=== PATIENT | male | born 1955 | race Caucasian/White ===

== ENCOUNTER 2016-08-13 08:06 | Emergency (ER) | payer BC ==
[2016-08-13 08:10] VITALS: RESP 18
--- NOTE | 2016-08-13 08:46 | ED ---
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 He currently is asymptomatic. He does relate that he has been having symptoms like this since restarting his cholesterol medication about a week ago. Prior to that he did not have symptoms. He had had problems in the past with cholesterol medications. He currently denies any fevers chills nausea vomiting or other symptoms at this time. Rotation no chest pain. MD Complaint: dizziness, lightheadedness - Related Data Home Medications Medication Instructions Recorded Confirmed Lisinopril [Zestril] 20 mg PO DAILY 11/09/13 08/13/16 Aspirin 81 mg PO DAILY 04/14/15 08/13/16 Cyanocobalamin [Vitamin B-12] 500 mcg PO DAILY 04/14/15 08/13/16 Multivit-Mins/Iron/Folic/Lycop 1 cap PO DAILY 04/14/15 08/13/16 [Centrum Men's Tablet] [place]-3 Fatty Acids/Fish Oil [Fish 1 cap PO DAILY 04/14/15 08/13/16 Oil 1,000 mg Softgel] Ascorbic Acid [Vitamin C] 500 mg PO DAILY 08/13/16 08/13/16 Atorvastatin [Lipitor] 10 mg PO DAILY 08/13/16 08/13/16 Ergocalciferol (Vitamin D2) 50,000 unit PO SA 08/13/16 08/13/16 [Vitamin D2] Vitamin E (Dl,Tocopheryl Acet) 400 unit PO DAILY 08/13/16 08/13/16 [Vitamin E] Previous Rx's Medication Instructions Recorded Clopidogrel [Plavix] 75 mg PO DAILY #60 tab 11/15/13 Metoprolol Tartrate [Lopressor] 25 mg PO BID #60 tab 11/15/13 Allergies Allergy/AdvReac Type Severity Reaction Status Date / Time Rlpcyap-Thl-Mrk Reductase Allergy Unknown Rash/Hives Verified 08/13/16 08:45 Inhibitor Review of Systems ROS Statement: Those systems with pertinent positive or pertinent negative responses have been documented in the HPI. ROS Other: All systems not noted in ROS Statement are negative. Past Medical History Past Medical History: Coronary Artery Disease (CAD), GERD/Reflux, Hyperlipidemia , Hypertension Additional Past Medical History / Comment(s): IRRITABLE BOWEL History of Any Multi-Drug Resistant Organisms: None Reported Past Surgical History: Heart Catheterization With Stent, Orthopedic Surgery Additional Past Surgical History / Comment(s): KNEE SURGERY Past Anesthesia/Blood Transfusion Reactions: No Reported Reaction Date of Last Stent Placement:: 09/2013 Past Psychological History: No Psychological Hx Reported Smoking Status: Former smoker Past Alcohol Use History: Occasional Additional Past Alcohol Use History / Comment(s): pt. states he drinks beer occassionally Past Drug Use History: None Reported - Past Family History Father Family Medical History: Osteoarthritis (OA) Additional Family Medical History / Comment(s): pt. states both of his parenrs are living and are healthy, pt. states they have had your average issues such as hip replacments, etc Mother Family Medical History: Osteoarthritis (OA) General Exam - General Exam Comments Initial Comments: This is a well-developed well-nourished awake alert oriented times 3 male Limitations: no limitations General appearance: alert, in no apparent distress Head exam: Present: atraumatic, normocephalic, normal inspection Eye exam: Present: normal appearance, PERRL, EOMI. Absent: scleral icterus, conjunctival injection, periorbital swelling ENT exam: Present: normal exam, mucous membranes moist Neck exam: Present: normal inspection. Absent: tenderness, meningismus, lymphadenopathy Respiratory exam: Present: normal lung sounds bilaterally. Absent: respiratory distress, wheezes, rales, rhonchi, stridor Cardiovascular Exam: Present: regular rate, normal rhythm, normal heart sounds. Absent: systolic murmur, diastolic murmur, rubs, gallop, clicks GI/Abdominal exam: Present: soft, normal bowel sounds. Absent: distended, tenderness, guarding, rebound, rigid Extremities exam: Present: normal inspection, full ROM, normal capillary refill. Absent: tenderness, pedal edema, joint swelling, calf tenderness Back exam: Present: normal inspection Neurological exam: Present: alert, oriented X3, CN II-XII intact Psychiatric exam: Present: normal affect, normal mood Skin exam: Present: warm, dry, intact, normal color. Absent: rash Course Vital Signs 08/13/16 08/13/16 08:07 09:00 Temperature 99.5 F Pulse Rate 79 79 Respiratory 18 18 Rate Blood Pressure 137/65 118/67 O2 Sat by Pulse 95 96 Oximetry - Reevaluation(s) Reevaluation #1: 08/13/16 10:05 I did compare the EKG performed today with one dated 04/14/15 no acute changes were noted. EKG Findings - EKG Results: EKG: interpreted by MARNI, sinus rhythm (Sinus rhythm rate is 75 HI of 160 QRS of 90 QT/QTC of 42/448 old inferior changes no acute ST-T wave abnormalities is evidence of anterior changes.) Medical Decision Making - Medical Decision Making I did discuss findings with the patient has . Patient will be discharged the symptoms are likely secondary to his anticholesterol medication. He will follow up with Dr. العلي regarding this. He is return when necessary I also did recommend he increase his fluid intake. - Lab Data Result diagrams: 08/13/16 08:30 08/13/16 08:30 Lab Results 08/13/16 08/13/16 08/13/16 Range/Units 08:30 08:30 08:30 WBC 10.0 (3.8-10.6) k/uL RBC 4.66 (4.30-5.90) m/uL Hgb 14.6 (13.0-17.5) gm/dL Hct 41.5 (39.0-53.0) % MCV 89.0 (80.0-100.0) fL MCH 31.3 (25.0-35.0) pg MCHC 35.2 (31.0-37.0) g/dL RDW 13.7 (11.5-15.5) % Plt Count 241 (150-450) k/uL Neutrophils % 69 % Lymphocytes % 20 % Monocytes % 4 % Eosinophils % 2 % Basophils % 0 % Neutrophils # 6.9 (1.3-7.7) k/uL Lymphocytes # 2.0 (1.0-4.8) k/uL Monocytes # 0.4 (0-1.0) k/uL Eosinophils # 0.2 (0-0.7) k/uL Basophils # 0.0 (0-0.2) k/uL Sodium 139 (137-145) mmol/L Potassium 4.8 (3.5-5.1) mmol/L Chloride 105 (98-107) mmol/L Carbon Dioxide 20 L (22-30) mmol/L Anion Gap 14 mmol/L BUN 17 (9-20) mg/dL Creatinine 0.50 L (0.66-1.25) mg/dL Est GFR (MDRD) Af Amer >60 (>60 ml/min/1.73 sqM) Est GFR (MDRD) Non-Af >60 (>60 ml/min/1.73 sqM) Glucose 121 H (74-99) mg/dL Calcium 10.1 (8.4-10.2) mg/dL Magnesium 1.9 (1.6-2.3) mg/dL Total Bilirubin 0.6 (0.2-1.3) mg/dL AST 28 (17-59) U/L ALT 50 (21-72) U/L Alkaline Phosphatase 99 (38-126) U/L Total Creatine Kinase 108 (55-170) U/L CK-MB (CK-2) 1.5 (0.0-2.4) ng/mL CK-MB (CK-2) Rel Index 1.4 Troponin I <0.012 (0.000-0.034) ng/mL Total Protein 8.4 H (6.3-8.2) g/dL Albumin 4.8 (3.5-5.0) g/dL - Radiology Data Radiology results: report reviewed (I did review the imaging and report no acute findings.), image reviewed Disposition Clinical Impression: Dehydration, Dizziness, Adverse reaction to statin medication Disposition: HOME SELF-CARE Condition: Good Instructions: Dizziness (ED), Dehydration (ED) Additional Instructions: Follow-up with Dr. LEENA العلي regarding the symptoms and the medication. Recommend contacting his office today Referrals: Eliu Dailey MD [Primary Care Provider] - 1-2 days
--- NOTE | 2016-08-13 08:56 | XR ---
EXAMINATION TYPE: XR chest 2V DATE OF EXAM: 08/13/2016 COMPARISON: Chest x-ray April 14, 2015. HISTORY: Cough per order. TECHNIQUE: Frontal and lateral views of the chest are obtained. FINDINGS: There is no focal air space opacity, pleural effusion, or pneumothorax seen. The cardiac silhouette size is slightly enlarged but less prominent than prior. The osseous structures are inta ct. IMPRESSION: No suspicious acute pulmonary process.
[2016-08-13 09:01] LABS: Basophils % (A) 0 %; CH 31.2; CHCM 35.3; Eosinophils # (A) 0.2 k/uL (0-0.7); Eosinophils % (A) 2 %; HCT 41.5 % (39.0-53.0); HDW 2.82; HGB 14.6 gm/dL (13.0-17.5); Luc # (Auto) 0.39; Luc % (Auto) 4; Lymphocytes % (A) 20 %; MCH 31.3 pg (25.0-35.0); MCHC 35.2 g/dL (31.0-37.0); Monocytes # (A) 0.4 k/uL (0-1.0); Monocytes % (A) 4 %; Neutrophils # (A) 6.9 k/uL (1.3-7.7); Neutrophils % (A) 69 %; RBC 4.66 m/uL (4.30-5.90); RDW 13.7 % (11.5-15.5)
[2016-08-13 09:09] LABS: ALT 50 U/L (21-72); AST 28 U/L (17-59); Alkaline Phosphatase 99 U/L (38-126); Anion Gap 14 mmol/L; Blood Urea Nitrogen 17 mg/dL (9-20); Calcium 10.1 mg/dL (8.4-10.2); Carbon Dioxide 20 mmol/L (22-30); Chloride 105 mmol/L (98-107); Glucose 121 mg/dL (74-99); Magnesium 1.9 mg/dL (1.6-2.3); Non-African American GFR(MDRD) >60 (>60 ml/min/1.73 sqM); Potassium 4.8 mmol/L (3.5-5.1); Sodium 139 mmol/L (137-145); Total Bilirubin 0.6 mg/dL (0.2-1.3); Total Protein 8.4 g/dL (6.3-8.2)
[2016-08-13 09:34] LABS: Creatine Kinase 108 U/L (55-170)
[2016-08-13 09:46] LABS: Creatine Kinase MB 1.5 ng/mL (0.0-2.4); Troponin I <0.012 ng/mL (0.000-0.034)
[2016-08-13 10:55] VITALS: BP 109/71; PULSE 81; TEMP 98
== END 2016-08-13 10:55 | disposition home or self-care (01) ==
LOC: EC 08:06
DX: R42 Dizziness and giddiness (principal); E86.0 Dehydration; T46.6X5A Adverse effect of antihyperlipidemic and antiarteriosclerotic drugs, initial encounter; I10 Essential (primary) hypertension; E78.5 Hyperlipidemia, unspecified; I25.10 Atherosclerotic heart disease of native coronary artery without angina pectoris; Z95.5 Presence of coronary angioplasty implant and graft; Z79.82 Long term (current) use of aspirin; Z79.899 Other long term (current) drug therapy; Z88.8 Allergy status to other drugs, medicaments and biological substances
CPT/HCPCS: 36415; 71020; 80053; 82550; 82553; 83735; 84484; 85025; 93005; 99284

== ENCOUNTER → 2018-05-10 | Outpatient (CLI) | payer MEDICAID | END | disposition home or self-care (01) | LOC: RADMRIMAIN 11:00 | PROVIDERS: ATTEND Family Medicine | DX: Z53.9 Procedure and treatment not carried out, unspecified reason (principal) ==

== ENCOUNTER 2020-05-19 09:21 | Observation (INO) | payer BC ==
[2020-05-19] MEDS ORDERED: ASPIRIN 81 MG PO STA (09:49)
[2020-05-19] MEDS ORDERED: NITROGLYCERIN OINT 1 INCH/GM PACKET TOPICAL STA (09:49)
--- NOTE | 2020-05-19 09:55 | ED ---
Chest Pain HPI - General Chief Complaint: Chest Pain Stated Complaint: chest tightness Time Seen by Provider: 05/19/20 09:29 Source: patient, family, RN notes reviewed, old records reviewed Mode of arrival: ambulatory Limitations: no limitations - History of Present Illness Initial Comments: This is a 65-year-old male with a history of coronary vascular disease with history of stent placement who apparently recently had an abnormal stress test and is scheduled to have a heart catheterization in 2 days. He presents today with complaints of recurrent retrosternal chest tightness worse at 45/10 severity currently about 2/10 severity does seem to get worse with exertion. No fevers chills nausea vomiting sweats no other symptoms reported at this time. The patient did take 81 mg of aspirin this morning. MD Complaint: chest pain - Related Data Home Medications Medication Instructions Recorded Confirmed lisinopriL [Zestril] 20 mg PO DAILY 11/09/13 05/19/20 Multivit-Mins/Iron/Folic/Lycop 1 tab PO DAILY 04/14/15 05/19/20 [Centrum Men's Tablet] [place]-3 Fatty Acids/Fish Oil [Fish 1 cap PO DAILY 04/14/15 05/19/20 Oil 1,000 mg Softgel] Ascorbic Acid [Vitamin C] 500 mg PO DAILY 08/13/16 05/19/20 Vitamin E (Dl,Tocopheryl Acet) 400 unit PO DAILY 08/13/16 05/19/20 [Vitamin E] Aspirin EC [Ecotrin Low Dose] 81 mg PO BID 05/19/20 05/19/20 Previous Rx's Medication Instructions Recorded Metoprolol Tartrate [Lopressor] 25 mg PO BID #60 tab 11/15/13 Allergies Allergy/AdvReac Type Severity Reaction Status Date / Time Ceqbjhz-Msk-Kib Reductase Allergy Unknown Rash/Hives/Joint Verified 05/19/20 10:27 Inhibitor Pain Review of Systems ROS Statement: Those systems with pertinent positive or pertinent negative responses have been documented in the HPI. ROS Other: All systems not noted in ROS Statement are negative. EKG Findings - EKG Results: EKG: interpreted by MARNI, sinus rhythm (Sinus rhythm a 71 appear interval 164 QRS 92 QT since QTC 42/or 36 left exodeviation evidence of old inferior changes no evidence of acute ST-T wave changes at this time.) Past Medical History Past Medical History: Coronary Artery Disease (CAD), GERD/Reflux, Hyperlipidemia, Hypertension, Sleep Apnea/CPAP/BIPAP Additional Past Medical History / Comment(s): IRRITABLE BOWEL SYNDROME,uses cpap History of Any Multi-Drug Resistant Organisms: None Reported Past Surgical History: Heart Catheterization With Stent, Joint Replacement Additional Past Surgical History / Comment(s): JANESSA KNEE REPLACEMENTS,HEART STENTS X2 Past Anesthesia/Blood Transfusion Reactions: No Reported Reaction Date of Last Stent Placement:: 09/2013 Past Psychological History: No Psychological Hx Reported Smoking Status: Never smoker Past Alcohol Use History: Occasional Past Drug Use History: None Reported - Past Family History Father Family Medical History: Osteoarthritis (OA) Additional Family Medical History / Comment(s): pt. states both of his parents are living and are healthy, pt. states they have had your average issues such as hip replacments, etc Mother Family Medical History: Osteoarthritis (OA) General Exam - General Exam Comments Initial Comments: This is a well-developed well-nourished awake alert oriented times 3 male Limitations: no limitations General appearance: alert, in no apparent distress Head exam: Present: atraumatic, normocephalic, normal inspection Eye exam: Present: normal appearance, PERRL, EOMI. Absent: scleral icterus, conjunctival injection, periorbital swelling ENT exam: Present: normal exam, mucous membranes moist Neck exam: Present: normal inspection, full ROM, other (No stridor JVD or bruits). Absent: tenderness, meningismus, lymphadenopathy Respiratory exam: Present: normal lung sounds bilaterally. Absent: respiratory distress, wheezes, rales, rhonchi, stridor Cardiovascular Exam: Present: regular rate, normal rhythm, normal heart sounds. Absent: systolic murmur, diastolic murmur, rubs, gallop, clicks GI/Abdominal exam: Present: soft, normal bowel sounds. Absent: distended, tenderness, guarding, rebound, rigid Extremities exam: Present: normal inspection, full ROM, normal capillary refill. Absent: tenderness, pedal edema, joint swelling, calf tenderness Back exam: Present: normal inspection Neurological exam: Present: alert, oriented X3, CN II-XII intact Psychiatric exam: Present: normal affect, normal mood Skin exam: Present: warm, dry, intact, normal color. Absent: rash Course Vital Signs 05/19/20 09:23 Temperature 97.9 F Pulse Rate 73 Respiratory 18 Rate Blood Pressure 156/72 O2 Sat by Pulse 98 Oximetry - Reevaluation(s) Reevaluation #1: 05/19/20 11:03 Reevaluation patient reveals that he has no further chest discomfort at this time Chest Pain MDM - MDM I did discuss findings with the patient family as well as with Dr. Mccollum patient be admitted with cardiology consultation. The presentation is consistent with unstable angina. Critical Care Time Critical Care Time: Yes Total Critical Care Time: 33 Critical Care Time: Critical care time includes initial presentation with history physical labs x- rays multiple reevaluation patient response to therapy review of old charting is available discussed with the patient family regarding findings discussion with the main physician admission orders and documentation of the above Disposition Clinical Impression: Unstable angina, Chest pain Disposition: [facility] Condition: Fair Referrals: Eliu Dailey MD [Primary Care Provider] - 1-2 days
[2020-05-19 10:00] LABS: Basophils % (A) 1 %; Eosinophils # (A) 0.2 k/uL (0-0.7); Eosinophils % (A) 2 %; HCT 44.1 % (39.0-53.0); HGB 15.2 gm/dL (13.0-17.5); Lymphocytes % (A) 24 %; MCH 30.9 pg (25.0-35.0); MCHC 34.4 g/dL (31.0-37.0); MCV 89.8 fL (80.0-100.0); Mean Platelet Volume 6.7; Monocytes # (A) 0.4 k/uL (0-1.0); Monocytes % (A) 5 %; Neutrophils # (A) 5.3 k/uL (1.3-7.7); Neutrophils % (A) 66 %; Platelet Count 241 k/uL (150-450); RBC 4.91 m/uL (4.30-5.90); RDW 13.1 % (11.5-15.5); WBC 8.1 k/uL (3.8-10.6)
[2020-05-19 10:12] LABS: D-Dimer 0.34 mg/L FEU (<0.60); Partial Thromboplastin Time 26.1 sec (22.0-30.0); Prothrombin Time 10.3 sec (9.0-12.0)
--- NOTE | 2020-05-19 10:27 | XR ---
EXAMINATION TYPE: XR chest 2V DATE OF EXAM: 05/19/2020 COMPARISON: 08/13/2016 INDICATION: Chest tightness TECHNIQUE: Frontal and lateral views of the chest are obtained. FINDINGS: The heart size is normal. The pulmonary vasculature is normal. The lungs are clear. IMPRESSION: 1. No acute pulmonary process.
[2020-05-19 10:33] LABS: ALT 29 U/L (4-49); African American GFR (CKD) >90 (>60 ml/min/1.73 sqM); Albumin 4.8 g/dL (3.5-5.0); Anion Gap 12 mmol/L; Blood Urea Nitrogen 13 mg/dL (9-20); Carbon Dioxide 20 mmol/L (22-30); Chloride 105 mmol/L (98-107); Creatine Kinase 137 U/L (55-170); Glucose 123 mg/dL (74-99); Lipase 114 U/L (23-300); Non-African American GFR(CKD) >90 (>60 ml/min/1.73 sqM); Sodium 137 mmol/L (137-145); Total Bilirubin 0.6 mg/dL (0.2-1.3)
[2020-05-19 10:39] LABS: Magnesium 1.9 mg/dL (1.6-2.3); Potassium 5.1 mmol/L (3.5-5.1)
[2020-05-19 10:40] LABS: AST 35 U/L (17-59); Alkaline Phosphatase 77 U/L (38-126)
[2020-05-19] MEDS ORDERED: NITROGLYCERIN SL TABS 0.4 MG TAB SUBLINGUAL PRN (11:04)
[2020-05-19] MEDS ORDERED: HEPARIN SODIUM,PORCINE 5,000 UNIT/ML 1 ML VIAL IV ONE (11:07)
[2020-05-19] MEDS ORDERED: HEPARIN SOD,PORK IN 0.45% NACL 25,000 UNIT in 0.45% NACL 1 250ML.BAG IV SCH (11:15)
[2020-05-19] MEDS ORDERED: SODIUM CHLORIDE 0.9% 500 ML 500 ML IV SCH (11:30)
[2020-05-19 12:12] VITALS: RESP 16
[2020-05-19] MEDS: NITROGLYCERIN OINT 1 INCH/GM PACKET TOPICAL SCH ×2 (12:36→17:15)
--- NOTE | 2020-05-19 14:22 | P.CRDCN ---
History of Present Illness Consult date: 05/19/20 Reason for Consult (text): Chest pain Consult reason: chest pain Chief complaint: Chest pain History of present illness: HISTORY OF PRESENT ILLNESS AND PLAN: This is a 65-year-old male with history of morbid obesity, hypertension, hyperlipidemia, CAD status post PCI to RCA and LAD. Patient presents to ER this a.m. with complaints of chest tightness and exertional shortness of breath with activity. Patient follows with Dr. LEENA العلي in office and is well-known. Patient was planning to have cardiac cath on 05/21/2020 but began to experience significant chest tightness with shortness of breath and decided to come to the ER. Patient currently lying in bed in no acute distress. No current complaints of chest pain, chest pressure, shortness of breath or palpitations. Patient is morbidly obese. EKG shows sinus rhythm no acute changes. Troponin mildly elevated at 0.023 and 0.023. VSS, 99% on RA. SIGNIFICANT PAST MEDICAL HISTORY: Morbid obesity, hypertension, hyperlipidemia, CAD status post PCI to RCA and LAD. PAST SURGICAL HISTORY: See list. EKG = Sinus Rhythm, HR 71 Troponins negative positive x 2 @ 0.023 and 0.023 SIGNIFICANT LABORATORY VALUES: Chest x-ray = no acute process CT of chest = Most recent echo 05/2018 = EF 50%, inferior basal septal hypokinesia. No significant pulmonary hypertension Most recent Lexiscan 05/04/20 stress test shows new moderate to severe intensity moderate size inferior lateral reversible defect with small fixed component and reduced EF at 45%. Most recent cardiac cath 10/2013 = PCI stenting of CX marginal with drug-eluting stent and proximal LAD with drug-eluting stent 2013 REVIEW OF SYSTEMS: CONSTITUTIONAL: Denies fever. Denies chills. EYES: Denies blurred vision. Denies blurred vision or vision changes. Denies eye pain. EARS, NOSE, MOUTH & THROAT: Denies headache. Denies sore throat. Denies ear pain Denies hemoptysis. CARDIOVASCULAR: Complains of chest pain and shortness of breath with exertion. Denies orthopnea. Denies PND. Denies palpitations. RESPIRATORY: Denies cough. Denies shortness of breath. GASTROINTESTINAL: Denies abdominal pain or distention. Denies diarrhea. Denies constipation. Denies nausea. Denies vomiting. MUSCULOSKELETAL: Denies myalgias. INTEGUMENTARY: Denies pruitis. Denies rash. ENDOCRINE: Denies fatigue. Denies weight change. Denies polydipsia. Denies polyurina Denies heat/cold intolerance. GENITOURINARY: Denies burning, hematuria or urgency with micturation. HEMATOLOGIC: Denies history of anemia. Denies bleeding. NEUROLOGIC: Denies numbness. Denies tingling. Denies weakness. PSYCHIATRIC: Denies anxiety. Denies depression. PHYSICAL EXAM: GENERAL: Morbid obesity. Well developed, in no acute distress. HEENT: Head is atraumatic, normocephalic. Pupils are equal, round. Extra ocular movements intact. Mucous membranes moist. Neck supple. No JVD. No carotid bruit. No thyromegaly. LUNGS: Clear to auscultation. No wheezes, rales or rhonchi. No chest wall tenderness on palpation or with deep breathing. HEART: Regular rate and rhythm, no rubs or gallops. S1 and S2 heard. No murmur. ABDOMEN: Abdominal exam, WNL. Bowel sounds x4 quads. Soft, non-tender, without masses, organomegaly, or abdominal aorta enlargement. EXTREMITIES/VASCULAR: Extremities have easily palpable radial, femoral, dorsalis pedis and posterior tibial pulses. No cyanosis, calf tenderness. No BLE edema. NEUROLOGIC: Patient is awake, alert and oriented x3. No focal neurologic abnormalities. FINAL IMPRESSION: 1. Chest pain 2. CAD s/p PCI x 2 3. Hypertension 4. Hyperlipidemia 5. Morbid Obesity PLAN: Continue Heparin drip. Continue home medications. We will continue to follow with serial troponins. Nothing by mouth after midnight, pending possible cardiac cath on 05/20/2020 instead of Thursday. Heart healthy diet. Nurse Practitioner note has been reviewed by the Physician. Signing provider agrees with the documented findings, assessment and plan of care. Past Medical History Past Medical History: Coronary Artery Disease (CAD), GERD/Reflux, Hyperlipidemia, Hypertension, Sleep Apnea/CPAP/BIPAP Additional Past Medical History / Comment(s): IRRITABLE BOWEL SYNDROME,uses cpap History of Any Multi-Drug Resistant Organisms: None Reported Past Surgical History: Heart Catheterization With Stent, Joint Replacement Additional Past Surgical History / Comment(s): JANESSA KNEE REPLACEMENTS,HEART STENTS X2 Past Anesthesia/Blood Transfusion Reactions: No Reported Reaction Date of Last Stent Placement:: 09/2013 Past Psychological History: No Psychological Hx Reported Smoking Status: Former smoker Past Alcohol Use History: Occasional Additional Past Alcohol Use History / Comment(s): pt. states he drinks beer occassionally Past Drug Use History: None Reported - Past Family History Father Family Medical History: Osteoarthritis (OA) Additional Family Medical History / Comment(s): pt. states both of his parents are living and are healthy, pt. states they have had your average issues such as hip replacments, etc Mother Family Medical History: Osteoarthritis (OA) Medications and Allergies Home Medications Medication Instructions Recorded Confirmed Type lisinopriL [Zestril] 20 mg PO DAILY 11/09/13 05/19/20 History Metoprolol Tartrate [Lopressor] 25 mg PO BID #60 tab 11/15/13 05/19/20 Rx Multivit-Mins/Iron/Folic/Lycop 1 tab PO DAILY 04/14/15 05/19/20 History [Centrum Men's Tablet] [place]-3 Fatty Acids/Fish Oil [Fish 1 cap PO DAILY 04/14/15 05/19/20 History Oil 1,000 mg Softgel] Ascorbic Acid [Vitamin C] 500 mg PO DAILY 08/13/16 05/19/20 History Vitamin E (Dl,Tocopheryl Acet) 400 unit PO DAILY 08/13/16 05/19/20 History [Vitamin E] Aspirin EC [Ecotrin Low Dose] 81 mg PO BID 05/19/20 05/19/20 History Allergies Allergy/AdvReac Type Severity Reaction Status Date / Time Jaoemsu-Rlo-Vxp Reductase Allergy Unknown Rash/Hives/Joint Verified 05/19/20 10:27 Inhibitor Pain Physical Exam Vitals: Vital Signs Temp Pulse Pulse Resp BP BP Pulse Ox 05/19/20 12:30 16 05/19/20 12:11 98.2 F 78 16 128/74 94 L 05/19/20 11:15 98.3 F 78 18 150/86 96 05/19/20 09:23 97.9 F 73 18 156/72 98 Intake and Output 05/18/20 05/19/20 05/19/20 22:59 06:59 14:59 Intake Total 80 Balance 80 Intake: IV 80 Sodium Chloride 0.9% 500 80 ml 500 ml @ 20 mls/hr IV .Q24H [facility] Rx#:[id number] Other: Voiding Method Toilet Weight 104.326 kg Results 05/19/20 09:42 05/19/20 09:42 Cardiac Enzymes 05/19/20 05/19/20 05/19/20 Range/Units 09:42 09:42 12:44 AST 35 (17-59) U/L Troponin I 0.023 0.023 (0.000-0.034) ng/mL Coagulation 05/19/20 Range/Units 09:42 PT 10.3 (9.0-12.0) sec APTT 26.1 (22.0-30.0) sec CBC 05/19/20 Range/Units 09:42 WBC 8.1 (3.8-10.6) k/uL RBC 4.91 (4.30-5.90) m/uL Hgb 15.2 (13.0-17.5) gm/dL Hct 44.1 (39.0-53.0) % Plt Count 241 (150-450) k/uL Comprehensive Metabolic Panel 05/19/20 Range/Units 09:42 Sodium 137 (137-145) mmol/L Potassium 5.1 (3.5-5.1) mmol/L Chloride 105 (98-107) mmol/L Carbon Dioxide 20 L (22-30) mmol/L BUN 13 (9-20) mg/dL Creatinine 0.45 L (0.66-1.25) mg/dL Glucose 123 H (74-99) mg/dL Calcium 10.0 (8.4-10.2) mg/dL AST 35 (17-59) U/L ALT 29 (4-49) U/L Alkaline Phosphatase 77 (38-126) U/L Total Protein 8.0 (6.3-8.2) g/dL Albumin 4.8 (3.5-5.0) g/dL Current Medications Generic Name Dose Route Start Last Admin Trade Name Freq PRN Reason Stop Dose Admin Ascorbic Acid 500 mg 05/20/20 09:00 Ascorbic Acid 500 Mg Tab PO DAILY [facility] Aspirin 81 mg 05/19/20 21:00 Aspirin 81 Mg PO BID [facility] Heparin Sodium/Sodium Chloride 250 mls @ 10 mls/hr 05/19/20 11:15 05/19/20 11:52 25,000 unit/ Sodium Chloride IV 9.585 units/kg/hr .Q24H [facility] 10 mls/hr Administration Protocol 9.585 UNITS/KG/HR Sodium Chloride 500 mls @ 20 mls/hr 05/19/20 11:30 05/19/20 11:49 Saline 0.9% IV 20 mls/hr .Q24H [facility] Administration Lisinopril 20 mg 05/20/20 09:00 Lisinopril 20 Mg Tab PO DAILY [facility] Metoprolol Tartrate 25 mg 05/19/20 21:00 Metoprolol Tartrate 25 Mg Tab PO BID [facility] Multivitamins 1 each 05/20/20 09:00 Multivitamins, Thera 1 Each Tab PO DAILY [facility] Nitroglycerin 0.4 mg 05/19/20 11:04 Nitroglycerin Sl Tabs 0.4 Mg Tab SUBLINGUAL Q5M PRN Chest Pain Nitroglycerin 1 inch 05/19/20 12:00 05/19/20 12:36 Nitroglycerin Oint 1 Inch/Gm Packet TOPICAL 1 inch Q6HR [facility] Administration Vitamin E 400 unit 05/20/20 09:00 Vitamin E (Dl,Tocopheryl Acet) 400 Unit Cap PO DAILY [facility] Intake and Output 05/18/20 05/19/20 05/19/20 22:59 06:59 14:59 Intake Total 80 Balance 80 Intake: IV 80 Sodium Chloride 0.9% 500 80 ml 500 ml @ 20 mls/hr IV .Q24H [facility] Rx#:[id number] Other: Voiding Method Toilet Weight 104.326 kg Patient Weight 05/20/20 06:59 Weight 104.326 kg 05/19/20 09:42 05/19/20 09:42 EKG Interpretations (text) Sinus Rhythm
--- NOTE | 2020-05-19 16:00 | PN ---
PROGRESS NOTE Mr. Pope is a gentleman with known multivessel PCI. He was advised cardiac catheterization which is electively to be performed on Thursday because of an abnormal stress test. However, he was admitted to the hospital because he came in with chest discomfort to the emergency room this morning. He was seen by the emergency room physician, Dr. Bates and advised hospitalization. He had a 2/10 chest discomfort which seems to have resolved. He is feeling well at this time. No chest pain or shortness of breath at the time of my evaluation. Please see the detailed consultation by the nurse practitioner. Plan is to treat him medically for now. Obtain serial troponins, but if he has more pain, I will study him tomorrow as opposed to Thursday. I discussed my thoughts in detail with the patient and we will follow him closely. MMSOLITARIOL / IJN: [id number] /
[2020-05-19] MEDS ORDERED: MECLIZINE 25 MG TAB PO PRN (17:02)
[2020-05-19] MEDS: HEPARIN SODIUM,PORCINE 5,000 UNIT/ML 1 ML VIAL IV PRN (18:04)
--- NOTE | 2020-05-19 19:36 | P.HPIM ---
History of Present Illness H&P Date: 05/19/20 Chief Complaint: Chest tightness History of presenting complaint: This is a pleasant 65-year-old patient of Dr. hirsch. Follows with cardiology Dr. LEENA العلي. Has known coronary artery due to stent about 7 years ago. Other chronic stable medical conditions include GERD, hypertension, hyperlipidemia, irritable bowel syndrome, obstructive sleep apnea uses CPAP. Patient developed chest tightness last night and also developed this morning. He thinks he had some more short episodes prior to that. He was a bit dizzy. No perspiration or shortness of breath. No radiation. Present for variable duration. Decided to come in as he is concerned about unstable angina. Patient was planned for a chordee catheterization on May 21 but recently had a positive stress test. Review of systems: GEN.: None EYES: None HEENT: None NECK: None RESPIRATORY: None CARDIOVASCULAR: As above GASTROINTESTINAL: None GENITOURINARY: None MUSCULOSKELETAL: None LYMPHATICS: None HEMATOLOGICAL: None PSYCHIATRY: None NEUROLOGICAL: None Past medical history to include: Chordee artery disease with stent, 7 years ago, GERD, hyperlipidemia, hypertension, obstructive sleep apnea uses CPAP, irritable bowel syndrome Social history: . 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 Alcohol occasionally. Did smoke in the past. Physical examination: VITAL SIGNS: 98.3, 78, 18, 128/74, 94% on room air GENERAL: BMI 36, reclining in bed, awake. EYES: Pupils equal. Conjunctiva normal. HEENT: External appearance of nose and ears normal, oral cavity grossly normal. NECK: JVD not raised; masses not palpable. HEART: First and second heart sounds are normal; no edema. LUNGS: Respiratory rate normal; clear to auscultation. ABDOMEN: Soft, nontender, liver spleen not palpable, no masses palpable. PSYCH: Alert and oriented x3; mood and affect normal. NEUROLOGICAL: Cranial nerves grossly intact; no facial asymmetry, power and sensation grossly intact. LYMPHATICS: No lymph nodes palpable in the axilla and neck INVESTIGATIONS, reviewed in the clinical context: WBC 8.1 hemoglobin 15.2 platelets 241 potassium 5.1 creatinine 0.45 Potassium 5.1 creatinine 0.45 Troponin I 0.023, 0.023, 0.021 Coronavirus [PCR] not detected EKG tracing personally reviewed by de-Q waves in inferior leads Chest x-ray film personally reviewed by me-cardiomegaly Assessment and plan: -Unstable angina in a patient with known coronary artery disease and a recent positive stress test. Patient was scheduled as an outpatient for a cardiac cath on May 21. Patient on aspirin and beta bev Nitropaste. IV heparin. -IV heparin monitoring -GERD, use Pepcid when necessary -Hyperlipidemia, and Lipitor -Essential hypertension, on lisinopril and beta bev -Obstructive sleep apnea uses CPAP -Irritable bowel syndrome -Obesity BMI 36 -Coronary artery disease with prior stent 7 years ago Care was discussed with the patient. Cardiac catheterization as per cardiology Past Medical History Past Medical History: Coronary Artery Disease (CAD), GERD/Reflux, Hyperlip idemia, Hypertension, Sleep Apnea/CPAP/BIPAP Additional Past Medical History / Comment(s): IRRITABLE BOWEL SYNDROME,uses cpap History of Any Multi-Drug Resistant Organisms: None Reported Past Surgical History: Heart Catheterization With Stent, Joint Replacement Additional Past Surgical History / Comment(s): JANESSA KNEE REPLACEMENTS,HEART STENTS X2 Past Anesthesia/Blood Transfusion Reactions: No Reported Reaction Date of Last Stent Placement:: 09/2013 Past Psychological History: No Psychological Hx Reported Smoking Status: Never smoker Past Alcohol Use History: Occasional Past Drug Use History: None Reported - Past Family History Father Family Medical History: Osteoarthritis (OA) Additional Family Medical History / Comment(s): pt. states both of his parents are living and are healthy, pt. states they have had your average issues such as hip replacments, etc Mother Family Medical History: Osteoarthritis (OA) Medications and Allergies Home Medications Medication Instructions Recorded Confirmed Type lisinopriL [Zestril] 20 mg PO DAILY 11/09/13 05/19/20 History Metoprolol Tartrate [Lopressor] 25 mg PO BID #60 tab 11/15/13 05/19/20 Rx Multivit-Mins/Iron/Folic/Lycop 1 tab PO DAILY 04/14/15 05/19/20 History [Centrum Men's Tablet] [place]-3 Fatty Acids/Fish Oil [Fish 1 cap PO DAILY 04/14/15 05/19/20 History Oil 1,000 mg Softgel] Ascorbic Acid [Vitamin C] 500 mg PO DAILY 08/13/16 05/19/20 History Vitamin E (Dl,Tocopheryl Acet) 400 unit PO DAILY 08/13/16 05/19/20 History [Vitamin E] Aspirin EC [Ecotrin Low Dose] 81 mg PO BID 05/19/20 05/19/20 History Allergies Allergy/AdvReac Type Severity Reaction Status Date / Time [id number] Reductase Allergy Unknown Rash/Hives/Joint Verified 05/19/20 10:27 Inhibitor Pain Physical Exam Vitals: Vital Signs Temp Pulse Resp BP Pulse Ox 05/19/20 11:15 98.3 F 78 18 150/86 96 05/19/20 09:23 97.9 F 73 18 156/72 98 Intake and Output 05/18/20 05/19/20 05/19/20 22:59 06:59 14:59 Other: Weight 104.326 kg Results CBC & Chem 7: 05/19/20 09:42 05/19/20 09:42 Labs: Abnormal Lab Results - Last 24 Hours (Table) 05/19/20 Range/Units 09:42 Carbon Dioxide 20 L (22-30) mmol/L Creatinine 0.45 L (0.66-1.25) mg/dL Glucose 123 H (74-99) mg/dL
[2020-05-19] MEDS: METOPROLOL TARTRATE 25 MG TAB PO SCH (21:03)
[2020-05-19] MEDS: ASPIRIN 81 MG PO SCH (21:04)
[2020-05-20] MEDS: NITROGLYCERIN OINT 1 INCH/GM PACKET TOPICAL SCH ×2 (00:29→05:59)
[2020-05-20] MEDS: HEPARIN SODIUM,PORCINE 5,000 UNIT/ML 1 ML VIAL IV PRN (01:41)
[2020-05-20 02:32] VITALS: PULSE 74
[2020-05-20 03:34] LABS: Cholesterol 275 mg/dL (<200); HDL Cholesterol 57 mg/dL (40-60)
[2020-05-20 03:41] LABS: Triglycerides 912 mg/dL (<150)
[2020-05-20 07:53] VITALS: BP 142/69; TEMP 98.3
[2020-05-20] MEDS: METOPROLOL TARTRATE 25 MG TAB PO SCH (08:39)
[2020-05-20] MEDS: ASPIRIN 81 MG PO SCH (08:39)
[2020-05-20] MEDS ORDERED: MULTIVITAMINS, THERA 1 EACH TAB PO SCH (09:00)
[2020-05-20] MEDS ORDERED: ASCORBIC ACID 500 MG TAB PO SCH (09:00)
[2020-05-20] MEDS ORDERED: ASPIRIN 325 MG TAB PO SCH (09:00)
[2020-05-20] MEDS ORDERED: VITAMIN E (DL,TOCOPHERYL ACET) 400 UNIT CAP PO SCH (09:00)
[2020-05-20] MEDS ORDERED: NON FORMULARY DRUG (Omega-3 Fatty Acids/Fish Oil [Fish Oil 1,000 Mg Softgel] 1 EACH Capsul PO SCH (09:00)
[2020-05-20] MEDS ORDERED: lisinopriL 20 MG TAB PO SCH (09:00)
--- NOTE | 2020-05-20 09:29 | PN ---
PROGRESS NOTE Mr. Pope is a patient with known CAD, was scheduled for elective cardiac cath tomorrow, came into the hospital yesterday with atypical chest pain. Troponins were negative. He is ambulating in the hallways without symptoms. If he has no further chest pain, he can go home and come in for the procedure electively tomorrow as scheduled. Vitals are stable. No JVD. S1, S2 heard normally. Lungs are clear. Abdomen and lower extremity exam is unchanged. If however he has any symptoms I will keep him in the hospital on the heparin drip and perform the procedure tomorrow. I will DC heparin drip, MMODL / IJN: [id number] /
--- NOTE | 2020-05-20 22:21 | P.DS ---
Providers Date of admission: 05/19/20 11:04 Expected date of discharge: 05/20/20 Attending physician: Delvis Mccollum Consults: 05/19/20 11:04 Consult Physician Urgent Consulting Provider: Jarrod العلي Consult Reason/Comments: Chest pain, unstable angina Do you want consulting provider notified?: Yes Primary care physician: Eliu Dailey MD Hospital Course: Chief Complaint: Chest tightness History of presenting complaint: This is a pleasant 65-year-old patient of Dr. dailey. Follows with cardiology Dr. LEENA العلي. Has known coronary artery due to stent about 7 years ago. Other chronic stable medical conditions include GERD, hypertension, hyperlipidemia, irritable bowel syndrome, obstructive sleep apnea uses CPAP. Patient developed chest tightness last night and also developed this morning. He thinks he had some more short episodes prior to that. He was a bit dizzy. No perspiration or shortness of breath. No radiation. Present for variable duration. Decided to come in as he is concerned about unstable angina. Patient was planned for a cardiac catheterization on May 21 but recently had a positive stress test. Admitted with unstable angina. Today-seen by cardiology. Okay to be discharged. Patient not having any further cardiac symptoms. Discussed again and then for the patient and . Told to return to the hospital if pain was to return. Patient scheduled for cardiac cath tomorrow morning. Discussion and discharge planning more than 35 minutes Consultation: Dr. LEENA العلي from cardiology Past medical history to include: Chordee artery disease with stent, 7 years ago, GERD, hyperlipidemia, hypertension, obstructive sleep apnea uses CPAP, irritable bowel syndrome Social history: . [employer] of [employer]. Alcohol occasionally. Did smoke in the past. Physical examination: VITAL SIGNS: 98.3, 74, 16, 1 42 x 69, 94% on room air GENERAL: Sitting up, comfortable. EYES: Pupils equal. Conjunctiva normal. NECK: JVD not raised; masses not palpable. HEART: First and second heart sounds are normal; no edema. LUNGS: Respiratory rate normal; clear to auscultation. ABDOMEN: Soft, nontender, liver spleen not palpable, no masses palpable. PSYCH: Alert and oriented x3; mood and affect normal. INVESTIGATIONS, reviewed in the clinical context: Triglycerides 912 cholesterol 275 WBC 8.1 hemoglobin 15.2 platelets 241 potassium 5.1 creatinine 0.45 Potassium 5.1 creatinine 0.45 Troponin I 0.023, 0.023, 0.021 Coronavirus [PCR] not detected EKG tracing personally reviewed by me-Q waves in inferior leads Chest x-ray film personally reviewed by me-cardiomegaly Assessment and plan: -Unstable angina in a patient with known coronary artery disease and a recent positive stress test. Patient was scheduled as an outpatient for a cardiac cath on May 21. Patient on aspirin and beta bev Nitropaste. IV heparin. -IV heparin monitoring -GERD, use Pepcid when necessary -Hyperlipidemia, and Lipitor -Essential hypertension, on lisinopril and beta bev -Obstructive sleep apnea uses CPAP -Irritable bowel syndrome -Obesity BMI 36 -Coronary artery disease with prior stent 7 years ago Disposition: Home Patient Condition at Discharge: Fair Plan - Discharge Summary New Discharge Prescriptions: New Nitroglycerin Sl Tabs [Nitrostat] 0.4 mg SUBLINGUAL Q5M PRN #30 tab PRN Reason: Chest Pain Continue lisinopriL [Zestril] 20 mg PO DAILY Metoprolol Tartrate [Lopressor] 25 mg PO BID #60 tab [place]-3 Fatty Acids/Fish Oil [Fish Oil 1,000 mg Softgel] 1 cap PO DAILY Multivit-Mins/Iron/Folic/Lycop [Centrum Men's Tablet] 1 tab PO DAILY Vitamin E (Dl,Tocopheryl Acet) [Vitamin E] 400 unit PO DAILY Ascorbic Acid [Vitamin C] 500 mg PO DAILY Aspirin EC [Ecotrin Low Dose] 81 mg PO BID Discharge Medication List lisinopriL [Zestril] 20 mg PO DAILY 11/09/13 [History] Metoprolol Tartrate [Lopressor] 25 mg PO BID #60 tab 11/15/13 [Rx] Multivit-Mins/Iron/Folic/Lycop [Centrum Men's Tablet] 1 tab PO DAILY 04/14/15 [History] [place]-3 Fatty Acids/Fish Oil [Fish Oil 1,000 mg Softgel] 1 cap PO DAILY 04/14/15 [History] Ascorbic Acid [Vitamin C] 500 mg PO DAILY 08/13/16 [History] Vitamin E (Dl,Tocopheryl Acet) [Vitamin E] 400 unit PO DAILY 08/13/16 [History] Aspirin EC [Ecotrin Low Dose] 81 mg PO BID 05/19/20 [History] Nitroglycerin Sl Tabs [Nitrostat] 0.4 mg SUBLINGUAL Q5M PRN #30 tab 05/20/20 [Rx] Follow up Appointment(s)/Referral(s): Jarrod العلي MD [STAFF PHYSICIAN] - 05/21/20 (Return at 0600 as directed for Cardiac cath 05/21/20) Eliu Dailey MD [Primary Care Provider] - 1-2 days Patient Instructions/Handouts: Chest Pain (DC), Heart Healthy Diet (DC) Discharge Disposition: HOME SELF-CARE
== END 2020-05-20 12:30 | disposition home or self-care (01) ==
LOC: EC 09:21 → 6NMEDSUR 11:04
PROVIDERS: ADMIT Hospitalist; ATTEND Hospitalist
DX: I25.110 Atherosclerotic heart disease of native coronary artery with unstable angina pectoris (principal); I11.9 Hypertensive heart disease without heart failure; R94.39 Abnormal result of other cardiovascular function study; E78.5 Hyperlipidemia, unspecified; G47.33 Obstructive sleep apnea (adult) (pediatric); K21.9 Gastro-esophageal reflux disease without esophagitis; K58.9 Irritable bowel syndrome, unspecified; Z99.89 Dependence on other enabling machines and devices; E66.01 Morbid (severe) obesity due to excess calories; Z68.36 Body mass index [BMI] 36.0-36.9, adult; Z79.82 Long term (current) use of aspirin; Z79.899 Other long term (current) drug therapy; Z88.8 Allergy status to other drugs, medicaments and biological substances; Z95.5 Presence of coronary angioplasty implant and graft; Z96.653 Presence of artificial knee joint, bilateral; Z87.891 Personal history of nicotine dependence; Z82.61 Family history of arthritis
CPT/HCPCS: 96376 ×3; 96366 ×2; 93005 ×2; 96365; 99291; 36415; 85379; 80061; 80053; 82550; 83690; 83735; 84484; 85025; 85610; 85730 ×2; 87635; 71046; G0378 ×2; J1644 ×3

== ENCOUNTER 2020-05-21 05:59 | Day surgery (SDC) | payer BC, MEDICAID ==
[2020-05-18 10:06] VITALS: BMI 36.0
[~2020-05-21 05:59] MED LIST: ALPRAZolam 0.25 MG TAB PO PRN; ALPRAZolam 0.5 MG TAB PO PRN; NITROGLYCERIN SL TABS 0.4 MG TAB SUBLINGUAL PRN; SODIUM CHLORIDE 0.9% 1,000 ML in EMPTY BAG 1 BAG IV ONE
[2020-05-21] MEDS ORDERED: ASPIRIN 81 MG ONE (06:13)
[2020-05-21 06:42] LABS: Basophils % (A) 0 %; Eosinophils # (A) 0.4 k/uL (0-0.7); Eosinophils % (A) 4 %; HCT 44.1 % (39.0-53.0); HGB 14.7 gm/dL (13.0-17.5); Lymphocytes % (A) 19 %; MCH 29.8 pg (25.0-35.0); MCHC 33.4 g/dL (31.0-37.0); MCV 89.2 fL (80.0-100.0); Mean Platelet Volume 6.7; Monocytes # (A) 0.6 k/uL (0-1.0); Monocytes % (A) 6 %; Neutrophils # (A) 7.2 k/uL (1.3-7.7); Neutrophils % (A) 70 %; Platelet Count 276 k/uL (150-450); RBC 4.95 m/uL (4.30-5.90); RDW 13.7 % (11.5-15.5); WBC 10.4 k/uL (3.8-10.6)
[2020-05-21] MEDS ORDERED: ASPIRIN 325 MG TAB PO ONE (07:00)
[2020-05-21 07:07] LABS: African American GFR (CKD) >90 (>60 ml/min/1.73 sqM); Anion Gap 10 mmol/L; Blood Urea Nitrogen 17 mg/dL (9-20); Calcium 9.7 mg/dL (8.4-10.2); Carbon Dioxide 23 mmol/L (22-30); Chloride 104 mmol/L (98-107); Glucose 147 mg/dL (74-99); Non-African American GFR(CKD) >90 (>60 ml/min/1.73 sqM); Sodium 137 mmol/L (137-145)
[2020-05-21 07:13] LABS: Potassium 4.9 mmol/L (3.5-5.1)
[2020-05-21] MEDS ORDERED: LIDOCAINE 1% INJ 10MG/ML (20 ML MDV) ONE (07:19)
[2020-05-21] MEDS ORDERED: MIDAZOLAM 2 MG/2 ML VIAL IV ONE ×2 (07:35)
[2020-05-21] MEDS ORDERED: LIDOCAINE 1% INJ 10MG/ML (20 ML MDV) SQ ONE (07:39)
[2020-05-21] MEDS ORDERED: BIVALIRUDIN BOLUS 250 MG/50 ML IV ONE (07:55)
[2020-05-21] MEDS ORDERED: BIVALIRUDIN 250 MG in SODIUM CHLORIDE 0.9% 50 ML IV ONE (07:56)
[2020-05-21] MEDS ORDERED: IOPAMIDOL-370 100ML BTL INJ ONE ×4 (08:07→08:28)
[2020-05-21] MEDS ORDERED: TICAGRELOR 90 MG TAB ONE (08:26)
[2020-05-21] MEDS ORDERED: TICAGRELOR 90 MG TAB PO ONE (08:27)
[2020-05-21] MEDS ORDERED: NITROGLYCERIN 1000MCG/10ML SYRINGE INTRACORON ONE (08:28)
--- NOTE | 2020-05-21 11:46 | CC ---
CARDIAC CATHETERIZATION REPORT DATE OF SERVICE: 05/21/2020. PROCEDURE: 1. Coronary angiography. 2. PTCA and stenting of ostial and proximal circumflex, heavily calcified stenosis with drug-eluting stents. PERFORMED BY: Dr. Alessia العلي. Moderate conscious sedation time was 56 minutes. Patient was administered Versed. Oxygen saturation, hemodynamics and EKG were monitored closely. CLINICAL INFORMATION: Mr. Bernabe Pope is a 65-year-old gentleman with a known history of CAD and underwent stenting of proximal LAD and a large obtuse marginal branch of circumflex in October 2013 with excellent result. At that time, he had a total occlusion of RCA, a chronic occlusion filled by collaterals from the left system. He has been having symptoms of shortness of breath and a stress test revealed inferolateral apical moderate-size reversible defect. Therefore, he was advised cardiac catheterization after due discussion regarding risks, benefits, and options. Previous right radial approach was unsuccessful given the tortuosity. Therefore, he was advised a femoral approach. PROCEDURE NOTE: Under local anesthesia and strict aseptic precautions, a 6-Kyrgyz introducer was placed in the right femoral artery. Using standard Shannan catheters I performed coronary angiography, but I did not do an LV gram or check LV pressures. He is known to have a right occlusion, so I did not inject the right coronary artery. I noted that he had an ostial circumflex lesion and proceeded to perform intervention in the same setting. CORONARY ANGIOGRAPHY FINDINGS: RIGHT CORONARY ARTERY: This vessel is known to be totally occluded before, fills by collaterals from the left system, not injected. LEFT MAIN CORONARY ARTERY: Short patent disease-free vessel distally has mild calcification but no significant stenosis may be at 10% to 15% narrowing with calcification. It bifurcates into the LAD, a small ramus and circumflex. LEFT ANTERIOR DESCENDING CORONARY ARTERY: Good caliber vessel extends along the anterior wall. The proximal LAD that was stented is widely patent, gives off a diagonal branch runs all the way to the apex supplying a sizable amount of myocardium. Minor irregularities noted. No significant disease. The stented proximal LAD is widely patent. RAMUS INTERMEDIUS: This is a small caliber vessel runs laterally, has minor irregularities, no significant disease, has some ostial narrowing as it comes off from the left main. LEFT POSTERIOR CIRCUMFLEX CORONARY ARTERY: This vessel at its ostium has a 95% stenosis, proximal portion has 70% stenosis moderate to heavy calcification and then it curves and gives off a large obtuse marginal that runs laterally. This obtuse marginal was stented before and the stented area is widely patent. Then the circumflex runs in the AV groove giving distal posterolateral branch. The distal circumflex has minor irregularities. No significant disease. The ostial and proximal circumflex therefore has significant stenosis, which is the culprit lesion. Collaterals were noted predominantly from the LAD to the distal RCA and its branches. FINAL IMPRESSION: This patient has a known total occlusion of RCA, no significant disease in the LAD that was stented. Ostial circumflex is a new lesion which is about 90% to 95% with calcification. The previously stented circumflex marginal is widely patent with good flow. RECOMMENDATIONS: I recommended PCI of ostial circumflex and performed this in the same setting. PCI PROCEDURE DETAILS: The standard left Shannan guide catheter was used to cannulate the left coronary artery. I used a long run-through wire to cross the lesion, wire was kept in the obtuse marginal. I advanced a 3.0 caliber 20 mm NC Trek balloon and pre-dilated the lesion. I had some difficulty getting the balloon down. Modest improvement was noted. I then tried to advance a 23 mm Xience stent of 3.5 caliber, but I could not make the curve from the left main into the circumflex because of calcification and tortuosity. I then took the stent out and advanced another Whisper wire as a liz wire along this into the obtuse marginal. With the liz wire, I decided to use a shorter stent. I used a 12 mm long 3.5 caliber Xience stent and deployed this in the distal aspect of the lesion and then I brought another 12 mm Xience stent and deployed this in the proximal portion and the proximal end of the stent was right at the ostium of the left main. The patient had chest pain, but no significant EKG changes. He had excellent angiographic result. I had difficulty with the second stent and liz wire seemed to help. The liz wire was taken out and then the stents were deployed. Excellent angiographic result without complication was achieved. With the stent inflated, I injected to make sure the flow in the LAD was good. The sheath was then sutured and patient was sent to the room in stable condition. The sheath will be pulled manually after 2 hours. Patient received Angiomax bolus and infusion. He also received Brilinta 180 mg orally. He will be on aspirin and Brilinta and he will be discharged tomorrow if he remains stable. Excellent angiographic result without complication was achieved. Results were discussed with the patient as well as his and I expect he will be discharged soon. MANN / SONNY: [id number] /
[2020-05-21] MEDS: SODIUM CHLORIDE 0.9% 1,000 ML IV SCH ×2 (17:48→21:13)
[2020-05-21] MEDS: TICAGRELOR 90 MG TAB PO SCH (20:29)
[2020-05-21] MEDS ORDERED: ATORVASTATIN 10 MG TAB PO SCH (21:00)
[2020-05-22 03:34] LABS: Basophils # (A) 0.1 k/uL (0-0.2); Basophils % (A) 0 %; Eosinophils # (A) 0.4 k/uL (0-0.7); Eosinophils % (A) 3 %; HCT 38.2 % (39.0-53.0); HGB 13.1 gm/dL (13.0-17.5); Lymphocytes # (A) 2.4 k/uL (1.0-4.8); Lymphocytes % (A) 19 %; MCH 30.6 pg (25.0-35.0); MCHC 34.3 g/dL (31.0-37.0); MCV 89.2 fL (80.0-100.0); Mean Platelet Volume 6.9; Monocytes # (A) 0.8 k/uL (0-1.0); Monocytes % (A) 6 %; Neutrophils # (A) 8.9 k/uL (1.3-7.7); Neutrophils % (A) 70 %; Platelet Count 234 k/uL (150-450); RBC 4.28 m/uL (4.30-5.90); RDW 13.1 % (11.5-15.5); WBC 12.7 k/uL (3.8-10.6)
[2020-05-22 03:47] LABS: African American GFR (CKD) >90 (>60 ml/min/1.73 sqM); Anion Gap 9 mmol/L; Blood Urea Nitrogen 14 mg/dL (9-20); Calcium 8.9 mg/dL (8.4-10.2); Carbon Dioxide 21 mmol/L (22-30); Chloride 101 mmol/L (98-107); Glucose 118 mg/dL (74-99); Non-African American GFR(CKD) >90 (>60 ml/min/1.73 sqM); Potassium 4.5 mmol/L (3.5-5.1); Sodium 131 mmol/L (137-145)
[2020-05-22 09:24] VITALS: BP 144/69; PULSE 84; RESP 18; TEMP 99
[2020-05-22] MEDS: TICAGRELOR 90 MG TAB PO SCH (09:25)
--- NOTE | 2020-05-22 12:44 | DS ---
DISCHARGE SUMMARY DATE OF ADMISSION: 05/21/2020. DATE OF DISCHARGE: 05/22/2020. DIAGNOSES: 1. Unstable angina. 2. Hypertension. 3. Hyperlipidemia. PROCEDURE PERFORMED: Left heart catheterization and coronary angiography, PTCA and stenting of ostial circumflex with a drug-eluting stent. This gentleman was brought into the hospital because of abnormal stress test. He was actually hospitalized on Thursday night, sent home on Thursday brought back as an outpatient for catheterization and PCI yesterday. Procedure was performed from right femoral approach. His previously stented circumflex marginal and LAD were widely patent but there was a new lesion in the ostium of the circumflex and this was addressed with 2 drug-eluting stents. He had excellent angiographic result. Postprocedure course was uneventful. This morning he is doing well. His vitals are stable. No JVD. S1, S2 heard normally. Lungs are clear. Abdomen and lower extremity exam unchanged. Right groin is clean and dry with a good pulse. His labs and EKGs are good. We will increase activity and discharge him and I will see him in the office in one week. Discharge instructions regarding activity, diet, dual antiplatelet therapy were given. His prescriptions were called to his pharmacy and this was [facility] and he will try rosuvastatin 10 mg daily since he is allergic to simvastatin and atorvastatin. Discharge instructions were given. I will see the patient in a week. MMODL / IJN: [id number] /
== END 2020-05-22 13:16 | disposition home or self-care (01) ==
LOC: CATHCVL 05:59 → 3SCARD 08:34 → CATHCVL 05-22 13:16
PROVIDERS: ATTEND Internal Medicine Interventional Cardiology
DX: I25.110 Atherosclerotic heart disease of native coronary artery with unstable angina pectoris (principal); I25.84 Coronary atherosclerosis due to calcified coronary lesion; E78.00 Pure hypercholesterolemia, unspecified; I10 Essential (primary) hypertension; Z95.5 Presence of coronary angioplasty implant and graft; E78.5 Hyperlipidemia, unspecified; Z72.0 Tobacco use; E66.9 Obesity, unspecified; Z68.36 Body mass index [BMI] 36.0-36.9, adult; G47.30 Sleep apnea, unspecified; Z79.82 Long term (current) use of aspirin; Z79.899 Other long term (current) drug therapy; Z88.8 Allergy status to other drugs, medicaments and biological substances
CPT/HCPCS: 93454; 80048 ×2; 85025 ×2; C9600; C1769 ×5; C1887; C1725; C1894; C1874; J2250; J2001; J0583; Q9967

== ENCOUNTER 2021-04-03 14:34 | Inpatient (IN) | payer BC, MEDICARE ==
[2021-04-03] MEDS ORDERED: ASPIRIN 81 MG PO STA (15:07)
[2021-04-03] MEDS ORDERED: NITROGLYCERIN OINT 1 INCH/GM PACKET TOPICAL STA (15:07)
[2021-04-03 15:22] LABS: Basophils # (A) 0.1 k/uL (0-0.2); Basophils % (A) 1 %; Eosinophils # (A) 0.2 k/uL (0-0.7); Eosinophils % (A) 1 %; HCT 40.9 % (39.0-53.0); HGB 13.5 gm/dL (13.0-17.5); Lymphocytes # (A) 2.7 k/uL (1.0-4.8); Lymphocytes % (A) 23 %; MCH 29.8 pg (25.0-35.0); MCHC 32.9 g/dL (31.0-37.0); MCV 90.6 fL (80.0-100.0); Mean Platelet Volume 7.3; Monocytes # (A) 0.6 k/uL (0-1.0); Monocytes % (A) 5 %; Neutrophils # (A) 8.1 k/uL (1.3-7.7); Neutrophils % (A) 69 %; Platelet Count 255 k/uL (150-450); RBC 4.52 m/uL (4.30-5.90); RDW 13.5 % (11.5-15.5); WBC 11.9 k/uL (3.8-10.6)
--- NOTE | 2021-04-03 15:22 | ED ---
General Adult HPI - General Chief complaint: Chest Pain Stated complaint: Chest Pain Time Seen by Provider: 04/03/21 14:35 Source: patient, RN notes reviewed, old records reviewed Mode of arrival: ambulatory Limitations: no limitations - History of Present Illness Initial comments: This is a 66-year-old male who has a past medical history significant for cardiac stents as well as high blood pressure high cholesterol and a history of smoking though he is now quit. Patient states he has had elevated glucose but has never been told he is a diabetic and takes no medications for. Patient states she's been having intermittent anterior chest pain that last between 10 and 15 minutes when it occurs per patient states there is no radiation of the pain there's no shortness of breath associated with the pain. Patient states is in the lower aspect of his sternum. Patient denies anything that appears to make it worse radiated makes it better. Patient denies any palpitations. Patient denies any recent fever chills or cough per patient denies abdominal pain patient denies nausea vomiting diarrhea. - Related Data Home Medications Medication Instructions Recorded Confirmed lisinopriL [Zestril] 20 mg PO DAILY 11/09/13 04/03/21 Aspirin EC [Ecotrin Low Dose] 81 mg PO BID 05/19/20 04/03/21 Rosuvastatin Calcium [Crestor] 20 mg PO HS 04/03/21 04/03/21 Previous Rx's Medication Instructions Recorded Metoprolol Tartrate [Lopressor] 25 mg PO BID #60 tab 11/15/13 Clopidogrel Bisulfate [Plavix] 75 mg PO DAILY 30 Days #30 tab 04/05/21 Isosorbide Mononitrate ER [Imdur] 30 mg PO DAILY 30 Days #30 tablet 04/05/21 Allergies Allergy/AdvReac Type Severity Reaction Status Date / Time atorvastatin Allergy Rash/Hives/Joint Verified 04/03/21 15:58 Pain simvastatin Allergy Rash/Hives/Joint Verified 04/03/21 15:58 Pain Review of Systems ROS Statement: Those systems with pertinent positive or pertinent negative responses have been documented in the HPI. ROS Other: All systems not noted in ROS Statement are negative. Past Medical History Past Medical History: Coronary Artery Disease (CAD), GERD/Reflux, Hyperlipidemia , Hypertension, Sleep Apnea/CPAP/BIPAP Additional Past Medical History / Comment(s): IRRITABLE BOWEL SYNDROME,uses cpap History of Any Multi-Drug Resistant Organisms: None Reported Past Surgical History: Heart Catheterization With Stent, Joint Replacement Additional Past Surgical History / Comment(s): JANESSA KNEE REPLACEMENTS,HEART STENTS X2 Past Anesthesia/Blood Transfusion Reactions: No Reported Reaction Date of Last Stent Placement:: 09/2013 Past Psychological History: No Psychological Hx Reported Smoking Status: Never smoker Past Alcohol Use History: Occasional Past Drug Use History: None Reported - Past Family History Father Family Medical History: Osteoarthritis (OA) Additional Family Medical History / Comment(s): pt. states both of his parents are living and are healthy, pt. states they have had your average issues such as hip replacments, etc Mother Family Medical History: Osteoarthritis (OA) Brother(s) Family Medical History: Coronary Artery Disease (CAD) General Exam - General Exam Comments Initial Comments: GENERAL: Patient is well-developed and well-nourished. Patient is nontoxic and well- hydrated and is in mild distress. ENT: Neck is soft and supple. No significant lymphadenopathy is noted. Oropharynx is clear. Moist mucous membranes. Neck has full range of motion without eliciting any pain. EYES: The sclera were anicteric and conjunctiva were pink and moist. Extraocular movements were intact and pupils were equal round and reactive to light. Eyelids were unremarkable. PULMONARY: Unlabored respirations. Good breath sounds bilaterally. No audible rales rhonchi or wheezing was noted. CARDIOVASCULAR: There is a regular rate and rhythm without any murmurs gallops or rubs. ABDOMEN: Soft and nontender with normal bowel sounds. SKIN: Skin is clear with no lesions or rashes and otherwise unremarkable. NEUROLOGIC: Patient is alert and oriented x3. Cranial nerves II through XII are grossly intact. Motor and sensory are also intact. Normal speech, volume and content. Symmetrical smile. MUSCULOSKELETAL: Normal extremities with adequate strength and full range of motion. No lower extremity swelling or edema. No calf tenderness. LYMPHATICS: No significant lymphadenopathy is noted PSYCHIATRIC: Normal psychiatric evaluation. Limitations: no limitations Course Vital Signs 04/03/21 04/03/21 14:34 18:20 Temperature 98.7 F Pulse Rate 98 85 Respiratory 18 18 Rate Blood Pressure 154/79 124/99 O2 Sat by Pulse 98 99 Oximetry Medical Decision Making - Medical Decision Making EKG shows normal sinus rhythm at 84 bpm DC interval is 152 QRS is 94 QT interval 384 QTC is 453 per patient's EKG shows no ST segment elevation or depression. I spoke with the primary medical care doctor admitted the patient wrote admitting orders. I consulted cardiology - Lab Data Result diagrams: 04/05/21 07:15 04/05/21 07:15 Lab Results 04/03/21 04/03/21 04/03/21 Range/Units 15:13 15:13 15:13 WBC 11.9 H (3.8-10.6) k/uL RBC 4.52 (4.30-5.90) m/uL Hgb 13.5 (13.0-17.5) gm/dL Hct 40.9 (39.0-53.0) % MCV 90.6 (80.0-100.0) fL MCH 29.8 (25.0-35.0) pg MCHC 32.9 (31.0-37.0) g/dL RDW 13.5 (11.5-15.5) % Plt Count 255 (150-450) k/uL MPV 7.3 Neutrophils % 69 % Lymphocytes % 23 % Monocytes % 5 % Eosinophils % 1 % Basophils % 1 % Neutrophils # 8.1 H (1.3-7.7) k/uL Lymphocytes # 2.7 (1.0-4.8) k/uL Monocytes # 0.6 (0-1.0) k/uL Eosinophils # 0.2 (0-0.7) k/uL Basophils # 0.1 (0-0.2) k/uL PT 10.2 (9.0-12.0) sec INR 0.9 (<1.2) APTT 25.8 (22.0-30.0) sec Sodium 136 L (137-145) mmol/L Potassium 4.5 (3.5-5.1) mmol/L Chloride 103 (98-107) mmol/L Carbon Dioxide 21 L (22-30) mmol/L Anion Gap 12 mmol/L BUN 13 (9-20) mg/dL Creatinine 0.55 L (0.66-1.25) mg/dL Est GFR (CKD-EPI)AfAm >90 (>60 ml/min/1.73 sqM) Est GFR (CKD-EPI)NonAf >90 (>60 ml/min/1.73 sqM) Glucose 115 H (74-99) mg/dL POC Glucose (mg/dL) (75-99) mg/dL POC Glu Therapy Coordinator ID Calcium 9.5 (8.4-10.2) mg/dL Magnesium 1.9 (1.6-2.3) mg/dL Total Bilirubin 0.6 (0.2-1.3) mg/dL AST 30 (17-59) U/L ALT 28 (4-49) U/L Alkaline Phosphatase 79 (38-126) U/L Troponin I (0.000-0.034) ng/mL Total Protein 8.1 (6.3-8.2) g/dL Albumin 4.9 (3.5-5.0) g/dL Triglycerides (0.00-149.00) mg/dL Cholesterol (0.00-200.00) mg/dL LDL Cholesterol Direct (0.00-129.00) mg/dL LDL Cholesterol, Calc (0.0-131.0) mg/dL VLDL Cholesterol, Calc (5.00-40.00) mg/dL HDL Cholesterol (40.00-60.00) mg/dL Cholesterol/HDL Ratio Ratio Lipase (23-300) U/L Coronavirus (PCR) (Not Detectd) 04/03/21 04/03/21 04/03/21 Range/Units 15:13 15:58 18:23 WBC (3.8-10.6) k/uL RBC (4.30-5.90) m/uL Hgb (13.0-17.5) gm/dL Hct (39.0-53.0) % MCV (80.0-100.0) fL MCH (25.0-35.0) pg MCHC (31.0-37.0) g/dL RDW (11.5-15.5) % Plt Count (150-450) k/uL MPV Neutrophils % % Lymphocytes % % Monocytes % % Eosinophils % % Basophils % % Neutrophils # (1.3-7.7) k/uL Lymphocytes # (1.0-4.8) k/uL Monocytes # (0-1.0) k/uL Eosinophils # (0-0.7) k/uL Basophils # (0-0.2) k/uL PT (9.0-12.0) sec INR (<1.2) APTT (22.0-30.0) sec Sodium (137-145) mmol/L Potassium (3.5-5.1) mmol/L Chloride (98-107) mmol/L Carbon Dioxide (22-30) mmol/L Anion Gap mmol/L BUN (9-20) mg/dL Creatinine (0.66-1.25) mg/dL Est GFR (CKD-EPI)AfAm (>60 ml/min/1.73 sqM) Est GFR (CKD-EPI)NonAf (>60 ml/min/1.73 sqM) Glucose (74-99) mg/dL POC Glucose (mg/dL) (75-99) mg/dL POC Glu Therapy Coordinator ID Calcium (8.4-10.2) mg/dL Magnesium (1.6-2.3) mg/dL Total Bilirubin (0.2-1.3) mg/dL AST (17-59) U/L ALT (4-49) U/L Alkaline Phosphatase (38-126) U/L Troponin I <0.012 0.015 (0.000-0.034) ng/mL Total Protein (6.3-8.2) g/dL Albumin (3.5-5.0) g/dL Triglycerides (0.00-149.00) mg/dL Cholesterol (0.00-200.00) mg/dL LDL Cholesterol Direct (0.00-129.00) mg/dL LDL Cholesterol, Calc (0.0-131.0) mg/dL VLDL Cholesterol, Calc (5.00-40.00) mg/dL HDL Cholesterol (40.00-60.00) mg/dL Cholesterol/HDL Ratio Ratio Lipase 100 (23-300) U/L Coronavirus (PCR) (Not Detectd) 04/03/21 04/03/21 04/03/21 Range/Units 18:26 18:52 18:52 WBC 11.7 H (3.8-10.6) k/uL RBC 4.50 (4.30-5.90) m/uL Hgb 13.5 (13.0-17.5) gm/dL Hct 41.1 (39.0-53.0) % MCV 91.4 (80.0-100.0) fL MCH 29.9 (25.0-35.0) pg MCHC 32.7 (31.0-37.0) g/dL RDW 13.6 (11.5-15.5) % Plt Count 248 (150-450) k/uL MPV 7.6 Neutrophils % 60 % Lymphocytes % 30 % Monocytes % 5 % Eosinophils % 2 % Basophils % 1 % Neutrophils # 7.0 (1.3-7.7) k/uL Lymphocytes # 3.5 (1.0-4.8) k/uL Monocytes # 0.6 (0-1.0) k/uL Eosinophils # 0.3 (0-0.7) k/uL Basophils # 0.1 (0-0.2) k/uL PT 10.3 (9.0-12.0) sec INR 0.9 (<1.2) APTT 25.6 (22.0-30.0) sec Sodium (137-145) mmol/L Potassium (3.5-5.1) mmol/L Chloride (98-107) mmol/L Carbon Dioxide (22-30) mmol/L Anion Gap mmol/L BUN (9-20) mg/dL Creatinine (0.66-1.25) mg/dL Est GFR (CKD-EPI)AfAm (>60 ml/min/1.73 sqM) Est GFR (CKD-EPI)NonAf (>60 ml/min/1.73 sqM) Glucose (74-99) mg/dL POC Glucose (mg/dL) (75-99) mg/dL POC Glu Therapy Coordinator ID Calcium (8.4-10.2) mg/dL Magnesium (1.6-2.3) mg/dL Total Bilirubin (0.2-1.3) mg/dL AST (17-59) U/L ALT (4-49) U/L Alkaline Phosphatase (38-126) U/L Troponin I (0.000-0.034) ng/mL Total Protein (6.3-8.2) g/dL Albumin (3.5-5.0) g/dL Triglycerides (0.00-149.00) mg/dL Cholesterol (0.00-200.00) mg/dL LDL Cholesterol Direct (0.00-129.00) mg/dL LDL Cholesterol, Calc (0.0-131.0) mg/dL VLDL Cholesterol, Calc (5.00-40.00) mg/dL HDL Cholesterol (40.00-60.00) mg/dL Cholesterol/HDL Ratio Ratio Lipase (23-300) U/L Coronavirus (PCR) Not Detected (Not Detectd) 04/03/21 04/04/21 04/04/21 Range/Units 20:21 01:31 07:45 WBC 10.3 (3.8-10.6) k/uL RBC 4.44 (4.30-5.90) m/uL Hgb 13.2 (13.0-17.5) gm/dL Hct 40.8 (39.0-53.0) % MCV 91.9 (80.0-100.0) fL MCH 29.8 (25.0-35.0) pg MCHC 32.5 (31.0-37.0) g/dL RDW 14.0 (11.5-15.5) % Plt Count 250 (150-450) k/uL MPV 7.1 Neutrophils % 71 % Lymphocytes % 21 % Monocytes % 4 % Eosinophils % 2 % Basophils % 1 % Neutrophils # 7.3 (1.3-7.7) k/uL Lymphocytes # 2.1 (1.0-4.8) k/uL Monocytes # 0.4 (0-1.0) k/uL Eosinophils # 0.2 (0-0.7) k/uL Basophils # 0.1 (0-0.2) k/uL PT (9.0-12.0) sec INR (<1.2) APTT 31.8 H (22.0-30.0) sec Sodium (137-145) mmol/L Potassium (3.5-5.1) mmol/L Chloride (98-107) mmol/L Carbon Dioxide (22-30) mmol/L Anion Gap mmol/L BUN (9-20) mg/dL Creatinine (0.66-1.25) mg/dL Est GFR (CKD-EPI)AfAm (>60 ml/min/1.73 sqM) Est GFR (CKD-EPI)NonAf (>60 ml/min/1.73 sqM) Glucose (74-99) mg/dL POC Glucose (mg/dL) (75-99) mg/dL POC Glu Therapy Coordinator ID Calcium (8.4-10.2) mg/dL Magnesium (1.6-2.3) mg/dL Total Bilirubin (0.2-1.3) mg/dL AST (17-59) U/L ALT (4-49) U/L Alkaline Phosphatase (38-126) U/L Troponin I <0.012 (0.000-0.034) ng/mL Total Protein (6.3-8.2) g/dL Albumin (3.5-5.0) g/dL Triglycerides (0.00-149.00) mg/dL Cholesterol (0.00-200.00) mg/dL LDL Cholesterol Direct (0.00-129.00) mg/dL LDL Cholesterol, Calc (0.0-131.0) mg/dL VLDL Cholesterol, Calc (5.00-40.00) mg/dL HDL Cholesterol (40.00-60.00) mg/dL Cholesterol/HDL Ratio Ratio Lipase (23-300) U/L Coronavirus (PCR) (Not Detectd) 04/04/21 04/04/21 04/04/21 Range/Units 07:45 07:45 10:05 WBC (3.8-10.6) k/uL RBC (4.30-5.90) m/uL Hgb (13.0-17.5) gm/dL Hct (39.0-53.0) % MCV (80.0-100.0) fL MCH (25.0-35.0) pg MCHC (31.0-37.0) g/dL RDW (11.5-15.5) % Plt Count (150-450) k/uL MPV Neutrophils % % Lymphocytes % % Monocytes % % Eosinophils % % Basophils % % Neutrophils # (1.3-7.7) k/uL Lymphocytes # (1.0-4.8) k/uL Monocytes # (0-1.0) k/uL Eosinophils # (0-0.7) k/uL Basophils # (0-0.2) k/uL PT 10.3 (9.0-12.0) sec INR 0.9 (<1.2) APTT 35.2 H (22.0-30.0) sec Sodium (137-145) mmol/L Potassium (3.5-5.1) mmol/L Chloride (98-107) mmol/L Carbon Dioxide (22-30) mmol/L Anion Gap mmol/L BUN (9-20) mg/dL Creatinine (0.66-1.25) mg/dL Est GFR (CKD-EPI)AfAm (>60 ml/min/1.73 sqM) Est GFR (CKD-EPI)NonAf (>60 ml/min/1.73 sqM) Glucose (74-99) mg/dL POC Glucose (mg/dL) 131 H (75-99) mg/dL POC Glu Therapy Coordinator ID Erika Padilla Calcium (8.4-10.2) mg/dL Magnesium (1.6-2.3) mg/dL Total Bilirubin (0.2-1.3) mg/dL AST (17-59) U/L ALT (4-49) U/L Alkaline Phosphatase (38-126) U/L Troponin I (0.000-0.034) ng/mL Total Protein (6.3-8.2) g/dL Albumin (3.5-5.0) g/dL Triglycerides 426.00 H (0.00-149.00) mg/dL Cholesterol 153.00 (0.00-200.00) mg/dL LDL Cholesterol Direct 63.00 (0.00-129.00) mg/dL LDL Cholesterol, Calc (0.0-131.0) mg/dL VLDL Cholesterol, Calc (5.00-40.00) mg/dL HDL Cholesterol 43.00 (40.00-60.00) mg/dL Cholesterol/HDL Ratio 3.56 Ratio Lipase (23-300) U/L Coronavirus (PCR) (Not Detectd) Disposition Clinical Impression: Chest pain Disposition: ADMITTED IP TO THIS HOSP Condition: Stable
[2021-04-03 15:30] LABS: INR 0.9 (<1.2); Partial Thromboplastin Time 25.8 sec (22.0-30.0); Prothrombin Time 10.2 sec (9.0-12.0)
--- NOTE | 2021-04-03 15:33 | XR ---
EXAMINATION TYPE: XR chest 2V DATE OF EXAM: 04/03/2021 COMPARISON: 05/19/2020 HISTORY: Shortness of breath TECHNIQUE: Frontal and lateral views of the chest are obtained. FINDINGS: Scattered senescent parenchymal changes noted. Hyperinflation compatible with COPD. No evidence for infiltrate. No evidence for atelectasis. Heart size is stable. Mediastinal structures are stable and grossly unremarkable. No evidence for hilar prominence. Degenerative changes dorsal spine. IMPRESSION: 1. No evidence for acute pulmonary disease.
[2021-04-03 15:52] LABS: ALT 28 U/L (4-49); AST 30 U/L (17-59); African American GFR (CKD) >90 (>60 ml/min/1.73 sqM); Albumin 4.9 g/dL (3.5-5.0); Alkaline Phosphatase 79 U/L (38-126); Anion Gap 12 mmol/L; Blood Urea Nitrogen 13 mg/dL (9-20); Calcium 9.5 mg/dL (8.4-10.2); Carbon Dioxide 21 mmol/L (22-30); Chloride 103 mmol/L (98-107); Glucose 115 mg/dL (74-99); Magnesium 1.9 mg/dL (1.6-2.3); Non-African American GFR(CKD) >90 (>60 ml/min/1.73 sqM); Potassium 4.5 mmol/L (3.5-5.1); Sodium 136 mmol/L (137-145); Total Bilirubin 0.6 mg/dL (0.2-1.3); Total Protein 8.1 g/dL (6.3-8.2)
[2021-04-03] MEDS ORDERED: NITROGLYCERIN SL TABS 0.4 MG TAB SUBLINGUAL PRN (16:59)
[2021-04-03] MEDS ORDERED: MELATONIN 3 MG TABLET PO PRN (18:45)
[2021-04-03] MEDS ORDERED: ONDANSETRON 4 MG/2 ML VIAL IVP PRN (18:45)
[2021-04-03] MEDS ORDERED: NALOXONE 0.4 MG/ML 1 ML VIAL IV PRN (18:45)
[2021-04-03] MEDS ORDERED: MAG HYDROX/AL HYDROX/SIMETH 30 ML CUP PO PRN (18:45)
[2021-04-03] MEDS ORDERED: ACETAMINOPHEN TAB 325 MG TAB PO PRN (18:45)
[2021-04-03] MEDS ORDERED: HEPARIN SODIUM 1,000 UN/ML (10ML VL) IV ONE (18:48)
[2021-04-03] MEDS ORDERED: HEPARIN SODIUM 1,000 UN/ML (10ML VL) IV PRN (18:48)
--- NOTE | 2021-04-03 18:50 | P.HPIM ---
History of Present Illness H&P Date: 04/03/21 Chief Complaint: chest pain Patient is a 66-year-old male to past medical history of coronary artery disease status post most recent stent april of 2020 to the ostial and posterior circumflex, GERD, hypertension, dyslipidemia, and MANUEL who presented to the hospital with complaints of chest pain. In the ER he underwent an extensive evaluation. EKG reveals normal sinus rhythm with no significant ST-T wave changes, and normal axis. Initial laboratory and analysis is essentially unremarkable and troponin was less than 0.012. In the ER he was given a dose of aspirin and nitro patch was placed. Patient seen and examined at bedside in the emergency department. Over the last couple of day getting odd feeling in the center of his chest, lasting about 5 minutes and resolved spontansoue, no shortness of breath, not light headed or dizzy, no numbness or tingling, no diaphoresis. Happening at rest and when up and with exertion. Last saw [facility] about 2 months ago without medication changes. Has been taking all of his medication not missed doses. No recent unusual activity. Feels similar to when he had had prior stents. Undetermined if nitro had helped. Cold about 3 weeks ago negative for COVID at that time. Pertinent positives and negatives as discussed in HPI, a complete review of systems was performed and all other systems are negative. General: non toxic, no distress, appears at stated age Derm: warm, dry Head: atraumatic, normocephalic, symmetric Eyes: EOMI, no lid lag, anicteric sclera, pupils equal round reactive to light ENT: Nose and ears atraumatic, no thrush, no pharyngeal erythema Neck: No thyromegaly, no cervical lymphadenopathy, trachea midline, supple Mouth: no lip lesion, mucus membranes moist Cardiovascular: S1S2 reg, no murmur, positive posterior tibial pulse bilateral, no edema, capillary refill less than 2 seconds, chest pain not reproducible Lungs: clear to ascultation bilateral, no ronchi, no rales, no wheeze, no accessory muscle use Abdominal: soft, nontender to palpation, no guarding, no appreciable org anomegaly, normal bowel sounds Ext: no gross muscle atrophy, muscle strength muscle strength 5 out of 5 in all 4 extremities, no contractures Neuro: CN II-XI grossly intact, light touch intact all 4 extremities, finger to nose within normal limits, Psych: Alert, oriented, appropriate affect Assessment/Plan: Unstable angina History of atherosclerotic coronary artery disease status post stenting -Continue nitro patch, start heparin drip, resume home metoprolol -Cardiology consultation -Trend troponins -Continue with aspirin and Brilinta as well as statin (crestor from home) -Echo in a.m. -Nothing by mouth after midnight Hypertension, controlled -Continue with lisinopril and Lopressor -Follow blood pressures Dyslipidemia -Statin MANUEL - CPAP Chronic: GERD Sleep apnea IBS The patient is placed in observation with an anticipated less than 2 midnight stay for evaluation of unstable angina Surrogate decision-maker: CODE STATUS:full DVT prophylaxis: heparin gtt Discussed with: patient, ED physician Anticipated discharge date: in 1-[address]: home A total of 65 minutes was spent on the care of this complex patient more than 50% of the time was spent in counseling and care coordination. Past Medical History Past Medical History: Coronary Artery Disease (CAD), GERD/Reflux, Hyperlipidemia, Hypertension, Sleep Apnea/CPAP/BIPAP Additional Past Medical History / Comment(s): IRRITABLE BOWEL SYNDROME,uses cpap History of Any Multi-Drug Resistant Organisms: None Reported Past Surgical History: Heart Catheterization With Stent, Joint Replacement Additional Past Surgical History / Comment(s): JANESSA KNEE REPLACEMENTS,HEART STENTS X2 Past Anesthesia/Blood Transfusion Reactions: No Reported Reaction Date of Last Stent Placement:: 09/2013 Past Psychological History: No Psychological Hx Reported Smoking Status: Former smoker (quit 10-15 years ago ) Past Alcohol Use History: Occasional (2-3 weekly ) Past Drug Use History: None Reported - Past Family History Father Family Medical History: Osteoarthritis (OA) Additional Family Medical History / Comment(s): pt. states both of his parents are living and are healthy, pt. states they have had your average issues such as hip replacments, etc Mother Family Medical History: Osteoarthritis (OA) Brother(s) Family Medical History: Coronary Artery Disease (CAD) Medications and Allergies Home Medications Medication Instructions Recorded Confirmed Type lisinopriL [Zestril] 20 mg PO DAILY 11/09/13 04/03/21 History Metoprolol Tartrate [Lopressor] 25 mg PO BID #60 tab 11/15/13 04/03/21 Rx Aspirin EC [Ecotrin Low Dose] 81 mg PO BID 05/19/20 04/03/21 History Ticagrelor [Brilinta] 90 mg PO BID #60 tab 05/22/20 04/03/21 Rx Rosuvastatin Calcium [Crestor] 20 mg PO HS 04/03/21 04/03/21 History Allergies Allergy/AdvReac Type Severity Reaction Status Date / Time atorvastatin Allergy Rash/Hives/Joint Verified 04/03/21 15:58 Pain simvastatin Allergy Rash/Hives/Joint Verified 04/03/21 15:58 Pain Physical Exam Osteopathic Statement: *. No significant issues noted on an osteopathic structural exam other than those noted in the History and Physical/Consult. Vitals: Vital Signs Temp Pulse Resp BP Pulse Ox 04/03/21 14:34 98.7 F 98 18 154/79 98 Intake and Output 04/03/21 04/03/21 04/03/21 06:59 14:59 22:59 Other: Weight 102.058 kg Results CBC & Chem 7: 04/03/21 15:13 04/03/21 15:13 Labs: Abnormal Lab Results - Last 24 Hours (Table) 04/03/21 04/03/21 Range/Units 15:13 15:13 WBC 11.9 H (3.8-10.6) k/uL Neutrophils # 8.1 H (1.3-7.7) k/uL Sodium 136 L (137-145) mmol/L Carbon Dioxide 21 L (22-30) mmol/L Creatinine 0.55 L (0.66-1.25) mg/dL Glucose 115 H (74-99) mg/dL
[2021-04-03] MEDS ORDERED: HEPARIN SOD,PORK IN 0.45% NACL 25,000 UNIT in 0.45% NACL 1 250ML.BAG IV SCH (19:00)
[2021-04-03 19:02] LABS: Basophils # (A) 0.1 k/uL (0-0.2); Basophils % (A) 1 %; Eosinophils # (A) 0.3 k/uL (0-0.7); Eosinophils % (A) 2 %; HCT 41.1 % (39.0-53.0); HGB 13.5 gm/dL (13.0-17.5); Lymphocytes # (A) 3.5 k/uL (1.0-4.8); Lymphocytes % (A) 30 %; MCH 29.9 pg (25.0-35.0); MCHC 32.7 g/dL (31.0-37.0); MCV 91.4 fL (80.0-100.0); Mean Platelet Volume 7.6; Monocytes # (A) 0.6 k/uL (0-1.0); Monocytes % (A) 5 %; Neutrophils % (A) 60 %; Platelet Count 248 k/uL (150-450); RDW 13.6 % (11.5-15.5); WBC 11.7 k/uL (3.8-10.6)
[2021-04-03 19:16] LABS: INR 0.9 (<1.2); Partial Thromboplastin Time 25.6 sec (22.0-30.0); Prothrombin Time 10.3 sec (9.0-12.0)
[2021-04-03] MEDS: NITROGLYCERIN OINT 1 INCH/GM PACKET TOPICAL SCH ×2 (20:02→23:32)
[2021-04-03] MEDS: ASPIRIN 81 MG PO SCH (20:03)
[2021-04-03] MEDS: METOPROLOL TARTRATE 25 MG TAB PO SCH (20:03)
[2021-04-03] MEDS: TICAGRELOR 90 MG TAB PO SCH (20:03)
[2021-04-03] MEDS: ROSUVASTATIN CALCIUM 20 MG PO SCH (23:32)
[2021-04-04] MEDS: NITROGLYCERIN OINT 1 INCH/GM PACKET TOPICAL SCH ×3 (04:54→17:35)
[2021-04-04 08:14] LABS: Basophils # (A) 0.1 k/uL (0-0.2); Basophils % (A) 1 %; Eosinophils # (A) 0.2 k/uL (0-0.7); Eosinophils % (A) 2 %; HCT 40.8 % (39.0-53.0); HGB 13.2 gm/dL (13.0-17.5); Lymphocytes # (A) 2.1 k/uL (1.0-4.8); Lymphocytes % (A) 21 %; MCH 29.8 pg (25.0-35.0); MCHC 32.5 g/dL (31.0-37.0); MCV 91.9 fL (80.0-100.0); Mean Platelet Volume 7.1; Monocytes # (A) 0.4 k/uL (0-1.0); Monocytes % (A) 4 %; Neutrophils # (A) 7.3 k/uL (1.3-7.7); Neutrophils % (A) 71 %; Platelet Count 250 k/uL (150-450); RBC 4.44 m/uL (4.30-5.90); WBC 10.3 k/uL (3.8-10.6)
[2021-04-04 08:29] LABS: INR 0.9 (<1.2); Partial Thromboplastin Time 35.2 sec (22.0-30.0); Prothrombin Time 10.3 sec (9.0-12.0)
[2021-04-04] MEDS ORDERED: ALPRAZolam 0.25 MG TAB PO PRN (09:00)
[2021-04-04] MEDS ORDERED: ALPRAZolam 0.5 MG TAB PO PRN (09:00)
[2021-04-04] MEDS ORDERED: ASPIRIN 325 MG TAB PO SCH (09:00)
[2021-04-04] MEDS: TICAGRELOR 90 MG TAB PO SCH ×2 (09:06→22:20)
[2021-04-04] MEDS: METOPROLOL TARTRATE 25 MG TAB PO SCH ×2 (09:07→22:20)
[2021-04-04] MEDS: lisinopriL 20 MG TAB PO SCH (09:07)
[2021-04-04] MEDS: ASPIRIN 81 MG PO SCH ×2 (09:07→22:20)
[2021-04-04] MEDS: SODIUM CHLORIDE 0.9% 1,000 ML in EMPTY BAG 1 BAG IV SCH ×2 (09:08→19:52)
--- NOTE | 2021-04-04 09:22 | P.CRDCN ---
History of Present Illness History of present illness: This is a pleasant 66-year-old male with a past medical history coronary artery disease status post PCI to the LAD and circumflex in 2013, total occlusion of RCA, PCI to the circumflex in 04/2020, hypertension, dyslipidemia, former smoker, obstructive sleep apnea with regular CPAP use. He follows in the office with Dr. العلي. We have been consulted for chest pain. Patient presents with complaints of lower central chest discomfort/epigastric discomfort. He states it started 2-3 days ago. Non-exertional, non-radiating. Unable to describe the discomfort, he states it is not a pain, "it is a just a feeling". No specific aggravating or alleviating factors. Eating does not exacerbate or alleviate the discomfort. He also endorses increased right hip pain with activity. He denies any associated shortness of breath, diaphoresis, nausea, vomiting, abdominal pain, lightheadedness, dizziness, syncope or near syncope. He denies symptoms of orthopnea or PND. No fever, cough or chills. His prior stent placements patient did not have any pain, he underwent stress tests that were abnormal. He is a former smoker quit 40 years ago. Denies alcohol or illicit drug use. DIAGNOSTICS -EKG reveals sinus rhythm, heart rate 84 T wave flattening in lead III, no acute ST-T wave changes to suggest ischemia, Prior EkG with similar findings -Last Cardiac Catheterization 05/21/2020 revealed total occlusion of RCA not new, previously stented LAD was mildly patent, circumflex marginal was widely patent which has stented before, new lesion and ostial circumflex with heavy calcification, 2 drug eluting stents placed. -Most recent echocardiogram 05/2018 revealed an EF of 50%, and. Basal septal hypokinesia. No significant pulmonary hypertension. -Lexiscan stress test 04/23/2020 revealed moderate size and moderate to severe intensity reversible. The lateral defect with a small fixed component suggestive of ischemia which was a new finding. -Chest xray no acute cardiopulmonary process -Laboratory reviewed, troponin negative 3, CBC unremarkable, sodium 136, potassium 4.5, BUN 13, serum creatinine 0.5, lipase within normal limits, COVID- 19 negative -Current home medications include simvastatin 20 mg nightly, lisinopril 20 mg daily, Brilinta 90 mg twice a day, metoprolol tartrate 25 mg twice a day, aspirin 81 mg twice a day REVIEW OF SYSTEMS At the time of my exam: CONSTITUTIONAL: Denies fever or chills. CARDIOVASCULAR: Denies chest pain, shortness of breath, orthopnea, PND or pa lpitations. RESPIRATORY: Denies cough. GASTROINTESTINAL: Denies abdominal pain, diarrhea, constipation, nausea or vomiting. MUSCULOSKELETAL: Denies myalgias. NEUROLOGIC: Denies numbness, tingling, headache or weakness. ENDOCRINE: Denies fatigue, weight change, polydipsia or polyurina. GENITOURINARY: Denies burning, hematuria or urgency with micturation. HEMATOLOGIC: Denies history of anemia or bleeding. PHYSICAL EXAMINATION Blood pressure 124/70, heart rate 83, afebrile, oxygen saturation is 94% on room air CONSTITUTIONAL: No apparent distress. HEENT: Head is normocephalic. Pupils are equal, round. Sclerae anicteric. Mucous membranes of the mouth are moist. No JVD. No carotid bruit. CHEST EXAMINATION: Lungs are clear to auscultation. No chest wall tenderness is noted on palpation or with deep breathing. HEART EXAMINATION: Regular rate and rhythm. S1, S2 heard. No murmurs, gallops or rub. ABDOMEN: Soft, nontender. Positive bowel sounds. EXTREMITIES: 2+ peripheral pulses, no lower extremity edema and no calf tenderness. SKIN: warm, dry NEUROLOGIC EXAMINATION: Patient is awake, alert and oriented x3. ASSESSMENT Unstable Angina Coronary artery disease status post PCI to the LAD and circumflex in 2013, total occlusion of RCA, PCI to the circumflex in 04/2020 History of hypertension Dyslipidemia Former smoker Obstructive sleep apnea PLAN -Recommend cardiac catheterization, patient is agreeable. -Obtain 2D echocardiogram and doppler study to assess cardiac structure and function. -I have discussed the risks, benefits and alternative therapies for the above- mentioned procedure and for both sedation/analgesia as well as necessary blood product administration, if indicated, as they pertain to this patient. The patient has indicated understanding and acceptance of the risks and procedures discussed. Questions have been answered appropriately and he is agreeable to move forward with the above-stated procedure. -Plan for cardiac catheterization today with Dr. Balderas -Further recommendations based on clinical course Thank you kindly for this consultation. I have personally seen and examined the patient, performed the documentation and the assessment and plan as written. Number of minutes spent on the visit: [ ]. Past Medical History Past Medical History: Coronary Artery Disease (CAD), GERD/Reflux, Hyperlipidem ia, Hypertension, Sleep Apnea/CPAP/BIPAP Additional Past Medical History / Comment(s): IRRITABLE BOWEL SYNDROME,uses cpap History of Any Multi-Drug Resistant Organisms: None Reported Past Surgical History: Heart Catheterization With Stent, Joint Replacement Additional Past Surgical History / Comment(s): JANESSA KNEE REPLACEMENTS,HEART STENTS X2 Past Anesthesia/Blood Transfusion Reactions: No Reported Reaction Date of Last Stent Placement:: 09/2013 Past Psychological History: No Psychological Hx Reported Smoking Status: Never smoker Past Alcohol Use History: Occasional Additional Past Alcohol Use History / Comment(s): pt. states he drinks beer occ assionally Past Drug Use History: None Reported - Past Family History Father Family Medical History: Osteoarthritis (OA) Additional Family Medical History / Comment(s): pt. states both of his parents are living and are healthy, pt. states they have had your average issues such as hip replacments, etc Mother Family Medical History: Osteoarthritis (OA) Brother(s) Family Medical History: Coronary Artery Disease (CAD) Medications and Allergies Home Medications Medication Instructions Recorded Confirmed Type lisinopriL [Zestril] 20 mg PO DAILY 11/09/13 04/03/21 History Metoprolol Tartrate [Lopressor] 25 mg PO BID #60 tab 11/15/13 04/03/21 Rx Aspirin EC [Ecotrin Low Dose] 81 mg PO BID 05/19/20 04/03/21 History Ticagrelor [Brilinta] 90 mg PO BID #60 tab 05/22/20 04/03/21 Rx Rosuvastatin Calcium [Crestor] 20 mg PO HS 04/03/21 04/03/21 History Allergies Allergy/AdvReac Type Severity Reaction Status Date / Time atorvastatin Allergy Rash/Hives/Joint Verified 04/03/21 15:58 Pain simvastatin Allergy Rash/Hives/Joint Verified 04/03/21 15:58 Pain Physical Exam Vitals: Vital Signs Temp Pulse Pulse Resp BP BP Pulse Ox 04/04/21 07:00 97.8 F 83 18 124/70 94 L 04/04/21 01:35 87 16 04/04/21 01:01 98.2 F 67 16 100/46 93 L 04/03/21 20:09 98.0 F 87 16 138/76 94 L 04/03/21 20:03 87 16 04/03/21 19:57 99 04/03/21 18:20 85 18 124/99 99 04/03/21 14:34 98.7 F 98 18 154/79 98 Intake and Output 04/03/21 04/04/21 04/04/21 22:59 06:59 14:59 Intake Total 74 Balance 74 Intake: Intake, IV Titration 74 Amount Heparin Sod,Pork in 0.45% 74 NaCl 25,000 unit In 0.45 % NaCl 1 250ml.bag @ 9. 798 UNITS/KG/HR 10 mls/hr IV .Q24H [facility] Rx#: [id number] Other: Voiding Method Toilet Toilet # Voids 1 2 Weight 102.058 kg Results 04/04/21 07:45 04/03/21 15:13 Cardiac Enzymes 04/03/21 04/03/21 04/03/21 Range/Units 15:13 15:13 18:23 AST 30 (17-59) U/L Troponin I <0.012 0.015 (0.000-0.034) ng/mL 04/03/21 Range/Units 20:21 AST (17-59) U/L Troponin I <0.012 (0.000-0.034) ng/mL Coagulation 04/03/21 04/03/21 04/04/21 Range/Units 15:13 18:52 01:31 PT 10.2 10.3 (9.0-12.0) sec APTT 25.8 25.6 31.8 H (22.0-30.0) sec CBC 04/03/21 04/03/21 Range/Units 15:13 18:52 WBC 11.9 H 11.7 H (3.8-10.6) k/uL RBC 4.52 4.50 (4.30-5.90) m/uL Hgb 13.5 13.5 (13.0-17.5) gm/dL Hct 40.9 41.1 (39.0-53.0) % Plt Count 255 248 (150-450) k/uL Comprehensive Metabolic Panel 04/03/21 Range/Units 15:13 Sodium 136 L (137-145) mmol/L Potassium 4.5 (3.5-5.1) mmol/L Chloride 103 (98-107) mmol/L Carbon Dioxide 21 L (22-30) mmol/L BUN 13 (9-20) mg/dL Creatinine 0.55 L (0.66-1.25) mg/dL Glucose 115 H (74-99) mg/dL Calcium 9.5 (8.4-10.2) mg/dL AST 30 (17-59) U/L ALT 28 (4-49) U/L Alkaline Phosphatase 79 (38-126) U/L Total Protein 8.1 (6.3-8.2) g/dL Albumin 4.9 (3.5-5.0) g/dL Current Medications Generic Name Dose Route Start Last Admin Trade Name Freq PRN Reason Stop Dose Admin Acetaminophen 650 mg 04/03/21 18:45 Acetaminophen Tab 325 Mg Tab PO Q6HR PRN Mild Pain or Fever > 100.5 Al Hydroxide/Mg Hydroxide 15 ml 04/03/21 18:45 Mag Hydrox/Al Hydrox/Simeth 30 Ml Cup PO Q6HR PRN Indigestion Aspirin 81 mg 04/03/21 21:00 04/03/21 20:03 Aspirin 81 Mg PO 81 mg BID FRANCISCO Administration Heparin Sodium (Porcine) 0 unit 04/03/21 18:48 04/04/21 02:29 Heparin Sodium 1,000 Un/Ml (10ml Vl) IV 4,000 unit PER PROTOCOL PRN Administration Low PTT Protocol Heparin Sodium/Sodium Chloride 250 mls @ 10 mls/hr 04/03/21 19:00 04/04/21 02:30 25,000 unit/ Sodium Chloride IV 12.798 units/kg/hr .Q24H FRANCISCO 13.061 mls/hr Titration Protocol 9.798 UNITS/KG/HR Lisinopril 20 mg 04/04/21 09:00 Lisinopril 20 Mg Tab PO DAILY FRANCISCO Melatonin 3 mg 04/03/21 18:45 Melatonin 3 Mg Tablet PO HS PRN Insomnia Metoprolol Tartrate 25 mg 04/03/21 21:00 04/03/21 20:03 Metoprolol Tartrate 25 Mg Tab PO 25 mg BID FRANCISCO Administration Naloxone HCl 0.2 mg 04/03/21 18:45 Naloxone 0.4 Mg/Ml 1 Ml Vial IV Q2M PRN Opioid Reversal Nitroglycerin 0.4 mg 04/03/21 16:59 Nitroglycerin Sl Tabs 0.4 Mg Tab SUBLINGUAL Q5M PRN Chest Pain Nitroglycerin 1 inch 04/03/21 18:00 04/04/21 04:54 Nitroglycerin Oint 1 Inch/Gm Packet TOPICAL 1 inch Q6HR FRANCISCO Administration Non-Formulary Medication 20 mg 04/03/21 21:00 04/03/21 23:32 Rosuvastatin Calcium [Crestor] PO 20 mg HS FRANCISCO Administration Ondansetron HCl 4 mg 04/03/21 18:45 Ondansetron 4 Mg/2 Ml Vial IVP Q8HR PRN Nausea And Vomiting Ticagrelor 90 mg 04/03/21 21:00 04/03/21 20:03 Ticagrelor 90 Mg Tab PO 90 mg BID FRANCISCO Administration Intake and Output 04/03/21 04/04/21 04/04/21 22:59 06:59 14:59 Intake Total 74 Balance 74 Intake: Intake, IV Titration 74 Amount Heparin Sod,Pork in 0.45% 74 NaCl 25,000 unit In 0.45 % NaCl 1 250ml.bag @ 9. 798 UNITS/KG/HR 10 mls/hr IV .Q24H [facility] Rx#: [id number] Other: Voiding Method Toilet Toilet # Voids 1 2 Weight 102.058 kg 04/03/21 18:52 04/03/21 15:13
--- NOTE | 2021-04-04 09:54 | ECHOF ---
Referral Reason:chest pain MEASUREMENTS -------- HEIGHT: 167.6 cm WEIGHT: 102.1 kg BP: 100/46 RVIDd: 4.2 cm (< 3.3) IVSd: 1.2 cm (0.6 - 1.1) LVIDd: 4.2 cm (3.9 - 5.3) LVPWd: 1.2 cm (0.6 - 1.1) IVSs: 1.7 cm LVIDs: 2.8 cm LVPWs: 2.1 cm LAESV Index (A-L): 17.57 ml/m Ao Diam: 2.8 cm (2.0 - 3.7) AV Cusp: 2.4 cm (1.5 - 2.6) LA Diam: 4.1 cm (2.7 - 3.8) MV EXCURSION: 17.189 mm (> 18.000) MV EF SLOPE: 73 mm/s (70 - 150) EPSS: 0.7 cm MV E Prince: 0.75 m/s MV DecT: 193 ms MV A Prince: 1.08 m/s MV E/A Ratio: 0.69 FINDINGS -------- Sinus rhythm. This was a technically adequate study. The left ventricular size is normal. There is mild concentric left ventricular hypertrophy. Overa ll left ventricular systolic function is normal with, an EF between 55 - 60 %. The diastolic fillin g pattern is normal for the age of the patient 9.24. The right ventricle is moderately enlarged. Normal LA size by volume 22+/-6 ml/m2. The right atrial size is normal. Interatrial and interventricular septum intact. There is no evidence of aortic regurgitation. There is no evidence of aortic stenosis. There is trace mitral regurgitation. Trace tricuspid regurgitation present. Unable to estimate RVSP due to inadequate TR jet spectral do ppler profile. There is no pulmonic regurgitation present. The aortic root size is normal. IVC Not well visulized. There is no pericardial effusion. CONCLUSIONS -------- 1. The left ventricular size is normal. 2. There is mild concentric left ventricular hypertrophy. 3. Overall left ventricular systolic function is normal with, an EF between 55 - 60 %. 4. The diastolic filling pattern is normal for the age of the patient 9.24 5. The right ventricle is moderately enlarged. 6. There is trace mitral regurgitation. 7. Trace tricuspid regurgitation present. FLY RAISER LOCKSTITCH: Cassandra Sheridan RDCS
[2021-04-04 10:06] LABS: Glucose,Whole Blood 131 mg/dL (75-99)
[2021-04-04] MEDS ORDERED: LIDOCAINE 1% INJ 10MG/ML (20 ML MDV) ONE (10:47)
[2021-04-04] MEDS ORDERED: fentaNYL (PF) 50 MCG/ML 2 ML AMP ONE (11:01)
[2021-04-04] MEDS ORDERED: IV FLUID CONTINUATION 500 ML IV ONE (11:05)
[2021-04-04] MEDS: fentaNYL (PF) 50 MCG/ML 2 ML AMP IV ONE ×2 (11:14→11:21)
[2021-04-04] MEDS: MIDAZOLAM 2 MG/2 ML VIAL IV ONE ×2 (11:14→11:21)
[2021-04-04] MEDS ORDERED: LIDOCAINE 1% INJ 10MG/ML (20 ML MDV) SQ ONE (11:17)
[2021-04-04] MEDS ORDERED: IOPAMIDOL-370 125ML BTL INJ ONE (11:53)
--- NOTE | 2021-04-04 12:43 | CC ---
CARDIAC CATHETERIZATION REPORT INDICATION: Unstable angina. This is a 66-year-old gentleman with history of coronary artery disease, status post multivessel angioplasty, including proximal LAD, OM branch and circumflex coronary artery most recently in April of last year, who presented to hospital with unstable angina and was advised to undergo cardiac catheterization. He had been explained of risks, benefits and alternatives, understood and accepted. PROCEDURE NOTE: After obtaining informed consent, left heart catheterization and coronary angiogram were performed via the right femoral artery using standard Shannan catheters. Patient tolerated the procedure well without any obvious immediate complications. Patient received moderate conscious sedation. Total sedation time was 24 minutes. FINDINGS: HEMODYNAMICS: Left ventricular end-diastolic pressure is 19 mm. There is no significant gradient across the aortic valve. LEFT VENTRICULOGRAM: Left ventriculogram was not performed. ANGIOGRAPHIC DATA: Right coronary artery. Right coronary artery is totally occluded in its proximal portion with extensive collaterals from the left to right to the distal RCA. Left main coronary artery. Left main coronary artery and the LAD and circumflex appear calcified but free of significant stenosis. Divides into left anterior descending coronary artery and circumflex coronary artery. The previously stented segment within the LAD appears patent. Circumflex coronary artery has a patent stent in the circumflex and in the OM; however, in the ostial portion of the circumflex coronary artery there is a 90% focal stenosis. CONCLUSIONS: 1. Three-vessel coronary artery disease with patent stent in the LAD, circumflex and the OM branch with a chronically occluded right coronary artery. 2. Severe ostial stenosis in the circumflex coronary artery. PLAN: I am going to have Dr. Gamboa, the on-call geriatric aide, review the angiographic data and advise on stenting of this vessel. MMODL / IJN: [id number] /
--- NOTE | 2021-04-04 12:48 | LTR ---
To: Dr. Eliu Dailey Re: Bernabe Pope (57) Dear John, I performed cardiac catheterization on Bernabe Carrollalise. A detailed catheterization note is enclosed for your records. In brief, cardiac catheterization reveals severe stenosis involving the ostial portion of the circumflex coronary artery, and we will consider angioplasty of the same. Thank you for giving me the privilege of participating in the care of this pleasant gentleman. Sincerely, Garry Balderas M.D. MANN / SONNY: [id number] /
--- NOTE | 2021-04-04 13:32 | P.PN ---
<Devyn Rivers - Last Filed: 04/04/21 13:15> Subjective Progress Note Date: 04/04/21 Hospital course: Patient is a very pleasant 66-year-old male with a past medical history of co ronary artery disease status post most recent stent april of 2020 to the ostial and posterior circumflex, GERD, hypertension, dyslipidemia, and MANUEL who presented to the hospital with complaints of chest pain. In the ER he underwent an extensive evaluation. EKG revealed normal sinus rhythm with no significant ST-T wave changes, and normal axis. Troponins trended < 0.012, 0.015, and < 0.012. Chest x-ray negative for acute cardiopulmonary process. Patient was given aspirin, placed on a nitro patch, heparin infusion, and admitted under our services with consultation to cardiology for unstable angina. Patient undergo cardiac cath later today. Physical exam: Patient was seen and fully evaluated at bedside this morning. He remains on heparin infusion and was evaluated by cardiology. Plan is for patient to go down to for a cardiac catheterization later today. Patient currently denies having any complaints of chest pain or discomfort at this time. He denies any shortness of breath, orthopnea, nausea, dizziness/lightheadedness, palpitations, or experiencing any numbness/tingling/weakness in his extremities. General: non toxic, no distress, appears at stated age Derm: warm, dry Head: atraumatic, normocephalic, symmetric Eyes: EOMI, no lid lag, anicteric sclera, pupils equal round reactive to light ENT: Nose and ears atraumatic, no thrush, no pharyngeal erythema Neck: No thyromegaly, no cervical lymphadenopathy, trachea midline, supple Mouth: no lip lesion, mucus membranes moist Cardiovascular: S1S2 reg, no murmur, positive posterior tibial pulse bilateral, no edema, capillary refill less than 2 seconds, chest pain not reproducible Lungs: clear to ascultation bilateral, no ronchi, no rales, no wheeze, no accessory muscle use Abdominal: soft, nontender to palpation, no guarding, no appreciable organomegaly, normal bowel sounds Ext: no gross muscle atrophy, muscle strength muscle strength 5 out of 5 in all 4 extremities, no contractures Neuro: CN II-XI grossly intact, light touch intact all 4 extremities, finger to nose within normal limits, Psych: Alert, oriented, appropriate affect Assessment and plan of care: Unstable angina History of atherosclerotic coronary artery disease status post stenting -Continue telemetry monitoring -Continue nitro patch, heparin infusion, and daily metoprolol. -Cardiology following, plans to take patient down for cardiac catheterization later today -Continue with aspirin and Brilinta as well as statin (crestor from home) -Echocardiogram revealing EF 55-60% with trace mitral and tricuspid r egurgitation. Hypertension, controlled -Continue with lisinopril and Lopressor -Follow blood pressures Dyslipidemia -Statin MANUEL - CPAP Chronic: GERD Sleep apnea IBS CODE STATUS: Full DVT prophylaxis: heparin gtt Discussed with: Patient, RN Anticipated discharge date: Possibly later this evening vs tomorrow pending results of cardiac cath Anticipated discharge place: home A total of 40 minutes was spent on the care of this complex patient more than 50% of the time was spent in counseling and care coordination. Objective - Vital Signs Vital signs: Vital Signs Temp 97.8 F 04/04/21 07:00 Pulse 83 04/04/21 07:00 Resp 18 04/04/21 07:00 BP 124/70 04/04/21 07:00 Pulse Ox 94 L 04/04/21 07:00 Intake & Output 04/03/21 04/04/21 04/04/21 18:59 06:59 18:59 Intake Total 74 Balance 74 Weight 102.058 kg 102.058 kg Intake: Intake, IV Titration 74 Amount Heparin Sod,Pork in 0.45% 74 NaCl 25,000 unit In 0.45 % NaCl 1 250ml.bag @ 9. 798 UNITS/KG/HR 10 mls/hr IV .Q24H [facility] Rx#: [id number] Other: Voiding Method Toilet # Voids 2 - Labs CBC & Chem 7: 04/04/21 07:45 04/03/21 15:13 Labs: Abnormal Lab Results - Last 24 Hours (Table) 04/03/21 04/03/21 04/03/21 Range/Units 15:13 15:13 18:52 WBC 11.9 H 11.7 H (3.8-10.6) k/uL Neutrophils # 8.1 H (1.3-7.7) k/uL APTT (22.0-30.0) sec Sodium 136 L (137-145) mmol/L Carbon Dioxide 21 L (22-30) mmol/L Creatinine 0.55 L (0.66-1.25) mg/dL Glucose 115 H (74-99) mg/dL 04/04/21 04/04/21 Range/Units 01:31 07:45 WBC (3.8-10.6) k/uL Neutrophils # (1.3-7.7) k/uL APTT 31.8 H 35.2 H (22.0-30.0) sec Sodium (137-145) mmol/L Carbon Dioxide (22-30) mmol/L Creatinine (0.66-1.25) mg/dL Glucose (74-99) mg/dL <Adela Barreto - Last Filed: 04/04/21 16:47> Subjective Devyn Rivers NP rendered care for this patient independently, reviewed the findings and plan as documented in the note above. I did not physically speak with or examine the patient on this date. Objective - Vital Signs Vital signs: Vital Signs Temp 98.1 F 04/04/21 13:00 Pulse 85 04/04/21 13:30 Resp 17 04/04/21 13:30 BP 136/71 04/04/21 13:30 Pulse Ox 96 04/04/21 13:30 Intake & Output 04/03/21 04/04/21 04/04/21 18:59 06:59 18:59 Intake Total 74 125 Output Total 400 Balance 74 -275 Weight 102.058 kg 102.058 kg Intake: IV 125 Intake, IV Titration 74 Amount Heparin Sod,Pork in 0.45% 74 NaCl 25,000 unit In 0.45 % NaCl 1 250ml.bag @ 9. 798 UNITS/KG/HR 10 mls/hr IV .Q24H [facility] Rx#: [id number] Output: Urine 400 Other: Voiding Method Toilet # Voids 2 2 # Bowel Movements 1 - Labs CBC & Chem 7: 04/04/21 07:45 04/03/21 15:13 Labs: Abnormal Lab Results - Last 24 Hours (Table) 04/03/21 04/04/21 04/04/21 Range/Units 18:52 01:31 07:45 WBC 11.7 H (3.8-10.6) k/uL APTT 31.8 H 35.2 H (22.0-30.0) sec POC Glucose (mg/dL) (75-99) mg/dL Triglycerides (0.00-149.00) mg/dL 04/04/21 04/04/21 Range/Units 07:45 10:05 WBC (3.8-10.6) k/uL APTT (22.0-30.0) sec POC Glucose (mg/dL) 131 H (75-99) mg/dL Triglycerides 426.00 H (0.00-149.00) mg/dL
[2021-04-04 14:14] LABS: Chol/HDL Ratio 3.56 Ratio
[2021-04-04] MEDS: ROSUVASTATIN CALCIUM 20 MG PO SCH (22:20)
[2021-04-05] MEDS ORDERED: HEPARIN SODIUM,PORCINE 2,500 UNIT in SODIUM CHLORIDE 0.9% 250 ML IRRIGATION PRN (07:00)
[2021-04-05] MEDS ORDERED: HEPARIN SODIUM,PORCINE 10,000 UNIT in SODIUM CHLORIDE 0.9% 1,000 ML IRRIGATION PRN (07:00)
[2021-04-05 07:45] LABS: Basophils % (A) 0 %; Eosinophils # (A) 0.2 k/uL (0-0.7); Eosinophils % (A) 2 %; HGB 13.9 gm/dL (13.0-17.5); Lymphocytes # (A) 1.6 k/uL (1.0-4.8); Lymphocytes % (A) 17 %; MCH 30.3 pg (25.0-35.0); MCHC 33.1 g/dL (31.0-37.0); MCV 91.5 fL (80.0-100.0); Monocytes # (A) 0.5 k/uL (0-1.0); Monocytes % (A) 5 %; Neutrophils # (A) 7.1 k/uL (1.3-7.7); Neutrophils % (A) 74 %; Platelet Count 249 k/uL (150-450); RBC 4.59 m/uL (4.30-5.90); RDW 14.1 % (11.5-15.5); WBC 9.5 k/uL (3.8-10.6)
[2021-04-05 08:00] LABS: African American GFR (CKD) >90 (>60 ml/min/1.73 sqM); Anion Gap 10 mmol/L; Blood Urea Nitrogen 12 mg/dL (9-20); Calcium 9.5 mg/dL (8.4-10.2); Carbon Dioxide 23 mmol/L (22-30); Chloride 103 mmol/L (98-107); Glucose 131 mg/dL (74-99); Non-African American GFR(CKD) >90 (>60 ml/min/1.73 sqM); Potassium 4.8 mmol/L (3.5-5.1); Sodium 136 mmol/L (137-145)
[2021-04-05] MEDS: SODIUM CHLORIDE 0.9% 1,000 ML in EMPTY BAG 1 BAG IV SCH (08:40)
[2021-04-05 08:42] VITALS: BP 132/74; PULSE 71; RESP 16; TEMP 98.1
[2021-04-05] MEDS: METOPROLOL TARTRATE 25 MG TAB PO SCH (08:45)
[2021-04-05] MEDS: TICAGRELOR 90 MG TAB PO SCH (08:45)
[2021-04-05] MEDS: lisinopriL 20 MG TAB PO SCH (08:45)
[2021-04-05] MEDS: ASPIRIN 81 MG PO SCH (08:45)
[2021-04-05] MEDS ORDERED: ISOSORBIDE MONONITRATE ER 30 MG TAB.ER.24H PO SCH (09:00)
--- NOTE | 2021-04-05 09:16 | P.PN ---
Subjective This is a pleasant 66-year-old male with a past medical history coronary artery disease status post PCI to the LAD and circumflex in 2013, total occlusion of RCA, PCI to the circumflex in 04/2020, hypertension, dyslipidemia, former smoker, obstructive sleep apnea with regular CPAP use. He follows in the office with Dr. العلي. We have been consulted for chest pain. Patient presents with complaints of lower central chest discomfort/epigastric discomfort. Concern for unstable angina and cardiac catheterization was recommended. Patient underwent cardiac catheterization on 04/04/[address] Balderas which revealed three-vessel coronary artery disease with patent stent in LAD, circumflex and OM branch was chronically occluded RCA. Severe ostial stenosis in the circumflex coronary artery. Films were reviewed by Dr. Gamboa, and recommended that patient will need complex angiography with left main stenting and possible impella support. Recommend medical therapy at this time and follow up with Dr. العلي outpatient. Echocardiogram revealed EF 5560 percent, trace mitral regurgitation, trace tricuspid regurgitation. Patient seen and examined at bedside, no acute distress. He denies any chest pain or shortness of breath. Telemetry reviewed, patient maintaining sinus mechanism. Vital signs are stable. Labs reviewed, CBC unremarkable, sodium 136, potassium 4.8, BUN 12, serum creatinine 0.5. He is currently maintained on aspirin 81 mg twice a day, Imdur 30 mg daily, lisinopril 20 mg daily, metoprolol titrate 25 mg twice a day, rosuvastatin 20 mg nightly, Brilinta 90 mg twice a day PHYSICAL EXAMINATION Blood pressure 132/74, heart rate 71, afebrile, saturations 95% on room air CONSTITUTIONAL: No apparent distress. HEENT: Neck Supple. No JVD. No carotid bruit. CHEST EXAMINATION: Lungs are clear to auscultation. No chest wall tenderness is noted on palpation or with deep breathing. HEART EXAMINATION: Regular rate and rhythm. S1, S2 heard. No murmurs, gallops or rub. ABDOMEN: Soft, nontender. Positive bowel sounds. EXTREMITIES: 2+ peripheral pulses, no lower extremity edema and no calf tenderness. SKIN: warm, dry Right groin, cath site clean dry intact 2+ peripheral pulses NEUROLOGIC EXAMINATION: Patient is awake, alert and oriented x3. ASSESSMENT Unstable Angina Coronary artery disease status post PCI to the LAD and circumflex in 2013, total occlusion of RCA, PCI to the circumflex in 04/2020 History of hypertension Dyslipidemia Former smoker Obstructive sleep apnea PLAN Patient underwent cardiac catheterization on 04/04/21, films were reviewed by Dr. Gamboa and communicated with patient's primary explosives detonator Dr. العلي, and recommended that patient will need complex angiography with left main stenting and possible impella support. Recommend medical therapy at this time and follow up with Dr. العلي outpatient on Thursday. Start Imdur 30 mg daily We will continue patient on dual antiplatelet therapy with aspirin and Brilinta, lisinopril, metoprolol tartrate and statin. Patient stating that Brilinta is becoming too expensive. We will have patient finish Brilinta prescription and transition to Plavix due to cost issues. This was communicated with the patient From a cardiology perspective, patient can be discharged home today. Follow up with Dr. العلي on Thursday Nurse practitioner note has been reviewed by physician. Signing provider agrees with the documented findings, assessment, and plan of care. Objective - Vital Signs Vital signs: Vital Signs Temp 98.1 F 04/05/21 07:00 Pulse 71 04/05/21 07:00 Resp 16 04/05/21 07:00 BP 132/74 04/05/21 07:00 Pulse Ox 93 L 04/05/21 07:00 Intake & Output 04/04/21 04/05/21 04/05/21 18:59 06:59 18:59 Intake Total 125 Output Total 400 200 Balance -275 -200 Intake: IV 125 Output: Urine 400 200 Other: Voiding Method Toilet # Voids 2 2 # Bowel Movements 1 1 - Labs CBC & Chem 7: 04/05/21 07:15 04/05/21 07:15 Labs: Abnormal Lab Results - Last 24 Hours (Table) 04/04/21 04/04/21 04/05/21 Range/Units 07:45 10:05 07:15 Sodium 136 L (137-145) mmol/L Creatinine 0.59 L (0.66-1.25) mg/dL Glucose 131 H (74-99) mg/dL POC Glucose (mg/dL) 131 H (75-99) mg/dL Triglycerides 426.00 H (0.00-149.00) mg/dL
--- NOTE | 2021-04-05 10:36 | P.DS ---
<Devyn Rivers - Last Filed: 04/05/21 10:36> Providers Expected date of discharge: 04/05/21 Hospital Course: Discharge Diagnosis: Unstable angina, patient placed on dual antiplatelet therapy with aspirin along with Imdur. Patient is scheduled for cardiac cath for interventions/stenting on 04/08/21. Atherosclerotic coronary artery disease status post stenting Hypertension, controlled Dyslipidemia MANUEL GERD IBS Hospital Course: Patient is a very pleasant 66-year-old male with a past medical history of coronary artery disease status post most recent stent april of 2020 to the ostial and posterior circumflex, GERD, hypertension, dyslipidemia, and MANUEL who presented to the hospital with complaints of chest pain. In the ER he underwent an extensive evaluation. EKG revealed normal sinus rhythm with no significant ST-T wave changes, and normal axis. Troponins trended < 0.012, 0.015, and < 0.012. Chest x-ray negative for acute cardiopulmonary process. Patient was given aspirin, placed on a nitro patch, heparin infusion, and admitted under our services with consultation to cardiology for unstable angina. Patient underwent cardiac Pap 04/04/21. Cardiac cath revealed 3 vessel CAD with patent stents in LAD, circumflex, and OM branch with a chronically occluded right coronary artery and a severe ostial stenosis at 90% and the ostial portion of the circumflex coronary artery. Cardiac Interventionalist was consulted and planned to take patient for cardiac cath via outpatient appointment on 04/08/2021. Heparin infusion was discontinued, patient placed on dual antiplatelet therapy w ith aspirin and Plavix and started on Imdur. Cardiology recommending pt to follow up as stated above for outpatient catheterization. He is otherwise medically stable for discharge at this time. Prescriptions were given for Plavix and Imdur and pt to resume daily medication regimen with lisinopril, metoprolol, rosuvastatin, and aspirin. Physical exam: Patient was seen and fully evaluated at bedside this morning. He was sitting up and eating breakfast and doing well. He denied having any chest pain, palpitations, shortness of breath, dyspnea with exertion, or experiencing any numbness/tingling/weakness in his extremities. General: non toxic, no distress, appears at stated age Derm: warm, dry Head: atraumatic, normocephalic, symmetric Eyes: EOMI, no lid lag, anicteric sclera Mouth: no lip lesion, mucus membranes moist Cardiovascular: S1S2 reg, no murmur, positive posterior tibial pulse bilateral, Lungs: CTA bilateral, no rhonchi, no rales , no accessory muscle use Abdominal: soft, nontender to palpation, no guarding, no appreciable organomegaly Ext: no gross muscle atrophy, no edema, no contractures Neuro: CN II-XI grossly intact, no focal neuro deficits Psych: Alert, oriented, appropriate affect A total of 45 minutes of time were spent preparing this complex discharge summary. Patient Condition at Discharge: Stable Plan - Discharge Summary Discharge Rx Participant: No New Discharge Prescriptions: New Isosorbide Mononitrate ER [Imdur] 30 mg PO DAILY 30 Days #30 tablet Clopidogrel Bisulfate [Plavix] 75 mg PO DAILY 30 Days #30 tab Continue lisinopriL [Zestril] 20 mg PO DAILY Metoprolol Tartrate [Lopressor] 25 mg PO BID #60 tab Rosuvastatin Calcium [Crestor] 20 mg PO HS Aspirin EC [Ecotrin Low Dose] 81 mg PO BID Discontinued Ticagrelor [Brilinta] 90 mg PO BID #60 tab Discharge Medication List lisinopriL [Zestril] 20 mg PO DAILY 11/09/13 [History] Metoprolol Tartrate [Lopressor] 25 mg PO BID #60 tab 11/15/13 [Rx] Aspirin EC [Ecotrin Low Dose] 81 mg PO BID 05/19/20 [History] Rosuvastatin Calcium [Crestor] 20 mg PO HS 04/03/21 [History] Clopidogrel Bisulfate [Plavix] 75 mg PO DAILY 30 Days #30 tab 04/05/21 [Rx] Isosorbide Mononitrate ER [Imdur] 30 mg PO DAILY 30 Days #30 tablet 04/05/21 [Rx] Follow up Appointment(s)/Referral(s): Jarrod العلي MD [STAFF PHYSICIAN] - 04/08/21 11:00 am Eliu Dailey MD [Primary Care Provider] - 1-2 days Patient Instructions/Handouts: *Surgery [facility] - After Heart Catheterization - Window Trimmer Instructions, Angina (DC) Activity/Diet/Wound Care/Special Instructions: Activity: As tolerated. Take breaks as needed. Diet: Heart healthy and carb consistent diet. Avoid salts, or foods with hidden salts such as canned or boxed foods and frozen dinners. Extra salt makes your heart work harder and traps the fluid in your body for longer. Special Instructions: Take all of your medications as directed and remember to keep all of your doctor's appointments and follow-up as needed. Thank you for allowing us to participate in your care, it was truly a pleasure having you for our patient!!! Due to Brilinta cost increasing... We will switch to Plavix 75mg daily. Please Continue to take Brilinta 90mg Twice a day until your prescription is finished. THEN start Plavix 75mg daily. DO NOT Take Plavix and Brilinta together. It is very important that you understand that if you experience any chest pain after discharge you need to return to the emergency department immediately. Discharge Disposition: HOME SELF-CARE <Adela Barreto - Last Filed: 04/05/21 15:25> Providers Date of admission: 04/04/21 14:46 Attending physician: Denzel Estes MD Consults: 04/03/21 17:00 Consult Physician Urgent Consulting Provider: [facility] Consult Reason/Comments: Chest pain Do you want consulting provider notified?: Yes Primary care physician: Eliu Dailey MD Hospital Course: Devyn Rivers NP rendered care for this patient independently, reviewed the findings and plan as documented in the note above. I did not physically speak with or examine the patient on this date.
== END 2021-04-05 12:01 | disposition home or self-care (01) | DRG 287 ==
LOC: EC 14:34 → 6NMEDSUR 17:02 → OBSVTOIN 04-04 14:46
PROVIDERS: ADMIT Internal Medicine; ATTEND Internal Medicine
PROC: B2111ZZ Fluoroscopy of Multiple Coronary Arteries using Low Osmolar Contrast (ICD-10-PCS; 2021-04-04)
PROC: 4A023N7 Measurement of Cardiac Sampling and Pressure, Left Heart, Percutaneous Approach (ICD-10-PCS; principal; 2021-04-04 10:50)
DX: I25.110 Atherosclerotic heart disease of native coronary artery with unstable angina pectoris (principal); E78.00 Pure hypercholesterolemia, unspecified; E78.5 Hyperlipidemia, unspecified; G47.33 Obstructive sleep apnea (adult) (pediatric); I10 Essential (primary) hypertension; I25.82 Chronic total occlusion of coronary artery; K21.9 Gastro-esophageal reflux disease without esophagitis; Z20.822 Contact with and (suspected) exposure to COVID-19; K58.9 Irritable bowel syndrome, unspecified; Z79.02 Long term (current) use of antithrombotics/antiplatelets; Z79.82 Long term (current) use of aspirin; Z79.899 Other long term (current) drug therapy; Z82.49 Family history of ischemic heart disease and other diseases of the circulatory system; Z87.891 Personal history of nicotine dependence; Z95.5 Presence of coronary angioplasty implant and graft; Z96.653 Presence of artificial knee joint, bilateral; M25.551 Pain in right hip
CPT/HCPCS: 36415; 71046; 80048; 80053; 80061; 83690; 83721; 83735; 84484; 85025; 85610; 85730; 87635; 93005; 93306; 93458; 94760; 99285

== ENCOUNTER → 2021-04-10 | Outpatient (CLI) | payer MEDICARE ==
[2021-04-10 15:21] LABS: INR 0.9 (<1.2); Partial Thromboplastin Time 25.6 sec (22.0-30.0); Prothrombin Time 10.4 sec (9.0-12.0)
[2021-04-10 18:27] LABS: Basophils # (A) 0.05 X 10*3/uL (0.00-0.10); Basophils % (A) 0.4 %; Eosinophils # (A) 0.12 X 10*3/uL (0.04-0.35); Eosinophils % (A) 1.1 %; HGB 12.6 g/dL (13.0-17.0); Immature Grans, Automated 0.4 %; Lymphocytes # (A) 2.89 X 10*3/uL (0.90-5.00); Lymphocytes % (A) 25.5 %; MCH 28.8 pg (27.0-32.0); MCHC 31.5 g/dL (32.0-37.0); MCV 91.5 fL (80.0-97.0); Mean Platelet Volume 10.1 fL (9.5-12.2); Monocytes # (A) 0.82 X 10*3/uL (0.20-1.00); Monocytes % (A) 7.2 %; NRBC Per 100 WBC 0 /100 WBCS (0.0-0.0); Neutrophils # (A) 7.42 X 10*3/uL (1.80-7.70); Neutrophils % (A) 65.4 %; Platelet Count 279 X 10*3/uL (140-440); RBC 4.37 X 10*6/uL (4.40-5.60); WBC 11.34 X 10*3/uL (4.50-10.00)
[2021-04-10 18:35] LABS: African American GFR (CKD) 122.8 (60.0-200.0); Anion Gap 12.8 mmol/L (10.00-18.00); Blood Urea Nitrogen 12.4 mg/dL (9.0-27.0); Carbon Dioxide 20.6 mmol/L (20.0-27.5); Potassium 4.4 mmol/L (3.5-5.5)
[2021-04-10 21:48] LABS: Appearance,Urine Clear (Clear); Bacteria,Urine None Seen /HPF (None Seen); Bilirubin,Urine Negative (Negative); Blood,Urine Negative (Negative); Color,Urine Yellow (Yellow); Ketones,Urine Trace mg/dL (Negative); Leukocyte Esterase,Urine Trace (Negative); Nitrite,Urine Negative (Negative); Protein,Urine Negative (Negative); RBC,Urine 0-2 /HPF (0-2); Specific Gravity,Urine 1.025 (1.001-1.030); Urobilinogen,Urine 0.2 (0.2,1.0); WBC,Urine 0-5 /HPF (0-5)
[2021-04-12 01:44] LABS: Hepatitis A Antibody IgM Nonreactive (Nonreactive); Hepatitis B Core IgM Nonreactive (Nonreactive); Hepatitis B Surface Antigen Nonreactive (Nonreactive); Hepatitis C IgG Antibody Nonreactive (Nonreactive)
== END | disposition home or self-care (01) ==
LOC: LABPAT 13:24
PROVIDERS: ATTEND Thoracic Surgery (Cardiothoracic Vascular Surgery)
DX: I25.10 Atherosclerotic heart disease of native coronary artery without angina pectoris (principal); E86.0 Dehydration; R58 Hemorrhage, not elsewhere classified; R35.0 Frequency of micturition
CPT/HCPCS: 80051; 80074; 81001; 82565; 82947; 83036; 84443; 84520; 85025; 85610; 85730; 87086

== ENCOUNTER 2021-04-19 08:00 | Inpatient (IN) | payer MEDICARE ==
[~2021-04-19 08:00] MED LIST changes: +ALBUMIN HUMAN 25% 50 ML IV ONE; +ALBUMIN HUMAN 5% 500 ML IVPB ONE; -ALPRAZolam 0.25 MG TAB PO PRN; -ALPRAZolam 0.5 MG TAB PO PRN; +ASPIRIN 325 MG TAB PO ONE; +CALCIUM CHLORIDE 100 MG/ML 10 ML SYRINGE IV ONE; +CARDIOPLEGIC SOLN (K+ 16 MEQ/L 1,000 ML with SODIUM BICARB (1 MEQ/ML) 20 ML, LIDOCAINE ... PERFUSION ONE; +CHLORHEXIDINE GLUCONATE 15 ML CUP MUCOUS MEM ONE; +CLEVIDIPINE BUTYRATE 25 MG in EMPTY BAG 1 BAG IV ONE; +DILTIAZEM 125 MG in SODIUM CHLORIDE 0.9% 100 ML IV ONE; +HEPARIN SODIUM 1,000 UN/ML (10ML VL) IV ONE; +HEPARIN SODIUM,PORCINE 5,000 UNIT in SODIUM CHLORIDE 0.9% 500 ML 500 ML IV ONE; +INSULIN REGULAR 100 UNIT in SODIUM CHLORIDE 0.9% 100 ML IV ONE; +LACTATED RINGERS 1,000 ML IV ONE; +MAGNESIUM SULFATE 16.24 MEQ in EMPTY SYRINGE 1 SYR IV ONE; +MANNITOL 25% 12.5 GM/50 ML VIAL IV ONE; +METOPROLOL TARTRATE 12.5 MG TAB PO ONE; +NITROGLYCERIN SL TABS 0.4 MG TAB SUBLINGUAL ONE; -NITROGLYCERIN SL TABS 0.4 MG TAB SUBLINGUAL PRN; +NITROGLYCERIN-D5W PMX 25 MG/250 ML BTL IV ONE; +NITROGLYCERIN-D5W PMX 50 MG in DEXTROSE/WATER 1 250ML.BAG IV ONE; +NOREPINEPHRINE 4 MG in SODIUM CHLORIDE 0.9% 250 ML IV ONE; +PAPAVERINE 360 MG in SODIUM CHLORIDE 0.9% 90 ML IV ONE; +PHENYLEPHRINE 10 MG/ML VIAL IV ONE; +PHENYLEPHRINE 40 MG in SODIUM CHLORIDE 0.9% 250 ML IV ONE; +PROTAMINE SULFATE 10 MG/ML 25 ML VIAL IV ONE; +PROTAMINE SULFATE 250 MG in EMPTY BAG 1 BAG IV ONE; +Pre Op ABX Message 1 EACH MISC MISCELLANE ONE; +SODIUM BICARB 8.4% 50 ML SYR (1 MEQ/ML) IV ONE; +SODIUM CHLORIDE 0.9% 1,000 ML IV ONE; -SODIUM CHLORIDE 0.9% 1,000 ML in EMPTY BAG 1 BAG IV ONE; +TRANEXAMIC ACID 2,000 MG in SODIUM CHLORIDE 0.9% 80 ML IV ONE; +ceFAZolin 1,000 MG in SODIUM CHLORIDE 0.9% IRRIGATIO 1,000 ML IRRIGATION ONE; +propofoL 1,000 MG/100 ML VIAL IV ONE
[2021-04-19] MEDS: LACTATED RINGERS 1,000 ML IV SCH ×2 (10:54→19:38)
[2021-04-19 11:22] LABS: Glucose,Whole Blood 123 mg/dL (75-99)
[2021-04-19] MEDS ORDERED: SUCCINYLCHOLINE CHLORIDE VIAL 200 MG/10 ML VIAL IV ONE (13:39)
[2021-04-19] MEDS ORDERED: PROTAMINE SULFATE 10 MG/ML 5 ML VIAL IV ONE (13:39)
[2021-04-19] MEDS ORDERED: PROPOFOL 10 MG/ML 20 ML VIAL IV ONE (13:39)
[2021-04-19] MEDS ORDERED: LIDOCAINE 2% SYG (PF) 100 MG/5 ML ONE (13:39)
[2021-04-19] MEDS ORDERED: HEPARIN SODIUM,PORCINE 10,000 UNIT/ML 1 ML VIAL ONE (13:39)
[2021-04-19] MEDS ORDERED: NITROGLYCERIN-D5W PMX 50 MG/250 ML BOTTLE IV ONE (13:39)
[2021-04-19] MEDS ORDERED: VECURONIUM 10 MG VIAL IV ONE (13:39)
[2021-04-19] MEDS ORDERED: SODIUM CHLORIDE 0.9% IRRIG 1,000 ML BTL IRRIGATION ONE (13:39)
[2021-04-19] MEDS ORDERED: fentaNYL (PF) 50 MCG/ML 50 ML VIAL ONE (13:39)
[2021-04-19] MEDS ORDERED: MAGNESIUM SULFATE 4 MEQ/ML 10ML VIAL ONE (13:39)
[2021-04-19] MEDS ORDERED: MIDAZOLAM 2 MG/2 ML VIAL ONE (13:39)
[2021-04-19] MEDS ORDERED: ALBUMIN HUMAN 5% (25gm) 500 ML VIAL IVPB ONE (13:39)
[2021-04-19 14:15] LABS: ABG Base Excess 0.6 mmol/L; ABG Glucose Whole Blood 99 mg/dL (75-99); ABG HCO3 27 mmol/L (21-25); ABG Hematocrit 38 % (34.0-46.0); ABG Ionized Calcium 4.8 mg/dL (4.5-5.3); ABG Oxygen Saturation 98.5 % (94-97); ABG PCO2 47 mmHg (35-45); ABG PH 7.36 (7.35-7.45); ABG PO2 123 mmHg (83-108); ABG Potassium Whole Blood 4.4 mmol/L (3.4-4.5); ABG Sodium Whole Blood 140 mmol/L (135-146); ABG TCO2 28 mmol/L (19-24)
--- NOTE | 2021-04-19 14:43 | P.ANPRN ---
Procedure Note - Anesthesia - Invasive Line Right Central Line Time Out Performed: Yes Date of Procedure: 04/19/21 Time of Procedure: 13:30 Location of Patient: Phase I Preparation: Sterile Prep, Sterile Dressing Ultrasound Used: Yes Purpose - Visualization and Identification of Vasculature: Yes Needle Guage: 18g right IJ Cordis Image Stored and Saved: Yes Narrative: Central line placement per sterile protocol utilized. +local +angio +jwire +uneventful dilation and introduction right IJ cordis. Lumen bled and flushed. Non pulsitile.
--- NOTE | 2021-04-19 14:44 | P.ANPRN ---
Procedure Note - Anesthesia - Invasive Line Right Arterial Line Time Out Performed: Yes Date of Procedure: 04/19/21 Time of Procedure: 13:40 Location of Patient: Phase I Preparation: Sterile Prep, Sterile Dressing Arterial Line Location: Brachial Ultrasound Used: Yes Purpose - Visualization and Identification of Vasculature: Yes Needle Guage: 20g Image Stored and Saved: Yes Narrative: Central line placement per sterile protocol utilized. placed with ultrasound in one attempt.
--- NOTE | 2021-04-19 14:45 | P.ANPRN ---
Procedure Note - Anesthesia - Invasive Line [place] Time Out Performed: Yes Date of Procedure: 04/19/21 Time of Procedure: 13:36 Location of Patient: Phase I Preparation: Sterile Prep, Sterile Dressing Ultrasound Used: No Purpose - Visualization and Identification of Vasculature: No Image Stored and Saved: No Narrative: Central line placement per sterile protocol utilized. floated sterily in sheath to pa in one attempt. Wedge at 47cm, w/d 5cm to 42cm. PA waveform. Patient tolerated procedure well.
[2021-04-19] MEDS ORDERED: MUPIROCIN 2% OINT 22 GM TUBE NASAL ONE (15:30)
[2021-04-19 16:25] LABS: ABG Base Excess -0.2 mmol/L; ABG Glucose Whole Blood 108 mg/dL (75-99); ABG HCO3 25 mmol/L (21-25); ABG Hematocrit 35 % (34.0-46.0); ABG Ionized Calcium 4.6 mg/dL (4.5-5.3); ABG Lactic Acid Whole Blood 0.7 mmol/L (0.5-1.6); ABG Oxygen Saturation 99.2 % (94-97); ABG PCO2 45 mmHg (35-45); ABG PH 7.36 (7.35-7.45); ABG PO2 166 mmHg (83-108); ABG Potassium Whole Blood 4.3 mmol/L (3.4-4.5); ABG Sodium Whole Blood 140 mmol/L (135-146); ABG TCO2 27 mmol/L (19-24)
[2021-04-19 16:59] LABS: ABG Base Excess -3.4 mmol/L; ABG Glucose Whole Blood 120 mg/dL (75-99); ABG HCO3 23 mmol/L (21-25); ABG Hematocrit 33 % (34.0-46.0); ABG Ionized Calcium 4.8 mg/dL (4.5-5.3); ABG Lactic Acid Whole Blood 0.7 mmol/L (0.5-1.6); ABG Oxygen Saturation 98.4 % (94-97); ABG PCO2 45 mmHg (35-45); ABG PH 7.32 (7.35-7.45); ABG PO2 121 mmHg (83-108); ABG Potassium Whole Blood 4.3 mmol/L (3.4-4.5); ABG Sodium Whole Blood 146 mmol/L (135-146); ABG TCO2 24 mmol/L (19-24)
[2021-04-19 17:41] LABS: ABG Base Excess -1.7 mmol/L; ABG Glucose Whole Blood 132 mg/dL (75-99); ABG HCO3 24 mmol/L (21-25); ABG Hematocrit 34 % (34.0-46.0); ABG Ionized Calcium 4.5 mg/dL (4.5-5.3); ABG Lactic Acid Whole Blood 0.7 mmol/L (0.5-1.6); ABG Oxygen Saturation 98.7 % (94-97); ABG PCO2 46 mmHg (35-45); ABG PH 7.34 (7.35-7.45); ABG PO2 139 mmHg (83-108); ABG Potassium Whole Blood 4.3 mmol/L (3.4-4.5); ABG Sodium Whole Blood 140 mmol/L (135-146); ABG TCO2 26 mmol/L (19-24)
[2021-04-19 18:04] LABS: ABG Base Excess -3.1 mmol/L; ABG Glucose Whole Blood 146 mg/dL (75-99); ABG HCO3 23 mmol/L (21-25); ABG Hematocrit 32 % (34.0-46.0); ABG Ionized Calcium 4.4 mg/dL (4.5-5.3); ABG Lactic Acid Whole Blood 0.7 mmol/L (0.5-1.6); ABG Oxygen Saturation 99.2 % (94-97); ABG PCO2 42 mmHg (35-45); ABG PH 7.34 (7.35-7.45); ABG PO2 165 mmHg (83-108); ABG Potassium Whole Blood 3.9 mmol/L (3.4-4.5); ABG Sodium Whole Blood 141 mmol/L (135-146); ABG TCO2 24 mmol/L (19-24)
[2021-04-19 18:53] LABS: ABG Base Excess -3.1 mmol/L; ABG Glucose Whole Blood 128 mg/dL (75-99); ABG HCO3 23 mmol/L (21-25); ABG Hematocrit 29 % (34.0-46.0); ABG Ionized Calcium 4.6 mg/dL (4.5-5.3); ABG Lactic Acid Whole Blood 0.7 mmol/L (0.5-1.6); ABG Oxygen Saturation 95.3 % (94-97); ABG PCO2 42 mmHg (35-45); ABG PH 7.34 (7.35-7.45); ABG PO2 79 mmHg (83-108); ABG Potassium Whole Blood 3.7 mmol/L (3.4-4.5); ABG Sodium Whole Blood 141 mmol/L (135-146); ABG TCO2 24 mmol/L (19-24)
--- NOTE | 2021-04-19 19:20 | P.OP ---
Date of Procedure: 04/19/21 Preoperative Diagnosis: 3 vessel Coronary artery disease Stable angina Postoperative Diagnosis: Same Procedure(s) Performed: 1. Off pump coronary artery bypass grafting x 3. VANEGAS - LAD, Left Radial to OM1, saphenous vein to posterior descending artery 2. Left atrial appendage ligation using #35 AtraClip 3. Endoscopic left radial harvest 4. Endoscopic left greater saphenous vein harvest 5. Trans-esophageal echo Implants: #35mm AtraClip Anesthesia: GETA Surgeon: Ppee Franco Outboard Motor Mechanic #1: Garret Karimi Outboard Motor Mechanic #2: Dev Hein Estimated Blood Loss (ml): 850 Pathology: none sent Condition: stable Disposition: ICU Indications for Procedure: This patient is a 66-year-old male who underwent stenting to the circumflex and left anterior descending artery in 2013. He then presented with shortness of breath and chest pain. He underwent stress testing which showed a reversible over reversible defect in the inferior wall with a reduced ejection fraction of 45%. He underwent repeat injection coronary angiography which revealed distal left main and ostial circumflex and LAD disease in addition to his chronically occluded right coronary artery given his symptomatology and presence of three-vessel disease all risk and benefits and alternatives to surgical revascularization were discussed with the patient including his STS risk of morbidity and mortality. The patient was in agreement and informed consent was obtained. Operative Findings: The left internal thoracic artery was a good conduit and 2 mm in size. The left radial artery was also a good conduit approximately 2 mm in diameter. The left anterior descending artery of the right proximal simile. There was a good landing zone distally. The vessel was 1.5 mm in diameter at this point. The posterior descending artery was also diseased distally however there was a good target at its proximal take off. This vessel was also 1.5 mm in diameter. Dipped his marginal was a good target and 2 mm in diameter. Description of Procedure: The patient was identified in the preoperative suite and central line [place] catheter and arterial line placement was performed by the anesthesia team. The patient was then brought back to the operating room and placed in the operating room table in the supine position. General endotracheal anesthesia was induced. The patient was then prepped from the chin to the ankles in the usual sterile fashion. Preoperative antibiotics were given and a timeout was performed. An incision was made but made in the midline on the chest. This was carried down to the subcu tissues to the bone. A median sternotomy was performed. Hemostasis of the bone was achieved using electrocautery and some lasting. Simultaneously as an hospital medical assistant was utilized to endoscopically harvested left radial artery. In addition a second Asst. simultaneously harvested the left greater saphenous vein in an endoscopic fashion. The left pleura was then entered. The left internal thoracic artery was then harvested and a pedicle fashion. A left-sided 32-English chest tube was placed. It was transected distally. The pericardium was then incised in a T fashion and a pericardial cradle was created. Stay sutures were placed. A 35 mm AtriCure clip was then placed on the left atrial appendage effectively ligating it. Patient was systemically heparinized to an ACT greater than 250. The VANEGAS was then prepared. The left anterior descending artery was dissected out. This was significantly diseased proximally. We were able to find a soft spot on the distal LAD. The vessel was 1.5 mm in diameter and a decent target. The octopus stabilizer was placed on the artery and an arteriotomy was performed and an end-to-side anastomosis was performed with the DARYL using a running 8-0 Prolene. Next the posterior descending artery was brought into the field and stabilized using the Octopus stabilizer. This was heavily Diseased distally. We were able to find a soft spot proximally. The vessel was 1.5 mm in diameter and a decent target. An arteriotomy was performed and an end-to-side anastomosis with the saphenous vein graft to the PDA using a running 7-0 Prolene. We then used a heartstring device to make an aortotomy and performed the proximal anastomosis of the saphenous vein to the ascending aorta using a running 5-0 Prolene. Next the lateral wall the heart was brought into the field and the obtuse marginal artery was then identified and stabilized using Octopus stabilizer. This was a decent target and 1.5 mm in diameter. The radial artery was then anastomosed to the obtuse marginal in an end-to-side fashion using a running 8-0 Prolene. Stay the midportion of the DARYL was then identified and cleaned off. The proximal end of the radial artery was then is anastomosed to the midportion of the Daryl in an end-to-side fashion using a running 8-0 Prolene. Protamine was given and hemostasis was secured. Her Cardizem was closed in the midline. An additional 32-English chest tube was placed in the mediastinum and a 19-English Arnie was placed in the right pleura. The sternum was reapproximated using steel wires. The mediastinum was irrigated with antibiotic-containing saline prior to closure. The patient tolerated the off-pump procedure without any prolonged episodes of hypotension. The the fascia of the chest arm and leg was closed using Ethibond suture. The subcutaneous tissues and skin were closed using Vicryl in layers. Skin glue and a sterile dressing was applied.
[2021-04-19] MEDS ORDERED: AMIODARONE 360 MG in DEXTROSE 5% IN WATER 200 ML IV PRN ×2 (19:38)
[2021-04-19] MEDS ORDERED: METOCLOPRAMIDE 5 MG/ML 2 ML VIAL IVP PRN (19:38)
[2021-04-19] MEDS ORDERED: Phosphorus Replacement Protoco 1 EACH MISC MISCELLANE PRN (19:38)
[2021-04-19] MEDS ORDERED: ALBUMIN HUMAN 5% 250 ML in EMPTY BAG 1 BAG IVPB PRN (19:38)
[2021-04-19] MEDS ORDERED: DEXTROSE 5% IN WATER 100 ML with AMIODARONE 150 MG IV PRN (19:38)
[2021-04-19] MEDS ORDERED: Magnesium Replacement Protocol 1 EACH MISC MISCELLANE PRN (19:38)
[2021-04-19] MEDS ORDERED: IPRATROPIUM-ALBUTEROL 3 ML NEB INHALATION PRN (19:38)
[2021-04-19] MEDS ORDERED: hydrALAZINE HCL 20 MG/ML 1 ML VIAL IVP PRN (19:38)
[2021-04-19] MEDS ORDERED: AMIODARONE 450 MG in DEXTROSE 5% IN WATER 250 ML IV PRN ×2 (19:38)
[2021-04-19] MEDS ORDERED: BENZOCAINE/MENTHOL LOZENG 1 EACH LOZENGE MUCOUS MEM PRN (19:38)
[2021-04-19] MEDS ORDERED: ONDANSETRON 4 MG/2 ML VIAL IVP PRN (19:38)
[2021-04-19] MEDS ORDERED: Potassium Replacement Protocol 1 EACH MISC MISCELLANE PRN (19:38)
[2021-04-19 19:39] LABS: Glucose,Whole Blood 127 mg/dL (75-99)
[2021-04-19] MEDS ORDERED: hydrALAZINE HCL 20 MG/ML 1 ML VIAL ONE (19:47)
[2021-04-19 19:50] LABS: Basophils % (A) 0 %; Eosinophils # (A) 0.1 k/uL (0-0.7); Eosinophils % (A) 1 %; HCT 31.1 % (39.0-53.0); Lymphocytes # (A) 2.1 k/uL (1.0-4.8); Lymphocytes % (A) 10 %; MCH 30.3 pg (25.0-35.0); MCHC 33.1 g/dL (31.0-37.0); MCV 91.5 fL (80.0-100.0); Monocytes # (A) 0.9 k/uL (0-1.0); Monocytes % (A) 5 %; Neutrophils # (A) 16.6 k/uL (1.3-7.7); Neutrophils % (A) 84 %; Platelet Count 185 k/uL (150-450); WBC 19.9 k/uL (3.8-10.6)
[2021-04-19 19:51] LABS: Ionized Calcium 4.8 mg/dL (4.5-5.3)
[2021-04-19 19:57] LABS: ALT 16 U/L (4-49); AST 23 U/L (17-59); African American GFR (CKD) >90 (>60 ml/min/1.73 sqM); Alkaline Phosphatase 34 U/L (38-126); Anion Gap 10 mmol/L; Blood Urea Nitrogen 12 mg/dL (9-20); Calcium 7.9 mg/dL (8.4-10.2); Carbon Dioxide 21 mmol/L (22-30); Chloride 108 mmol/L (98-107); Glucose 121 mg/dL (74-99); Non-African American GFR(CKD) >90 (>60 ml/min/1.73 sqM); Potassium 3.9 mmol/L (3.5-5.1); Sodium 139 mmol/L (137-145); Total Bilirubin 0.6 mg/dL (0.2-1.3); Total Protein 5.9 g/dL (6.3-8.2)
[2021-04-19 19:59] LABS: ABG Base Excess -2.9 mmol/L; ABG HCO3 25 mmol/L (21-25); ABG Oxygen Saturation 95.6 % (94-97); ABG PCO2 57 mmHg (35-45); ABG PH 7.24 (7.35-7.45); ABG PO2 97 mmHg (83-108); ABG TCO2 26 mmol/L (19-24)
[2021-04-19] MEDS ORDERED: NITROGLYCERIN-D5W PMX 50 MG in DEXTROSE/WATER 1 250ML.BAG IV SCH (20:00)
[2021-04-19] MEDS ORDERED: IPRATROPIUM-ALBUTEROL 3 ML NEB INHALATION SCH (20:00)
[2021-04-19 20:04] LABS: Allen Test Performed? No
--- NOTE | 2021-04-19 20:10 | XR ---
EXAMINATION TYPE: XR chest 1V portable DATE OF EXAM: 04/19/2021 COMPARISON: 04/15/2021 HISTORY: Respiratory failure TECHNIQUE: FINDINGS: There is endotracheal tube 1 cm from the baljinder. There are sternal wires. There is nasogast lilia tube looped on itself in the esophagus and the tip is probably near the oropharynx. There is left-sided chest tube. There is right jugular catheter with the tip over the right atrium. N o pneumothorax. IMPRESSION: There is malposition of the endotracheal tube looped on itself in the esophagus. There is endotracheal tube low and should be pulled back 3 cm. There is some mild infiltrate both lower lobes which is new compared to the preoperative exam.
[2021-04-19 20:11] LABS: INR 1.1 (<1.2); Partial Thromboplastin Time 25.3 sec (22.0-30.0); Prothrombin Time 11.7 sec (9.0-12.0)
[2021-04-19 20:30] LABS: HGB 10.3 gm/dL (13.0-17.5)
[2021-04-19] MEDS ORDERED: DILTIAZEM 125 MG in SODIUM CHLORIDE 0.9% 100 ML IV SCH ×4 (20:30)
[2021-04-19] MEDS: CLEVIDIPINE BUTYRATE 25 MG in EMPTY BAG 1 BAG IV SCH (20:30)
[2021-04-19] MEDS ORDERED: DEXMEDETOMIDINE/0.9% NACL(PMX) 400 MCG in EMPTY BAG 1 BAG IV SCH (20:30)
[2021-04-19] MEDS: INSULIN REGULAR 100 UNIT in SODIUM CHLORIDE 0.9% 100 ML IV SCH (20:33)
[2021-04-19 20:34] LABS: Glucose,Whole Blood 191 mg/dL (75-99)
[2021-04-19] MEDS ORDERED: ROSUVASTATIN CALCIUM 20 MG PO SCH (21:00)
[2021-04-19] MEDS ORDERED: fentaNYL (PF) 50 MCG/ML 2 ML AMP IVP PRN (21:09)
[2021-04-19] MEDS: ACETAMINOPHEN IV (For NPO) 1,000 MG in EMPTY BAG 1 BAG IVPB SCH (21:30)
[2021-04-19] MEDS: POTASSIUM CHLORIDE 10 MEQ in WATER FOR INJECTION 1 100ML.BAG IVPB SCH ×2 (21:36→22:22)
--- NOTE | 2021-04-19 21:52 | XR ---
EXAMINATION TYPE: XR chest 1V portable DATE OF EXAM: 04/19/2021 COMPARISON: Today HISTORY: Postop TECHNIQUE: Single view FINDINGS: Endotracheal tube is 3.5 cm from the baljinder. There is right jugular catheter with tip in th e main pulmonary artery. There is nasogastric tube in the stomach. There are chest leads. There is a chest tube over the left heart border. There is some mild atelectasis at the lung bases. IMPRESSION: Tubing in good position. No pneumothorax. There is some mild atelectasis at the lung base s similar to exam 2 hours ago.
[2021-04-19 22:22] LABS: Glucose,Whole Blood 207 mg/dL (75-99)
[2021-04-19 22:42] LABS: Basophils % (A) 0 %; Eosinophils # (A) 0.1 k/uL (0-0.7); Eosinophils % (A) 1 %; HCT 30.9 % (39.0-53.0); HGB 10.2 gm/dL (13.0-17.5); Lymphocytes # (A) 0.9 k/uL (1.0-4.8); Lymphocytes % (A) 6 %; MCH 30.4 pg (25.0-35.0); MCHC 33.1 g/dL (31.0-37.0); MCV 91.9 fL (80.0-100.0); Mean Platelet Volume 7.3; Monocytes # (A) 0.6 k/uL (0-1.0); Monocytes % (A) 4 %; Neutrophils # (A) 13.7 k/uL (1.3-7.7); Neutrophils % (A) 89 %; Platelet Count 209 k/uL (150-450); RBC 3.36 m/uL (4.30-5.90); RDW 14.1 % (11.5-15.5); WBC 15.4 k/uL (3.8-10.6)
[2021-04-19 23:15] LABS: Glucose,Whole Blood 186 mg/dL (75-99)
[2021-04-19] MEDS: MUPIROCIN 2% OINT 22 GM TUBE NASAL SCH (23:16)
[2021-04-19 23:29] LABS: ABG Base Excess -3.6 mmol/L; ABG HCO3 22 mmol/L (21-25); ABG Oxygen Saturation 96.8 % (94-97); ABG PCO2 39 mmHg (35-45); ABG PH 7.36 (7.35-7.45); ABG PO2 90 mmHg (83-108); ABG TCO2 23 mmol/L (19-24)
[2021-04-19 23:32] LABS: Allen Test Performed? No
[2021-04-20 00:13] LABS: Glucose,Whole Blood 170 mg/dL (75-99)
[2021-04-20] MEDS: HEPARIN SODIUM,PORCINE/PF 5,000 UNIT/0.5 ML SYRINGE SQ SCH ×4 (00:25→23:00)
[2021-04-20] MEDS: CLEVIDIPINE BUTYRATE 25 MG in EMPTY BAG 1 BAG IV SCH ×4 (01:17→08:12)
[2021-04-20 01:18] LABS: Glucose,Whole Blood 145 mg/dL (75-99)
[2021-04-20 02:01] LABS: Glucose,Whole Blood 143 mg/dL (75-99)
[2021-04-20 02:24] LABS: Basophils % (A) 0 %; Eosinophils # (A) 0.1 k/uL (0-0.7); Eosinophils % (A) 0 %; HCT 30.6 % (39.0-53.0); Lymphocytes # (A) 0.7 k/uL (1.0-4.8); Lymphocytes % (A) 4 %; MCH 29.6 pg (25.0-35.0); MCHC 32.7 g/dL (31.0-37.0); MCV 90.3 fL (80.0-100.0); Mean Platelet Volume 7.3; Monocytes # (A) 0.9 k/uL (0-1.0); Monocytes % (A) 5 %; Neutrophils # (A) 16.5 k/uL (1.3-7.7); Neutrophils % (A) 90 %; Platelet Count 219 k/uL (150-450); RBC 3.39 m/uL (4.30-5.90); RDW 14.2 % (11.5-15.5); WBC 18.3 k/uL (3.8-10.6)
[2021-04-20 02:31] LABS: Ionized Calcium 4.8 mg/dL (4.5-5.3)
[2021-04-20 02:42] LABS: ALT 18 U/L (4-49); AST 33 U/L (17-59); African American GFR (CKD) >90 (>60 ml/min/1.73 sqM); Albumin 4.3 g/dL (3.5-5.0); Alkaline Phosphatase 43 U/L (38-126); Anion Gap 9 mmol/L; Blood Urea Nitrogen 15 mg/dL (9-20); Calcium 8.6 mg/dL (8.4-10.2); Carbon Dioxide 22 mmol/L (22-30); Chloride 107 mmol/L (98-107); Glucose 141 mg/dL (74-99); Magnesium 1.9 mg/dL (1.6-2.3); Non-African American GFR(CKD) >90 (>60 ml/min/1.73 sqM); Potassium 4.3 mmol/L (3.5-5.1); Sodium 138 mmol/L (137-145); Total Bilirubin 0.6 mg/dL (0.2-1.3); Total Protein 6.3 g/dL (6.3-8.2)
[2021-04-20] MEDS: ACETAMINOPHEN IV (For NPO) 1,000 MG in EMPTY BAG 1 BAG IVPB SCH (03:00)
[2021-04-20 03:11] LABS: Glucose,Whole Blood 150 mg/dL (75-99)
[2021-04-20] MEDS ORDERED: HYDROcodone/APAP 5-325MG 1 EACH TAB PO PRN (04:26)
[2021-04-20 04:38] LABS: Glucose,Whole Blood 162 mg/dL (75-99)
[2021-04-20] MEDS: HYDROcodone/APAP 5-325MG 1 EACH TAB PO PRN ×2 (04:42→22:57)
[2021-04-20] MEDS: MAGNESIUM SULFATE-D5W PMX 1 GM in DEXTROSE/WATER 1 100ML.BAG IVPB SCH ×2 (04:49→04:50)
[2021-04-20 06:00] LABS: Glucose,Whole Blood 177 mg/dL (75-99)
[2021-04-20] MEDS: LACTATED RINGERS 1,000 ML IV SCH ×2 (06:25→17:37)
[2021-04-20 06:54] LABS: Glucose,Whole Blood 141 mg/dL (75-99)
[2021-04-20] MEDS ORDERED: ACETAMINOPHEN TAB 325 MG TAB PO PRN (07:29)
[2021-04-20] MEDS: KETOROLAC 30 MG/ML 1 ML VIAL IVP SCH ×4 (08:09→23:01)
[2021-04-20] MEDS: CLOPIDOGREL 75 MG TAB PO SCH (08:10)
[2021-04-20] MEDS: ASPIRIN 325 MG TAB PO SCH (08:10)
[2021-04-20] MEDS: METOPROLOL TARTRATE 25 MG TAB PO SCH ×2 (08:10→20:14)
[2021-04-20] MEDS: MUPIROCIN 2% OINT 22 GM TUBE NASAL SCH ×2 (08:29→20:15)
[2021-04-20 08:30] LABS: Glucose,Whole Blood 61 mg/dL (75-99)
[2021-04-20 08:30] LABS: Glucose,Whole Blood 126 mg/dL (75-99)
--- NOTE | 2021-04-20 08:50 | P.PN ---
Subjective Progress Note Date: 04/20/21 Principal diagnosis: Triple-vessel coronary artery disease, stable angina. Previous medical history of coronary artery disease with previous stenting, hypertension, hyperlipidemia, previous tobacco dependence, obstructive sleep apnea with home CPAP use, mild EtOH use of 2-7 drinks a week, and preoperative nasal swab positive for MRSA. Vaccinated and boosted against Covid POD #1 off-pump coronary artery bypass graft 3 with left internal mammary artery to the left anterior descending artery, left radial artery to the first obtuse marginal artery, reverse saphenous vein graft to the posterior descending artery, left atrial appendage ligation using a #35 mm AtriClip, endoscopic left radial artery harvest, endoscopic left greater saphenous vein harvest, and intraoperative transesophageal echocardiogram performed by anesthesia. Postoperative acute blood loss anemia, expected given hemodilution The patient was seen and examined this morning sitting up in a recliner in the intensive care unit in no acute distress. He was successfully extubated last night at 11:51 PM. States postoperative pain is well controlled on current medication regimen, denies shortness of breath. Remains in sinus rhythm and hemodynamically stable on IV Cardizem and nitro for vessel spasm prophylaxis. He had a relatively uneventful night and is in good spirits. Right internal jugular Weston/Cordis, right radial arterial line, mediastinal/right/left pleural chest tubes all remain. No other new concerns. Objective - Vital Signs Vital signs: Vital Signs Temp 99.3 F 04/20/21 04:00 Pulse 94 04/20/21 07:00 Resp 20 04/20/21 07:00 BP 145/87 04/20/21 07:00 Pulse Ox 96 04/20/21 07:00 Intake & Output 04/19/21 04/20/21 04/20/21 18:59 06:59 18:59 Intake Total 154 1080.285 Output Total 2300 1467 Balance -2146 -386.715 Weight 105 kg 107.4 kg Intake: IV 154 958 Albumin Human 5% 250 ml 250 In Empty Bag 1 bag @ 250 mls/hr IVPB Q1HR PRN Rx#: [id number] Lactated Ringers 1,000 ml 600 @ 20 mls/hr IV .Q24H [facility] Rx#:[id number] pressure bag 108 Intake, IV Titration 122.285 Amount Clevidipine Butyrate 25 48.866 mg In Empty Bag 1 bag @ 16 MG/HR 32 mls/hr IV . Q1H34M [facility] Rx#:[id number] Dexmedetomidine/0.9% NaCl 13.475 (Pmx) 400 mcg In Empty Bag 1 bag @ Titrate IV . Q0M [facility]CO Rx#:[id number] Diltiazem 125 mg In 16.667 Sodium Chloride 0.9% 100 ml @ 10 MG/HR 10 mls/hr IV .[id number] [facility]CO Rx#: [id number] Insulin Regular 100 unit 36.137 In Sodium Chloride 0.9% 100 ml @ Per Protocol IV .Q0M [facility]CO Rx#:[id number] propofoL 1,000 mg In 7.14 Empty Bag 1 bag @ Titrate IV .Q0M [facility]CO Rx#: [id number] Output: Chest Tube Drainage 575 Bilateral pleural 360 mediastinal 215 Drainage 0 Left Wrist 0 Urine 300 892 Estimated Blood Loss 2000 Other: Voiding Method Indwelling Catheter ABP, PAP, CO, CI - Last Documented Arterial Blood Pressure 126/61 Pulmonary Artery Pressure 26/8 Cardiac Output 8.8 Cardiac Index 4.3 - Exam CONSTITUTIONAL: Appears comfortable, cooperative, no acute distress RESPIRATORY: Lungs sounds diminished bilaterally. Respirations even, nonlabored. Currently on 6 L nasal cannula with oxygen saturation 95%. Able to achieve 1000 mL on incentive spirometry. Strong cough. CARDIOVASCULAR: S1, S2 present. Regular rate and rhythm, sinus rhythm on telemetry. Sternum stable. Palpable peripheral pulses bilaterally. Trace generalized edema present. No calf pain or tenderness noted. Heart hugger in place with patient demonstrating appropriate use. Antiembolism stockings, SCDs present. GASTROINTESTINAL: Abdomen soft, nontender, nondistended. Hypoactive bowel sounds present 4 quadrants. Tolerating clear liquids. Negative flatus GENITOURINARY: Wilson present draining clear, yellow urine. Output overnight 75-140 mL per hour INTEGUMENTARY: Skin is warm and dry with evidence of good perfusion. Anterior chest incision well approximated and covered with dry intact dressing. Left low er extremity EVH site well approximated without redness or drainage. Left radial artery harvest site without redness, STEVE drain present without any drainage overnight NEUROLOGIC: Cranial nerves II through XII intact MUSKULOSKELETAL: Able to move all extremities, strength equal bilaterally PSYCHIATRIC: Alert and oriented to person place and time, appropriate affect, intact judgment and insight INVASIVE LINES AND TUBES: Mediastinal/left/right pleural chest tubes present and connected to wall suction, no air leaks present. Mediastinal tube with 150 mL serosanguineous drainage overnight, 270 mL since surgery. Left/right pleural chest tubes with 150 mL serosanguineous drainage overnight, 350 mL since surgery. Right internal jugular Weston/Cordis, right radial arterial line present. Last CO/CI 8.8/4.3, PA 32/9, CVP 11. - Allied health notes Allied health notes reviewed: nursing - Labs CBC & Chem 7: 04/20/21 02:00 04/20/21 02:00 Labs: Abnormal Lab Results - Last 24 Hours (Table) 04/10/21 04/19/21 04/19/21 Range/Units 14:13 11:20 14:14 WBC (3.8-10.6) k/uL RBC (4.30-5.90) m/uL Hgb (13.0-17.5) gm/dL Hct (39.0-53.0) % Neutrophils # (1.3-7.7) k/uL Lymphocytes # (1.0-4.8) k/uL ABG pH (7.35-7.45) ABG pCO2 47 H (35-45) mmHg ABG pO2 123 H (83-108) mmHg ABG HCO3 27 H (21-25) mmol/L ABG Total CO2 28 H (19-24) mmol/L ABG O2 Saturation 98.5 H (94-97) % ABG Hematocrit (34.0-46.0) % ABG Ionized Calcium (4.5-5.3) mg/dL ABG Glucose (75-99) mg/dL Hemoglobin 12.4 L (13.0-17.5) gm/dL Chloride (98-107) mmol/L Carbon Dioxide (22-30) mmol/L Creatinine (0.66-1.25) mg/dL Glucose (74-99) mg/dL POC Glucose (mg/dL) 123 H (75-99) mg/dL Calcium (8.4-10.2) mg/dL Alkaline Phosphatase (38-126) U/L Total Protein (6.3-8.2) g/dL Arterial Blood Glucose (75-99) mg/dL Crossmatch See Detail 04/19/21 04/19/21 04/19/21 Range/Units 16:25 16:59 17:41 WBC (3.8-10.6) k/uL RBC (4.30-5.90) m/uL Hgb (13.0-17.5) gm/dL Hct (39.0-53.0) % Neutrophils # (1.3-7.7) k/uL Lymphocytes # (1.0-4.8) k/uL ABG pH 7.32 L 7.34 L (7.35-7.45) ABG pCO2 46 H (35-45) mmHg ABG pO2 166 H 121 H 139 H (83-108) mmHg ABG HCO3 (21-25) mmol/L ABG Total CO2 27 H 26 H (19-24) mmol/L ABG O2 Saturation 99.2 H 98.4 H 98.7 H (94-97) % ABG Hematocrit 33 L (34.0-46.0) % ABG Ionized Calcium (4.5-5.3) mg/dL ABG Glucose 108 H 120 H 132 H (75-99) mg/dL Hemoglobin 11.3 L 10.8 L 11.1 L (13.0-17.5) gm/dL Chloride (98-107) mmol/L Carbon Dioxide (22-30) mmol/L Creatinine (0.66-1.25) mg/dL Glucose (74-99) mg/dL POC Glucose (mg/dL) (75-99) mg/dL Calcium (8.4-10.2) mg/dL Alkaline Phosphatase (38-126) U/L Total Protein (6.3-8.2) g/dL Arterial Blood Glucose 108 H 120 H 132 H (75-99) mg/dL Crossmatch 04/19/21 04/19/21 04/19/21 Range/Units 18:04 18:54 19:36 WBC (3.8-10.6) k/uL RBC (4.30-5.90) m/uL Hgb (13.0-17.5) gm/dL Hct (39.0-53.0) % Neutrophils # (1.3-7.7) k/uL Lymphocytes # (1.0-4.8) k/uL ABG pH 7.34 L 7.34 L (7.35-7.45) ABG pCO2 (35-45) mmHg ABG pO2 165 H 79 L (83-108) mmHg ABG HCO3 (21-25) mmol/L ABG Total CO2 (19-24) mmol/L ABG O2 Saturation 99.2 H (94-97) % ABG Hematocrit 32 L 29 L (34.0-46.0) % ABG Ionized Calcium 4.4 L (4.5-5.3) mg/dL ABG Glucose 146 H 128 H (75-99) mg/dL Hemoglobin 10.6 L 9.6 L (13.0-17.5) gm/dL Chloride (98-107) mmol/L Carbon Dioxide (22-30) mmol/L Creatinine (0.66-1.25) mg/dL Glucose (74-99) mg/dL POC Glucose (mg/dL) 127 H (75-99) mg/dL Calcium (8.4-10.2) mg/dL Alkaline Phosphatase (38-126) U/L Total Protein (6.3-8.2) g/dL Arterial Blood Glucose 146 H 128 H (75-99) mg/dL Crossmatch 04/19/21 04/19/21 04/19/21 Range/Units 19:43 19:43 19:54 WBC 19.9 H (3.8-10.6) k/uL RBC 3.40 L (4.30-5.90) m/uL Hgb 10.3 L D (13.0-17.5) gm/dL Hct 31.1 L (39.0-53.0) % Neutrophils # 16.6 H (1.3-7.7) k/uL Lymphocytes # (1.0-4.8) k/uL ABG pH 7.24 L (7.35-7.45) ABG pCO2 57 H (35-45) mmHg ABG pO2 (83-108) mmHg ABG HCO3 (21-25) mmol/L ABG Total CO2 26 H (19-24) mmol/L ABG O2 Saturation (94-97) % ABG Hematocrit (34.0-46.0) % ABG Ionized Calcium (4.5-5.3) mg/dL ABG Glucose (75-99) mg/dL Hemoglobin (13.0-17.5) gm/dL Chloride 108 H (98-107) mmol/L Carbon Dioxide 21 L (22-30) mmol/L Creatinine 0.45 L (0.66-1.25) mg/dL Glucose 121 H (74-99) mg/dL POC Glucose (mg/dL) (75-99) mg/dL Calcium 7.9 L (8.4-10.2) mg/dL Alkaline Phosphatase 34 L (38-126) U/L Total Protein 5.9 L (6.3-8.2) g/dL Arterial Blood Glucose (75-99) mg/dL Crossmatch 04/19/21 04/19/21 04/19/21 Range/Units 20:32 22:20 22:25 WBC 15.4 H (3.8-10.6) k/uL RBC 3.36 L (4.30-5.90) m/uL Hgb 10.2 L (13.0-17.5) gm/dL Hct 30.9 L (39.0-53.0) % Neutrophils # 13.7 H (1.3-7.7) k/uL Lymphocytes # 0.9 L (1.0-4.8) k/uL ABG pH (7.35-7.45) ABG pCO2 (35-45) mmHg ABG pO2 (83-108) mmHg ABG HCO3 (21-25) mmol/L ABG Total CO2 (19-24) mmol/L ABG O2 Saturation (94-97) % ABG Hematocrit (34.0-46.0) % ABG Ionized Calcium (4.5-5.3) mg/dL ABG Glucose (75-99) mg/dL Hemoglobin (13.0-17.5) gm/dL Chloride (98-107) mmol/L Carbon Dioxide (22-30) mmol/L Creatinine (0.66-1.25) mg/dL Glucose (74-99) mg/dL POC Glucose (mg/dL) 191 H 207 H (75-99) mg/dL Calcium (8.4-10.2) mg/dL Alkaline Phosphatase (38-126) U/L Total Protein (6.3-8.2) g/dL Arterial Blood Glucose (75-99) mg/dL Crossmatch 04/19/21 04/20/21 04/20/21 Range/Units 23:13 00:11 01:16 WBC (3.8-10.6) k/uL RBC (4.30-5.90) m/uL Hgb (13.0-17.5) gm/dL Hct (39.0-53.0) % Neutrophils # (1.3-7.7) k/uL Lymphocytes # (1.0-4.8) k/uL ABG pH (7.35-7.45) ABG pCO2 (35-45) mmHg ABG pO2 (83-108) mmHg ABG HCO3 (21-25) mmol/L ABG Total CO2 (19-24) mmol/L ABG O2 Saturation (94-97) % ABG Hematocrit (34.0-46.0) % ABG Ionized Calcium (4.5-5.3) mg/dL ABG Glucose (75-99) mg/dL Hemoglobin (13.0-17.5) gm/dL Chloride (98-107) mmol/L Carbon Dioxide (22-30) mmol/L Creatinine (0.66-1.25) mg/dL Glucose (74-99) mg/dL POC Glucose (mg/dL) 186 H 170 H 145 H (75-99) mg/dL Calcium (8.4-10.2) mg/dL Alkaline Phosphatase (38-126) U/L Total Protein (6.3-8.2) g/dL Arterial Blood Glucose (75-99) mg/dL Crossmatch 04/20/21 04/20/21 04/20/21 Range/Units 02:00 02:00 02:00 WBC 18.3 H (3.8-10.6) k/uL RBC 3.39 L (4.30-5.90) m/uL Hgb 10.0 L (13.0-17.5) gm/dL Hct 30.6 L (39.0-53.0) % Neutrophils # 16.5 H (1.3-7.7) k/uL Lymphocytes # 0.7 L (1.0-4.8) k/uL ABG pH (7.35-7.45) ABG pCO2 (35-45) mmHg ABG pO2 (83-108) mmHg ABG HCO3 (21-25) mmol/L ABG Total CO2 (19-24) mmol/L ABG O2 Saturation (94-97) % ABG Hematocrit (34.0-46.0) % ABG Ionized Calcium (4.5-5.3) mg/dL ABG Glucose (75-99) mg/dL Hemoglobin (13.0-17.5) gm/dL Chloride (98-107) mmol/L Carbon Dioxide (22-30) mmol/L Creatinine 0.49 L (0.66-1.25) mg/dL Glucose 141 H (74-99) mg/dL POC Glucose (mg/dL) 143 H (75-99) mg/dL Calcium (8.4-10.2) mg/dL Alkaline Phosphatase (38-126) U/L Total Protein (6.3-8.2) g/dL Arterial Blood Glucose (75-99) mg/dL Crossmatch 04/20/21 04/20/21 04/20/21 Range/Units 03:10 04:36 05:58 WBC (3.8-10.6) k/uL RBC (4.30-5.90) m/uL Hgb (13.0-17.5) gm/dL Hct (39.0-53.0) % Neutrophils # (1.3-7.7) k/uL Lymphocytes # (1.0-4.8) k/uL ABG pH (7.35-7.45) ABG pCO2 (35-45) mmHg ABG pO2 (83-108) mmHg ABG HCO3 (21-25) mmol/L ABG Total CO2 (19-24) mmol/L ABG O2 Saturation (94-97) % ABG Hematocrit (34.0-46.0) % ABG Ionized Calcium (4.5-5.3) mg/dL ABG Glucose (75-99) mg/dL Hemoglobin (13.0-17.5) gm/dL Chloride (98-107) mmol/L Carbon Dioxide (22-30) mmol/L Creatinine (0.66-1.25) mg/dL Glucose (74-99) mg/dL POC Glucose (mg/dL) 150 H 162 H 177 H (75-99) mg/dL Calcium (8.4-10.2) mg/dL Alkaline Phosphatase (38-126) U/L Total Protein (6.3-8.2) g/dL Arterial Blood Glucose (75-99) mg/dL Crossmatch 04/20/21 04/20/21 04/20/21 Range/Units 06:53 08:26 08:28 WBC (3.8-10.6) k/uL RBC (4.30-5.90) m/uL Hgb (13.0-17.5) gm/dL Hct (39.0-53.0) % Neutrophils # (1.3-7.7) k/uL Lymphocytes # (1.0-4.8) k/uL ABG pH (7.35-7.45) ABG pCO2 (35-45) mmHg ABG pO2 (83-108) mmHg ABG HCO3 (21-25) mmol/L ABG Total CO2 (19-24) mmol/L ABG O2 Saturation (94-97) % ABG Hematocrit (34.0-46.0) % ABG Ionized Calcium (4.5-5.3) mg/dL ABG Glucose (75-99) mg/dL Hemoglobin (13.0-17.5) gm/dL Chloride (98-107) mmol/L Carbon Dioxide (22-30) mmol/L Creatinine (0.66-1.25) mg/dL Glucose (74-99) mg/dL POC Glucose (mg/dL) 141 H 61 L 126 H (75-99) mg/dL Calcium (8.4-10.2) mg/dL Alkaline Phosphatase (38-126) U/L Total Protein (6.3-8.2) g/dL Arterial Blood Glucose (75-99) mg/dL Crossmatch - Imaging and Cardiology Chest x-ray: image reviewed Assessment and Plan Assessment: 1. Triple-vessel coronary artery disease, stable angina, status post three- vessel off-pump CABG 2. History of coronary artery disease with previous stenting 3. Hypertension 4. Hyperlipidemia, treated, cholesterol 153, LDL 63, triglycerides 426 5. Previous tobacco dependence, preoperative FEV1 74% of predicted 6. Obstructive sleep apnea with home CPAP use 7. Mild EtOH use of 2-7 drinks a week 8. Preoperative nasal swab positive for MRSA 9. Vaccinated and boosted against Covid 10. Postoperative acute blood loss anemia Plan: 1. Continue aspirin, statin, Plavix, beta bev therapy. Will increase beta bev therapy as tolerated. Discontinue IV nitro 2. Continue calcium channel bev for radial artery spasm prophylaxis. Will transition to oral Cardizem 3. Wean O2 as tolerated. Encourage incentive spirometry is 10 times every hour while awake. Bronchodilators per pulmonology 4. Increase activity, ambulate as tolerated. PT/OT/cardiac rehab consulted 5. Will monitor daily labs and x-rays. Electrolyte replacement per protocol. 6. Discontinue Weston. Connect Cordis to continuous CVP monitoring 7. Discontinue STEVE drain 8. Continue chest tubes for another 24 hours 9. Continue Wilson catheter for another 24 hours for strict accurate intake and output. Daily weights 10. Insulin management per primary care service. Patient not previously diagnosed as diabetic, however preoperative hemoglobin A1c was 7%. Needs tight blood sugar control to prevent infection and promote sternal union 11. Pain controlled current medication regimen. Toradol added 12. More recommendations to follow as patient progresses Time with Patient: Greater than 30
[2021-04-20] MEDS: IPRATROPIUM-ALBUTEROL 3 ML NEB INHALATION SCH ×4 (08:57→21:04)
[2021-04-20] MEDS ORDERED: METOPROLOL TARTRATE 12.5 MG TAB PO SCH (09:00)
[2021-04-20] MEDS ORDERED: bisacodyL 10 MG SUPP RECTAL PRN (09:00)
[2021-04-20] MEDS ORDERED: DILTIAZEM ORAL 30 MG TAB PO SCH (09:00)
[2021-04-20] MEDS ORDERED: MAGNESIUM HYDROXIDE 2,400 MG/10 ML CUP PO PRN (09:00)
[2021-04-20] MEDS ORDERED: PANTOPRAZOLE 40 MG/10 ML VIAL IVP SCH (09:00)
--- NOTE | 2021-04-20 09:03 | XR ---
EXAMINATION TYPE: XR chest 1V portable DATE OF EXAM: 04/20/2021 COMPARISON: 04/19/2021 HISTORY: 66 years Male. STUDY INDICATION GIVEN: Post Operative Cardiac Surgery . TECHNIQUE: AP chest radiograph IMPRESSION: Right IJ swans Maico catheter stable in position. Surgical changes of the chest, similar to prior stud y. Endotracheal tube and enteric tube no longer seen. Chest tube in the left thorax stable in positio n. Midline mediastinal catheter or drain is seen again without significant change, correlation with s urgical history recommended. Bibasilar left greater than right opacities slightly decreased in the interval may be reflective of a telectasis or infiltrate. Stable right hemidiaphragm eventration. No significant pneumothorax or effu tanner.Stable mild cardiomegaly.
--- NOTE | 2021-04-20 10:21 | P.CONS ---
History of Present Illness - Reason for Consult Consult date: 04/20/21 Diabetes Requesting physician: Pepe Franco - Chief Complaint chest pain - History of Present Illness Patient is a 66-year-old male with known coronary artery disease status post hunting in April 2020, GERD, hypertension, dyslipidemia, and MANUEL who presented for coronary artery bypass grafting. Patient had been hospitalized in April 2021 due to chest pain and underwent cardiac cath which showed three-vessel coronary artery disease and an occluded right coronary artery at 90%. Patient was subsequently discharged home for outpatient cardiac catheterization. He was then worked up outpatient for cardiac bypass surgery. He underwent open-heart surgery on 04/19/21 with off pump bypass grafting 3. Returned to the ICU intubated, and was subsequently extubated. Patient seen and examined at bedside. He is having chest pain which is tolerable. Breathing is Okay. Excited to get his lines and tubes out. Pertinent positives and negatives as discussed in HPI, a complete review of systems was performed and all other systems are negative. General: non toxic, no distress, appears at stated age, obese Derm: warm, dry Head: atraumatic, normocephalic, symmetric Eyes: EOMI, no lid lag, anicteric sclera ENT: Nose and ears atraumatic, no thrush, no pharyngeal erythema Neck: trachea midline, Bristow and Cordis in place right neck Mouth: no lip lesion, mucus membranes moist Cardiovascular: S1S2 reg, no murmur, positive posterior tibial pulse bilateral, trace edema, capillary refill less than 2 seconds Lungs: Decreased bs bilateral, no ronchi, no rales, no wheeze, no accessory muscle use Abdominal: soft, nontender to palpation, no guarding, no appreciable o rganomegaly, normal bowel sounds Ext: no gross muscle atrophy, muscle strength muscle strength 5 out of 5 in all 4 extremities, no contractures Neuro: CN II-XI grossly intact, No focal neuro deficits Psych: Alert, oriented, appropriate affect Assessment/plan: 66-year-old male status post coronary artery bypass grafting 3 Ischemic cardiomyopathy with ejection fraction 45% -Management per primary cardiac services -On aspirin, Plavix, , BB -statin is on hold as allergic to atrovastatin, abbyshawna can bring in crestor from home. Acute blood loss anemia anticipated outcome of surgery -No indication for transfusion at this time -Follow CBC Newly Discovered Diabetes mellitus type 2 with hemoglobin A1c of 7 -Not chronically on medications at home -Continue with insulin drip -This appears to be newly diagnosed. Patient will need glucometer on discharge. -Follow blood sugars closely -Anticipate home on metformin versus Jardiance Hypertension, controlled -Continue with Lopressor, Cardizem initiated by primary team -Primary management per CT services Dyslipidemia - crestor at home Obese - BMI 38.2 - structured outpatient weight loss Chronic: GERD, IBS, MANUEL DVT: Heparin Thank you for allowing us to participate in the care of this pleasant patient. Do not hesitate to contact us with questions. Someone can be reached from the [facility] hospitalist group all hours of the day at [phone] or via [employer]. Past Medical History Past Medical History: Coronary Artery Disease (CAD), GERD/Reflux, Hyperlipidemia, Hypertension, Sleep Apnea/CPAP/BIPAP Additional Past Medical History / Comment(s): IRRITABLE BOWEL SYNDROME,uses cpap History of Any Multi-Drug Resistant Organisms: None Reported Past Surgical History: Heart Catheterization With Stent, Joint Replacement Additional Past Surgical History / Comment(s): JANESSA KNEE REPLACEMENTS,HEART STENTS X3 Past Anesthesia/Blood Transfusion Reactions: No Reported Reaction Additional Past Anesthesia/Blood Transfusion Reaction / Comm: no hx blood transfusion Date of Last Stent Placement:: 09/2013,2020 Smoking Status: Former smoker - Past Family History Father Family Medical History: Osteoarthritis (OA) Additional Family Medical History / Comment(s): pt. states both of his parents are living and are healthy, pt. states they have had your average issues such as hip replacments, etc Mother Family Medical History: Osteoarthritis (OA) Brother(s) Family Medical History: Coronary Artery Disease (CAD) Medications and Allergies Home Medications Medication Instructions Recorded Confirmed Type lisinopriL [Zestril] 20 mg PO DAILY 11/09/13 04/16/21 History Aspirin EC [Ecotrin Low Dose] 81 mg PO DAILY 05/19/20 04/16/21 History Rosuvastatin Calcium [Crestor] 20 mg PO HS 04/03/21 04/15/21 History Clopidogrel Bisulfate [Plavix] 75 mg PO DAILY 30 Days #30 tab 04/05/21 04/15/21 Rx Isosorbide Mononitrate ER [Imdur] 30 mg PO DAILY 30 Days #30 tablet 04/05/21 04/15/21 Rx Mupirocin [Mupirocin 2%] 1 applic NASAL BID #1 tub 04/11/21 04/15/21 Rx Metoprolol Tartrate [Lopressor] 50 mg PO BID 04/15/21 04/15/21 History Allergies Allergy/AdvReac Type Severity Reaction Status Date / Time atorvastatin Allergy Rash/Hives/Joint Verified 04/19/21 10:52 Pain simvastatin Allergy Rash/Hives/Joint Verified 04/19/21 10:52 Pain Physical Exam Osteopathic Statement: *. No significant issues noted on an osteopathic structural exam other than those noted in the History and Physical/Consult. Vitals: Vital Signs Temp Pulse Pulse Pulse Resp BP BP 04/20/21 07:00 94 20 145/87 04/20/21 06:00 97 19 145/87 04/20/21 05:00 96 18 136/74 04/20/21 04:00 99.3 F 95 20 04/20/21 03:00 95 20 04/20/21 02:15 96 19 04/20/21 02:00 95 19 04/20/21 01:45 93 13 04/20/21 01:30 93 16 136/74 04/20/21 01:15 96 11 L 04/20/21 01:00 98 16 04/20/21 00:45 96 16 04/20/21 00:30 96 19 04/20/21 00:15 98 20 04/20/21 00:00 99.9 F H 95 19 04/19/21 23:51 04/19/21 23:45 89 49 H 04/19/21 23:30 99 15 04/19/21 23:15 86 20 04/19/21 23:00 96 18 04/19/21 22:45 83 15 04/19/21 22:30 84 30 H 04/19/21 22:15 83 18 04/19/21 22:00 99.5 F 98 18 04/19/21 21:45 116 H 21 04/19/21 21:30 96 14 04/19/21 21:15 112 H 20 04/19/21 21:00 90 16 04/19/21 20:45 92 15 107/56 04/19/21 20:30 90 20 04/19/21 20:18 92 04/19/21 20:15 93 24 04/19/21 20:09 105 H 04/19/21 20:00 87 26 H 170/105 04/19/21 19:45 101 H 23 04/19/21 19:30 72 23 04/19/21 19:28 97.7 F 73 26 H 04/19/21 10:44 98.4 F 88 83 16 148/78 BP Pulse Ox 04/20/21 07:00 96 04/20/21 06:00 94 L 04/20/21 05:00 92 L 04/20/21 04:00 92 L 04/20/21 03:00 92 L 04/20/21 02:15 97 04/20/21 02:00 96 04/20/21 01:45 96 04/20/21 01:30 95 04/20/21 01:15 96 04/20/21 01:00 95 04/20/21 00:45 96 04/20/21 00:30 96 04/20/21 00:15 95 04/20/21 00:00 93 L 04/19/21 23:51 96 04/19/21 23:45 95 04/19/21 23:30 97 04/19/21 23:15 93 L 04/19/21 23:00 93 L 04/19/21 22:45 97 04/19/21 22:30 97 04/19/21 22:15 97 04/19/21 22:00 96 04/19/21 21:45 93 L 04/19/21 21:30 95 04/19/21 21:15 93 L 04/19/21 21:00 96 04/19/21 20:45 92 L 04/19/21 20:30 87 L 04/19/21 20:18 04/19/21 20:15 87 L 04/19/21 20:09 04/19/21 20:00 97 04/19/21 19:45 100 04/19/21 19:30 04/19/21 19:28 92 L 04/19/21 10:44 155/76 96 Intake and Output 04/19/21 04/20/21 04/20/21 22:59 06:59 14:59 Intake Total 505.012 575.273 Output Total 2750 1017 Balance -2244.988 -441.727 Intake: IV 427 531 Albumin Human 5% 250 ml 250 In Empty Bag 1 bag @ 250 mls/hr IVPB Q1HR PRN Rx#: [id number] Lactated Ringers 1,000 ml 150 450 @ 20 mls/hr IV .Q24H FRANCISCO Rx#:[id number] pressure bag 27 81 Intake, IV Titration 78.012 44.273 Amount Clevidipine Butyrate 25 46.933 1.933 mg In Empty Bag 1 bag @ 16 MG/HR 32 mls/hr IV . Q1H34M FRANCISCO Rx#:[id number] Dexmedetomidine/0.9% NaCl 13.475 (Pmx) 400 mcg In Empty Bag 1 bag @ Titrate IV . Q0M FRANCISCO Rx#:[id number] Diltiazem 125 mg In 16.667 Sodium Chloride 0.9% 100 ml @ 10 MG/HR 10 mls/hr IV .[id number] FRANCISCO Rx#: [id number] Insulin Regular 100 unit 7.272 28.865 In Sodium Chloride 0.9% 100 ml @ Per Protocol IV .Q0M FRANCISCO Rx#:[id number] propofoL 1,000 mg In 7.14 Empty Bag 1 bag @ Titrate IV .Q0M FRANCISCO Rx#: [id number] Output: Chest Tube Drainage 275 300 Bilateral pleural 210 150 mediastinal 65 150 Drainage 0 0 Left Wrist 0 0 Urine 475 717 Estimated Blood Loss 1999 Other: Voiding Method Indwelling Catheter Weight 107.4 kg ABP, PAP, CO, CI - Last 8 Hours Arterial Blood Pressure 126/61 Arterial Blood Pressure 98/74 Arterial Blood Pressure 144/53 Arterial Blood Pressure 128/47 Arterial Blood Pressure 135/48 Arterial Blood Pressure 157/59 Arterial Blood Pressure 131/53 Arterial Blood Pressure 128/55 Arterial Blood Pressure 133/50 Arterial Blood Pressure 127/45 Pulmonary Artery Pressure 26/8 Pulmonary Artery Pressure 27/9 Pulmonary Artery Pressure 31/12 Pulmonary Artery Pressure 32/2 Pulmonary Artery Pressure 26/11 Pulmonary Artery Pressure 36/17 Pulmonary Artery Pressure 36/17 Pulmonary Artery Pressure 31/14 Pulmonary Artery Pressure 34/10 Pulmonary Artery Pressure 26/5 Pulmonary Artery Pressure 26/4 Cardiac Output 8.8 Cardiac Output 11.1 Cardiac Output 13 Cardiac Index 4.3 Cardiac Index 5.4 Cardiac Index 6.3 Results CBC & Chem 7: 04/20/21 02:00 04/20/21 02:00 Labs: Abnormal Lab Results - Last 24 Hours (Table) 04/10/21 04/19/21 04/19/21 Range/Units 14:13 11:20 14:14 WBC (3.8-10.6) k/uL RBC (4.30-5.90) m/uL Hgb (13.0-17.5) gm/dL Hct (39.0-53.0) % Neutrophils # (1.3-7.7) k/uL Lymphocytes # (1.0-4.8) k/uL ABG pH (7.35-7.45) ABG pCO2 47 H (35-45) mmHg ABG pO2 123 H (83-108) mmHg ABG HCO3 27 H (21-25) mmol/L ABG Total CO2 28 H (19-24) mmol/L ABG O2 Saturation 98.5 H (94-97) % ABG Hematocrit (34.0-46.0) % ABG Ionized Calcium (4.5-5.3) mg/dL ABG Glucose (75-99) mg/dL Hemoglobin 12.4 L (13.0-17.5) gm/dL Chloride (98-107) mmol/L Carbon Dioxide (22-30) mmol/L Creatinine (0.66-1.25) mg/dL Glucose (74-99) mg/dL POC Glucose (mg/dL) 123 H (75-99) mg/dL Calcium (8.4-10.2) mg/dL Alkaline Phosphatase (38-126) U/L Total Protein (6.3-8.2) g/dL Arterial Blood Glucose (75-99) mg/dL Crossmatch See Detail 04/19/21 04/19/21 04/19/21 Range/Units 16:25 16:59 17:41 WBC (3.8-10.6) k/uL RBC (4.30-5.90) m/uL Hgb (13.0-17.5) gm/dL Hct (39.0-53.0) % Neutrophils # (1.3-7.7) k/uL Lymphocytes # (1.0-4.8) k/uL ABG pH 7.32 L 7.34 L (7.35-7.45) ABG pCO2 46 H (35-45) mmHg ABG pO2 166 H 121 H 139 H (83-108) mmHg ABG HCO3 (21-25) mmol/L ABG Total CO2 27 H 26 H (19-24) mmol/L ABG O2 Saturation 99.2 H 98.4 H 98.7 H (94-97) % ABG Hematocrit 33 L (34.0-46.0) % ABG Ionized Calcium (4.5-5.3) mg/dL ABG Glucose 108 H 120 H 132 H (75-99) mg/dL Hemoglobin 11.3 L 10.8 L 11.1 L (13.0-17.5) gm/dL Chloride (98-107) mmol/L Carbon Dioxide (22-30) mmol/L Creatinine (0.66-1.25) mg/dL Glucose (74-99) mg/dL POC Glucose (mg/dL) (75-99) mg/dL Calcium (8.4-10.2) mg/dL Alkaline Phosphatase (38-126) U/L Total Protein (6.3-8.2) g/dL Arterial Blood Glucose 108 H 120 H 132 H (75-99) mg/dL Crossmatch 04/19/21 04/19/21 04/19/21 Range/Units 18:04 18:54 19:36 WBC (3.8-10.6) k/uL RBC (4.30-5.90) m/uL Hgb (13.0-17.5) gm/dL Hct (39.0-53.0) % Neutrophils # (1.3-7.7) k/uL Lymphocytes # (1.0-4.8) k/uL ABG pH 7.34 L 7.34 L (7.35-7.45) ABG pCO2 (35-45) mmHg ABG pO2 165 H 79 L (83-108) mmHg ABG HCO3 (21-25) mmol/L ABG Total CO2 (19-24) mmol/L ABG O2 Saturation 99.2 H (94-97) % ABG Hematocrit 32 L 29 L (34.0-46.0) % ABG Ionized Calcium 4.4 L (4.5-5.3) mg/dL ABG Glucose 146 H 128 H (75-99) mg/dL Hemoglobin 10.6 L 9.6 L (13.0-17.5) gm/dL Chloride (98-107) mmol/L Carbon Dioxide (22-30) mmol/L Creatinine (0.66-1.25) mg/dL Glucose (74-99) mg/dL POC Glucose (mg/dL) 127 H (75-99) mg/dL Calcium (8.4-10.2) mg/dL Alkaline Phosphatase (38-126) U/L Total Protein (6.3-8.2) g/dL Arterial Blood Glucose 146 H 128 H (75-99) mg/dL Crossmatch 04/19/21 04/19/21 04/19/21 Range/Units 19:43 19:43 19:54 WBC 19.9 H (3.8-10.6) k/uL RBC 3.40 L (4.30-5.90) m/uL Hgb 10.3 L D (13.0-17.5) gm/dL Hct 31.1 L (39.0-53.0) % Neutrophils # 16.6 H (1.3-7.7) k/uL Lymphocytes # (1.0-4.8) k/uL ABG pH 7.24 L (7.35-7.45) ABG pCO2 57 H (35-45) mmHg ABG pO2 (83-108) mmHg ABG HCO3 (21-25) mmol/L ABG Total CO2 26 H (19-24) mmol/L ABG O2 Saturation (94-97) % ABG Hematocrit (34.0-46.0) % ABG Ionized Calcium (4.5-5.3) mg/dL ABG Glucose (75-99) mg/dL Hemoglobin (13.0-17.5) gm/dL Chloride 108 H (98-107) mmol/L Carbon Dioxide 21 L (22-30) mmol/L Creatinine 0.45 L (0.66-1.25) mg/dL Glucose 121 H (74-99) mg/dL POC Glucose (mg/dL) (75-99) mg/dL Calcium 7.9 L (8.4-10.2) mg/dL Alkaline Phosphatase 34 L (38-126) U/L Total Protein 5.9 L (6.3-8.2) g/dL Arterial Blood Glucose (75-99) mg/dL Crossmatch 04/19/21 04/19/21 04/19/21 Range/Units 20:32 22:20 22:25 WBC 15.4 H (3.8-10.6) k/uL RBC 3.36 L (4.30-5.90) m/uL Hgb 10.2 L (13.0-17.5) gm/dL Hct 30.9 L (39.0-53.0) % Neutrophils # 13.7 H (1.3-7.7) k/uL Lymphocytes # 0.9 L (1.0-4.8) k/uL ABG pH (7.35-7.45) ABG pCO2 (35-45) mmHg ABG pO2 (83-108) mmHg ABG HCO3 (21-25) mmol/L ABG Total CO2 (19-24) mmol/L ABG O2 Saturation (94-97) % ABG Hematocrit (34.0-46.0) % ABG Ionized Calcium (4.5-5.3) mg/dL ABG Glucose (75-99) mg/dL Hemoglobin (13.0-17.5) gm/dL Chloride (98-107) mmol/L Carbon Dioxide (22-30) mmol/L Creatinine (0.66-1.25) mg/dL Glucose (74-99) mg/dL POC Glucose (mg/dL) 191 H 207 H (75-99) mg/dL Calcium (8.4-10.2) mg/dL Alkaline Phosphatase (38-126) U/L Total Protein (6.3-8.2) g/dL Arterial Blood Glucose (75-99) mg/dL Crossmatch 04/19/21 04/20/21 04/20/21 Range/Units 23:13 00:11 01:16 WBC (3.8-10.6) k/uL RBC (4.30-5.90) m/uL Hgb (13.0-17.5) gm/dL Hct (39.0-53.0) % Neutrophils # (1.3-7.7) k/uL Lymphocytes # (1.0-4.8) k/uL ABG pH (7.35-7.45) ABG pCO2 (35-45) mmHg ABG pO2 (83-108) mmHg ABG HCO3 (21-25) mmol/L ABG Total CO2 (19-24) mmol/L ABG O2 Saturation (94-97) % ABG Hematocrit (34.0-46.0) % ABG Ionized Calcium (4.5-5.3) mg/dL ABG Glucose (75-99) mg/dL Hemoglobin (13.0-17.5) gm/dL Chloride (98-107) mmol/L Carbon Dioxide (22-30) mmol/L Creatinine (0.66-1.25) mg/dL Glucose (74-99) mg/dL POC Glucose (mg/dL) 186 H 170 H 145 H (75-99) mg/dL Calcium (8.4-10.2) mg/dL Alkaline Phosphatase (38-126) U/L Total Protein (6.3-8.2) g/dL Arterial Blood Glucose (75-99) mg/dL Crossmatch 04/20/21 04/20/21 04/20/21 Range/Units 02:00 02:00 02:00 WBC 18.3 H (3.8-10.6) k/uL RBC 3.39 L (4.30-5.90) m/uL Hgb 10.0 L (13.0-17.5) gm/dL Hct 30.6 L (39.0-53.0) % Neutrophils # 16.5 H (1.3-7.7) k/uL Lymphocytes # 0.7 L (1.0-4.8) k/uL ABG pH (7.35-7.45) ABG pCO2 (35-45) mmHg ABG pO2 (83-108) mmHg ABG HCO3 (21-25) mmol/L ABG Total CO2 (19-24) mmol/L ABG O2 Saturation (94-97) % ABG Hematocrit (34.0-46.0) % ABG Ionized Calcium (4.5-5.3) mg/dL ABG Glucose (75-99) mg/dL Hemoglobin (13.0-17.5) gm/dL Chloride (98-107) mmol/L Carbon Dioxide (22-30) mmol/L Creatinine 0.49 L (0.66-1.25) mg/dL Glucose 141 H (74-99) mg/dL POC Glucose (mg/dL) 143 H (75-99) mg/dL Calcium (8.4-10.2) mg/dL Alkaline Phosphatase (38-126) U/L Total Protein (6.3-8.2) g/dL Arterial Blood Glucose (75-99) mg/dL Crossmatch 04/20/21 04/20/21 04/20/21 Range/Units 03:10 04:36 05:58 WBC (3.8-10.6) k/uL RBC (4.30-5.90) m/uL Hgb (13.0-17.5) gm/dL Hct (39.0-53.0) % Neutrophils # (1.3-7.7) k/uL Lymphocytes # (1.0-4.8) k/uL ABG pH (7.35-7.45) ABG pCO2 (35-45) mmHg ABG pO2 (83-108) mmHg ABG HCO3 (21-25) mmol/L ABG Total CO2 (19-24) mmol/L ABG O2 Saturation (94-97) % ABG Hematocrit (34.0-46.0) % ABG Ionized Calcium (4.5-5.3) mg/dL ABG Glucose (75-99) mg/dL Hemoglobin (13.0-17.5) gm/dL Chloride (98-107) mmol/L Carbon Dioxide (22-30) mmol/L Creatinine (0.66-1.25) mg/dL Glucose (74-99) mg/dL POC Glucose (mg/dL) 150 H 162 H 177 H (75-99) mg/dL Calcium (8.4-10.2) mg/dL Alkaline Phosphatase (38-126) U/L Total Protein (6.3-8.2) g/dL Arterial Blood Glucose (75-99) mg/dL Crossmatch 04/20/21 04/20/21 04/20/21 Range/Units 06:53 08:26 08:28 WBC (3.8-10.6) k/uL RBC (4.30-5.90) m/uL Hgb (13.0-17.5) gm/dL Hct (39.0-53.0) % Neutrophils # (1.3-7.7) k/uL Lymphocytes # (1.0-4.8) k/uL ABG pH (7.35-7.45) ABG pCO2 (35-45) mmHg ABG pO2 (83-108) mmHg ABG HCO3 (21-25) mmol/L ABG Total CO2 (19-24) mmol/L ABG O2 Saturation (94-97) % ABG Hematocrit (34.0-46.0) % ABG Ionized Calcium (4.5-5.3) mg/dL ABG Glucose (75-99) mg/dL Hemoglobin (13.0-17.5) gm/dL Chloride (98-107) mmol/L Carbon Dioxide (22-30) mmol/L Creatinine (0.66-1.25) mg/dL Glucose (74-99) mg/dL POC Glucose (mg/dL) 141 H 61 L 126 H (75-99) mg/dL Calcium (8.4-10.2) mg/dL Alkaline Phosphatase (38-126) U/L Total Protein (6.3-8.2) g/dL Arterial Blood Glucose (75-99) mg/dL Crossmatch
[2021-04-20 10:25] LABS: Glucose,Whole Blood 134 mg/dL (75-99)
[2021-04-20 11:44] LABS: Glucose,Whole Blood 127 mg/dL (75-99)
[2021-04-20] MEDS: DILTIAZEM ORAL 30 MG TAB PO SCH ×3 (12:05→23:00)
--- NOTE | 2021-04-20 12:44 | P.CNPUL ---
History of Present Illness Consult date: 04/20/21 Requesting physician: Pepe Franco Reason for consult: other Chief complaint: ICU management. History of present illness: Pulmonary/critical care consult dated 04/20/2021. 66-year-old male, seen in consultation, and room 267. The patient is postop day #1, status post three-vessel bypass grafting. It was an off pump bypass, performed by Dr. Karimi and Dr. Franco. The patient had a three-vessel bypass, including VANEGAS to LAD, left radial artery to obtuse marginal 1, and SVG to PDA. The patient was extubated last night. Currently, he's on 5 L nasal cannula. He is getting lactated Ringer's at 40 mL an hour, and insulin at 3 units an hour. The patient has a known history of CAD, GERD, hypertension, hyperlipidemia, and sleep apnea syndrome. Current labs include a white count 18.3, he will been 10, hematocrit 30.6, and a platelet count of 219,000. PT, INR, and PTT are normal. Blood gases last night, show pO2 of 90, pCO2 39, pH is 7.36. Sodium 138, potassium 4.3, chlorides 107, CO2 22, anion gap 9, BUN 15, creatinine 0.49. Testing for coronavirus was negative. Chest x-ray shows some bibasilar infiltrates, and postoperative changes. Review of Systems REVIEW OF SYSTEMS: CONSTITUTIONAL: [Negative.] NEUROLOGIC: [ Negative.] HEENT: [ Negative.] CARDIAC: [Negative.] PULMONARY: Pain at the surgical site. GI: [Negative.] : [Negative.] RHEUMATOLOGIC: [ Negative.] IMMUNOLOGIC: [ Negative.] ENDOCRINE: [Negative. ] DERMATOLOGIC: [Negative.] Past Medical History Past Medical History: Coronary Artery Disease (CAD), GERD/Reflux, Hyperlipidemia, Hypertension, Sleep Apnea/CPAP/BIPAP Additional Past Medical History / Comment(s): IRRITABLE BOWEL SYNDROME,uses cpap History of Any Multi-Drug Resistant Organisms: None Reported Past Surgical History: Heart Catheterization With Stent, Joint Replacement Additional Past Surgical History / Comment(s): JANESSA KNEE REPLACEMENTS,HEART STENTS X3 Past Anesthesia/Blood Transfusion Reactions: No Reported Reaction Additional Past Anesthesia/Blood Transfusion Reaction / Comment(s): no hx blood transfusion Date of Last Stent Placement:: 09/2013,2020 Smoking Status: Former smoker - Past Family History Father Family Medical History: Osteoarthritis (OA) Additional Family Medical History / Comment(s): pt. states both of his parents are living and are healthy, pt. states they have had your average issues such as hip replacments, etc Mother Family Medical History: Osteoarthritis (OA) Brother(s) Family Medical History: Coronary Artery Disease (CAD) Medications and Allergies Home Medications Medication Instructions Recorded Confirmed Type lisinopriL [Zestril] 20 mg PO DAILY 11/09/13 04/16/21 History Aspirin EC [Ecotrin Low Dose] 81 mg PO DAILY 05/19/20 04/16/21 History Rosuvastatin Calcium [Crestor] 20 mg PO HS 04/03/21 04/15/21 History Clopidogrel Bisulfate [Plavix] 75 mg PO DAILY 30 Days #30 tab 04/05/21 04/15/21 Rx Isosorbide Mononitrate ER [Imdur] 30 mg PO DAILY 30 Days #30 tablet 04/05/21 04/15/21 Rx Mupirocin [Mupirocin 2%] 1 applic NASAL BID #1 tub 04/11/21 04/15/21 Rx Metoprolol Tartrate [Lopressor] 50 mg PO BID 04/15/21 04/15/21 History Allergies Allergy/AdvReac Type Severity Reaction Status Date / Time atorvastatin Allergy Rash/Hives/Joint Verified 04/19/21 10:52 Pain simvastatin Allergy Rash/Hives/Joint Verified 04/19/21 10:52 Pain Physical Exam Osteopathic Statement: *. No significant issues noted on an osteopathic structural exam other than those noted in the History and Physical/Consult. Vitals: Vital Signs Temp Pulse Resp BP Pulse Ox 04/20/21 12:30 90 04/20/21 11:00 87 18 97 04/20/21 10:00 86 22 96 04/20/21 09:10 84 04/20/21 09:00 99.5 F 81 18 97 04/20/21 08:00 94 18 96 04/20/21 07:00 94 20 145/87 96 04/20/21 06:00 97 19 145/87 94 L 04/20/21 05:00 96 18 136/74 92 L 04/20/21 04:00 99.3 F 95 20 92 L 04/20/21 03:00 95 20 92 L 04/20/21 02:15 96 19 97 04/20/21 02:00 95 19 96 04/20/21 01:45 93 13 96 04/20/21 01:30 93 16 136/74 95 04/20/21 01:15 96 11 L 96 04/20/21 01:00 98 16 95 04/20/21 00:45 96 16 96 04/20/21 00:30 96 19 96 04/20/21 00:15 98 20 95 04/20/21 00:00 99.9 F H 95 19 93 L 04/19/21 23:51 96 04/19/21 23:45 89 49 H 95 04/19/21 23:30 99 15 97 04/19/21 23:15 86 20 93 L 04/19/21 23:00 96 18 93 L 04/19/21 22:45 83 15 97 04/19/21 22:30 84 30 H 97 04/19/21 22:15 83 18 97 04/19/21 22:00 99.5 F 98 18 96 04/19/21 21:45 116 H 21 93 L 04/19/21 21:30 96 14 95 04/19/21 21:15 112 H 20 93 L 04/19/21 21:00 90 16 96 04/19/21 20:45 92 15 107/56 92 L 04/19/21 20:30 90 20 87 L 04/19/21 20:18 92 04/19/21 20:15 93 24 87 L 04/19/21 20:09 105 H 04/19/21 20:00 87 26 H 170/105 97 04/19/21 19:45 101 H 23 100 04/19/21 19:30 72 23 04/19/21 19:28 97.7 F 73 26 H 92 L Intake and Output 04/19/21 04/20/21 04/20/21 22:59 06:59 14:59 Intake Total 505.012 575.273 976 Output Total 2750 1017 415 Balance -2244.988 -441.727 561 Intake: IV 427 531 256 Albumin Human 5% 250 ml 250 In Empty Bag 1 bag @ 250 mls/hr IVPB Q1HR PRN Rx#: [id number] Lactated Ringers 1,000 ml 150 450 220 @ 20 mls/hr IV .Q24H [facility] Rx#:[id number] pressure bag 27 81 36 Intake, IV Titration 78.012 44.273 Amount Clevidipine Butyrate 25 46.933 1.933 mg In Empty Bag 1 bag @ 16 MG/HR 32 mls/hr IV . Q1H34M [facility] Rx#:[id number] Dexmedetomidine/0.9% NaCl 13.475 (Pmx) 400 mcg In Empty Bag 1 bag @ Titrate IV . Q0M [facility] Rx#:[id number] Diltiazem 125 mg In 16.667 Sodium Chloride 0.9% 100 ml @ 10 MG/HR 10 mls/hr IV .[id number] [facility] Rx#: [id number] Insulin Regular 100 unit 7.272 28.865 In Sodium Chloride 0.9% 100 ml @ Per Protocol IV .Q0M [facility] Rx#:[id number] propofoL 1,000 mg In 7.14 Empty Bag 1 bag @ Titrate IV .Q0M [facility] Rx#: [id number] Oral 720 Output: Chest Tube Drainage 275 300 150 Bilateral pleural 210 150 80 mediastinal 65 150 70 Drainage 0 0 Left Wrist 0 0 Urine 475 717 265 Estimated Blood Loss 1999 Other: Voiding Method Indwelling Catheter Indwelling Catheter Weight 107.4 kg ABP, PAP, CO, CI - Last 8 Hours Arterial Blood Pressure 93/49 Arterial Blood Pressure 108/62 Arterial Blood Pressure 85/60 Arterial Blood Pressure 126/61 Arterial Blood Pressure 98/74 Arterial Blood Pressure 144/53 Pulmonary Artery Pressure 26/8 Pulmonary Artery Pressure 27/9 Pulmonary Artery Pressure 31/12 Cardiac Output 8.8 Cardiac Index 4.3 No acute distress, oriented 3. Currently on 5 L nasal cannula. Saturations are 95%. HEENT examination is grossly unremarkable. Neck supple. Full range of motion. No adenopathy thyromegaly or neck vein distention. Cardiovascular examination reveals regular rhythm rate. S1-S2 normal. No S3 or S4. No discernible murmur noted. Heart rate 90 bpm. Lungs reveal diminished bilateral breath sounds, with poor inspiratory effort. Scattered rhonchi are noted. No wheezes or crackles. Breath sounds are equal. Abdomen soft bowel sounds are heard. No masses or tenderness. Extremities are intact. No cyanosis clubbing or edema. Skin is without rash or lesion. Neurologic examination is brief but nonfocal. Results - Laboratory Findings CBC and BMP: 04/20/21 02:00 04/20/21 02:00 ABG ABG pH 7.36 (7.35-7.45) 04/19/21 23:26 ABG pCO2 39 mmHg (35-45) 04/19/21 23:26 ABG pO2 90 mmHg (83-108) 04/19/21 23:26 ABG O2 Saturation 96.8 % (94-97) 04/19/21 23:26 PT/INR, D-dimer PT 11.7 sec (9.0-12.0) 04/19/21 19:43 INR 1.1 (<1.2) 04/19/21 19:43 Abnormal lab findings: Abnormal Labs 04/10/21 04/19/21 04/19/21 14:13 11:20 14:14 WBC RBC Hgb Hct Neutrophils # Lymphocytes # ABG pH ABG pCO2 47 H ABG pO2 123 H ABG HCO3 27 H ABG Total CO2 28 H ABG O2 Saturation 98.5 H ABG Hematocrit ABG Ionized Calcium ABG Glucose Hemoglobin 12.4 L Chloride Carbon Dioxide Creatinine Glucose POC Glucose (mg/dL) 123 H Calcium Alkaline Phosphatase Total Protein Arterial Blood Glucose Crossmatch See Detail 04/19/21 04/19/21 04/19/21 16:25 16:59 17:41 WBC RBC Hgb Hct Neutrophils # Lymphocytes # ABG pH 7.32 L 7.34 L ABG pCO2 46 H ABG pO2 166 H 121 H 139 H ABG HCO3 ABG Total CO2 27 H 26 H ABG O2 Saturation 99.2 H 98.4 H 98.7 H ABG Hematocrit 33 L ABG Ionized Calcium ABG Glucose 108 H 120 H 132 H Hemoglobin 11.3 L 10.8 L 11.1 L Chloride Carbon Dioxide Creatinine Glucose POC Glucose (mg/dL) Calcium Alkaline Phosphatase Total Protein Arterial Blood Glucose 108 H 120 H 132 H Crossmatch 04/19/21 04/19/21 04/19/21 18:04 18:54 19:36 WBC RBC Hgb Hct Neutrophils # Lymphocytes # ABG pH 7.34 L 7.34 L ABG pCO2 ABG pO2 165 H 79 L ABG HCO3 ABG Total CO2 ABG O2 Saturation 99.2 H ABG Hematocrit 32 L 29 L ABG Ionized Calcium 4.4 L ABG Glucose 146 H 128 H Hemoglobin 10.6 L 9.6 L Chloride Carbon Dioxide Creatinine Glucose POC Glucose (mg/dL) 127 H Calcium Alkaline Phosphatase Total Protein Arterial Blood Glucose 146 H 128 H Crossmatch 04/19/21 04/19/21 04/19/21 19:43 19:43 19:54 WBC 19.9 H RBC 3.40 L Hgb 10.3 L D Hct 31.1 L Neutrophils # 16.6 H Lymphocytes # ABG pH 7.24 L ABG pCO2 57 H ABG pO2 ABG HCO3 ABG Total CO2 26 H ABG O2 Saturation ABG Hematocrit ABG Ionized Calcium ABG Glucose Hemoglobin Chloride 108 H Carbon Dioxide 21 L Creatinine 0.45 L Glucose 121 H POC Glucose (mg/dL) Calcium 7.9 L Alkaline Phosphatase 34 L Total Protein 5.9 L Arterial Blood Glucose Crossmatch 04/19/21 04/19/21 04/19/21 20:32 22:20 22:25 WBC 15.4 H RBC 3.36 L Hgb 10.2 L Hct 30.9 L Neutrophils # 13.7 H Lymphocytes # 0.9 L ABG pH ABG pCO2 ABG pO2 ABG HCO3 ABG Total CO2 ABG O2 Saturation ABG Hematocrit ABG Ionized Calcium ABG Glucose Hemoglobin Chloride Carbon Dioxide Creatinine Glucose POC Glucose (mg/dL) 191 H 207 H Calcium Alkaline Phosphatase Total Protein Arterial Blood Glucose Crossmatch 04/19/21 04/20/21 04/20/21 23:13 00:11 01:16 WBC RBC Hgb Hct Neutrophils # Lymphocytes # ABG pH ABG pCO2 ABG pO2 ABG HCO3 ABG Total CO2 ABG O2 Saturation ABG Hematocrit ABG Ionized Calcium ABG Glucose Hemoglobin Chloride Carbon Dioxide Creatinine Glucose POC Glucose (mg/dL) 186 H 170 H 145 H Calcium Alkaline Phosphatase Total Protein Arterial Blood Glucose Crossmatch 04/20/21 04/20/21 04/20/21 02:00 02:00 02:00 WBC 18.3 H RBC 3.39 L Hgb 10.0 L Hct 30.6 L Neutrophils # 16.5 H Lymphocytes # 0.7 L ABG pH ABG pCO2 ABG pO2 ABG HCO3 ABG Total CO2 ABG O2 Saturation ABG Hematocrit ABG Ionized Calcium ABG Glucose Hemoglobin Chloride Carbon Dioxide Creatinine 0.49 L Glucose 141 H POC Glucose (mg/dL) 143 H Calcium Alkaline Phosphatase Total Protein Arterial Blood Glucose Crossmatch 04/20/21 04/20/21 04/20/21 03:10 04:36 05:58 WBC RBC Hgb Hct Neutrophils # Lymphocytes # ABG pH ABG pCO2 ABG pO2 ABG HCO3 ABG Total CO2 ABG O2 Saturation ABG Hematocrit ABG Ionized Calcium ABG Glucose Hemoglobin Chloride Carbon Dioxide Creatinine Glucose POC Glucose (mg/dL) 150 H 162 H 177 H Calcium Alkaline Phosphatase Total Protein Arterial Blood Glucose Crossmatch 04/20/21 04/20/21 04/20/21 06:53 08:26 08:28 WBC RBC Hgb Hct Neutrophils # Lymphocytes # ABG pH ABG pCO2 ABG pO2 ABG HCO3 ABG Total CO2 ABG O2 Saturation ABG Hematocrit ABG Ionized Calcium ABG Glucose Hemoglobin Chloride Carbon Dioxide Creatinine Glucose POC Glucose (mg/dL) 141 H 61 L 126 H Calcium Alkaline Phosphatase Total Protein Arterial Blood Glucose Crossmatch 04/20/21 04/20/21 10:24 11:43 WBC RBC Hgb Hct Neutrophils # Lymphocytes # ABG pH ABG pCO2 ABG pO2 ABG HCO3 ABG Total CO2 ABG O2 Saturation ABG Hematocrit ABG Ionized Calcium ABG Glucose Hemoglobin Chloride Carbon Dioxide Creatinine Glucose POC Glucose (mg/dL) 134 H 127 H Calcium Alkaline Phosphatase Total Protein Arterial Blood Glucose Crossmatch - Diagnostic Findings Chest x-ray: image reviewed Assessment and Plan Assessment: Postop day #1, status post three-vessel bypass grafting, done off pump, with VANEGAS to LAD bypass, left radial to OM1 bypass, and SVG to PDA bypass. Routine postoperative ventilator management. History of CAD. History of hypertension. History of hyperlipidemia. History of GERD. History of sleep apnea syndrome. Plan: Plan dated 04/20/2021. The patient remains on O2 at 5 L. The patient's on an insulin drip at 3 units an hour and lactated Ringer's at 40 mL an hour. We will encourage deep breathing, coughing, clearing of secretions, as well as hourly use of the incentive spirometer. Additional recommendations and suggestions are forthcoming. Labs x-rays and medications are reviewed. Continue to follow make recommendations where appropriate. Time with Patient: Greater than 30
[2021-04-20 13:09] VITALS: BMI 38.2
[2021-04-20 14:29] LABS: Glucose,Whole Blood 110 mg/dL (75-99)
--- NOTE | 2021-04-20 15:28 | P.CRDCN ---
History of Present Illness Consult date: 04/20/21 History of present illness: This is a 66-year-old gentleman with history of multivessel intervention the past was recently evaluated by cardiac catheterization for unstable angina. Patient was found to have left main and ostial stenosis of the both LAD and circumflex with total occluded RCA. Patient underwent hiatal coronary bypass surgery with the VANEGAS to LAD, radial artery to the OM branch 1 and the vein graft to the PDA. Patient was extubated last night patient is up sitting in the chair with multiple tubes. He seemed to be tolerating pain fairly well. Denies any Sigmund shortness of breath. Overall patient seemed to be making good progress. His cardiac output is almost 8 L with index of 4. White count is 18,000. Hemoglobin is 10. BUN is 15 and creatinine is 0.49. Chest x-ray showed bilateral infiltrates. No significant arrhythmias are noted. Overall patient seemed to be doing fairly well. We'll continue current medical therapy. Incentive spirometry. We'll follow Review of Systems As per the chart Past Medical History Past Medical History: Coronary Artery Disease (CAD), GERD/Reflux, Hyperlipidemia, Hypertension, Sleep Apnea/CPAP/BIPAP Additional Past Medical History / Comment(s): IRRITABLE BOWEL SYNDROME,uses cpap History of Any Multi-Drug Resistant Organisms: None Reported Past Surgical History: Heart Catheterization With Stent, Joint Replacement Additional Past Surgical History / Comment(s): JANESSA KNEE REPLACEMENTS,HEART STENTS X3 Past Anesthesia/Blood Transfusion Reactions: No Reported Reaction Additional Past Anesthesia/Blood Transfusion Reaction / Comment(s): no hx blood transfusion Date of Last Stent Placement:: 09/2013,2020 Smoking Status: Former smoker - Past Family History Father Family Medical History: Osteoarthritis (OA) Additional Family Medical History / Comment(s): pt. states both of his parents are living and are healthy, pt. states they have had your average issues such as hip replacments, etc Mother Family Medical History: Osteoarthritis (OA) Brother(s) Family Medical History: Coronary Artery Disease (CAD) Medications and Allergies Home Medications Medication Instructions Recorded Confirmed Type lisinopriL [Zestril] 20 mg PO DAILY 11/09/13 04/16/21 History Aspirin EC [Ecotrin Low Dose] 81 mg PO DAILY 05/19/20 04/16/21 History Rosuvastatin Calcium [Crestor] 20 mg PO HS 04/03/21 04/15/21 History Clopidogrel Bisulfate [Plavix] 75 mg PO DAILY 30 Days #30 tab 04/05/21 04/15/21 Rx Isosorbide Mononitrate ER [Imdur] 30 mg PO DAILY 30 Days #30 tablet 04/05/21 04/15/21 Rx Mupirocin [Mupirocin 2%] 1 applic NASAL BID #1 tub 04/11/21 04/15/21 Rx Metoprolol Tartrate [Lopressor] 50 mg PO BID 04/15/21 04/15/21 History Allergies Allergy/AdvReac Type Severity Reaction Status Date / Time atorvastatin Allergy Rash/Hives/Joint Verified 04/19/21 10:52 Pain simvastatin Allergy Rash/Hives/Joint Verified 04/19/21 10:52 Pain Physical Exam Vitals: Vital Signs Temp Pulse Resp BP Pulse Ox 04/20/21 15:23 94 04/20/21 15:13 93 04/20/21 14:00 92 19 94 L 04/20/21 13:00 92 19 95 04/20/21 12:44 94 04/20/21 12:30 90 04/20/21 12:00 92 23 92 L 04/20/21 11:00 87 18 97 04/20/21 10:00 86 22 96 04/20/21 09:10 84 04/20/21 09:00 99.5 F 81 18 97 04/20/21 08:00 94 18 96 04/20/21 07:00 94 20 145/87 96 04/20/21 06:00 97 19 145/87 94 L 04/20/21 05:00 96 18 136/74 92 L 04/20/21 04:00 99.3 F 95 20 92 L 04/20/21 03:00 95 20 92 L 04/20/21 02:15 96 19 97 04/20/21 02:00 95 19 96 04/20/21 01:45 93 13 96 04/20/21 01:30 93 16 136/74 95 04/20/21 01:15 96 11 L 96 04/20/21 01:00 98 16 95 04/20/21 00:45 96 16 96 04/20/21 00:30 96 19 96 04/20/21 00:15 98 20 95 04/20/21 00:00 99.9 F H 95 19 93 L 04/19/21 23:51 96 04/19/21 23:45 89 49 H 95 04/19/21 23:30 99 15 97 04/19/21 23:15 86 20 93 L 04/19/21 23:00 96 18 93 L 04/19/21 22:45 83 15 97 04/19/21 22:30 84 30 H 97 04/19/21 22:15 83 18 97 04/19/21 22:00 99.5 F 98 18 96 04/19/21 21:45 116 H 21 93 L 04/19/21 21:30 96 14 95 04/19/21 21:15 112 H 20 93 L 04/19/21 21:00 90 16 96 04/19/21 20:45 92 15 107/56 92 L 04/19/21 20:30 90 20 87 L 04/19/21 20:18 92 04/19/21 20:15 93 24 87 L 04/19/21 20:09 105 H 04/19/21 20:00 87 26 H 170/105 97 04/19/21 19:45 101 H 23 100 04/19/21 19:30 72 23 04/19/21 19:28 97.7 F 73 26 H 92 L Intake and Output 04/20/21 04/20/21 04/20/21 06:59 14:59 22:59 Intake Total 847.491 9906 Output Total 1017 490 Balance -441.727 578 Intake: IV 531 348 Lactated Ringers 1,000 ml 450 300 @ 20 mls/hr IV .Q24H [facility] Rx#:[id number] pressure bag 81 48 Intake, IV Titration 44.273 Amount Clevidipine Butyrate 25 1.933 mg In Empty Bag 1 bag @ 16 MG/HR 32 mls/hr IV . Q1H34M [facility] Rx#:[id number] Dexmedetomidine/0.9% NaCl 13.475 (Pmx) 400 mcg In Empty Bag 1 bag @ Titrate IV . Q0M [facility] Rx#:[id number] Insulin Regular 100 unit 28.865 In Sodium Chloride 0.9% 100 ml @ Per Protocol IV .Q0M [facility] Rx#:[id number] Oral 720 Output: Chest Tube Drainage 300 150 Bilateral pleural 150 80 mediastinal 150 70 Drainage 0 Left Wrist 0 Urine 717 340 Other: Voiding Method Indwelling Catheter Indwelling Catheter Weight 107.4 kg 107.4 kg ABP, PAP, CO, CI - Last 8 Hours Arterial Blood Pressure 124/50 Arterial Blood Pressure 133/47 Arterial Blood Pressure 93/49 Arterial Blood Pressure 108/62 Arterial Blood Pressure 85/60 GENERAL EXAM: Patient is alert and oriented and doesn't appear to be in any acute distress HEENT: Normocephalic. Normal reaction of pupils, equal size, normal range of extraocular motion. No erythema or exudates in the throat. NECK: No masses, no nuchal rigidity. CHEST: Postsurgical LUNGS: Diminished air exchange HEART: S1 and S2 normal with no audible mumurs or gallops. Regular rhythm, femorals equal on both sides.. ABDOMEN: No hepatosplenomegaly, normal bowel sounds, no guarding or rigidity. SKIN: No rashes CENTRAL NERVOUS SYSTEM: No focal deficits. EXTREMITIES: No cyanosis, clubbing or edema. Results 04/20/21 02:00 04/20/21 02:00 Cardiac Enzymes 04/19/21 04/20/21 Range/Units 19:43 02:00 AST 23 33 (17-59) U/L Coagulation 04/19/21 Range/Units 19:43 PT 11.7 (9.0-12.0) sec APTT 25.3 (22.0-30.0) sec CBC 04/19/21 04/19/21 04/20/21 Range/Units 19:43 22:25 02:00 WBC 19.9 H 15.4 H 18.3 H (3.8-10.6) k/uL RBC 3.40 L 3.36 L 3.39 L (4.30-5.90) m/uL Hgb 10.3 L D 10.2 L 10.0 L (13.0-17.5) gm/dL Hct 31.1 L 30.9 L 30.6 L (39.0-53.0) % Plt Count 185 209 219 (150-450) k/uL Comprehensive Metabolic Panel 04/19/21 04/20/21 Range/Units 19:43 02:00 Sodium 139 138 (137-145) mmol/L Potassium 3.9 4.3 (3.5-5.1) mmol/L Chloride 108 H 107 (98-107) mmol/L Carbon Dioxide 21 L 22 (22-30) mmol/L BUN 12 15 (9-20) mg/dL Creatinine 0.45 L 0.49 L (0.66-1.25) mg/dL Glucose 121 H 141 H (74-99) mg/dL Calcium 7.9 L 8.6 (8.4-10.2) mg/dL AST 23 33 (17-59) U/L ALT 16 18 (4-49) U/L Alkaline Phosphatase 34 L 43 (38-126) U/L Total Protein 5.9 L 6.3 (6.3-8.2) g/dL Albumin 4.0 4.3 (3.5-5.0) g/dL Current Medications Generic Name Dose Route Start Last Admin Trade Name Freq PRN Reason Stop Dose Admin Acetaminophen 650 mg 04/20/21 07:29 Acetaminophen Tab 325 Mg Tab PO Q4HR PRN Fever and/ or Pain Hydrocodone Bitart/Acetaminophen 2 each 04/20/21 04:26 04/20/21 04:42 Hydrocodone/Apap 5-325mg 1 Each Tab PO 2 each Q4HR PRN Administration Severe Pain Hydrocodone Bitart/Acetaminophen 1 each 04/20/21 04:26 Hydrocodone/Apap 5-325mg 1 Each Tab PO Q4HR PRN Moderate Pain Albuterol/Ipratropium 3 ml 04/19/21 19:38 Ipratropium-Albuterol 3 Ml Neb INHALATION RT-Q2H PRN Shortness Of Breath Or Wheezing Albuterol/Ipratropium 3 ml 04/20/21 08:00 04/20/21 15:13 Ipratropium-Albuterol 3 Ml Neb INHALATION 3 ml RT-QID [facility] Administration Aspirin 325 mg 04/20/21 09:00 04/20/21 08:10 Aspirin 325 Mg Tab PO 325 mg DAILY [facility] Administration Benzocaine/Menthol 1 each 04/19/21 19:38 Benzocaine/Menthol Lozeng 1 Each Lozenge MUCOUS MEM Q2H PRN Sore Throat Bisacodyl 10 mg 04/20/21 09:00 Bisacodyl 10 Mg Supp RECTAL DAILY PRN Constipation Clopidogrel Bisulfate 75 mg 04/20/21 09:00 04/20/21 08:10 Clopidogrel 75 Mg Tab PO 75 mg DAILY [facility] Administration Diltiazem HCl 30 mg 04/20/21 12:00 04/20/21 12:05 Diltiazem Oral 30 Mg Tab PO 30 mg Q6HR [facility] Administration Heparin Sodium (Porcine) 5,000 unit 04/20/21 00:00 04/20/21 08:09 Heparin Sodium,Porcine/Pf 5,000 Unit/0.5 Ml Syringe SQ 5,000 unit Q8HR [facility] Administration Amiodarone HCl 150 mg/ 103 mls @ 618 mls/hr 04/19/21 19:38 Dextrose/Water IV .Q10M PRN A.FIB/FLUTTER Protocol Amiodarone HCl 360 mg/ 207.2 mls @ 34.533 mls/hr 04/19/21 19:38 Dextrose/Water IV .Q6H PRN A.FIB/FLUTTER Protocol 1 MG/MIN Amiodarone HCl 450 mg/ 250 mls @ 16.667 mls/hr 04/19/21 19:38 Dextrose/Water IV .Q15H PRN A.FIB/FLUTTER Protocol 0.5 MG/MIN Albumin Human 250 ml/ IV 250 mls @ 250 mls/hr 04/19/21 19:38 04/19/21 22:16 Solution IVPB 04/21/21 19:39 250 mls/hr Q1HR PRN Administration For Volume Protocol Lactated Ringer's 1,000 mls @ 20 mls/hr 04/19/21 19:38 04/19/21 19:38 Lactated Ringers IV 04/21/21 19:39 50 mls/hr .Q24H [facility] Administration Insulin Human Regular 100 unit 101 mls @ 0 mls/hr 04/19/21 20:30 04/20/21 06:54 / Sodium Chloride IV 4 units/h .Q0M [facility] 4.04 mls/hr Titration Protocol Per Protocol Ketorolac Tromethamine 15 mg 04/20/21 07:15 04/20/21 12:05 Ketorolac 30 Mg/Ml 1 Ml Vial IVP 04/25/21 07:16 15 mg Q6HR [facility] Administration Magnesium Hydroxide 2,400 mg 04/20/21 09:00 Magnesium Hydroxide 2,400 Mg/10 Ml Cup PO BID PRN Constipation Metoclopramide HCl 10 mg 04/19/21 19:38 Metoclopramide 5 Mg/Ml 2 Ml Vial IVP Q4H PRN Nausea And Vomiting Metoprolol Tartrate 25 mg 04/20/21 09:00 04/20/21 08:10 Metoprolol Tartrate 25 Mg Tab PO 25 mg BID [facility] Administration Miscellaneous Information 1 each 04/19/21 19:38 Potassium Replacement Protocol 1 Each [facility] [place] MISCELLANE DAILY PRN Per Protocol Protocol Miscellaneous Information 1 each 04/19/21 19:38 Magnesium Replacement Protocol 1 Each [facility] [place] MISCELLANE DAILY PRN Per Protocol Protocol Miscellaneous Information 1 each 04/19/21 19:38 Phosphorus Replacement Protoco 1 Each [facility] [place] MISCELLANE DAILY PRN Per Protocol Protocol Mupirocin 1 applic 04/19/21 21:00 04/20/21 08:29 Mupirocin 2% Oint 22 Gm Tube NASAL 04/22/21 21:01 1 applic BID [facility] Administration Patient's Own ( 20 mg 04/20/21 21:00 Rosuvastatin Calcium PO [Crestor] 20 Mg HS [facility] Tablet) Ondansetron HCl 4 mg 04/19/21 19:38 Ondansetron 4 Mg/2 Ml Vial IVP Q6HR PRN Nausea And Vomiting Senna/Docusate Sodium 2 each 04/20/21 21:00 Sennosides-Docusate Sodium 1 Each Tab PO HS [facility] Sodium Chloride 10 ml 04/19/21 21:00 04/20/21 11:57 Sodium Chloride 0.9% Flush 10 Ml Syringe IV Not Given BID [facility] Intake and Output 04/20/21 04/20/21 04/20/21 06:59 14:59 22:59 Intake Total 908.828 3270 Output Total 1017 490 Balance -441.727 578 Intake: IV 531 348 Lactated Ringers 1,000 ml 450 300 @ 20 mls/hr IV .Q24H [facility] Rx#:[id number] pressure bag 81 48 Intake, IV Titration 44.273 Amount Clevidipine Butyrate 25 1.933 mg In Empty Bag 1 bag @ 16 MG/HR 32 mls/hr IV . Q1H34M [facility] Rx#:[id number] Dexmedetomidine/0.9% NaCl 13.475 (Pmx) 400 mcg In Empty Bag 1 bag @ Titrate IV . Q0M [facility] Rx#:[id number] Insulin Regular 100 unit 28.865 In Sodium Chloride 0.9% 100 ml @ Per Protocol IV .Q0M [facility] Rx#:[id number] Oral 720 Output: Chest Tube Drainage 300 150 Bilateral pleural 150 80 mediastinal 150 70 Drainage 0 Left Wrist 0 Urine 717 340 Other: Voiding Method Indwelling Catheter Indwelling Catheter Weight 107.4 kg 107.4 kg Patient Weight 04/21/21 06:59 Weight 107.4 kg 04/20/21 02:00 04/20/21 02:00 Assessment and Plan (1) CAD (coronary artery disease) Current Visit: Yes Status: Acute Code(s): I25.10 - ATHSCL HEART DISEASE OF [place] CORONARY ARTERY W/O ANG PCTRS SNOMED Code(s): 66101484 (2) Status post aorto-coronary artery bypass graft Current Visit: Yes Status: Acute Code(s): Z95.1 - PRESENCE OF AORTOCORONARY BYPASS GRAFT SNOMED Code(s): 381432737 Plan: Continue current medical therapy. Increase activity as tolerated. We'll follow
[2021-04-20 16:37] LABS: Glucose,Whole Blood 120 mg/dL (75-99)
[2021-04-20 18:33] LABS: Glucose,Whole Blood 164 mg/dL (75-99)
[2021-04-20 20:05] LABS: Glucose,Whole Blood 133 mg/dL (75-99)
[2021-04-20] MEDS: SENNOSIDES-DOCUSATE SODIUM 1 EACH TAB PO SCH (20:15)
[2021-04-20] MEDS: ROSUVASTATIN CALCIUM 20 MG PO SCH (20:15)
[2021-04-20 22:01] LABS: Glucose,Whole Blood 110 mg/dL (75-99)
[2021-04-20 23:07] LABS: Glucose,Whole Blood 134 mg/dL (75-99)
[2021-04-21 01:16] LABS: Glucose,Whole Blood 130 mg/dL (75-99)
[2021-04-21 03:07] LABS: Glucose,Whole Blood 118 mg/dL (75-99)
[2021-04-21 04:20] LABS: Glucose,Whole Blood 119 mg/dL (75-99)
[2021-04-21 04:34] LABS: Basophils % (A) 0 %; Eosinophils # (A) 0.2 k/uL (0-0.7); Eosinophils % (A) 1 %; HCT 29.4 % (39.0-53.0); HGB 9.5 gm/dL (13.0-17.5); Lymphocytes # (A) 1.5 k/uL (1.0-4.8); Lymphocytes % (A) 8 %; MCH 29.7 pg (25.0-35.0); MCHC 32.5 g/dL (31.0-37.0); MCV 91.4 fL (80.0-100.0); Mean Platelet Volume 7.6; Monocytes # (A) 1.1 k/uL (0-1.0); Monocytes % (A) 6 %; Neutrophils # (A) 16.6 k/uL (1.3-7.7); Neutrophils % (A) 84 %; Platelet Count 197 k/uL (150-450); RBC 3.21 m/uL (4.30-5.90); RDW 13.9 % (11.5-15.5); WBC 19.7 k/uL (3.8-10.6)
[2021-04-21 04:51] LABS: Ionized Calcium 4.9 mg/dL (4.5-5.3)
[2021-04-21 04:58] LABS: ALT 17 U/L (4-49); AST 37 U/L (17-59); African American GFR (CKD) >90 (>60 ml/min/1.73 sqM); Albumin 3.5 g/dL (3.5-5.0); Alkaline Phosphatase 45 U/L (38-126); Anion Gap 10 mmol/L; Blood Urea Nitrogen 16 mg/dL (9-20); Calcium 8.6 mg/dL (8.4-10.2); Carbon Dioxide 21 mmol/L (22-30); Chloride 105 mmol/L (98-107); Glucose 120 mg/dL (74-99); Non-African American GFR(CKD) >90 (>60 ml/min/1.73 sqM); Potassium 4.1 mmol/L (3.5-5.1); Sodium 136 mmol/L (137-145); Total Bilirubin 0.6 mg/dL (0.2-1.3); Total Protein 5.9 g/dL (6.3-8.2)
[2021-04-21] MEDS: KETOROLAC 30 MG/ML 1 ML VIAL IVP SCH ×4 (06:19→23:45)
[2021-04-21] MEDS: DILTIAZEM ORAL 30 MG TAB PO SCH (06:19)
[2021-04-21 06:34] LABS: Glucose,Whole Blood 135 mg/dL (75-99)
[2021-04-21] MEDS ORDERED: FUROSEMIDE 10 MG/ML 4 ML VIAL IV STA (06:58)
[2021-04-21] MEDS: INSULIN REGULAR 100 UNIT in SODIUM CHLORIDE 0.9% 100 ML IV SCH (06:59)
--- NOTE | 2021-04-21 07:35 | P.PN ---
Subjective Progress Note Date: 04/21/21 Principal diagnosis: Triple-vessel coronary artery disease, stable angina. Previous medical history of coronary artery disease with previous stenting, hypertension, hyperlipidemia, previous tobacco dependence, obstructive sleep apnea with home CPAP use, mild EtOH use of 2-7 drinks a week, preoperative leukocytosis and preoperative nasal swab positive for MRSA. New diagnosis type 2 diabetes. Vaccinated and boosted against Covid POD #2 off-pump coronary artery bypass graft 3 with left internal mammary artery to the left anterior descending artery, left radial artery to the first obtuse marginal artery, reverse saphenous vein graft to the posterior descending artery, left atrial appendage ligation using a #35 mm AtriClip, endoscopic left radial artery harvest, endoscopic left greater saphenous vein harvest, and intraoperative transesophageal echocardiogram performed by anesthesia. Postoperative acute blood loss anemia, expected given hemodilution The patient was seen and examined this morning sitting up in a recliner in the intensive care unit in no acute distress. States postoperative pain is well controlled on current medication regimen, denies shortness of breath. Remains in sinus rhythm and hemodynamically stable. He had a relatively uneventful nigh t. Right internal jugular cordis, right radial arterial line, mediastinal/right/left pleural chest tubes all remain. Patient ambulated in the hallway yesterday with physical therapy without difficulty. No other new concerns. Objective - Vital Signs Vital signs: Vital Signs Temp 99.7 F H 04/21/21 04:00 Pulse 111 H 04/21/21 07:00 Resp 24 04/21/21 07:00 BP 151/81 04/21/21 07:00 Pulse Ox 91 L 04/21/21 07:00 Intake & Output 04/20/21 04/21/21 04/21/21 18:59 06:59 18:59 Intake Total 1612.477 291.386 23 Output Total 715 860 30 Balance 897.477 -568.614 -7 Weight 107.4 kg 107.2 kg Intake: IV 486 273 23 Lactated Ringers 1,000 ml 420 240 20 @ 20 mls/hr IV .Q24H [facility] Rx#:[id number] pressure bag 66 33 3 Intake, IV Titration 46.477 18.386 Amount Insulin Regular 100 unit 46.477 18.386 In Sodium Chloride 0.9% 100 ml @ Per Protocol IV .Q0M [facility] Rx#:[id number] Oral 1080 Output: Chest Tube Drainage 250 270 Bilateral pleural 100 170 mediastinal 150 100 Urine 465 590 30 Other: Voiding Method Indwelling Catheter Indwelling Catheter ABP, PAP, CO, CI - Last Documented Arterial Blood Pressure 106/45 Pulmonary Artery Pressure 26/8 Cardiac Output 8.8 Cardiac Index 4.3 - Exam CONSTITUTIONAL: Appears comfortable, cooperative, no acute distress RESPIRATORY: Lungs sounds diminished bilaterally. Respirations even, nonlabored. Currently on 2 L nasal cannula with oxygen saturation 92%. Able to achieve 1000 mL on incentive spirometry. Strong cough. CARDIOVASCULAR: S1, S2 present. Regular rate and rhythm, sinus rhythm on telemetry. Sternum stable. Palpable peripheral pulses bilaterally. Trace generalized edema present. No calf pain or tenderness noted. Heart hugger in place with patient demonstrating appropriate use. Antiembolism stockings, SCDs present. GASTROINTESTINAL: Abdomen soft, nontender, nondistended. Active bowel sounds present 4 quadrants. Tolerating diet. Positive flatus GENITOURINARY: Wilson present draining clear, yellow urine. Output overnight 30-50 mL per hour, 1055 mL in the last 24 hours INTEGUMENTARY: Skin is warm and dry with evidence of good perfusion. Anterior chest incision well approximated and covered with dry intact dressing. Left lower extremity EVH site well approximated without redness or drainage. Left radial artery harvest site without redness or drainage NEUROLOGIC: Cranial nerves II through XII intact MUSKULOSKELETAL: Able to move all extremities, strength equal bilaterally PSYCHIATRIC: Alert and oriented to person place and time, appropriate affect, intact judgment and insight INVASIVE LINES AND TUBES: Mediastinal/left/right pleural chest tubes present and connected to wall suction, no air leaks present. Mediastinal tube with 40 mL serosanguineous drainage overnight, 250 mL in the last 24 hours. Left/right pleural chest tubes with 80 mL serosanguineous drainage overnight, 300 mL in the last 24 hours. Right internal jugular Cordis, right radial arterial line present. - Allied health notes Allied health notes reviewed: nursing - Labs CBC & Chem 7: 04/21/21 04:20 04/21/21 04:20 Labs: Abnormal Lab Results - Last 24 Hours (Table) 04/20/21 04/20/21 04/20/21 Range/Units 08:26 08:28 10:24 WBC (3.8-10.6) k/uL RBC (4.30-5.90) m/uL Hgb (13.0-17.5) gm/dL Hct (39.0-53.0) % Neutrophils # (1.3-7.7) k/uL Monocytes # (0-1.0) k/uL Sodium (137-145) mmol/L Carbon Dioxide (22-30) mmol/L Creatinine (0.66-1.25) mg/dL Glucose (74-99) mg/dL POC Glucose (mg/dL) 61 L 126 H 134 H (75-99) mg/dL Total Protein (6.3-8.2) g/dL 04/20/21 04/20/21 04/20/21 Range/Units 11:43 14:28 16:35 WBC (3.8-10.6) k/uL RBC (4.30-5.90) m/uL Hgb (13.0-17.5) gm/dL Hct (39.0-53.0) % Neutrophils # (1.3-7.7) k/uL Monocytes # (0-1.0) k/uL Sodium (137-145) mmol/L Carbon Dioxide (22-30) mmol/L Creatinine (0.66-1.25) mg/dL Glucose (74-99) mg/dL POC Glucose (mg/dL) 127 H 110 H 120 H (75-99) mg/dL Total Protein (6.3-8.2) g/dL 04/20/21 04/20/21 04/20/21 Range/Units 18:31 20:00 21:49 WBC (3.8-10.6) k/uL RBC (4.30-5.90) m/uL Hgb (13.0-17.5) gm/dL Hct (39.0-53.0) % Neutrophils # (1.3-7.7) k/uL Monocytes # (0-1.0) k/uL Sodium (137-145) mmol/L Carbon Dioxide (22-30) mmol/L Creatinine (0.66-1.25) mg/dL Glucose (74-99) mg/dL POC Glucose (mg/dL) 164 H 133 H 110 H (75-99) mg/dL Total Protein (6.3-8.2) g/dL 0204/21/21 04/21/21 Range/Units 22:55 01:15 02:54 WBC (3.8-10.6) k/uL RBC (4.30-5.90) m/uL Hgb (13.0-17.5) gm/dL Hct (39.0-53.0) % Neutrophils # (1.3-7.7) k/uL Monocytes # (0-1.0) k/uL Sodium (137-145) mmol/L Carbon Dioxide (22-30) mmol/L Creatinine (0.66-1.25) mg/dL Glucose (74-99) mg/dL POC Glucose (mg/dL) 134 H 130 H 118 H (75-99) mg/dL Total Protein (6.3-8.2) g/dL 04/21/21 04/21/21 04/21/21 Range/Units 04:18 04:20 04:20 WBC 19.7 H (3.8-10.6) k/uL RBC 3.21 L (4.30-5.90) m/uL Hgb 9.5 L (13.0-17.5) gm/dL Hct 29.4 L (39.0-53.0) % Neutrophils # 16.6 H (1.3-7.7) k/uL Monocytes # 1.1 H (0-1.0) k/uL Sodium 136 L (137-145) mmol/L Carbon Dioxide 21 L (22-30) mmol/L Creatinine 0.59 L (0.66-1.25) mg/dL Glucose 120 H (74-99) mg/dL POC Glucose (mg/dL) 119 H (75-99) mg/dL Total Protein 5.9 L (6.3-8.2) g/dL 04/21/21 Range/Units 06:33 WBC (3.8-10.6) k/uL RBC (4.30-5.90) m/uL Hgb (13.0-17.5) gm/dL Hct (39.0-53.0) % Neutrophils # (1.3-7.7) k/uL Monocytes # (0-1.0) k/uL Sodium (137-145) mmol/L Carbon Dioxide (22-30) mmol/L Creatinine (0.66-1.25) mg/dL Glucose (74-99) mg/dL POC Glucose (mg/dL) 135 H (75-99) mg/dL Total Protein (6.3-8.2) g/dL - Imaging and Cardiology Chest x-ray: image reviewed Assessment and Plan Assessment: 1. Triple-vessel coronary artery disease, stable angina, status post three- vessel off-pump CABG 2. History of coronary artery disease with previous stenting 3. Hypertension 4. Hyperlipidemia, treated, cholesterol 153, LDL 63, triglycerides 426 5. New onset type 2 diabetes with hemoglobin A1c 7% 6. Previous tobacco dependence, preoperative FEV1 74% of predicted 7. Obstructive sleep apnea with home CPAP use 8. Mild EtOH use of 2-7 drinks a week 9. Preoperative nasal swab positive for MRSA, preoperative leukocytosis 10. Vaccinated and boosted against Covid 11. Postoperative acute blood loss anemia Plan: 1. Continue aspirin, statin, Plavix, beta bev therapy. Will increase beta bev therapy as tolerated, increase to 50 mg twice daily today 2. Continue calcium channel bev for radial artery spasm prophylaxis. Will transition to long-acting Cardizem CD today 3. Wean O2 as tolerated. Encourage incentive spirometry is 10 times every hour while awake. Bronchodilators per pulmonology 4. Increase activity, ambulate as tolerated. PT/OT/cardiac rehab consulted 5. Will monitor daily labs and x-rays. Electrolyte replacement per protocol. Will give IV Lasix today 6. Discontinue Cordis, arterial line 7. Will discontinue mediastinal chest tube. Continue pleural chest tubes for another 24 hours 8. Discontinue Wilson catheter. May bladder scan and straight cath for greater than 300 mL residual 9. Strict accurate intake and output. Daily weights 10. Insulin management per primary care service. Patient not previously diagnosed as diabetic, however preoperative hemoglobin A1c was 7%. Needs tight blood sugar control to prevent infection and promote sternal union 11. Pain control with current medication regimen 12. Will place transfer orders for 3 S. cardiac stepdown unit. May transfer when bed available 13. More recommendations to follow as patient progresses Time with Patient: Greater than 30
[2021-04-21] MEDS: HEPARIN SODIUM,PORCINE/PF 5,000 UNIT/0.5 ML SYRINGE SQ SCH ×3 (08:00→23:46)
[2021-04-21] MEDS: ASPIRIN 325 MG TAB PO SCH (08:01)
[2021-04-21] MEDS: CLOPIDOGREL 75 MG TAB PO SCH (08:01)
[2021-04-21] MEDS: METOPROLOL TARTRATE 50 MG TAB PO SCH ×2 (08:01→20:21)
[2021-04-21] MEDS: MUPIROCIN 2% OINT 22 GM TUBE NASAL SCH ×2 (08:02→20:22)
[2021-04-21 08:16] LABS: Glucose,Whole Blood 200 mg/dL (75-99)
--- NOTE | 2021-04-21 08:21 | XR ---
EXAMINATION TYPE: XR chest 1V portable DATE OF EXAM: 04/21/2021 Comparison: 04/20/2021 Clinical History: 66-year-old male Post Operative Cardiac Surgery Findings: Median sternotomy wires are present post CABG clips. Mediastinal drain. Bilateral chest tubes. No lisandro reciable pneumothorax. Mild vascular prominence is similar. Patchy retrocardiac opacity similar to sl ightly increased. Heart remains mildly enlarged. Slightly low lung volumes. Impression: Some hypoventilatory changes. Mild cardiomegaly. Patchy retrocardiac postoperative atelectasis slight ly worsened.
[2021-04-21] MEDS: IPRATROPIUM-ALBUTEROL 3 ML NEB INHALATION SCH ×4 (08:33→21:12)
[2021-04-21] MEDS: INSULIN DETEMIR (LEVEMIR) 100 UNIT/ML SYR SQ SCH (09:51)
[2021-04-21 11:38] LABS: Glucose,Whole Blood 192 mg/dL (75-99)
[2021-04-21] MEDS: INSULIN ASPART (NovoLOG) 100 UNIT/ML VIAL SQ SCH ×5 (11:48→20:21)
[2021-04-21] MEDS ORDERED: DILTIAZEM CD 120 MG CAP.ER.24H PO SCH (12:00)
--- NOTE | 2021-04-21 12:09 | P.PN ---
Subjective Progress Note Date: 04/21/21 This patient is status post bypass surgery. Seemed to be doing fairly well. Sitting up in the chair and doesn't complain of any significant chest pain. Hemodynamically stable.no complaints of any shortness of breath. His hemoglobin is 9.5. Renal function is stable. Lungs show some diminished breath sounds at bases. Heart is irregular. No arrhythmias. Patient is on aspirin, Plavix, Cardizem CD 120 mg by mouth daily patient will continue current medical therapy. Increase activity and incentive spirometry Objective - Vital Signs Vital signs: Vital Signs Temp 98.2 F 04/21/21 08:00 Pulse 116 H 04/21/21 09:00 Resp 24 04/21/21 09:00 BP 137/68 04/21/21 09:00 Pulse Ox 89 L 04/21/21 09:00 Intake & Output 04/20/21 04/21/21 04/21/21 18:59 06:59 18:59 Intake Total 1612.477 291.386 101 Output Total 715 860 770 Balance 897.477 -568.614 -669 Weight 107.4 kg 107.2 kg Intake: IV 486 273 101 Lactated Ringers 1,000 ml 420 240 80 @ 20 mls/hr IV .Q24H [facility] Rx#:[id number] pressure bag 66 33 21 Intake, IV Titration 46.477 18.386 Amount Insulin Regular 100 unit 46.477 18.386 In Sodium Chloride 0.9% 100 ml @ Per Protocol IV .Q0M [facility] Rx#:[id number] Oral 1080 Output: Chest Tube Drainage 250 270 Bilateral pleural 100 170 mediastinal 150 100 Urine 465 590 770 Other: Voiding Method Indwelling Catheter Indwelling Catheter Indwelling Catheter ABP, PAP, CO, CI - Last Documented Arterial Blood Pressure 106/45 Pulmonary Artery Pressure 26/8 Cardiac Output 8.8 Cardiac Index 4.3 - Exam GENERAL EXAM: Patient is alert and oriented and doesn't appear to be in any acute distress HEENT: Normocephalic. Normal reaction of pupils, equal size, normal range of extraocular motion. No erythema or exudates in the throat. NECK: No masses, no nuchal rigidity. CHEST: postsurgical LUNGS: [diminished air entry HEART: [S1 and S2 normal with no audible mumurs or gallops. Regular rhythm, femorals equal on both sides..] ABDOMEN: No hepatosplenomegaly, normal bowel sounds, no guarding or rigidity. SKIN: No rashes CENTRAL NERVOUS SYSTEM: No focal deficits. EXTREMITIES: [No cyanosis, clubbing or edema.] - Labs CBC & Chem 7: 04/21/21 04:20 04/21/21 04:20 Labs: Abnormal Lab Results - Last 24 Hours (Table) 04/20/21 04/20/21 04/20/21 Range/Units 14:28 16:35 18:31 WBC (3.8-10.6) k/uL RBC (4.30-5.90) m/uL Hgb (13.0-17.5) gm/dL Hct (39.0-53.0) % Neutrophils # (1.3-7.7) k/uL Monocytes # (0-1.0) k/uL Sodium (137-145) mmol/L Carbon Dioxide (22-30) mmol/L Creatinine (0.66-1.25) mg/dL Glucose (74-99) mg/dL POC Glucose (mg/dL) 110 H 120 H 164 H (75-99) mg/dL Total Protein (6.3-8.2) g/dL 04/20/21 04/20/21 04/20/21 Range/Units 20:00 21:49 22:55 WBC (3.8-10.6) k/uL RBC (4.30-5.90) m/uL Hgb (13.0-17.5) gm/dL Hct (39.0-53.0) % Neutrophils # (1.3-7.7) k/uL Monocytes # (0-1.0) k/uL Sodium (137-145) mmol/L Carbon Dioxide (22-30) mmol/L Creatinine (0.66-1.25) mg/dL Glucose (74-99) mg/dL POC Glucose (mg/dL) 133 H 110 H 134 H (75-99) mg/dL Total Protein (6.3-8.2) g/dL 04/21/21 04/21/21 04/21/21 Range/Units 01:15 02:54 04:18 WBC (3.8-10.6) k/uL RBC (4.30-5.90) m/uL Hgb (13.0-17.5) gm/dL Hct (39.0-53.0) % Neutrophils # (1.3-7.7) k/uL Monocytes # (0-1.0) k/uL Sodium (137-145) mmol/L Carbon Dioxide (22-30) mmol/L Creatinine (0.66-1.25) mg/dL Glucose (74-99) mg/dL POC Glucose (mg/dL) 130 H 118 H 119 H (75-99) mg/dL Total Protein (6.3-8.2) g/dL 04/21/21 04/21/21 04/21/21 Range/Units 04:20 04:20 06:33 WBC 19.7 H (3.8-10.6) k/uL RBC 3.21 L (4.30-5.90) m/uL Hgb 9.5 L (13.0-17.5) gm/dL Hct 29.4 L (39.0-53.0) % Neutrophils # 16.6 H (1.3-7.7) k/uL Monocytes # 1.1 H (0-1.0) k/uL Sodium 136 L (137-145) mmol/L Carbon Dioxide 21 L (22-30) mmol/L Creatinine 0.59 L (0.66-1.25) mg/dL Glucose 120 H (74-99) mg/dL POC Glucose (mg/dL) 135 H (75-99) mg/dL Total Protein 5.9 L (6.3-8.2) g/dL 04/21/21 04/21/21 Range/Units 08:14 11:36 WBC (3.8-10.6) k/uL RBC (4.30-5.90) m/uL Hgb (13.0-17.5) gm/dL Hct (39.0-53.0) % Neutrophils # (1.3-7.7) k/uL Monocytes # (0-1.0) k/uL Sodium (137-145) mmol/L Carbon Dioxide (22-30) mmol/L Creatinine (0.66-1.25) mg/dL Glucose (74-99) mg/dL POC Glucose (mg/dL) 200 H 192 H (75-99) mg/dL Total Protein (6.3-8.2) g/dL Assessment and Plan (1) CAD (coronary artery disease) Current Visit: Yes Status: Acute Code(s): I25.10 - ATHSCL HEART DISEASE OF [place] CORONARY ARTERY W/O ANG PCTRS SNOMED Code(s): 43717406 (2) Status post aorto-coronary artery bypass graft Current Visit: Yes Status: Acute Code(s): Z95.1 - PRESENCE OF AORTOCORONARY BYPASS GRAFT SNOMED Code(s): 298649305 Plan: This patient is progressing fairly well. Continue with current management. Incentive spirometry
--- NOTE | 2021-04-21 12:25 | P.PN ---
Subjective Progress Note Date: 04/21/21 Principal diagnosis: Status post bypass grafting. Pulmonary/critical care consult dated 04/20/2021. 66-year-old male, seen in consultation, and room 267. The patient is postop day #1, status post three-vessel bypass grafting. It was an off pump bypass, performed by Dr. Karimi and Dr. Franco. The patient had a three-vessel bypass, including VANEGAS to LAD, left radial artery to obtuse marginal 1, and SVG to PDA. The patient was extubated last night. Currently, he's on 5 L nasal cannula. He is getting lactated Ringer's at 40 mL an hour, and insulin at 3 units an hour. The patient has a known history of CAD, GERD, hypertension, hyperlipidemia, and sleep apnea syndrome. Current labs include a white count 18.3, he will been 10, hematocrit 30.6, and a platelet count of 219,000. PT, INR, and PTT are normal. Blood gases last night, show pO2 of 90, pCO2 39, pH is 7.36. Sodium 138, potassium 4.3, chlorides 107, CO2 22, anion gap 9, BUN 15, creatinine 0.49. Testing for coronavirus was negative. Chest x-ray shows some bibasilar infiltrates, and postoperative changes. Progress note dated 04/21/2021. This is a patient was seen in consultation yesterday. He seen again in room 267. He is postop day #2, test to three-vessel bypass grafting. The surgery was done by Drs. Karimi and Salvador. The patient's on 2 L nasal cannula. He's not receiving any IV fluids. He did have a three-vessel bypass. Currently, the patient appears to be relatively stable. He is getting about 1000 mL on his incentive spirometer. White count 19.7, hemoglobin 9.5, hematocrit 29.4, platelet count 197,000. Sodium 136, potassium 4.1, chlorides 105, CO2 21, anion gap 10, BUN 16, creatinine 0.59. Albumin is 3.5. Chest x-ray shows postoperative changes, and some retrocardiac atelectasis. Objective - Vital Signs Vital signs: Vital Signs Temp 98.2 F 04/21/21 08:00 Pulse 116 H 04/21/21 09:00 Resp 24 04/21/21 09:00 BP 137/68 04/21/21 09:00 Pulse Ox 89 L 04/21/21 09:00 Intake & Output 04/20/21 04/21/21 04/21/21 18:59 06:59 18:59 Intake Total 1612.477 291.386 101 Output Total 715 860 770 Balance 897.477 -568.614 -669 Weight 107.4 kg 107.2 kg Intake: IV 486 273 101 Lactated Ringers 1,000 ml 420 240 80 @ 20 mls/hr IV .Q24H [facility] Rx#:[id number] pressure bag 66 33 21 Intake, IV Titration 46.477 18.386 Amount Insulin Regular 100 unit 46.477 18.386 In Sodium Chloride 0.9% 100 ml @ Per Protocol IV .Q0M [facility] Rx#:[id number] Oral 1080 Output: Chest Tube Drainage 250 270 Bilateral pleural 100 170 mediastinal 150 100 Urine 465 590 770 Other: Voiding Method Indwelling Catheter Indwelling Catheter Indwelling Catheter ABP, PAP, CO, CI - Last Documented Arterial Blood Pressure 106/45 Pulmonary Artery Pressure 26/8 Cardiac Output 8.8 Cardiac Index 4.3 - Exam No acute distress, oriented 3. Currently on 2 L nasal cannula. Saturations are 95%. HEENT examination is grossly unremarkable. Neck supple. Full range of motion. No adenopathy thyromegaly or neck vein distention. Cardiovascular examination reveals regular rhythm rate. S1-S2 normal. No S3 or S4. No discernible murmur noted. Heart rate 87 bpm. Lungs reveal diminished bilateral breath sounds, with poor inspiratory effort. Scattered rhonchi are noted. No wheezes or crackles. Breath sounds are equal. Saturations are 95%. Abdomen soft bowel sounds are heard. No masses or tenderness. Extremities are intact. No cyanosis clubbing or edema. Skin is without rash or lesion. Neurologic examination is brief but nonfocal. - Labs CBC & Chem 7: 04/21/21 04:20 04/21/21 04:20 Labs: Abnormal Lab Results - Last 24 Hours (Table) 04/20/21 04/20/21 04/20/21 Range/Units 14:28 16:35 18:31 WBC (3.8-10.6) k/uL RBC (4.30-5.90) m/uL Hgb (13.0-17.5) gm/dL Hct (39.0-53.0) % Neutrophils # (1.3-7.7) k/uL Monocytes # (0-1.0) k/uL Sodium (137-145) mmol/L Carbon Dioxide (22-30) mmol/L Creatinine (0.66-1.25) mg/dL Glucose (74-99) mg/dL POC Glucose (mg/dL) 110 H 120 H 164 H (75-99) mg/dL Total Protein (6.3-8.2) g/dL 04/20/21 04/20/21 04/20/21 Range/Units 20:00 21:49 22:55 WBC (3.8-10.6) k/uL RBC (4.30-5.90) m/uL Hgb (13.0-17.5) gm/dL Hct (39.0-53.0) % Neutrophils # (1.3-7.7) k/uL Monocytes # (0-1.0) k/uL Sodium (137-145) mmol/L Carbon Dioxide (22-30) mmol/L Creatinine (0.66-1.25) mg/dL Glucose (74-99) mg/dL POC Glucose (mg/dL) 133 H 110 H 134 H (75-99) mg/dL Total Protein (6.3-8.2) g/dL 04/21/21 04/21/21 04/21/21 Range/Units 01:15 02:54 04:18 WBC (3.8-10.6) k/uL RBC (4.30-5.90) m/uL Hgb (13.0-17.5) gm/dL Hct (39.0-53.0) % Neutrophils # (1.3-7.7) k/uL Monocytes # (0-1.0) k/uL Sodium (137-145) mmol/L Carbon Dioxide (22-30) mmol/L Creatinine (0.66-1.25) mg/dL Glucose (74-99) mg/dL POC Glucose (mg/dL) 130 H 118 H 119 H (75-99) mg/dL Total Protein (6.3-8.2) g/dL 04/21/21 04/21/21 04/21/21 Range/Units 04:20 04:20 06:33 WBC 19.7 H (3.8-10.6) k/uL RBC 3.21 L (4.30-5.90) m/uL Hgb 9.5 L (13.0-17.5) gm/dL Hct 29.4 L (39.0-53.0) % Neutrophils # 16.6 H (1.3-7.7) k/uL Monocytes # 1.1 H (0-1.0) k/uL Sodium 136 L (137-145) mmol/L Carbon Dioxide 21 L (22-30) mmol/L Creatinine 0.59 L (0.66-1.25) mg/dL Glucose 120 H (74-99) mg/dL POC Glucose (mg/dL) 135 H (75-99) mg/dL Total Protein 5.9 L (6.3-8.2) g/dL 04/21/21 04/21/21 Range/Units 08:14 11:36 WBC (3.8-10.6) k/uL RBC (4.30-5.90) m/uL Hgb (13.0-17.5) gm/dL Hct (39.0-53.0) % Neutrophils # (1.3-7.7) k/uL Monocytes # (0-1.0) k/uL Sodium (137-145) mmol/L Carbon Dioxide (22-30) mmol/L Creatinine (0.66-1.25) mg/dL Glucose (74-99) mg/dL POC Glucose (mg/dL) 200 H 192 H (75-99) mg/dL Total Protein (6.3-8.2) g/dL Assessment and Plan Assessment: Postop day #2, status post three-vessel bypass grafting, done off pump, with VANEGAS to LAD bypass, left radial to OM1 bypass, and SVG to PDA bypass. Routine postoperative ventilator management. History of CAD. History of hypertension. History of hyperlipidemia. History of GERD. History of sleep apnea syndrome. Plan: Plan dated 04/20/2021. The patient remains on O2 at 5 L. The patient's on an insulin drip at 3 units an hour and lactated Ringer's at 40 mL an hour. We will encourage deep breathing, coughing, clearing of secretions, as well as hourly use of the incentive spirometer. Additional recommendations and suggestions are forthcoming. Labs x-rays and medications are reviewed. Continue to follow make recommendations where appropriate. Plan dated 04/21/2021. The patient is postop day #2. He is doing reasonably well on his incentive spirometer. The patient is not receiving any IV fluids. He is on 2 L nasal cannula. We encouraged hourly use of the incentive spirometer. We also recommend deep breathing, coughing, and clearing of secretions. Labs, x-rays, and medications are all reviewed. Prognosis is thought to be good. Possible transfer out of the intensive care unit later today. Time with Patient: Less than 30
--- NOTE | 2021-04-21 15:15 | P.PN ---
Subjective Progress Note Date: 04/21/21 (delayed charting seen at 0930) Principal diagnosis: chest pain Patient is a 66-year-old male with known coronary artery disease status post hunting in April 2020, GERD, hypertension, dyslipidemia, and MANUEL who presented for coronary artery bypass grafting. Patient had been hospitalized in April 2021 due to chest pain and underwent cardiac cath which showed three-vessel coronary artery disease and an occluded right coronary artery at 90%. Patient was subsequently discharged home for outpatient cardiac catheterization. He was then worked up outpatient for cardiac bypass surgery. He underwent open-heart surgery on 04/19/21 with off pump bypass grafting 3. Returned to the ICU intubated, and was subsequently extubated. Required insulin gtt at 3 units/hr Patient seen and examined at bedside. Chest pain mild and controlled, no shortness of breath, no nausea Discussed that A1C 7, will need oral and glucometer on discharge. General: non toxic, no distress, appears at stated age, obese Derm: warm, dry Head: atraumatic, normocephalic, symmetric Eyes: EOMI, no lid lag, anicteric sclera Mouth: no lip lesion, mucus membranes moist Cardiovascular: S1S2 reg, no murmur, positive posterior tibial pulse bilateral, , heart hugger in place Lungs: Course bs bilateral, no rhonchi, no rales , no accessory muscle use Abdominal: soft, nontender to palpation, no guarding, no appreciable organomegaly Ext: no gross muscle atrophy, no edema, no contractures Neuro: CN II-XI grossly intact, no focal neuro deficits Psych: Alert, oriented, appropriate affect Assessment/plan: 66-year-old male status post coronary artery bypass grafting 3 Ischemic cardiomyopathy with ejection fraction 45% -Management per primary cardiac services -On aspirin, Plavix, BB -Crestor from hold Acute blood loss anemia anticipated outcome of surgery -No indication for transfusion at this time -Follow CBC Newly Discovered Diabetes mellitus type 2 with hemoglobin A1c of 7 -Not chronically on medications at home -off insulin gtt, transition to levemir, fixed dose and sliding scale ... will need to be decreased as more removed from surgery -This appears to be newly diagnosed. Patient will need glucometer on discharge. -Follow blood sugars closely -Anticipate home on metformin versus Jardiance (sent to pharmacy for daniels check in AM) Hypertension, controlled -Continue with Lopressor, Cardizem initiated by primary team -Primary management per CT services Dyslipidemia - crestor at home Obese - BMI 38.2 - structured outpatient weight loss Chronic: GERD, IBS, MANUEL DVT: Heparin Thank you for allowing us to participate in the care of this pleasant patient. Do not hesitate to contact us with questions. Someone can be reached from the [facility] hospitalist group all hours of the day at [phone] or via perfect serve. Objective - Vital Signs Vital signs: Vital Signs Temp 98.0 F 04/21/21 12:00 Pulse 104 H 04/21/21 13:00 Resp 22 04/21/21 13:00 BP 126/65 04/21/21 13:00 Pulse Ox 93 L 04/21/21 13:00 Intake & Output 04/20/21 04/21/21 04/21/21 18:59 06:59 18:59 Intake Total 1612.477 291.386 125 Output Total 991 361 4579 Balance 897.477 -568.614 -1045 Weight 107.4 kg 107.2 kg Intake: IV 486 273 101 Lactated Ringers 1,000 ml 420 240 80 @ 20 mls/hr IV .Q24H [facility] Rx#:[id number] pressure bag 66 33 21 Intake, IV Titration 46.477 18.386 Amount Insulin Regular 100 unit 46.477 18.386 In Sodium Chloride 0.9% 100 ml @ Per Protocol IV .Q0M [facility] Rx#:[id number] Oral 1080 24 Output: Chest Tube Drainage 250 270 Bilateral pleural 100 170 mediastinal 150 100 Urine 506 447 9367 Other: Voiding Method Indwelling Catheter Indwelling Catheter Urinal # Voids 1 ABP, PAP, CO, CI - Last Documented Arterial Blood Pressure 106/45 Pulmonary Artery Pressure 26/8 Cardiac Output 8.8 Cardiac Index 4.3 - Labs CBC & Chem 7: 04/21/21 04:20 04/21/21 04:20 Labs: Abnormal Lab Results - Last 24 Hours (Table) 04/20/21 04/20/21 04/20/21 Range/Units 16:35 18:31 20:00 WBC (3.8-10.6) k/uL RBC (4.30-5.90) m/uL Hgb (13.0-17.5) gm/dL Hct (39.0-53.0) % Neutrophils # (1.3-7.7) k/uL Monocytes # (0-1.0) k/uL Sodium (137-145) mmol/L Carbon Dioxide (22-30) mmol/L Creatinine (0.66-1.25) mg/dL Glucose (74-99) mg/dL POC Glucose (mg/dL) 120 H 164 H 133 H (75-99) mg/dL Total Protein (6.3-8.2) g/dL 04/20/21 04/20/21 04/21/21 Range/Units 21:49 22:55 01:15 WBC (3.8-10.6) k/uL RBC (4.30-5.90) m/uL Hgb (13.0-17.5) gm/dL Hct (39.0-53.0) % Neutrophils # (1.3-7.7) k/uL Monocytes # (0-1.0) k/uL Sodium (137-145) mmol/L Carbon Dioxide (22-30) mmol/L Creatinine (0.66-1.25) mg/dL Glucose (74-99) mg/dL POC Glucose (mg/dL) 110 H 134 H 130 H (75-99) mg/dL Total Protein (6.3-8.2) g/dL 04/21/21 04/21/21 04/21/21 Range/Units 02:54 04:18 04:20 WBC 19.7 H (3.8-10.6) k/uL RBC 3.21 L (4.30-5.90) m/uL Hgb 9.5 L (13.0-17.5) gm/dL Hct 29.4 L (39.0-53.0) % Neutrophils # 16.6 H (1.3-7.7) k/uL Monocytes # 1.1 H (0-1.0) k/uL Sodium (137-145) mmol/L Carbon Dioxide (22-30) mmol/L Creatinine (0.66-1.25) mg/dL Glucose (74-99) mg/dL POC Glucose (mg/dL) 118 H 119 H (75-99) mg/dL Total Protein (6.3-8.2) g/dL 04/21/21 04/21/21 04/21/21 Range/Units 04:20 06:33 08:14 WBC (3.8-10.6) k/uL RBC (4.30-5.90) m/uL Hgb (13.0-17.5) gm/dL Hct (39.0-53.0) % Neutrophils # (1.3-7.7) k/uL Monocytes # (0-1.0) k/uL Sodium 136 L (137-145) mmol/L Carbon Dioxide 21 L (22-30) mmol/L Creatinine 0.59 L (0.66-1.25) mg/dL Glucose 120 H (74-99) mg/dL POC Glucose (mg/dL) 135 H 200 H (75-99) mg/dL Total Protein 5.9 L (6.3-8.2) g/dL 04/21/21 Range/Units 11:36 WBC (3.8-10.6) k/uL RBC (4.30-5.90) m/uL Hgb (13.0-17.5) gm/dL Hct (39.0-53.0) % Neutrophils # (1.3-7.7) k/uL Monocytes # (0-1.0) k/uL Sodium (137-145) mmol/L Carbon Dioxide (22-30) mmol/L Creatinine (0.66-1.25) mg/dL Glucose (74-99) mg/dL POC Glucose (mg/dL) 192 H (75-99) mg/dL Total Protein (6.3-8.2) g/dL
[2021-04-21 16:39] LABS: Glucose,Whole Blood 159 mg/dL (75-99)
[2021-04-21] MEDS ORDERED: METOPROLOL TARTRATE 5 MG/5 ML VIAL IVP ONE (17:22)
[2021-04-21 20:14] LABS: Glucose,Whole Blood 216 mg/dL (75-99)
[2021-04-21] MEDS: SENNOSIDES-DOCUSATE SODIUM 1 EACH TAB PO SCH (20:21)
[2021-04-21] MEDS: ROSUVASTATIN CALCIUM 20 MG PO SCH (20:22)
[2021-04-22 06:27] LABS: HCT 28.6 % (39.0-53.0); HGB 9.4 gm/dL (13.0-17.5); MCH 30.4 pg (25.0-35.0); MCHC 32.8 g/dL (31.0-37.0); MCV 92.8 fL (80.0-100.0); Mean Platelet Volume 7.9; Platelet Count 218 k/uL (150-450); RBC 3.08 m/uL (4.30-5.90); RDW 13.9 % (11.5-15.5); WBC 17.3 k/uL (3.8-10.6)
[2021-04-22 06:46] LABS: African American GFR (CKD) >90 (>60 ml/min/1.73 sqM); Anion Gap 9 mmol/L; Blood Urea Nitrogen 17 mg/dL (9-20); Calcium 8.7 mg/dL (8.4-10.2); Carbon Dioxide 23 mmol/L (22-30); Chloride 103 mmol/L (98-107); Glucose 137 mg/dL (74-99); Non-African American GFR(CKD) >90 (>60 ml/min/1.73 sqM); Sodium 135 mmol/L (137-145)
[2021-04-22 07:02] LABS: Glucose,Whole Blood 147 mg/dL (75-99)
[2021-04-22] MEDS: INSULIN ASPART (NovoLOG) 100 UNIT/ML VIAL SQ SCH ×7 (07:13→20:36)
[2021-04-22] MEDS: KETOROLAC 30 MG/ML 1 ML VIAL IVP SCH ×4 (07:13→22:48)
[2021-04-22] MEDS: INSULIN DETEMIR (LEVEMIR) 100 UNIT/ML SYR SQ SCH (07:13)
[2021-04-22] MEDS: IPRATROPIUM-ALBUTEROL 3 ML NEB INHALATION SCH ×4 (07:35→20:29)
--- NOTE | 2021-04-22 08:04 | XR ---
EXAMINATION TYPE: XR chest 2V DATE OF EXAM: 04/22/2021 COMPARISON: 04/21/2021 INDICATION: Post cardiac surgery TECHNIQUE: Frontal and lateral views of the chest are obtained. FINDINGS: The heart size is enlarged. The pulmonary vasculature is normal. Minimal pleural effusion may be present on the left. Sternotomy wires are present from CABG. Chest t ubes have been removed. IMPRESSION: 1. Suggestion of minimal left pleural effusion. 2. Cardiomegaly
[2021-04-22] MEDS ORDERED: FUROSEMIDE 10 MG/ML 4 ML VIAL IV STA (08:09)
--- NOTE | 2021-04-22 08:41 | P.PN ---
Subjective Progress Note Date: 04/22/21 Principal diagnosis: Triple-vessel coronary artery disease, stable angina. Previous medical history of coronary artery disease with previous stenting, hypertension, hyperlipidemia, previous tobacco dependence, obstructive sleep apnea with home CPAP use, mild EtOH use of 2-7 drinks a week, preoperative leukocytosis and preoperative nasal swab positive for MRSA. New diagnosis type 2 diabetes. Vaccinated and boosted against Covid POD #3 off-pump coronary artery bypass graft 3 with left internal mammary artery to the left anterior descending artery, left radial artery to the first obtuse marginal artery, reverse saphenous vein graft to the posterior descending artery, left atrial appendage ligation using a #35 mm AtriClip, endoscopic left radial artery harvest, endoscopic left greater saphenous vein harvest, and intraoperative transesophageal echocardiogram performed by anesthesia. Postoperative acute blood loss anemia, expected given hemodilution The patient was seen and examined this morning sitting up in a recliner in the intensive care unit in no acute distress. States postoperative pain is well controlled on current medication regimen, denies shortness of breath. Remains in sinus rhythm and hemodynamically stable although a bit tachy at times. He rodriguez d a relatively uneventful night. Patient ambulated in the hallway yesterday with physical therapy without difficulty. No other new concerns. Objective - Vital Signs Vital signs: Vital Signs Temp 98.2 F 04/22/21 04:00 Pulse 109 H 04/22/21 07:44 Resp 29 H 04/22/21 07:17 BP 132/68 04/22/21 06:00 Pulse Ox 95 04/22/21 07:35 Intake & Output 04/21/21 04/22/21 04/22/21 18:59 06:59 18:59 Intake Total 625 400 Output Total 1320 575 Balance -695 -175 Weight 106.7 kg Intake: IV 101 Lactated Ringers 1,000 ml 80 @ 20 mls/hr IV .Q24H [facility] Rx#:[id number] pressure bag 21 Oral 524 400 Output: Urine 1320 575 Other: Voiding Method Urinal Urinal # Voids 1 ABP, PAP, CO, CI - Last Documented Arterial Blood Pressure 106/45 Pulmonary Artery Pressure 26/8 Cardiac Output 8.8 Cardiac Index 4.3 - Exam CONSTITUTIONAL: Appears comfortable, cooperative, no acute distress RESPIRATORY: Lungs sounds diminished bilaterally. Respirations even, nonlabored. Currently on 2 L nasal cannula with oxygen saturation 92%. Able to achieve 1000 mL on incentive spirometry. Strong cough. CARDIOVASCULAR: S1, S2 present. Regular rate and rhythm, sinus rhythm to sinus tach on telemetry. Sternum stable. Palpable peripheral pulses bilaterally. Trace generalized edema present. No calf pain or tenderness noted. Heart hugger in place with patient demonstrating appropriate use. Antiembolism stockings, SCDs present. GASTROINTESTINAL: Abdomen soft, nontender, nondistended. Active bowel sounds present 4 quadrants. Tolerating diet. Positive flatus GENITOURINARY: Wilson discontinue yesterday, patient has voided 1895 mL in the last 24 hours INTEGUMENTARY: Skin is warm and dry with evidence of good perfusion. Anterior chest incision well approximated and covered with dry intact dressing. Left lower extremity EVH site well approximated without redness or drainage. Left radial artery harvest site without redness or drainage NEUROLOGIC: Cranial nerves II through XII intact MUSKULOSKELETAL: Able to move all extremities, strength equal bilaterally PSYCHIATRIC: Alert and oriented to person place and time, appropriate affect, intact judgment and insight - Allied health notes Allied health notes reviewed: nursing - Labs CBC & Chem 7: 04/22/21 05:22 04/22/21 05:22 Labs: Abnormal Lab Results - Last 24 Hours (Table) 04/21/21 04/21/21 04/21/21 Range/Units 11:36 16:37 20:12 WBC (3.8-10.6) k/uL RBC (4.30-5.90) m/uL Hgb (13.0-17.5) gm/dL Hct (39.0-53.0) % Sodium (137-145) mmol/L Creatinine (0.66-1.25) mg/dL Glucose (74-99) mg/dL POC Glucose (mg/dL) 192 H 159 H 216 H (75-99) mg/dL 04/22/21 04/22/21 04/22/21 Range/Units 05:22 05:22 06:59 WBC 17.3 H (3.8-10.6) k/uL RBC 3.08 L (4.30-5.90) m/uL Hgb 9.4 L (13.0-17.5) gm/dL Hct 28.6 L (39.0-53.0) % Sodium 135 L (137-145) mmol/L Creatinine 0.58 L (0.66-1.25) mg/dL Glucose 137 H (74-99) mg/dL POC Glucose (mg/dL) 147 H (75-99) mg/dL - Imaging and Cardiology Chest x-ray: report reviewed, image reviewed Assessment and Plan Assessment: 1. Triple-vessel coronary artery disease, stable angina, status post three- vessel off-pump CABG 2. History of coronary artery disease with previous stenting 3. Hypertension 4. Hyperlipidemia, treated, cholesterol 153, LDL 63, triglycerides 426 5. New onset type 2 diabetes with hemoglobin A1c 7% 6. Previous tobacco dependence, preoperative FEV1 74% of predicted 7. Obstructive sleep apnea with home CPAP use 8. Mild EtOH use of 2-7 drinks a week 9. Preoperative nasal swab positive for MRSA, preoperative leukocytosis 10. Vaccinated and boosted against Covid 11. Postoperative acute blood loss anemia Plan: 1. Continue aspirin, statin, Plavix, beta bev therapy. Will increase beta bev therapy as tolerated, increase to 75 mg twice daily today 2. Continue calcium channel bev for radial artery spasm prophylaxis. Will increase long-acting Cardizem CD today 3. Wean O2 as tolerated. Encourage incentive spirometry is 10 times every hour while awake. Bronchodilators per pulmonology 4. Increase activity, ambulate as tolerated. PT/OT/cardiac rehab consulted 5. Will monitor daily labs and x-rays. Electrolyte replacement per protocol. Will give IV Lasix today 6. May bladder scan and straight cath for greater than 300 mL residual 7. Strict accurate intake and output. Daily weights 8. Insulin management per primary care service. Patient not previously diagnosed as diabetic, however preoperative hemoglobin A1c was 7%. Needs tight blood sugar control to prevent infection and promote sternal union 9. Pain control with current medication regimen 10. Transfer orders placed yesterday for 3 S. cardiac stepdown unit. May transfer when bed available 11. Discharge planning in progress. Anticipated discharge to home in the next 24 hours 12. More recommendations to follow as patient progresses Time with Patient: Greater than 30
[2021-04-22] MEDS: ASPIRIN 325 MG TAB PO SCH (08:49)
[2021-04-22] MEDS: CLOPIDOGREL 75 MG TAB PO SCH (08:49)
[2021-04-22] MEDS: METOPROLOL TARTRATE 25 MG TAB PO SCH ×2 (08:49→20:36)
[2021-04-22] MEDS: HEPARIN SODIUM,PORCINE/PF 5,000 UNIT/0.5 ML SYRINGE SQ SCH ×3 (08:49→22:48)
[2021-04-22] MEDS: MUPIROCIN 2% OINT 22 GM TUBE NASAL SCH ×2 (08:50→20:36)
--- NOTE | 2021-04-22 10:19 | PN ---
PROGRESS NOTE This 66-year-old gentleman with left main and ostial circumflex disease and also diffuse LAD disease underwent aortocoronary bypass surgery on April 19. He is recovering well. He is extubated, maintaining sinus rhythm, slightly tachycardic, but doing fairly well on incentive spirometry. He had 3 grafts: a free radial artery to the OM1, vein graft to the PDA of RCA, and a VANEGAS to LAD. He seems to be doing well at this time. He is slightly tachycardic. Vitals are stable. There is no JVD. S1-S2 heard normally. No rub. Lungs reveal fair air entry. Abdomen is soft. Rest of physical examination is okay. I am recommending that we increase the beta bev to 75 mg b.i.d., continue incentive spirometry and pulmonary toilet. MMODL / IJN: [id number] /
[2021-04-22 11:47] LABS: Glucose,Whole Blood 174 mg/dL (75-99)
[2021-04-22] MEDS: DILTIAZEM CD 180 MG CAP.ER.24H PO SCH (11:51)
--- NOTE | 2021-04-22 12:52 | P.PN ---
Subjective Progress Note Date: 04/22/21 No new complaints today, doing well. Rec'd IV lasix today. Sugars are well controlled under target of < 180. Discharge planning in next 24 hours. Objective - Vital Signs Vital signs: Vital Signs Temp 98.2 F 04/22/21 12:00 Pulse 104 H 04/22/21 12:00 Resp 22 04/22/21 12:00 BP 123/77 04/22/21 12:00 Pulse Ox 94 L 04/22/21 12:09 Intake & Output 04/21/21 04/22/21 04/22/21 18:59 06:59 18:59 Intake Total 625 400 Output Total 1873 883 2458 Balance -695 -175 -1000 Weight 106.7 kg Intake: IV 101 Lactated Ringers 1,000 ml 80 @ 20 mls/hr IV .Q24H [facility] Rx#:[id number] pressure bag 21 Oral 524 400 Output: Urine 0053 772 1897 Other: Voiding Method Urinal Urinal Urinal # Voids 1 ABP, PAP, CO, CI - Last Documented Arterial Blood Pressure 106/45 Pulmonary Artery Pressure 26/8 Cardiac Output 8.8 Cardiac Index 4.3 - Exam Gen: awake, alert HEENT: normocephalic, atraumatic, good hearing acuity, moist mucous membranes Resp: good air exchange, breathing comfortably with no accessory muscle use CVS: good distal perfusion x 4, GI: soft, NTTP, ND : no SPT, no CVAT, prater catheter not present MSK: no pitting edema, no clubbing Neuro: non-focal, moving all extremities Psych: cooperative, euthymic mood - Labs CBC & Chem 7: 04/22/21 05:22 04/22/21 05:22 Labs: Abnormal Lab Results - Last 24 Hours (Table) 04/21/21 04/21/21 04/22/21 Range/Units 16:37 20:12 05:22 WBC 17.3 H (3.8-10.6) k/uL RBC 3.08 L (4.30-5.90) m/uL Hgb 9.4 L (13.0-17.5) gm/dL Hct 28.6 L (39.0-53.0) % Sodium (137-145) mmol/L Creatinine (0.66-1.25) mg/dL Glucose (74-99) mg/dL POC Glucose (mg/dL) 159 H 216 H (75-99) mg/dL 04/22/21 04/22/21 04/22/21 Range/Units 05:22 06:59 11:46 WBC (3.8-10.6) k/uL RBC (4.30-5.90) m/uL Hgb (13.0-17.5) gm/dL Hct (39.0-53.0) % Sodium 135 L (137-145) mmol/L Creatinine 0.58 L (0.66-1.25) mg/dL Glucose 137 H (74-99) mg/dL POC Glucose (mg/dL) 147 H 174 H (75-99) mg/dL Assessment and Plan Assessment: 66-year-old male status post coronary artery bypass grafting 3 Ischemic cardiomyopathy with ejection fraction 45% -Management per primary cardiac services -On aspirin, Plavix, BB -Crestor from hold Acute blood loss anemia anticipated outcome of surgery -No indication for transfusion at this time -Follow CBC Newly Discovered Diabetes mellitus type 2 with hemoglobin A1c of 7 -Not chronically on medications at home -off insulin gtt, transition to levemir, fixed dose and sliding scale ... will need to be decreased as more removed from surgery -This appears to be newly diagnosed. Patient will need glucometer on discharge. -Follow blood sugars closely -Anticipate home on metformin versus Jardiance (sent to pharmacy for daniels check in AM) Hypertension, controlled -Continue with Lopressor, Cardizem initiated by primary team -Primary management per CT services Dyslipidemia - crestor at home Obese - BMI 38.2 - structured outpatient weight loss Chronic: GERD, IBS, MANUEL DVT: Heparin Thank you for allowing us to participate in the care of this pleasant patient. Do not hesitate to contact us with questions. Someone can be reached from the [facility] hospitalist group all hours of the day at [phone] or via perfect serve.
--- NOTE | 2021-04-22 13:25 | P.PN ---
Subjective Progress Note Date: 04/22/21 Principal diagnosis: Status post CABG, postoperative day #3. POD #3 off-pump coronary artery bypass graft 3 with left internal mammary artery to the left anterior descending artery, left radial artery to the first obtuse marginal artery, reverse saphenous vein graft to the posterior descending artery, left atrial appendage ligation using a #35 mm AtriClip, endoscopic left radial artery harvest, endoscopic left greater saphenous vein harvest, and intraoperative transesophageal echocardiogram performed by anesthesia. Patient was reevaluated today on 04/22/21, patient remains in the ICU, he is on 2 L nasal cannula, does not seem to be in any distress, he is doing well with incentive spirometry achieving almost thousand cc. Chest x-ray showed minimal left pleural effusion and cardiomegaly. Asymptomatic metabolic profile is normal renal profile is normal WBC count of 17.3 hemoglobin is 9.4. Objective - Vital Signs Vital signs: Vital Signs Temp 98.2 F 04/22/21 12:00 Pulse 104 H 04/22/21 12:00 Resp 22 04/22/21 12:00 BP 123/77 04/22/21 12:00 Pulse Ox 94 L 04/22/21 12:09 Intake & Output 04/21/21 04/22/21 04/22/21 18:59 06:59 18:59 Intake Total 625 400 Output Total 5218 931 3783 Balance -695 -175 -1000 Weight 106.7 kg Intake: IV 101 Lactated Ringers 1,000 ml 80 @ 20 mls/hr IV .Q24H [facility] Rx#:[id number] pressure bag 21 Oral 524 400 Output: Urine 0821 153 9375 Other: Voiding Method Urinal Urinal Urinal # Voids 1 ABP, PAP, CO, CI - Last Documented Arterial Blood Pressure 106/45 Pulmonary Artery Pressure 26/8 Cardiac Output 8.8 Cardiac Index 4.3 - Exam Physical Exam: Revealed 66-year-old white male in no distress. On 2 L nasal cannula. Head: Atraumatic, normocephalic. HEENT:[Neck is supple.] [No neck masses.] [No thyromegaly.] [No JVD.] Chest: [Symmetrical chest expansion, diminished breath sounds at the bases no rhonchi no wheezes.] Cardiac Exam: [Normal S1 and S2, no S3 gallop, no murmur.] Abdomen: [Soft, nontender, no megaly, no rebound, no guarding, normal bowel sounds.] Extremities: [No clubbing, no edema, no cyanosis.] Neurological Exam: Alert and oriented 3. [No focal neurologic deficit.] Psychiatric: Normal mood affect and normal mental status examination. Skin: No rashes. - Labs CBC & Chem 7: 04/22/21 05:22 04/22/21 05:22 Labs: Abnormal Lab Results - Last 24 Hours (Table) 04/21/21 04/21/21 04/22/21 Range/Units 16:37 20:12 05:22 WBC 17.3 H (3.8-10.6) k/uL RBC 3.08 L (4.30-5.90) m/uL Hgb 9.4 L (13.0-17.5) gm/dL Hct 28.6 L (39.0-53.0) % Sodium (137-145) mmol/L Creatinine (0.66-1.25) mg/dL Glucose (74-99) mg/dL POC Glucose (mg/dL) 159 H 216 H (75-99) mg/dL 04/22/21 04/22/21 04/22/21 Range/Units 05:22 06:59 11:46 WBC (3.8-10.6) k/uL RBC (4.30-5.90) m/uL Hgb (13.0-17.5) gm/dL Hct (39.0-53.0) % Sodium 135 L (137-145) mmol/L Creatinine 0.58 L (0.66-1.25) mg/dL Glucose 137 H (74-99) mg/dL POC Glucose (mg/dL) 147 H 174 H (75-99) mg/dL Assessment and Plan Assessment: Impression: Triple-vessel coronary artery disease, status post off-pump CABG postoperative day #3. History of coronary artery disease and previous stenting Dyslipidemia Benign essential hypertension X smoker FEV1 74% Obstructive sleep apnea on CPAP at home Postoperative atelectasis, expected. Postoperative acute blood loss anemia, expected Recommendation: Continue beta blockers Plavix statin aspirin Increase activity Incentive spirometry Discontinue on necessary catheters or lines. Pain control management. Okay to transfer to a monitor bed on selective We'll continue to follow. Time with Patient: Less than 30
[2021-04-22 16:51] LABS: Glucose,Whole Blood 149 mg/dL (75-99)
[2021-04-22 20:32] LABS: Glucose,Whole Blood 194 mg/dL (75-99)
[2021-04-22] MEDS: SENNOSIDES-DOCUSATE SODIUM 1 EACH TAB PO SCH (20:36)
[2021-04-22] MEDS: ROSUVASTATIN CALCIUM 20 MG PO SCH (20:36)
[2021-04-23 06:26] LABS: Glucose,Whole Blood 144 mg/dL (75-99)
[2021-04-23] MEDS: KETOROLAC 30 MG/ML 1 ML VIAL IVP SCH ×2 (06:52→12:35)
[2021-04-23] MEDS: INSULIN DETEMIR (LEVEMIR) 100 UNIT/ML SYR SQ SCH (06:53)
[2021-04-23] MEDS: INSULIN ASPART (NovoLOG) 100 UNIT/ML VIAL SQ SCH ×4 (06:54→12:37)
[2021-04-23 07:27] LABS: HCT 26.4 % (39.0-53.0); HGB 8.6 gm/dL (13.0-17.5); MCH 29.9 pg (25.0-35.0); MCHC 32.6 g/dL (31.0-37.0); MCV 91.8 fL (80.0-100.0); Mean Platelet Volume 7.8; Platelet Count 276 k/uL (150-450); RBC 2.88 m/uL (4.30-5.90); RDW 13.9 % (11.5-15.5); WBC 13.8 k/uL (3.8-10.6)
[2021-04-23] MEDS ORDERED: INSULIN DETEMIR (LEVEMIR) 100 UNIT/ML SYR SQ ONE (07:30)
[2021-04-23 07:37] LABS: African American GFR (CKD) >90 (>60 ml/min/1.73 sqM); Anion Gap 11 mmol/L; Blood Urea Nitrogen 15 mg/dL (9-20); Calcium 8.7 mg/dL (8.4-10.2); Carbon Dioxide 22 mmol/L (22-30); Chloride 101 mmol/L (98-107); Glucose 135 mg/dL (74-99); Non-African American GFR(CKD) >90 (>60 ml/min/1.73 sqM); Sodium 134 mmol/L (137-145)
[2021-04-23] MEDS: IPRATROPIUM-ALBUTEROL 3 ML NEB INHALATION SCH ×2 (07:45→11:30)
--- NOTE | 2021-04-23 08:33 | XR ---
EXAMINATION TYPE: XR chest 2V DATE OF EXAM: 04/23/2021 COMPARISON: 04/22/2021 HISTORY: 66-year-old male postcardiac surgery TECHNIQUE: PA and lateral views FINDINGS: Median sternotomy wires are present with postoperative clips in the mediastinum. Heart remains enlarg ed. Interstitial and vascular prominence persists. Small effusions on the lateral view. No juan cons olidation. No appreciable pneumothorax. IMPRESSION: Similar mild cardiomegaly and mild pulmonary vascular congestion. Small pleural effusions seen on the lateral view on both sides.
--- NOTE | 2021-04-23 08:33 | P.PN ---
Subjective Progress Note Date: 04/23/21 On 04/23/2021 patient seen in follow-up on selective care unit. Today is postoperative day #4, status post off-pump coronary artery bypass grafting surgery 3 with VANEGAS to the LAD, left radial artery to the first up to his marginal artery, reverse SVG to the PDA, and left atrial appendage ligation and endoscopic left radial artery harvest and left greater saphenous vein harvest. Vision is awake and alert, in no acute distress, she is on room air, breathing comfortably, today's chest x-ray has been reviewed showing small left pleural effusion. Today's labs have been reviewed, white blood cell count is 13.8, hemoglobin is 8.6, sodium is 134, the rest of electrolytes and renal profile were unremarkable. No acute events overnight, all chest tubes then discontinue, midsternal incision and chest tube sites are clean dry and intact, Wilson catheter has been discontinued, patient is breathing comfortably, lung sounds are diminished, no crackles no wheezing. Patient is pulling 1002 1100 on his incentive spirometer today. She is in sinus mechanism. Objective - Vital Signs Vital signs: Vital Signs Temp 98.1 F 04/23/21 08:20 Pulse 106 H 04/23/21 08:20 Resp 16 04/23/21 08:20 BP 126/80 04/23/21 08:20 Pulse Ox 95 04/23/21 08:20 Intake & Output 04/22/21 04/23/21 04/23/21 18:59 06:59 18:59 Intake Total 180 250 Output Total 1000 Balance -820 250 Weight 106.7 kg Intake: Oral 180 250 Output: Urine 1000 Other: Voiding Method Urinal Urinal # Voids 1 # Bowel Movements 1 ABP, PAP, CO, CI - Last Documented Arterial Blood Pressure 106/45 Pulmonary Artery Pressure 26/8 Cardiac Output 8.8 Cardiac Index 4.3 - Exam GENERAL EXAM: Alert, very pleasant, 66-year-old white male, comfortable in no apparent distress. HEAD: Normocephalic/atraumatic. EYES: Normal reaction of pupils, equal size. Conjunctiva pink, sclera white. NOSE: Clear with pink turbinates. THROAT: No erythema or exudates. NECK: No masses, no JVD, no thyroid enlargement, no adenopathy. CHEST: No chest wall deformity. Symmetrical expansion. midsternal incision is clean dry and intact, chest tube sites are clean dry and intact LUNGS: Equal air entry with no crackles, wheeze, rhonchi or dullness. CVS: Regular rate and rhythm, normal S1 and S2, no gallops, no murmurs, no rubs ABDOMEN: Soft, nontender. No hepatosplenomegaly, normal bowel sounds, no guarding or rigidity. EXTREMITIES: No clubbing, no edema, no cyanosis, 2+ pulses and upper and lower extremities. MUSCULOSKELETAL: Muscle strength and tone normal. SPINE: No scoliosis or deformity SKIN: No rashes CENTRAL NERVOUS SYSTEM: Alert and oriented -3. No focal deficits, tone is normal in all 4 extremities. PSYCHIATRIC: Alert and oriented -3. Appropriate affect. Intact judgment and insight. - Labs CBC & Chem 7: 04/23/21 06:17 04/23/21 06:17 Labs: Abnormal Lab Results - Last 24 Hours (Table) 04/22/21 04/22/21 04/22/21 Range/Units 11:46 16:46 20:12 WBC (3.8-10.6) k/uL RBC (4.30-5.90) m/uL Hgb (13.0-17.5) gm/dL Hct (39.0-53.0) % Sodium (137-145) mmol/L Creatinine (0.66-1.25) mg/dL Glucose (74-99) mg/dL POC Glucose (mg/dL) 174 H 149 H 194 H (75-99) mg/dL 04/23/21 04/23/21 04/23/21 Range/Units 06:17 06:17 06:20 WBC 13.8 H (3.8-10.6) k/uL RBC 2.88 L (4.30-5.90) m/uL Hgb 8.6 L (13.0-17.5) gm/dL Hct 26.4 L (39.0-53.0) % Sodium 134 L (137-145) mmol/L Creatinine 0.52 L (0.66-1.25) mg/dL Glucose 135 H (74-99) mg/dL POC Glucose (mg/dL) 144 H (75-99) mg/dL Assessment and Plan Plan: assessment: #1. Triple-vessel coronary artery disease, status post off-pump coronary artery bypass grafting, postoperative day #4 #2. History of coronary artery disease and previous stenting #3. Dyslipidemia #4. Benign essential hypertension #5. History of tobacco dependence, preop FEV1 of 74% of predicted #6. Obstructive sleep apnea on CPAP at home #7. Postoperative atelectasis, expected #8. Postoperative acute blood loss anemia, expected outcome of sternotomy and coronary artery bypass grafting Plan: Vital signs have been stable Patient is doing well Continue encouraging deep breathing and coughing Today's chest x-ray and labs reviewed Patient is tolerating ambulation Anticipate discharge home today Outpatient follow-up with Dr. Pruett next week I performed a history & physical examination of the patient and discussed their management with my nurse practitioner, Elenita Miranda. I reviewed the nurse practitioner's note and agree with the documented findings and plan of care. Lung sounds are positive for diminished breath sounds throughout the lung loredo. The findings and the impression was discussed with the patient. I attest to the documentation by the nurse practitioner. Time with Patient: Less than 30
[2021-04-23] MEDS ORDERED: FUROSEMIDE 10 MG/ML 4 ML VIAL IV STA (08:49)
--- NOTE | 2021-04-23 08:54 | P.PN ---
Subjective Progress Note Date: 04/23/21 Principal diagnosis: Triple-vessel coronary artery disease, stable angina. Previous medical history of coronary artery disease with previous stenting, hypertension, hyperlipidemia, previous tobacco dependence, obstructive sleep apnea with home CPAP use, mild EtOH use of 2-7 drinks a week, preoperative leukocytosis and preoperative nasal swab positive for MRSA. New diagnosis type 2 diabetes. Vaccinated and boosted against Covid POD #4 off-pump coronary artery bypass graft 3 with left internal mammary artery to the left anterior descending artery, left radial artery to the first obtuse marginal artery, reverse saphenous vein graft to the posterior descending artery, left atrial appendage ligation using a #35 mm AtriClip, endoscopic left radial artery harvest, endoscopic left greater saphenous vein harvest, and intraoperative transesophageal echocardiogram performed by anesthesia. Postoperative acute blood loss anemia, expected given hemodilution The patient was seen and examined this morning sitting up in a recliner on the cardiac stepdown unit in no acute distress. States postoperative pain is well controlled on current medication regimen, denies shortness of breath. Remains in sinus rhythm and hemodynamically stable although a bit tachy at times. He had a relatively uneventful night, states he slept well last night. Patient ambulated in the hallway yesterday with physical therapy without difficulty, received first postoperative shower. No other new concerns. States he feels ready to go home today. Objective - Vital Signs Vital signs: Vital Signs Temp 98.1 F 04/23/21 08:20 Pulse 106 H 04/23/21 08:20 Resp 16 04/23/21 08:20 BP 126/80 04/23/21 08:20 Pulse Ox 95 04/23/21 08:20 Intake & Output 04/22/21 04/23/21 04/23/21 18:59 06:59 18:59 Intake Total 180 250 Output Total 1000 Balance -820 250 Weight 106.7 kg Intake: Oral 180 250 Output: Urine 1000 Other: Voiding Method Urinal Urinal # Voids 1 # Bowel Movements 1 ABP, PAP, CO, CI - Last Documented Arterial Blood Pressure 106/45 Pulmonary Artery Pressure 26/8 Cardiac Output 8.8 Cardiac Index 4.3 - Exam CONSTITUTIONAL: Appears comfortable, cooperative, no acute distress RESPIRATORY: Lungs sounds diminished bilaterally. Respirations even, nonlabored. Currently on room air with oxygen saturation 95%. Able to achieve 1250 mL on incentive spirometry. Strong cough. CARDIOVASCULAR: S1, S2 present. Regular rate and rhythm, sinus rhythm to sinus tach on telemetry. Sternum stable. Palpable peripheral pulses bilaterally. Trace generalized edema present. No calf pain or tenderness noted. Heart hugger in place with patient demonstrating appropriate use. Antiembolism stockings, SCDs present. GASTROINTESTINAL: Abdomen soft, nontender, nondistended. Active bowel sounds present 4 quadrants. Tolerating diet. Positive bowel movement GENITOURINARY: Continues to void INTEGUMENTARY: Skin is warm and dry with evidence of good perfusion. Anterior chest incision well approximated and covered with dry intact dressing. Left lower extremity EVH site well approximated without redness or drainage. Left radial artery harvest site without redness or drainage NEUROLOGIC: Cranial nerves II through XII intact MUSKULOSKELETAL: Able to move all extremities, strength equal bilaterally PSYCHIATRIC: Alert and oriented to person place and time, appropriate affect, intact judgment and insight - Allied health notes Allied health notes reviewed: nursing - Labs CBC & Chem 7: 04/23/21 06:17 04/23/21 06:17 Labs: Abnormal Lab Results - Last 24 Hours (Table) 04/22/21 04/22/21 04/22/21 Range/Units 11:46 16:46 20:12 WBC (3.8-10.6) k/uL RBC (4.30-5.90) m/uL Hgb (13.0-17.5) gm/dL Hct (39.0-53.0) % Sodium (137-145) mmol/L Creatinine (0.66-1.25) mg/dL Glucose (74-99) mg/dL POC Glucose (mg/dL) 174 H 149 H 194 H (75-99) mg/dL 04/23/21 04/23/21 04/23/21 Range/Units 06:17 06:17 06:20 WBC 13.8 H (3.8-10.6) k/uL RBC 2.88 L (4.30-5.90) m/uL Hgb 8.6 L (13.0-17.5) gm/dL Hct 26.4 L (39.0-53.0) % Sodium 134 L (137-145) mmol/L Creatinine 0.52 L (0.66-1.25) mg/dL Glucose 135 H (74-99) mg/dL POC Glucose (mg/dL) 144 H (75-99) mg/dL - Imaging and Cardiology Chest x-ray: report reviewed, image reviewed Assessment and Plan Assessment: 1. Triple-vessel coronary artery disease, stable angina, status post three- vessel off-pump CABG 2. History of coronary artery disease with previous stenting 3. Hypertension 4. Hyperlipidemia, treated, cholesterol 153, LDL 63, triglycerides 426 5. New onset type 2 diabetes with hemoglobin A1c 7% 6. Previous tobacco dependence, preoperative FEV1 74% of predicted 7. Obstructive sleep apnea with home CPAP use 8. Mild EtOH use of 2-7 drinks a week 9. Preoperative nasal swab positive for MRSA, preoperative leukocytosis 10. Vaccinated and boosted against Covid 11. Postoperative acute blood loss anemia Plan: 1. Continue aspirin, statin, Plavix, beta bev therapy. Will increase beta bev therapy as tolerated, increase to 100 mg twice daily today 2. Continue calcium channel bev for radial artery spasm prophylaxis. 3. Wean O2 as tolerated. Encourage incentive spirometry is 10 times every hour while awake. Bronchodilators per pulmonology 4. Increase activity, ambulate as tolerated. PT/OT/cardiac rehab consulted 5. Will monitor daily labs and x-rays. Electrolyte replacement per protocol. Will give IV Lasix today 6. Strict accurate intake and output. Daily weights 7. Diabetic management per primary care service. New-onset type 2 diabetes with preoperative hemoglobin A1c was 7%. Needs tight blood sugar control to prevent infection and promote sternal union 8. Pain control with current medication regimen 9. Discharge planning in progress. Anticipated discharge to home with home care this afternoon 10. More recommendations to follow as patient progresses Time with Patient: Greater than 30
[2021-04-23] MEDS ORDERED: METOPROLOL TARTRATE 50 MG TAB PO SCH (09:00)
[2021-04-23] MEDS: HEPARIN SODIUM,PORCINE/PF 5,000 UNIT/0.5 ML SYRINGE SQ SCH (09:20)
[2021-04-23] MEDS: CLOPIDOGREL 75 MG TAB PO SCH (09:21)
[2021-04-23] MEDS: ASPIRIN 325 MG TAB PO SCH (09:21)
--- NOTE | 2021-04-23 10:32 | P.PN ---
Subjective Progress Note Date: 04/23/21 No new complaints today, doing well. Now on room air. Sugars have sometimes drifted above 180 target, insulin increased today, plan for discharge on jardiance. Discharge likely today. Pt did spike low-grade fever overnight, but reports immediate improvement and no additional s/s concerning for infection such as worsening hypoxia, burning urination, erythema; and WBC improving. Objective - Vital Signs Vital signs: Vital Signs Temp 98.1 F 04/23/21 08:20 Pulse 106 H 04/23/21 08:20 Resp 16 04/23/21 08:20 BP 126/80 04/23/21 08:20 Pulse Ox 95 04/23/21 08:20 Intake & Output 04/22/21 04/23/21 04/23/21 18:59 06:59 18:59 Intake Total 180 250 120 Output Total 1000 0 Balance -820 250 120 Weight 106.7 kg Intake: Oral 180 250 120 Output: Urine 1000 0 Stool 0 Urine/Stool Mix 0 Emesis 0 Other: Voiding Method Urinal Urinal Urinal # Voids 1 # Bowel Movements 1 0 ABP, PAP, CO, CI - Last Documented Arterial Blood Pressure 106/45 Pulmonary Artery Pressure 26/8 Cardiac Output 8.8 Cardiac Index 4.3 - Exam Gen: awake, alert HEENT: normocephalic, atraumatic, good hearing acuity, moist mucous membranes Resp: good air exchange, breathing comfortably with no accessory muscle use CVS: good distal perfusion x 4, GI: soft, NTTP, ND : no SPT, no CVAT, prater catheter not present MSK: no pitting edema, no clubbing Neuro: non-focal, moving all extremities Psych: cooperative, euthymic mood - Labs CBC & Chem 7: 04/23/21 06:17 04/23/21 06:17 Labs: Abnormal Lab Results - Last 24 Hours (Table) 04/22/21 04/22/21 04/22/21 Range/Units 11:46 16:46 20:12 WBC (3.8-10.6) k/uL RBC (4.30-5.90) m/uL Hgb (13.0-17.5) gm/dL Hct (39.0-53.0) % Sodium (137-145) mmol/L Creatinine (0.66-1.25) mg/dL Glucose (74-99) mg/dL POC Glucose (mg/dL) 174 H 149 H 194 H (75-99) mg/dL 04/23/21 04/23/21 04/23/21 Range/Units 06:17 06:17 06:20 WBC 13.8 H (3.8-10.6) k/uL RBC 2.88 L (4.30-5.90) m/uL Hgb 8.6 L (13.0-17.5) gm/dL Hct 26.4 L (39.0-53.0) % Sodium 134 L (137-145) mmol/L Creatinine 0.52 L (0.66-1.25) mg/dL Glucose 135 H (74-99) mg/dL POC Glucose (mg/dL) 144 H (75-99) mg/dL Assessment and Plan Assessment: 66-year-old male status post coronary artery bypass grafting 3 Ischemic cardiomyopathy with ejection fraction 45% -Management per primary cardiac services -On aspirin, Plavix, BB -Crestor from home Acute blood loss anemia anticipated outcome of surgery -No indication for transfusion at this time -Follow CBC Newly Discovered Diabetes mellitus type 2 with hemoglobin A1c of 7 -Not chronically on medications at home -off insulin gtt, transition to levemir, fixed dose and sliding scale ... will need to be decreased as more removed from surgery -This appears to be newly diagnosed. Patient will need glucometer on discharge. -Follow blood sugars closely -Anticipate home on Jardiance (sent to pharmacy for daniels check in AM) Hypertension, controlled -Continue with Lopressor, Cardizem initiated by primary team -Primary management per CT services Dyslipidemia - crestor at home Obese - BMI 38.2 - structured outpatient weight loss Chronic: GERD, IBS, MANUEL DVT: Heparin Medically cleared for discharge from our perspective - defer to CT team. Thank you for allowing us to participate in the care of this pleasant patient. Do not hesitate to contact us with questions. Someone can be reached from the [facility] hospitalist group all hours of the day at [phone] or via perfect serve.
--- NOTE | 2021-04-23 11:00 | PN ---
PROGRESS NOTE Mr. Pope is status post aortocoronary bypass surgery. He is doing remarkably well, ambulating in the hallways without symptoms, maintaining sinus rhythm. No JVD. S1-S2 heard normally. No significant rub, murmur or gallop. Lungs reveal improved air entry. Abdomen is soft. Lower extremities reveal palpable pulses. No edema. Central system is normal. Plan is to increase activity, possibly discharge, and I will see him in the office in 2 weeks. Advised continued incentive spirometry and pulmonary toilet. Patient may be discharged today. MMODL / IJN: [id number] /
[2021-04-23 11:36] LABS: Glucose,Whole Blood 164 mg/dL (75-99)
[2021-04-23 12:35] VITALS: BP 121/75; PULSE 93; RESP 15; TEMP 98.9
[2021-04-23] MEDS: DILTIAZEM CD 180 MG CAP.ER.24H PO SCH (12:36)
--- NOTE | 2021-04-23 14:28 | P.DS ---
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 Triple-vessel coronary artery disease, stable angina 2. History of coronary artery disease with previous stenting 3. Hypertension 4. Hyperlipidemia, treated, cholesterol 153, LDL 63, triglycerides 426 5. New onset type 2 diabetes with hemoglobin A1c 7.0% 6. Previous tobacco dependence, preoperative FEV1 74% of predicted 7. Obstructive sleep apnea on CPAP use 8. Mild EtOH use, 2-7 drinks per week 9. Preoperative nasal swab positive for MRSA, preoperative leukocytosis 10. Vaccinated and boosted against Covid 11. Postoperative acute blood loss anemia, expected PRINCIPAL PROCEDURE: 1. Off-pump coronary artery bypass graft 3 with left internal mammary artery to the left anterior descending artery, left radial artery to the first obtuse marginal artery, reverse saphenous vein graft to the posterior descending artery 2. Left atrial appendage ligation using a 35 mm AtriClip 3. Endoscopic left radial artery harvest 4. Endoscopic left greater saphenous vein harvest 5. Intraoperative transesophageal echocardiogram performed by anesthesia HISTORY OF PRESENT ILLNESS: This is a 66-year-old active gentleman who follows on an outpatient basis with Dr. Darnell for primary care and Dr. العلي for cardiology. He presented with anginal symptomatology including chest pressure/discomfort in his left anterior chest area with significant exercise, otherwise he was fairly asymptomatic the majority of the time. Cardiac catheterization was performed by Dr. العلي which demonstrated calcification and narrowing of the left main coronary artery, patent stent in the LAD, ostial stenosis in the circumflex as well as ostial LAD, and chronic total occlusion of right coronary artery which filled via collaterals. The patient was referred to Dr. Franco from cardiothoracic surgery. He was recommended to undergo surgical myocardial revascularization. The usual perioperative course was discussed in detail with the patient and his family, all risks and benefits were explained, all questions were answered, and consent was obtained to proceed with surgery. The patient was scheduled for elective surgery at the earliest possible date. HOSPITAL COURSE: The patient was brought to the hospital on 04/19/2021, taken to the preoperative area, prepared in the usual fashion, and subsequently taken to the operating room where Dr. Franco performed three-vessel off-pump CABG. Upon completion of surgery the patient was transferred to the cardiovascular intensive care unit where he was recovered and monitored hemodynamically. He was extubated, all lines, tubes, and drips were discontinued when appropriate, and he was transferred to 3 S cardiac stepdown unit for further monitoring and rehabilitation. His oxygen was titrated down,he continued to work with physical and occupational therapy, he was tolerating oral diet, his pain was controlled, and he was ready to be discharged to home with [facility] on postoperative day #4. He received written and verbal instruction regarding his medications, activity restrictions, signs and symptoms requiring physician notification, and follow-up appointments. Patient Condition at Discharge: Stable Plan - Discharge Summary Discharge Rx Participant: No New Discharge Prescriptions: New Empagliflozin [Jardiance] 10 mg PO DAILY #30 tablet Furosemide [Lasix] 40 mg PO DAILY #7 tablet Acetaminophen Tab [Tylenol] 650 mg PO Q4HR PRN tab PRN Reason: Fever And/ Or Pain Diltiazem Cd [Cardizem CD] 180 mg PO DAILY@1200 #30 Metoprolol Tartrate [Lopressor] 100 mg PO BID #60 tab Sennosides-Docusate Sodium [Senokot-S] 2 each PO HS PRN tab PRN Reason: Constipation Continue Rosuvastatin Calcium [Crestor] 20 mg PO HS Clopidogrel Bisulfate [Plavix] 75 mg PO DAILY 30 Days #30 tab Aspirin EC [Ecotrin Low Dose] 81 mg PO DAILY Discontinued lisinopriL [Zestril] 20 mg PO DAILY Isosorbide Mononitrate ER [Imdur] 30 mg PO DAILY 30 Days #30 tablet Mupirocin [Mupirocin 2%] 1 applic NASAL BID #1 tub Metoprolol Tartrate [Lopressor] 50 mg PO BID Discharge Medication List Aspirin EC [Ecotrin Low Dose] 81 mg PO DAILY 05/19/20 [History] Rosuvastatin Calcium [Crestor] 20 mg PO HS 04/03/21 [History] Clopidogrel Bisulfate [Plavix] 75 mg PO DAILY 30 Days #30 tab 04/05/21 [Rx] Empagliflozin [Jardiance] 10 mg PO DAILY #30 tablet 04/21/21 [Rx] Acetaminophen Tab [Tylenol] 650 mg PO Q4HR PRN tab 04/23/21 [Rx] Diltiazem Cd [Cardizem CD] 180 mg PO DAILY@1200 #30 04/23/21 [Rx] Furosemide [Lasix] 40 mg PO DAILY #7 tablet 04/23/21 [Rx] Metoprolol Tartrate [Lopressor] 100 mg PO BID #60 tab 04/23/21 [Rx] Sennosides-Docusate Sodium [Senokot-S] 2 each PO HS PRN tab 04/23/21 [Rx] Follow up Appointment(s)/Referral(s): Pattie Gomez NPC [Nurse Practitioner] - 04/29/21 1:00 pm (You will be seen in the surgeon's office behind the hospital in [facility], [address] Phone number is ) Jarrod العلي MD [STAFF PHYSICIAN] - 05/08/21 9:30 am Rehab Jaylan NUR,Cardiac [NON-STAFF] - 4 Weeks (You will be called in 4-6 weeks for evaluation for cardiac rehab) Pepe Franco MD [STAFF PHYSICIAN] - 05/16/21 1:00 pm Emilio Garcia DO [Doctor of Osteopathic Medicine] - 05/22/21 10:15 am Eliu Dailey MD [Primary Care Provider] - 05/09/21 10:30 am (Appt is with RAMIREZ Caballero) [facility] Visiting Nurse, [NON-STAFF] - 1-2 Days (RN should come out day after discharge (04/24/21), then 2-3 times per week for 4 weeks) Ambulatory/Diagnostic Orders: Complete Blood Count w/diff [LAB.AMB] Time Frame: 3 Days, Location: None Selected Comprehensive Metabolic Panel [LAB.AMB] Time Frame: 3 Days, Location: None Selected Activity/Diet/Wound Care/Special Instructions: DISCHARGE INSTRUCTIONS: 1. No driving for 4 weeks, or until physician gives their ok. 2. The patient should sleep in their own bed, no medical bed needed. 3. Stairs are not an issue. If the bedroom is upstairs, it is advised that the patient go up at night and down in the morning for the first week. Go slowly, using handrail and take 1 step at a time. 4. ИРИНА hose are to be worn for 30 days or until physician discontinues. 5. Heart hugger is to be worn 100% of the time until physician discontinues.(except when showering) 6. No lifting, pushing, or pulling more than 10 pounds for 12 weeks. The physician will advise of any restriction changes. 7. The patient is expected to continue the prescribed walking program. 8. Continue pain control per as needed orders. 9. Continue with incentive spirometry and splinting/heart hugger until otherwise directed by the physician. 10. Must shower daily using liquid antibacterial soap and a separate white washcloth for each individual incision. 11. Routine sternal incision care. No powders, lotions, ointments on incisions. No dressings are necessary on incisions unless they are draining. Dermabond tape is to remain on sternal incision until surgeon follow-up. 12. Please call surgeon/MOSS PICKER for temp greater than 101 F or purulent drainage from incisions. 13. Need to weigh your self every morning and record, bring with you chair follow-up appointments 14. All prescriptions given by surgeon for 30 days. Refills need to be filled through sales architect/primary care physician. 15. A Red armband has been placed on the patient. It should be worn for 30 days post surgery and will be removed by the cardiac surgeons. If an ER visit is necessary, please make sure the number on the Red armband is called. 16. You have been referred to and are expected to begin Cardiac Rehab in approxi mately 4-6 weeks. 17. Need to check your blood sugar before each meal and at bedtime, record and bring to your follow-up appointment with Dr. Dailey [facility] TO PROVIDE: RN SKILLED HOME CARE SERVICES FOR POST-OP SURGICAL PATIENTS WITH THE FOLLOWING: Coronary Artery Bypass Surgery (CABG), Mitral Valve Replacement/Repair ( MVR), Aortic Valve Replacement/Repair (AVR) RN TO CONTINUE EDUCATION FROM ``ROAD TO A HEALTH HEART PATIENT EDUCATION MANUAL (GIVEN TO PATIENT IN THE HOSPITAL) MEDICATION RECONCILIATION WITH EDUCATION NEEDED ON FIRST HOME VISIT EMPHASIZE IMPORTANCE OF WEARING BREAST SUPPORT/HEART HUGGER ENCOURAGE USE OF INCENTIVE SPIROMETER 10 X EVERY HOUR WHILE AWAKE ENCOURAGE UTILIZATION OF LOWER EXTREMITY COMPRESSION STOCKINGS/ИРИНА HOSE and ELEVATE LEGS ABOVE LEVEL OF HEART WHILE AT REST. ENCOURAGE AMBULATION 3-5x/day INCREASING TOLERATES, WHILE AVOIDING EXTREMES IN TEMPERATURE FREQUENCY: RN TO OPEN THE PATIENT WITHIN 24 HOURS OF DISCHARGE FROM THE HOSPITAL WITH TELEHEALTH INSTALLED AT [facility], RN TO VISIT 2-3 X A WEEK FOR 4 WEEKS ESTABLISHED BY PATIENT NEEDS. LABORATORY: CBC, CMP TO BE DRAWN ON THE THIRD DAY HOME, (RAN STAT) FAX RESULTS TO [phone]. TELEHEALTH PARAMETERS: WEIGHT: NOTIFY MD OF WEIGHT GAIN OF 2 LBS IN 24 HOURS OR 5 LBS IN ONE WEEK HR: NOTIFY MD OF HR <55 BPM OR HR>100 BPM BP: NOTIFY MD IF BP <90/55 OR BP>140/100 O2 SAT: NOTIFY MD IF PO2<93% ON ROOM AIR SEND TELEHEALTH REPORT TO HOMEBIRTH MIDWIFE AND CARDIOVASCULAR SURGEON THE FIRST WEEK OF CARE AND THEN BI-WEEKLY. PLEASE ADDITIONALLY COMMUNICATE ANY ABNORMALS AND NEW FINDINGS TO THE SURGEONS OFFICE. Discharge Disposition: HOME WITH HOME HEALTH SERVICES
[2021-04-24] MEDS ORDERED: INSULIN DETEMIR (LEVEMIR) 100 UNIT/ML SYR SQ SCH (07:00)
== END 2021-04-23 14:41 | disposition home health service (06) | DRG 236 ==
LOC: 2ORMAIN 10:18 → 2SICU 19:42 → 3SCARD 04-22 15:59
PROVIDERS: ADMIT Thoracic Surgery (Cardiothoracic Vascular Surgery); ATTEND Thoracic Surgery (Cardiothoracic Vascular Surgery)
PROC: 02100Z9 Bypass Coronary Artery, One Artery from Left Internal Mammary, Open Approach (ICD-10-PCS; principal; 2021-04-19 13:15)
PROC: 06BQ4ZZ Excision of Left Saphenous Vein, Percutaneous Endoscopic Approach (ICD-10-PCS; principal; 2021-04-19 13:15)
PROC: B24BZZ4 Ultrasonography of Heart with Aorta, Transesophageal (ICD-10-PCS; principal; 2021-04-19 13:15)
PROC: 03BC4ZZ Excision of Left Radial Artery, Percutaneous Endoscopic Approach (ICD-10-PCS; principal; 2021-04-19 13:15)
PROC: 02L70CK Occlusion of Left Atrial Appendage with Extraluminal Device, Open Approach (ICD-10-PCS; principal; 2021-04-19 13:15)
PROC: 02100AW Bypass Coronary Artery, One Artery from Aorta with Autologous Arterial Tissue, Open Approach (ICD-10-PCS; principal; 2021-04-19 13:15)
PROC: 021009W Bypass Coronary Artery, One Artery from Aorta with Autologous Venous Tissue, Open Approach (ICD-10-PCS; principal; 2021-04-19 13:15)
PROC: 5A0935A Assistance with Respiratory Ventilation, Less than 24 Consecutive Hours, High Flow/Velocity Cannula (ICD-10-PCS; 2021-04-19 13:15)
DX: I25.118 Atherosclerotic heart disease of native coronary artery with other forms of angina pectoris (principal); D62 Acute posthemorrhagic anemia; J98.11 Atelectasis; I25.82 Chronic total occlusion of coronary artery; E11.9 Type 2 diabetes mellitus without complications; I25.5 Ischemic cardiomyopathy; E66.9 Obesity, unspecified; D72.829 Elevated white blood cell count, unspecified; Z20.822 Contact with and (suspected) exposure to COVID-19; Z68.38 Body mass index [BMI] 38.0-38.9, adult; E78.5 Hyperlipidemia, unspecified; I10 Essential (primary) hypertension; G47.33 Obstructive sleep apnea (adult) (pediatric); K21.9 Gastro-esophageal reflux disease without esophagitis; K58.9 Irritable bowel syndrome, unspecified; Z79.82 Long term (current) use of aspirin; Z79.02 Long term (current) use of antithrombotics/antiplatelets; Z79.899 Other long term (current) drug therapy; Z22.322 Carrier or suspected carrier of Methicillin resistant Staphylococcus aureus; Z95.5 Presence of coronary angioplasty implant and graft; Z87.891 Personal history of nicotine dependence; Z96.653 Presence of artificial knee joint, bilateral; Z71.3 Dietary counseling and surveillance; Z82.49 Family history of ischemic heart disease and other diseases of the circulatory system; Z82.61 Family history of arthritis; Z88.8 Allergy status to other drugs, medicaments and biological substances
CPT/HCPCS: 71045; 71046; 80048; 80053; 82330; 82805; 83735; 85025; 85027; 85520; 85610; 85730; 86850; 86891; 86900; 86901; 86920; 87635; 94002; 94640

== ENCOUNTER → 2021-04-29 | Outpatient (CLI) | payer MEDICARE ==
[2021-04-29 14:13] LABS: ALT 59 U/L (4-49); AST 31 U/L (17-59); African American GFR (CKD) >90 (>60 ml/min/1.73 sqM); Albumin 4.1 g/dL (3.5-5.0); Albumin/Globulin Ratio 1.2; Alkaline Phosphatase 94 U/L (38-126); Anion Gap 11 mmol/L; Blood Urea Nitrogen 15 mg/dL (9-20); Calcium 8.8 mg/dL (8.4-10.2); Carbon Dioxide 26 mmol/L (22-30); Chloride 101 mmol/L (98-107); Globulin 3.3 g/dL; Glucose 144 mg/dL (74-99); Non-African American GFR(CKD) >90 (>60 ml/min/1.73 sqM); Potassium 4.2 mmol/L (3.5-5.1); Sodium 138 mmol/L (137-145); Total Bilirubin 0.7 mg/dL (0.2-1.3); Total Protein 7.4 g/dL (6.3-8.2)
[2021-04-29 14:31] LABS: Basophils # (A) 0.1 k/uL (0-0.2); Basophils % (A) 1 %; Eosinophils # (A) 0.4 k/uL (0-0.7); Eosinophils % (A) 2 %; HCT 33.1 % (39.0-53.0); HGB 10.2 gm/dL (13.0-17.5); Hypochromasia Slight; Lymphocytes # (A) 2.9 k/uL (1.0-4.8); Lymphocytes % (A) 16 %; MCH 28.2 pg (25.0-35.0); MCHC 30.7 g/dL (31.0-37.0); MCV 91.7 fL (80.0-100.0); Mean Platelet Volume 6.8; Monocytes # (A) 0.7 k/uL (0-1.0); Monocytes % (A) 4 %; Neutrophils # (A) 13.7 k/uL (1.3-7.7); Neutrophils % (A) 76 %; RBC 3.61 m/uL (4.30-5.90); RDW 15.2 % (11.5-15.5); WBC 18.1 k/uL (3.8-10.6)
[2021-04-29 14:32] LABS: Platelet Count 608 k/uL (150-450)
== END | disposition home or self-care (01) ==
LOC: LABWHC1 12:22
PROVIDERS: ATTEND Thoracic Surgery (Cardiothoracic Vascular Surgery)
DX: I25.810 Atherosclerosis of coronary artery bypass graft(s) without angina pectoris (principal); I25.10 Atherosclerotic heart disease of native coronary artery without angina pectoris; D64.9 Anemia, unspecified
CPT/HCPCS: 36415; 80053; 85025

== ENCOUNTER → 2021-07-02 | Outpatient (CLI) | payer MEDICARE ==
[2021-07-02 12:19] LABS: Partial Thromboplastin Time 25.9 sec (22.0-30.0); Prothrombin Time 10.5 sec (9.0-12.0)
== END | disposition home or self-care (01) ==
LOC: LABWHC1 09:23
PROVIDERS: ATTEND Family Medicine
DX: Z01.812 Encounter for preprocedural laboratory examination (principal)
CPT/HCPCS: 36415; 85610; 85730

== ENCOUNTER 2022-07-01 11:25 | Observation (INO) | payer MEDICARE ==
--- NOTE | 2022-07-01 11:28 | ED ---
General Adult HPI - General Source: RN notes reviewed <Lorena Sampson - Last Filed: 07/01/22 11:28> - General Source: patient, RN notes reviewed Mode of arrival: ambulatory Limitations: no limitations <Lincoln Oshea - Last Filed: 07/01/22 13:24> - General Stated complaint: chest pain Time Seen by Provider: 07/01/22 11:27 - History of Present Illness Initial comments: 67-year-old male with a past medical history significant for 2 cardiac stents presents to the emergency department with a chief complaint of chest pain. Patient reports multiple bouts of "feeling something" in his chest yesterday and this morning. (Lorena Sampson) 67-year-old male presents emergency Department chief complaint of chest pain. Patient states she's had some episodes yesterday and today centralized chest region. He does have significant cardiac history including generalized breast surgery by Dr. Franco less than one year ago. Patient states he had 2 prior cardiac stents he does take medication for hyperlipidemia hypertension he denies any blood thinners other than taking a baby aspirin, Plavix daily. Does not feel short of breath no history of PE or DVT no abdominal pain. (Lincoln Oshea) - Related Data Home Medications Medication Instructions Recorded Confirmed Aspirin EC [Ecotrin Low Dose] 81 mg PO DAILY 05/19/20 04/16/21 Rosuvastatin Calcium [Crestor] 20 mg PO HS 04/03/21 04/15/21 Previous Rx's Medication Instructions Recorded Clopidogrel Bisulfate [Plavix] 75 mg PO DAILY 30 Days #30 tab 04/05/21 Empagliflozin [Jardiance] 10 mg PO DAILY #30 tablet 04/21/21 Acetaminophen Tab [Tylenol] 650 mg PO Q4HR PRN tab 04/23/21 Diltiazem Cd [Cardizem CD] 180 mg PO DAILY@1200 #30 04/23/21 Furosemide [Lasix] 40 mg PO DAILY #7 tablet 04/23/21 Metoprolol Tartrate [Lopressor] 100 mg PO BID #60 tab 04/23/21 Sennosides-Docusate Sodium 2 each PO HS PRN tab 04/23/21 [Senokot-S] Allergies Allergy/AdvReac Type Severity Reaction Status Date / Time atorvastatin Allergy Rash/Hives/Joint Verified 07/01/22 11:35 Pain simvastatin Allergy Rash/Hives/Joint Verified 07/01/22 11:35 Pain Review of Systems ROS Other: All systems not noted in ROS Statement are negative. <Lorena Sampson - Last Filed: 07/01/22 11:28> ROS Other: All systems not noted in ROS Statement are negative. <Lincoln Oshea - Last Filed: 07/01/22 13:24> ROS Statement: Those systems with pertinent positive or pertinent negative responses have been documented in the HPI. Past Medical History Past Medical History: Coronary Artery Disease (CAD), GERD/Reflux, Hyperlipidemia, Hypertension, Sleep Apnea/CPAP/BIPAP Additional Past Medical History / Comment(s): IRRITABLE BOWEL SYNDROME,uses cpap History of Any Multi-Drug Resistant Organisms: None Reported Past Surgical History: Heart Catheterization With Stent, Joint Replacement Additional Past Surgical History / Comment(s): JANESSA KNEE REPLACEMENTS,HEART STENTS X2 Past Anesthesia/Blood Transfusion Reactions: No Reported Reaction Additional Past Anesthesia/Blood Transfusion Reaction / Comment(s): no hx blood transfusion Date of Last Stent Placement:: 09/2013 Smoking Status: Never smoker Additional Past Alcohol Use History / Comment(s): pt. states he drinks beer occassionally - Past Family History Father Family Medical History: Osteoarthritis (OA) Additional Family Medical History / Comment(s): pt. states both of his parents are living and are healthy, pt. states they have had your average issues such as hip replacments, etc Mother Family Medical History: Osteoarthritis (OA) Brother(s) Family Medical History: Coronary Artery Disease (CAD) <Lorena Sampson - Last Filed: 07/01/22 11:28> General Exam <Lorena Sampson - Last Filed: 07/01/22 11:28> General appearance: alert, in no apparent distress Head exam: Present: atraumatic, normocephalic, normal inspection Eye exam: Present: normal appearance, PERRL, EOMI. Absent: scleral icterus, conjunctival injection, periorbital swelling Neck exam: Present: normal inspection, full ROM. Absent: tenderness, men ingismus, lymphadenopathy Respiratory exam: Present: normal lung sounds bilaterally. Absent: respiratory distress, wheezes, rales, rhonchi, stridor Cardiovascular Exam: Present: regular rate, normal rhythm, normal heart sounds. Absent: systolic murmur, diastolic murmur, rubs, gallop, clicks GI/Abdominal exam: Present: soft, normal bowel sounds. Absent: distended, tenderness, guarding, rebound, rigid <Lincoln Oshea - Last Filed: 07/01/22 13:24> - General Exam Comments Initial Comments: Visual Physical Exam Vital signs reviewed General: Well-appearing, nontoxic, no acute distress. Head: Normocephalic, atraumatic Eyes: PERRLA, EOMI ENT: Airway patent Chest: Nonlabored breathing Skin: No visual rash, normal skin tone Neuro: Alert and oriented 3 Musculoskeletal: No gross abnormalities (Adrián,Lorena) Course Vital Signs 07/01/22 11:33 Temperature 98 F Pulse Rate 75 Respiratory 20 Rate Blood Pressure 153/85 O2 Sat by Pulse 96 Oximetry EKG Findings - EKG Comments: EKG Findings:: EKG performed at 11:39 sinus rhythm with short [place] rate of 63 [place] 118 QRS 97 QT/QTC 4:30/438 - EKG Results: EKG: interpreted by ERMD <Lincoln Oshea - Last Filed: 07/01/22 13:24> Medical Decision Making - Lab Data Result diagrams: 07/01/22 11:47 07/01/22 11:47 <Lincoln Oshea - Last Filed: 07/01/22 13:24> - Medical Decision Making Was pt. sent in by a medical professional or institution ([facility] [place], L[employer] ENGINEER, urgent care, hospital, or assisted...) When possible be specific @ -No Did you speak to anyone other than the patient for history (EMS, parent, family, police, friend...)? What history was obtained from this source @ -No Did you review nursing and triage notes (agree or disagree)? Why? @ -I reviewed and agree with nursing and triage notes Were old charts reviewed (outside hosp., previous admission, EMS record, old EKG, old radiological studies, urgent care reports/EKG's, assisted records)? Report findings @ -. Review of prior cardiology evaluation, cardiothoracic, labs and EKGs Differential Diagnosis (chest pain, altered mental status, abdominal pain women, abdominal pain men, vaginal bleeding, weakness, fever, dyspnea, syncope, headache, dizziness, GI bleed, back pain, seizure, CVA, palpatations, mental health, musculoskeletal)? @ -Differential Chest Pain: Stable Angina, Unstable Angina, STEMI, NSTEMI Aortic Dissection, Pneumothorax, Musculoskeletal, Esophageal Spasm GERD, Cholecystitis, Pancreatitis, Zoster, this is not meant to be an all-inclusive list. able EKG interpreted by me (3pts min.). @ -As above X-rays interpreted by me (1pt min.). @ -Chest x-ray shows COPD changes no acute process sternal wires noted CT interpreted by me (1pt min.). @ -None done U/S interpreted by me (1pt. min.). @ -None done What testing was considered but not performed or refused? (CT, X-rays, U/S, labs)? Why? @ -None What meds were considered but not given or refused? Why? @ -None Did you discuss the management of the patient with other professionals (professionals i.e. , PA, LASER SYSTEMS ENGINEER, lab, RT, psych nurse, adoption social worker, casing cooker, teacher, classification officer, immigration case worker)? Give summary @ -[facility] for admission with cardiology consult given cardiac history Was smoking cessation discussed for >3mins.? @ -No Was critical care preformed (if so, how long)? @ -No Were there social determinants of health that impacted care today? How? (Homelessness, low income, unemployed, alcoholism, drug addiction, transportat ion, low edu. Level, literacy, decrease access to med. care, halfway, rehab)? @ -No Was there de-escalation of care discussed even if they declined (Discuss DNR or withdrawal of care, Hospice)? DNR status @ -No What co-morbidities impacted this encounter? (DM, HTN, Smoking, COPD, CAD, Cancer, CVA, ARF, Chemo, Hep., AIDS, mental health diagnosis, sleep apnea, morbid obesity)? @ -CAD hypertension hyperlipidemia Was patient admitted / discharged? Hospital course, mention meds given and r oute, prescriptions, significant lab abnormalities, going to OR and other pertinent info. @ -Admitted hospital and initial workup including labs, EKG, chest x-rays unremarkable patient was given aspirin will be admitted for cardiac rule out Undiagnosed new problem with uncertain prognosis? @ -No Drug Therapy requiring intensive monitoring for toxicity (Heparin, Nitro, Insulin, Cardizem)? @ -No Were any procedures done? @ -No Diagnosis/symptom? @ -Chest pain Acute, or Chronic, or Acute on Chronic? @ -Acute Uncomplicated (without systemic symptoms) or Complicated (systemic symptoms)? @ -Uncomplicated Side effects of treatment? @ -No Exacerbation, Progression, or Severe Exacerbation? @ -No Poses a threat to life or bodily function? How? (Chest pain, [place], [place], pneumonia, PE, COPD, DKA, ARF, appy, cholecystitis, CVA, Diverticulitis, Homicidal, Suicida l, threat to staff... and all critical care pts) @ -No (Lincoln Oshea) - Lab Data Lab Results 07/01/22 07/01/22 07/01/22 Range/Units 11:47 11:47 11:47 WBC (3.8-10.6) k/uL RBC (4.30-5.90) m/uL Hgb (13.0-17.5) gm/dL Hct (39.0-53.0) % MCV (80.0-100.0) fL MCH (25.0-35.0) pg MCHC (31.0-37.0) g/dL RDW (11.5-15.5) % Plt Count (150-450) k/uL MPV Neutrophils % % Lymphocytes % % Monocytes % % Eosinophils % % Basophils % % Neutrophils # (1.3-7.7) k/uL Lymphocytes # (1.0-4.8) k/uL Monocytes # (0-1.0) k/uL Eosinophils # (0-0.7) k/uL Basophils # (0-0.2) k/uL PT 9.9 (9.0-12.0) sec INR 0.9 (<1.2) APTT 20.7 L (22.0-30.0) sec Sodium 136 L (137-145) mmol/L Potassium 5.1 (3.5-5.1) mmol/L Chloride 101 (98-107) mmol/L Carbon Dioxide 23 (22-30) mmol/L Anion Gap 12 mmol/L BUN 12 (9-20) mg/dL Creatinine 0.44 L (0.66-1.25) mg/dL Est GFR (CKD-EPI)AfAm >90 (>60 ml/min/1.73 sqM) Est GFR (CKD-EPI)NonAf >90 (>60 ml/min/1.73 sqM) Glucose 118 H (74-99) mg/dL Calcium 9.3 (8.4-10.2) mg/dL Magnesium 1.8 (1.6-2.3) mg/dL Total Bilirubin 0.7 (0.2-1.3) mg/dL AST 31 (17-59) U/L ALT 34 (4-49) U/L Alkaline Phosphatase 95 (38-126) U/L Troponin I <0.012 (0.000-0.034) ng/mL Total Protein 8.0 (6.3-8.2) g/dL Albumin 4.7 (3.5-5.0) g/dL 07/01/22 Range/Units 11:47 WBC 8.2 (3.8-10.6) k/uL RBC 4.73 (4.30-5.90) m/uL Hgb 14.2 (13.0-17.5) gm/dL Hct 41.3 (39.0-53.0) % MCV 87.4 (80.0-100.0) fL MCH 30.0 (25.0-35.0) pg MCHC 34.3 (31.0-37.0) g/dL RDW 13.5 (11.5-15.5) % Plt Count 223 (150-450) k/uL MPV 7.9 Neutrophils % 64 % Lymphocytes % 24 % Monocytes % 6 % Eosinophils % 3 % Basophils % 0 % Neutrophils # 5.3 (1.3-7.7) k/uL Lymphocytes # 2.0 (1.0-4.8) k/uL Monocytes # 0.5 (0-1.0) k/uL Eosinophils # 0.3 (0-0.7) k/uL Basophils # 0.0 (0-0.2) k/uL PT (9.0-12.0) sec INR (<1.2) APTT (22.0-30.0) sec Sodium (137-145) mmol/L Potassium (3.5-5.1) mmol/L Chloride (98-107) mmol/L Carbon Dioxide (22-30) mmol/L Anion Gap mmol/L BUN (9-20) mg/dL Creatinine (0.66-1.25) mg/dL Est GFR (CKD-EPI)AfAm (>60 ml/min/1.73 sqM) Est GFR (CKD-EPI)NonAf (>60 ml/min/1.73 sqM) Glucose (74-99) mg/dL Calcium (8.4-10.2) mg/dL Magnesium (1.6-2.3) mg/dL Total Bilirubin (0.2-1.3) mg/dL AST (17-59) U/L ALT (4-49) U/L Alkaline Phosphatase (38-126) U/L Troponin I (0.000-0.034) ng/mL Total Protein (6.3-8.2) g/dL Albumin (3.5-5.0) g/dL Disposition <Lorena Sampson - Last Filed: 07/01/22 11:28> Time of Disposition: 13:11 <Lincoln Oshea - Last Filed: 07/01/22 13:24> Clinical Impression: Chest pain Disposition: ADMITTED IP TO THIS HOSP Condition: Fair Referrals: Rey Wasserman DO [Primary Care Provider] - 1-2 days
[2022-07-01] MEDS ORDERED: ASPIRIN 81 MG PO STA (12:00)
[2022-07-01 12:07] LABS: Basophils % (A) 0 %; Eosinophils # (A) 0.3 k/uL (0-0.7); Eosinophils % (A) 3 %; HCT 41.3 % (39.0-53.0); HGB 14.2 gm/dL (13.0-17.5); Lymphocytes % (A) 24 %; MCHC 34.3 g/dL (31.0-37.0); MCV 87.4 fL (80.0-100.0); Mean Platelet Volume 7.9; Monocytes # (A) 0.5 k/uL (0-1.0); Monocytes % (A) 6 %; Neutrophils # (A) 5.3 k/uL (1.3-7.7); Neutrophils % (A) 64 %; Platelet Count 223 k/uL (150-450); RBC 4.73 m/uL (4.30-5.90); RDW 13.5 % (11.5-15.5); WBC 8.2 k/uL (3.8-10.6)
[2022-07-01 12:20] LABS: ALT 34 U/L (4-49); AST 31 U/L (17-59); African American GFR (CKD) >90 (>60 ml/min/1.73 sqM); Albumin 4.7 g/dL (3.5-5.0); Alkaline Phosphatase 95 U/L (38-126); Anion Gap 12 mmol/L; Blood Urea Nitrogen 12 mg/dL (9-20); Calcium 9.3 mg/dL (8.4-10.2); Carbon Dioxide 23 mmol/L (22-30); Chloride 101 mmol/L (98-107); Glucose 118 mg/dL (74-99); Magnesium 1.8 mg/dL (1.6-2.3); Non-African American GFR(CKD) >90 (>60 ml/min/1.73 sqM); Potassium 5.1 mmol/L (3.5-5.1); Sodium 136 mmol/L (137-145); Total Bilirubin 0.7 mg/dL (0.2-1.3)
[2022-07-01 12:26] LABS: INR 0.9 (<1.2); Prothrombin Time 9.9 sec (9.0-12.0)
--- NOTE | 2022-07-01 12:26 | XR ---
EXAMINATION TYPE: XR chest 2V DATE OF EXAM: 07/01/2022 12:15 PM COMPARISON: Chest radiographs from 04/23/2021 TECHNIQUE: XR chest 2V Frontal and lateral views of the chest. CLINICAL INDICATION:Male, 67 years old with history of pain; FINDINGS: Lungs/Pleura: There is flattening of the diaphragm with increased lucency of the lungs. No evidence o f pneumothorax, pleural effusion or focal consolidation. Pulmonary vascularity: Unremarkable. Heart/mediastinum: Cardiomediastinal silhouette is enlarged and stable. Atherosclerotic calcificatio ns are seen in the aorta. Left atrial appendage occlusion device is present. Musculoskeletal: No acute osseous pathology. IMPRESSION: 1. No acute cardiopulmonary disease/process. 2. Cardiomegaly 3. COPD
[2022-07-01 12:39] LABS: Partial Thromboplastin Time 20.7 sec (22.0-30.0)
[2022-07-01] MEDS ORDERED: NITROGLYCERIN SL TABS 0.4 MG TAB SUBLINGUAL PRN (13:26)
--- NOTE | 2022-07-01 14:22 | P.HPIM ---
History of Present Illness Patient is a pleasant 67-year-old male with the history of CABG and stents in the past came in with complaints of pressure-like sensation which lasts about a few seconds nonexertional not associated with lightheadedness diaphoresis in the left side of the chest. Patient chest pain is nonpleuritic not associated with food. Patient denied any radiation of pain. Patient denied any shortness of breath denied any smoking history. First set of troponin is negative, EKG did not show is again and ST-T wave changes. REVIEW OF SYSTEMS: CONSTITUTIONAL: No fever, no malaise, no fatigue. HEENT: No recent visual problems or hearing problems. Denied any sore throat. CARDIOVASCULAR: No orthopnea, PND, no palpitations, no syncope. PULMONARY: No shortness of breath, no cough, no hemoptysis. GASTROINTESTINAL: No diarrhea, no nausea, no vomiting, no abdominal pain. NEUROLOGICAL: No headaches, no weakness, no numbness. HEMATOLOGICAL: Denies any bleeding or petechiae. GENITOURINARY: Denies any burning micturition, frequency, or urgency. MUSCULOSKELETAL/RHEUMATOLOGICAL: Denies any joint pain, swelling, or any muscle pain. ENDOCRINE: Denies any polyuria or polydipsia. The rest of the 14-point review of systems is negative. PHYSICAL EXAMINATION: GENERAL: The patient is alert and oriented x3, not in any acute distress. Well developed, well nourished. HEENT: Pupils are round and equally reacting to light. EOMI. No scleral icterus. No conjunctival pallor. Normocephalic, atraumatic. No pharyngeal erythema. No t hyromegaly. CARDIOVASCULAR: S1 and S2 present. No murmurs, rubs, or gallops. PULMONARY: Chest is clear to auscultation, no wheezing or crackles. ABDOMEN: Soft, nontender, nondistended, normoactive bowel sounds. No palpable organomegaly. MUSCULOSKELETAL: No joint swelling or deformity. EXTREMITIES: No cyanosis, clubbing, or pedal edema. NEUROLOGICAL: Gross neurological examination did not reveal any focal deficits. SKIN: No rashes. Assessment and plan -Chest pain: Mostly atypical in nature considering his previous history cardiology will evaluate patient will obtain 2 more sets of troponins. -Hypertension: Patient blood pressure is bit elevated at this time will resume his home regimen monitor the blood pressure -Patient was diagnosed with diabetes mellitus about any ago, patient is presently not on any medications at this time follow-up with PCP regarding this -Hyperlipidemia continue with the rosuvastatin DVT prophylaxis: Early ambulation Past Medical History Past Medical History: Coronary Artery Disease (CAD), GERD/Reflux, Hyperli pidemia, Hypertension, Sleep Apnea/CPAP/BIPAP Additional Past Medical History / Comment(s): IRRITABLE BOWEL SYNDROME,uses cpap History of Any Multi-Drug Resistant Organisms: None Reported Past Surgical History: Heart Catheterization With Stent, Joint Replacement Additional Past Surgical History / Comment(s): JANESSA KNEE REPLACEMENTS,HEART STENTS X2 Past Anesthesia/Blood Transfusion Reactions: No Reported Reaction Additional Past Anesthesia/Blood Transfusion Reaction / Comment(s): no hx blood transfusion Date of Last Stent Placement:: 09/2013 Past Psychological History: No Psychological Hx Reported Smoking Status: Never smoker Past Alcohol Use History: Occasional Past Drug Use History: None Reported - Past Family History Father Family Medical History: Osteoarthritis (OA) Additional Family Medical History / Comment(s): pt. states both of his parents are living and are healthy, pt. states they have had your average issues such as hip replacments, etc Mother Family Medical History: Osteoarthritis (OA) Brother(s) Family Medical History: Coronary Artery Disease (CAD) Medications and Allergies Home Medications Medication Instructions Recorded Confirmed Type Rosuvastatin Calcium [Crestor] 20 mg PO HS 04/03/21 07/01/22 History Clopidogrel Bisulfate [Plavix] 75 mg PO DAILY 30 Days #30 tab 04/05/21 07/01/22 Rx Metoprolol Tartrate [Lopressor] 100 mg PO BID #60 tab 04/23/21 07/01/22 Rx Ascorbic Acid [Vitamin C] 500 mg PO DAILY 07/01/22 07/01/22 History Cholecalciferol [Vitamin D3 (25 25 mcg PO DAILY 07/01/22 07/01/22 History Mcg = 1000 Iu)] Vitamin E (Dl,Tocopheryl Acet) 400 unit PO DAILY 07/01/22 07/01/22 History [Vitamin E (400 Iu = 180 mg)] lisinopriL [Zestril] 20 mg PO DAILY 07/01/22 07/01/22 History Allergies Allergy/AdvReac Type Severity Reaction Status Date / Time atorvastatin Allergy Rash/Hives/Joint Verified 07/01/22 13:50 Pain simvastatin Allergy Rash/Hives/Joint Verified 07/01/22 13:50 Pain Physical Exam Vitals: Vital Signs Temp Pulse Resp BP Pulse Ox 07/01/22 11:33 98 F 75 20 153/85 96 Intake and Output 06/30/22 07/01/22 07/01/22 22:59 06:59 14:59 Other: Weight 104.326 kg Results CBC & Chem 7: 07/01/22 11:47 07/01/22 11:47 Labs: Abnormal Lab Results - Last 24 Hours (Table) 07/01/22 07/01/22 Range/Units 11:47 11:47 APTT 20.7 L (22.0-30.0) sec Sodium 136 L (137-145) mmol/L Creatinine 0.44 L (0.66-1.25) mg/dL Glucose 118 H (74-99) mg/dL
[2022-07-01] MEDS: METOPROLOL TARTRATE 50 MG TAB PO SCH (20:38)
[2022-07-01] MEDS ORDERED: ROSUVASTATIN CALCIUM 20 MG PO SCH (21:00)
[2022-07-02] MEDS ORDERED: CAFFEINE CITRATE 60 MG/3 ML VIAL IV PRN (07:45)
[2022-07-02] MEDS ORDERED: REGADENOSON 0.4 MG/5 ML SYRINGE IV PRN (07:45)
[2022-07-02] MEDS ORDERED: AMINOPHYLLINE 500 MG/20 ML VIAL IV PRN (07:45)
[2022-07-02] MEDS ORDERED: lisinopriL 20 MG TAB PO SCH (09:00)
[2022-07-02] MEDS ORDERED: CLOPIDOGREL 75 MG TAB PO SCH (09:00)
[2022-07-02] MEDS ORDERED: ASPIRIN 325 MG TAB PO SCH (09:00)
[2022-07-02 09:05] VITALS: RESP 18
--- NOTE | 2022-07-02 09:07 | P.CRDCN ---
History of Present Illness Consult date: 07/02/22 History of present illness: History of Present Illness: The patient is a 67-year-old male, followed by Dr. العلي with a history of multivessel stenting in the past and CABG in febrile 2021 with VANEGAS to the LAD, radial to the OM and SVG to the PDA with closure of the left atrial appendage who presented with symptoms of chest discomfort. The discomfort started yesterday, brief, not activity related and somewhat different from his anginal pain. His activity level has been stable without exertional chest pain, dyspnea or dizziness. He denies any PND, orthopnea or peripheral edema. In the past his systolic function was preserved and he had no evidence of malignant arrhythmia. His cardiac enzymes in the emergency room were normal and he had no acute ST segment changes. His coronary risk factors are positive for hypertension and hyperlipidemia. Medications: Zestril 20 mg daily, aspirin once a day, Plavix 75 daily, metoprolol 100 mg twice a day, Crestor 20 mg daily Review of Systems: Respiratory: No history of asthma, bronchitis or recent cough. GI: No nausea or vomiting . No history of peptic ulcer disease. No recent GI bleed. : No hematuria or dysuria. Nervous System: No stroke or seizure. Physical Examination: 67-year-old male, alert and oriented no apparent distress ,Blood pressure 123/70, Heart rate 70 Head: Normocephalic. Eyes: Sclerae nonicteric. Neck: Good carotid upstroke, no bruit, no jugular venous distention. Lungs: Clear to auscultation. Heart: Regular rate and rhythm, S1-S2, no S3, no rub. Systolic ejection murmur, 2/6. Abdomen: Soft nontender, positive bowel sounds no organomegaly. Extremities: No edema, intact distal pulses. Labs: WBC 8.2, hemoglobin 14.2, potassium 5.1, BUN 12 and creatinine 0.44. Troponin less than 0.012. Chest x-ray with no acute infiltrate. EKG: Sinus mechanism, left axis deviation, poor R-wave progression, cannot exclude inferior apical myocardial infarction with T-wave inversion in V1 and V2. There T-wave changes his recent since his bypass. Impression: 1. Chest discomfort with no evidence of acute coronary syndrome in a patient status post CABG and multivessel stenting 2. History of hypertension 3. History of hyperlipidemia 4. History of diabetes Plan: 1. Continue present therapy 2. Proceed with myocardial perfusion imaging, if no evidence of stress-induced ischemia then no further cardiac workup will be needed otherwise proceed with coronary angiography 3. Obtain an echocardiogram with Doppler 4. Depending on the results of the testing further recommendations will be made 5. Thank you for this consult we will follow with you. Past Medical History Past Medical History: Coronary Artery Disease (CAD), GERD/Reflux, Hyperlipide nir, Hypertension, Sleep Apnea/CPAP/BIPAP Additional Past Medical History / Comment(s): IRRITABLE BOWEL SYNDROME,uses cpap History of Any Multi-Drug Resistant Organisms: None Reported Past Surgical History: Heart Catheterization With Stent, Joint Replacement Additional Past Surgical History / Comment(s): JANESSA KNEE REPLACEMENTS,HEART STENTS X2 Past Anesthesia/Blood Transfusion Reactions: No Reported Reaction Additional Past Anesthesia/Blood Transfusion Reaction / Comment(s): no hx blood transfusion Date of Last Stent Placement:: 09/2013 Past Psychological History: No Psychological Hx Reported Smoking Status: Former smoker Past Alcohol Use History: Occasional Additional Past Alcohol Use History / Comment(s): pt. states he drinks beer occassionally Past Drug Use History: None Reported - Past Family History Father Family Medical History: Osteoarthritis (OA) Additional Family Medical History / Comment(s): pt. states both of his parents are living and are healthy, pt. states they have had your average issues such as hip replacments, etc Mother Family Medical History: Osteoarthritis (OA) Brother(s) Family Medical History: Coronary Artery Disease (CAD) Medications and Allergies Home Medications Medication Instructions Recorded Confirmed Type Rosuvastatin Calcium [Crestor] 20 mg PO HS 04/03/21 07/01/22 History Clopidogrel Bisulfate [Plavix] 75 mg PO DAILY 30 Days #30 tab 04/05/21 07/01/22 Rx Metoprolol Tartrate [Lopressor] 100 mg PO BID #60 tab 04/23/21 07/01/22 Rx Ascorbic Acid [Vitamin C] 500 mg PO DAILY 07/01/22 07/01/22 History Cholecalciferol [Vitamin D3 (25 25 mcg PO DAILY 07/01/22 07/01/22 History Mcg = 1000 Iu)] Vitamin E (Dl,Tocopheryl Acet) 400 unit PO DAILY 07/01/22 07/01/22 History [Vitamin E (400 Iu = 180 mg)] lisinopriL [Zestril] 20 mg PO DAILY 07/01/22 07/01/22 History Allergies Allergy/AdvReac Type Severity Reaction Status Date / Time atorvastatin Allergy Rash/Hives/Joint Verified 07/01/22 13:50 Pain simvastatin Allergy Rash/Hives/Joint Verified 07/01/22 13:50 Pain Physical Exam Vitals: Vital Signs Temp Pulse Pulse Resp BP BP Pulse Ox 07/02/22 07:52 93 L 07/02/22 02:40 98.0 F 70 16 123/71 93 L 07/01/22 20:36 86 18 154/77 99 07/01/22 18:37 88 20 137/85 95 07/01/22 15:57 84 18 148/93 96 07/01/22 11:33 98 F 75 20 153/85 96 Intake and Output 07/01/22 07/02/22 07/02/22 22:59 06:59 14:59 Other: # Voids 1 1 Weight 104.326 kg Results 07/01/22 11:47 07/01/22 11:47 Cardiac Enzymes 07/01/22 07/01/22 07/01/22 Range/Units 11:47 11:47 15:23 AST 31 (17-59) U/L Troponin I <0.012 <0.012 (0.000-0.034) ng/mL 07/01/22 Range/Units 17:56 AST (17-59) U/L Troponin I <0.012 (0.000-0.034) ng/mL Coagulation 07/01/22 Range/Units 11:47 PT 9.9 (9.0-12.0) sec APTT 20.7 L (22.0-30.0) sec CBC 07/01/22 Range/Units 11:47 WBC 8.2 (3.8-10.6) k/uL RBC 4.73 (4.30-5.90) m/uL Hgb 14.2 (13.0-17.5) gm/dL Hct 41.3 (39.0-53.0) % Plt Count 223 (150-450) k/uL Comprehensive Metabolic Panel 07/01/22 Range/Units 11:47 Sodium 136 L (137-145) mmol/L Potassium 5.1 (3.5-5.1) mmol/L Chloride 101 (98-107) mmol/L Carbon Dioxide 23 (22-30) mmol/L BUN 12 (9-20) mg/dL Creatinine 0.44 L (0.66-1.25) mg/dL Glucose 118 H (74-99) mg/dL Calcium 9.3 (8.4-10.2) mg/dL AST 31 (17-59) U/L ALT 34 (4-49) U/L Alkaline Phosphatase 95 (38-126) U/L Total Protein 8.0 (6.3-8.2) g/dL Albumin 4.7 (3.5-5.0) g/dL Current Medications Generic Name Dose Route Start Last Admin Trade Name Freq PRN Reason Stop Dose Admin Aminophylline 100 mg 07/02/22 07:45 Aminophylline 500 Mg/20 Ml Vial IV 07/02/22 11:46 ONCE PRN Patient Response Aspirin 325 mg 07/02/22 09:00 Aspirin 325 Mg Tab PO DAILY [facility] Caffeine Citrate 60 mg 07/02/22 07:45 Caffeine Citrate 60 Mg/3 Ml Vial IV 07/02/22 11:46 ONCE PRN Patient Response Clopidogrel Bisulfate 75 mg 07/02/22 09:00 Clopidogrel 75 Mg Tab PO DAILY [facility]CO Lisinopril 20 mg 07/02/22 09:00 Lisinopril 20 Mg Tab PO DAILY [facility] Metoprolol Tartrate 100 mg 07/01/22 21:00 07/01/22 20:38 Metoprolol Tartrate 50 Mg Tab PO 100 mg BID FRANCISCO Administration Nitroglycerin 0.4 mg 07/01/22 13:26 Nitroglycerin Sl Tabs 0.4 Mg Tab SUBLINGUAL Q5M PRN Chest Pain Rosuvastatin Calcium 20 mg 07/01/22 21:00 07/01/22 20:36 [Crestor] 20 Mg PO Not Given Tablet HS FRANCISCO Regadenoson 0.4 mg 07/02/22 07:45 Regadenoson 0.4 Mg/5 Ml Syringe IV 07/02/22 11:46 ONCE PRN Per Protocol Intake and Output 07/01/22 07/02/22 07/02/22 22:59 06:59 14:59 Other: # Voids 1 1 Weight 104.326 kg 07/01/22 11:47 07/01/22 11:47
[2022-07-02 11:27] LABS: HDL Cholesterol 39.2 mg/dL (40.00-60.00)
[2022-07-02 11:37] LABS: Chol/HDL Ratio 5.38 Ratio; LDL Cholesterol,Direct Reflex 83.9 mg/dL (0.00-129.00)
--- NOTE | 2022-07-02 12:34 | CA ---
Lexiscan Nuclear Stress Test Report Name: Bernabe Pope Exam Date: 07/02/2022 11:08 Exam Location: [place] Stress Ht (in): 66 Wt (lb): 230 BSA: 2.12 Ordering Phys: Abraham Diaz MD Referring Phys: HECTOR, Technologist: Garrick Hook Age: 67 Gender: M : 1955 Procedure CPT: Indications: Reflex order-Stress test ICD-10 Codes: Patient History: CHEST PAIN, HTN, ELEVATED CHOLESTEROL LEVELS, FAMILY HX OF HEART DISEASE, PRIOR SMOKER - QUIT 16 YEARS (1.5 PPD X 20 YEARS), PRIOR CARDIAC CATH WITH STENTING X 3? PRIOR CABG X 3 Medications: Meds past 24 hrs: Pretest Chest Pain: STRESS TEST Lexiscan Protocol Exercise Duration (min:sec): 01:[address] Depressions (mm): Angina Score: [place] Score: Resting HR (bpm): 85 Peak HR (bpm): 108 Resting BP (mmHg): 144 / 68 Peak BP (mmHg): 169 / 90 MPHR: 154 Target HR: 131 % MPHR: 70 METS: 1.0 Total Dose: Peak Dose: Atropine: Double Product: 37328 BP Response: Stress Termination: INFUSION COMPLETE Stress Symptoms: NO SYMPTOMS Stress Summary: ECG ANALYSIS Resting ECG: Sinus rhythm. Normal conduction. No arrhythmias. Poor R wave progression. Stress ECG: No ECG changes from baseline with Lexiscan infusion. Ventricular premature contraction. CONCLUSIONS No ECG evidence of ischemia with Lexiscan infusion. Nuclear test results to follow. Dr. Abraham Diaz MD (Electronically Signed) Final Date: 02 Jul 2022 12:33
[2022-07-02] MEDS: METOPROLOL TARTRATE 50 MG TAB PO SCH (12:36)
--- NOTE | 2022-07-02 12:40 | NM ---
EXAMINATION TYPE: NM stress lexiscan cardiolite DATE OF EXAM: 07/02/2022 COMPARISON: NONE CLINICAL INDICATION: Male, 67 years old with history of chest pain; TECHNIQUE: After the intravenous administration of 9.4 mCi Tc 99m Sestamibi - Cardiolite resting SPE CT images acquired 55 minutes post injection. The patient received 0.4mg Lexiscan, 24.2 mCi Tc 99m Sestamibi - Stress images obtained [address] injection FINDINGS: Review of stress and rest SPECT images demonstrates decreased perfusion along the inferior and infero lateral wall. The inferoseptal wall becomes involved towards the base of the heart. No distinct perfu tanner abnormality. Gated analysis shows normal wall motion with an estimated left ventricular ejectio n fraction of 57 %. TID is normal at 0.76. No discrete reversibility is seen. IMPRESSION: Prominent fixed perfusion defect involving the inferior wall. Findings suspected to repre sent prominent diaphragmatic attenuation artifact rather than old infarct. Clinically correlate. No d iscrete reversibility is seen.
[2022-07-02 14:51] VITALS: BP 133/73; PULSE 74; TEMP 97.3
--- NOTE | 2022-07-03 07:39 | CA ---
Transthoracic Echo Report Name: Bernabe Pope Age: 67 Gender: M : 1955 Exam Date: 07/02/2022 13:07 Exam Location: [place] Echo Ht (in): 66 Wt (lb): 230 Ordering Physician: Abraham Diaz MD ([id number]) Attending/Referring Phys: Turbine Subassembler Girma Quezada RDCS Procedure CPT: Indications: CAD Cardiac Hx: HTN; CAD; High Chol.; Obesity Technical Quality: Technically difficult study Contrast 1: Lumason Total Dose (mL): 6 Contrast 2: Total Dose (mL): MEASUREMENTS (Male / Female) Normal Values 2D ECHO LV Diastolic Diameter PLAX 4.4 cm 4.2 - 5.9 / 3.9 - 5.3 cm LV Systolic Diameter PLAX 3.2 cm LV Fractional Shortening PLAX 26.9 % IVS Diastolic Thickness 1.5 cm 0.6 - 1.0 / 0.6 - 0.9 cm IVS Systolic Thickness 1.7 cm LVPW Diastolic Thickness 1.8 cm 0.6 - 1.0 / 0.6 - 0.9 cm LV Relative Wall Thickness 0.7 RV Internal Dim ED PLAX 3.8 cm LVOT Diameter 2.0 cm LA Systolic Diameter LX 4.7 cm 3.0 - 4.0 / 2.7 - 3.8 cm LV Diastolic Volume MOD BP 104.3 cm??? 67 - 155 / 56 - 104 cm??? LV Systolic Volume MOD BP 45.9 cm??? 22 - 58 / 19 - 49 cm??? LV Ejection Fraction MOD BP 56.0 % >= 55 % LV Stroke Volume MOD BP 58.4 cm??? LV Diastolic Volume MOD 4C 97.1 cm??? LV Systolic Volume MOD 4C 43.4 cm??? LV Ejection Fraction MOD 4C 55.3 % LV Stroke Volume MOD 4C 53.7 cm??? LV Diastolic Length 4C 8.0 cm LV Systolic Length 4C 6.0 cm LV Diastolic Volume MOD 2C 109.2 cm??? LV Systolic Volume MOD 2C 44.8 cm??? LV Ejection Fraction MOD 2C 58.9 % LV Stroke Volume MOD 2C 64.4 cm??? LV Diastolic Length 2C 8.2 cm LV Systolic Length 2C 6.5 cm Ascending Aorta Diameter 2.5 cm M-MODE Aortic Root Diameter MM 3.0 cm LA Systolic Diameter MM 5.1 cm LA Ao Ratio MM 1.7 MV E Point Septal Separation 0.8 cm AV Cusp Separation MM 1.9 cm DOPPLER AV Peak Velocity 130.1 cm/s AV Peak Gradient 6.8 mmHg MV Deceleration [place] 419.0 cm/s??? Mitral E Point Velocity 71.6 cm/s Mitral A Point Velocity 86.3 cm/s Mitral E to A Ratio 0.8 MV Deceleration Time 170.9 ms MV E' Velocity 8.4 cm/s Mitral E to MV E' Ratio 8.6 TR Peak Velocity 99.7 cm/s TR Peak Gradient 4.0 mmHg Right Ventricular Systolic Press 14.0 mmHg PV Peak Velocity 118.9 cm/s PV Peak Gradient 5.7 mmHg FINDINGS Left Ventricle Left ventricular ejection fraction is estimated at 55-60 %. Moderate concentric left ventricular hypertrophy. Left ventricular cavity size normal. Right Ventricle Normal right ventricular size and function. Right Atrium Normal right atrial size. Left Atrium Mild left atrial dilatation. Mitral Valve Mitral valve thickened. No mitral stenosis. Mild mitral regurgitation. Aortic Valve Aortic valve not well visualized. Tricuspid Valve Mild tricuspid regurgitation.tricuspid valve not well visualized. Pulmonic Valve Pulmonic valve not well visualized. Pericardium Normal pericardium. No pericardial effusion. Aorta Normal size aortic root and proximal ascending aorta. CONCLUSIONS Lumason ECHO contrast used for improved visualization of the endocardial borders (inadequate visualization of two or more contiguous segments). Technically difficult study. 1. Normal left ventricle size and systolic function 2. Very limited Doppler study, valvular structures were not well visualized Previewed by: Dr. Abraham Diaz MD (Electronically Signed) Final Date: 03 Jul 2022 07:38
--- NOTE | 2022-07-03 23:20 | P.DS ---
Providers Date of admission: 07/01/22 13:19 Attending physician: Arun Xiao MD Consults: 07/01/22 13:26 Consult Physician Urgent Consulting Provider: Jarrod العلي Consult Reason/Comments: chest pain Do you want consulting provider notified?: Yes Primary care physician: Rey Wasserman Hospital Course: Final Diagnosis -Chest pain mostly atypical with negative stress test possibly musculoskeletal. -Hypertension -Diabetes Mellitus type 2 diagnosed about 1 year ago -Hyperlipidemia -History of coronary artery disease with prior PCI -History of sleep apnea with CPAP/BiPAP -Former Smoker Discharge Disposition Patient is stable for discharged home. Has been cleared by cardiology. Patient to resume same home medications on discharge. Follow up with cardiology and PCP on discharge. Hospital Course Patient is a pleasant 67-year-old male with the history of CABG and stents in the past came in with complaints of pressure-like sensation which lasts about a few seconds nonexertional not associated with lightheadedness or diaphoresis. Patient chest pain is nonpleuritic, not associated with food. Patient denied any radiation of pain. Patient denied any shortness of breath denied any sm oking history. Troponin level is negative x 3. EKG did not show is again and ST- T wave changes. Patient was admitted for cardiac evaluation. Patient underwent echo stress test which is negative for any reversible ischemia. Echocardiogram reveals normal LV size and systolic function. This is a very limited doppler the valvular structures were not well visualized. Patient was diagnosed with diabetes mellitus about 1 year ago per patient, not on any home medications. Blood glucose is 118 on admission. Lipid panel reveals triglyceride level of 601, cholesterol of 211, LDL 83.9 and HDL of 39.2. Patient continues on rosuvastatin and discussed dietary modifications. Patient is currently denying chest pain, denying shortness of breath. No dizziness, lightheadedness. Patient is alert x3 there with no focal neurological deficits. Heart rate is 74, blood pressure is 133/73. Patient is cleared for discharge. Please see medication reconciliation for a list of current medication. Thank you for allowing us to participate in the care of this patient. The impression and plan of care has been dictated by Patricia Lopez, Nurse Practitioner as directed. Dr. Jennifer MD I have performed a history and physical examination and medical decision making of this patient, discussed the same with the dictator, and agree with the dictators assessment and plan as written, documented as a scribe. Based on total visit time, I have performed more than 50% of this visit. Patient Condition at Discharge: Stable Plan - Discharge Summary New Discharge Prescriptions: New Aspirin EC [Ecotrin Low Dose] 81 mg PO DAILY #30 tab Nitroglycerin Sl Tabs [Nitrostat] 0.4 mg SUBLINGUAL Q5M PRN #20 tab PRN Reason: Chest Pain Continue Rosuvastatin Calcium [Crestor] 20 mg PO HS Clopidogrel Bisulfate [Plavix] 75 mg PO DAILY 30 Days #30 tab lisinopriL [Zestril] 20 mg PO DAILY Metoprolol Tartrate [Lopressor] 100 mg PO BID #60 tab Vitamin E (Dl,Tocopheryl Acet) [Vitamin E (400 Iu = 180 mg)] 400 unit PO DAILY Cholecalciferol [Vitamin D3 (25 Mcg = 1000 Iu)] 25 mcg PO DAILY Ascorbic Acid [Vitamin C] 500 mg PO DAILY Discharge Medication List Rosuvastatin Calcium [Crestor] 20 mg PO HS 04/03/21 [History] Clopidogrel Bisulfate [Plavix] 75 mg PO DAILY 30 Days #30 tab 04/05/21 [Rx] Metoprolol Tartrate [Lopressor] 100 mg PO BID #60 tab 04/23/21 [Rx] Ascorbic Acid [Vitamin C] 500 mg PO DAILY 07/01/22 [History] Cholecalciferol [Vitamin D3 (25 Mcg = 1000 Iu)] 25 mcg PO DAILY 07/01/22 [History] Vitamin E (Dl,Tocopheryl Acet) [Vitamin E (400 Iu = 180 mg)] 400 unit PO DAILY 07/01/22 [History] lisinopriL [Zestril] 20 mg PO DAILY 07/01/22 [History] Aspirin EC [Ecotrin Low Dose] 81 mg PO DAILY #30 tab 07/02/22 [Rx] Nitroglycerin Sl Tabs [Nitrostat] 0.4 mg SUBLINGUAL Q5M PRN #20 tab 07/02/22 [Rx] Follow up Appointment(s)/Referral(s): Jarrod العلي MD [STAFF PHYSICIAN] - 1 Week (Office will call with appt date and time) Rey Wasserman DO [Primary Care Provider] - 1-2 days Patient Instructions/Handouts: Chest Pain (DC), Cardiac Stress Test (DC) Activity/Diet/Wound Care/Special Instructions: Follow up with cardiology on discharge Discharge Disposition: HOME SELF-CARE
== END 2022-07-02 16:34 | disposition home or self-care (01) ==
LOC: EC 11:25 → 6NMEDSUR 13:19
PROVIDERS: ADMIT Internal Medicine; ATTEND Internal Medicine
DX: R07.9 Chest pain, unspecified (principal); E78.5 Hyperlipidemia, unspecified; I10 Essential (primary) hypertension; I25.10 Atherosclerotic heart disease of native coronary artery without angina pectoris; K21.9 Gastro-esophageal reflux disease without esophagitis; G47.30 Sleep apnea, unspecified; K58.9 Irritable bowel syndrome, unspecified; E11.9 Type 2 diabetes mellitus without complications; Z87.891 Personal history of nicotine dependence; Z95.5 Presence of coronary angioplasty implant and graft; Z79.82 Long term (current) use of aspirin; Z79.899 Other long term (current) drug therapy; Z79.02 Long term (current) use of antithrombotics/antiplatelets; Z79.84 Long term (current) use of oral hypoglycemic drugs; Z88.8 Allergy status to other drugs, medicaments and biological substances
CPT/HCPCS: 99285; 36415; 94760; 93005; 93017; 80061; 80053; 83735; 84484; 85025; 85610; 85730; 83721; 71046; 78452; G0378 ×2; C8929; A9500; J2785; Q9950; 93306

== ENCOUNTER 2022-11-16 08:51 | Emergency (ER) | payer MEDICARE ==
[2022-11-16 09:22] LABS: Basophils # (A) 0.1 k/uL (0-0.2); Basophils % (A) 1 %; Eosinophils # (A) 0.2 k/uL (0-0.7); Eosinophils % (A) 2 %; HCT 42.2 % (39.0-53.0); HGB 13.9 gm/dL (13.0-17.5); Lymphocytes # (A) 1.7 k/uL (1.0-4.8); Lymphocytes % (A) 19 %; MCH 30.4 pg (25.0-35.0); MCHC 32.9 g/dL (31.0-37.0); MCV 92.3 fL (80.0-100.0); Mean Platelet Volume 7.6; Monocytes # (A) 0.3 k/uL (0-1.0); Monocytes % (A) 4 %; Neutrophils # (A) 6.3 k/uL (1.3-7.7); Neutrophils % (A) 72 %; Platelet Count 257 k/uL (150-450); RBC 4.57 m/uL (4.30-5.90); RDW 13.4 % (11.5-15.5); WBC 8.7 k/uL (3.8-10.6)
--- NOTE | 2022-11-16 09:28 | XR ---
EXAMINATION TYPE: XR chest 2V DATE OF EXAM: 11/16/2022 COMPARISON: 07/19/2022 HISTORY: Shortness of breath TECHNIQUE: Frontal and lateral views of the chest are obtained. FINDINGS: Scattered senescent parenchymal changes noted. Hyperinflation compatible with COPD. No evidence for infiltrate. No evidence for atelectasis. Heart size is stable. Mediastinal structures are stable and grossly unremarkable. No evidence for hilar prominence. Degenerative changes dorsal spine. IMPRESSION: 1. No evidence for acute pulmonary disease.
[2022-11-16 09:29] LABS: INR 0.9 (<1.2); Partial Thromboplastin Time 25.7 sec (22.0-30.0); Prothrombin Time 10.1 sec (9.0-12.0)
[2022-11-16 09:32] LABS: ALT 35 U/L (4-49); African American GFR (CKD) >90 (>60 ml/min/1.73 sqM); Albumin 4.7 g/dL (3.5-5.0); Anion Gap 9 mmol/L; Blood Urea Nitrogen 20 mg/dL (9-20); Calcium 9.7 mg/dL (8.4-10.2); Carbon Dioxide 23 mmol/L (22-30); Chloride 106 mmol/L (98-107); Glucose 217 mg/dL (74-99); Non-African American GFR(CKD) >90 (>60 ml/min/1.73 sqM); Sodium 138 mmol/L (137-145); Total Bilirubin 0.6 mg/dL (0.2-1.3); Total Protein 7.9 g/dL (6.3-8.2)
--- NOTE | 2022-11-16 09:45 | ED ---
General Adult HPI - General Chief complaint: Chest Pain Stated complaint: chest pain Time Seen by Provider: 11/16/22 08:56 Source: patient Mode of arrival: ambulatory Limitations: no limitations - History of Present Illness Initial comments: Dictation was produced using [employer] dictation software. please excuse any grammatical, word or spelling errors. Chief Complaint: 67-year-old male past medical history of coronary artery disease, coronary artery bypass graft presents to the ER for chest pain History of Present Illness: 67-year-old male he's been having intermittent episodes of chest pain. Patient states that the pain is to his substernal chest. Denies radiation however he does report that he had some clamminess and diaphoresis. Patient denies any symptoms at the bedside. States that he is episodes have been increasing in frequency and intensity. The ROS documented in this emergency department record has been reviewed and confirmed by me. Those systems with pertinent positive or negative responses have been documented in the HPI. All other systems are other negative and/or noncontributory. - Related Data Home Medications Medication Instructions Recorded Confirmed Rosuvastatin Calcium [Crestor] 20 mg PO HS 04/03/21 07/01/22 Ascorbic Acid [Vitamin C] 500 mg PO DAILY 07/01/22 07/01/22 Cholecalciferol [Vitamin D3 (25 25 mcg PO DAILY 07/01/22 07/01/22 Mcg = 1000 Iu)] Vitamin E (Dl,Tocopheryl Acet) 400 unit PO DAILY 07/01/22 07/01/22 [Vitamin E (400 Iu = 180 mg)] lisinopriL [Zestril] 20 mg PO DAILY 07/01/22 07/01/22 Previous Rx's Medication Instructions Recorded Clopidogrel Bisulfate [Plavix] 75 mg PO DAILY 30 Days #30 tab 04/05/21 Metoprolol Tartrate [Lopressor] 100 mg PO BID #60 tab 04/23/21 Aspirin EC [Ecotrin Low Dose] 81 mg PO DAILY #30 tab 07/02/22 Nitroglycerin Sl Tabs [Nitrostat] 0.4 mg SUBLINGUAL Q5M PRN #20 tab 07/02/22 Allergies Allergy/AdvReac Type Severity Reaction Status Date / Time atorvastatin Allergy Rash/Hives/Joint Verified 11/16/22 08:55 Pain simvastatin Allergy Rash/Hives/Joint Verified 11/16/22 08:55 Pain Review of Systems ROS Statement: Those systems with pertinent positive or pertinent negative responses have been documented in the HPI. ROS Other: All systems not noted in ROS Statement are negative. Past Medical History Past Medical History: Coronary Artery Disease (CAD), GERD/Reflux, Hyperlipide nir, Hypertension, Sleep Apnea/CPAP/BIPAP Additional Past Medical History / Comment(s): IRRITABLE BOWEL SYNDROME,uses cpap History of Any Multi-Drug Resistant Organisms: None Reported Past Surgical History: Heart Catheterization With Stent, Joint Replacement Additional Past Surgical History / Comment(s): JANESSA KNEE REPLACEMENTS,HEART STENTS X2 Past Anesthesia/Blood Transfusion Reactions: No Reported Reaction Additional Past Anesthesia/Blood Transfusion Reaction / Comment(s): no hx blood transfusion Date of Last Stent Placement:: 09/2013 Past Psychological History: No Psychological Hx Reported Smoking Status: Former smoker Past Alcohol Use History: Occasional Past Drug Use History: None Reported - Past Family History Father Family Medical History: Osteoarthritis (OA) Additional Family Medical History / Comment(s): pt. states both of his parents are living and are healthy, pt. states they have had your average issues such as hip replacments, etc Mother Family Medical History: Osteoarthritis (OA) Brother(s) Family Medical History: Coronary Artery Disease (CAD) General Exam - General Exam Comments Initial Comments: PHYSICAL EXAM: General Impression: Alert and oriented x3, not in acute distress HEENT: Normocephalic atraumatic, extra-ocular movements intact, pupils equal and reactive to light bilaterally, mucous membranes moist. Cardiovascular: Heart regular rate and rhythm Chest: Able to complete full sentences, no retractions, no tachypnea Abdomen: abdomen soft, non-tender, non-distended, no organomegaly Musculoskeletal: Pulses present and equal in all extremities, no peripheral juanjo ma Motor: no focal deficits noted Neurological: CN II-XII grossly intact, no focal motor or sensory deficits noted Skin: Intact with no visualized rashes Psych: Normal affect and mood Limitations: no limitations Course Vital Signs 11/16/22 08:53 Temperature 98 F Pulse Rate 80 Respiratory 20 Rate Blood Pressure 134/61 O2 Sat by Pulse 97 Oximetry EKG Findings - EKG Comments: EKG Findings:: My EKG interpretation: Ventricular rate 82, sinus rhythm,. Interval 169, QRS 97, QTC 420. No MS prolongation, no QTC prolongation, no ST or T-wave changes noted. Overall, this EKG is unremarkable Medical Decision Making - Medical Decision Making Was pt. sent in by a medical professional or institution (YOGESH Orlando, MECHANIC AND WELDER, urgent care, hospital, or correction...) When possible be specific @ -No Did you speak to anyone other than the patient for history (EMS, parent, family, police, friend...)? What history was obtained from this source @ -No Did you review nursing and triage notes (agree or disagree)? Why? @ -I reviewed and agree with nursing and triage notes Were old charts reviewed (outside hosp., previous admission, EMS record, old EKG, old radiological studies, urgent care reports/EKG's, correction records)? Report findings @ -No old charts were reviewed Differential Diagnosis (chest pain, altered mental status, abdominal pain women, abdominal pain men, vaginal bleeding, musculoskeletal, weakness, fever, dyspnea, syncope, headache, dizziness, GI bleed, back pain, seizure, CVA, palpatations, mental health)? @ -Differential Chest Pain: Stable Angina, Unstable Angina, STEMI, NSTEMI Aortic Dissection, Pneumothorax, Musculoskeletal, Esophageal Spasm GERD, Cholecystitis, Pancreatitis, Zoster, this is not meant to be an all-inclusive list. EKG interpreted by me (3pts min.). @ -See above X-rays interpreted by me (1pt min.). @ -Chest x-ray is unremarkable CT interpreted by me (1pt min.). @ -None done U/S interpreted by me (1pt. min.). @ -None done What testing was considered but not performed or refused? (CT, X-rays, U/S, labs)? Why? @ -None What meds were considered but not given or refused? Why? @ -None Did you discuss the management of the patient with other professionals (professionals i.e. YOGESH Orlando, ME[employer]IC AND WELDER, lab, RT, psych nurse, high school social science teacher, director of real estate, teacher, financial aids officer, case technician)? Give summary @ -No Was smoking cessation discussed for >3mins.? @ -No Was critical care preformed (if so, how long)? @ -No Were there social determinants of health that impacted care today? How? (Homele ssness, low income, unemployed, alcoholism, drug addiction, transportation, low edu. Level, literacy, decrease access to med. care, correction, rehab)? @ -No Was there de-escalation of care discussed even if they declined (Discuss DNR or withdrawal of care, Hospice)? DNR status @ -No What co-morbidities impacted this encounter? (DM, HTN, Smoking, COPD, CAD, Cancer, CVA, ARF, Chemo, Hep., AIDS, mental health diagnosis, sleep apnea, morbid obesity)? @ -None Was patient admitted / discharged? Hospital course, mention meds given and route, prescriptions, significant lab abnormalities, going to OR and other pertinent info. @ -67-year-old presents to the ER for atypical chest with typical features. Significant risk factors. EKG is unremarkable. Patient's asymptomatic at the bedside. Laboratory evaluation obtained. CBC, coag panel metabolic panel within acceptable limits. Troponin initially was negative. Recommended observation admission however patient refused however he did agree to order a second troponin deciding need for observation admission then. Second troponin is negative. Patient is agreeable with discharge. 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 @ -No Drug Therapy requiring intensive monitoring for toxicity (Heparin, Nitro, Insulin, Cardizem)? @ -No Were any procedures done? @ -No Diagnosis/symptom? Acute, or Chronic, or Acute on Chronic? Uncomplicated (without systemic symptoms) or Complicated (systemic symptoms)? @ -Chest pain Side effects of treatment? @ -No Exacerbation, Progression, or Severe Exacerbation? @ -No Poses a threat to life or bodily function? How? (Chest pain, [place], [place], pneumonia, PE, COPD, DKA, ARF, appy, cholecystitis, CVA, Diverticulitis, Homicidal, Suicidal, threat to staff... and all critical care pts) @ -yes - Lab Data Result diagrams: 11/16/22 09:11 11/16/22 09:11 Lab Results 11/16/22 11/16/22 11/16/22 Range/Units 08:31 09:11 09:11 WBC 8.7 (3.8-10.6) k/uL RBC 4.57 (4.30-5.90) m/uL Hgb 13.9 (13.0-17.5) gm/dL Hct 42.2 (39.0-53.0) % MCV 92.3 (80.0-100.0) fL MCH 30.4 (25.0-35.0) pg MCHC 32.9 (31.0-37.0) g/dL RDW 13.4 (11.5-15.5) % Plt Count 257 (150-450) k/uL MPV 7.6 Neutrophils % 72 % Lymphocytes % 19 % Monocytes % 4 % Eosinophils % 2 % Basophils % 1 % Neutrophils # 6.3 (1.3-7.7) k/uL Lymphocytes # 1.7 (1.0-4.8) k/uL Monocytes # 0.3 (0-1.0) k/uL Eosinophils # 0.2 (0-0.7) k/uL Basophils # 0.1 (0-0.2) k/uL PT 10.1 (9.0-12.0) sec INR 0.9 (<1.2) APTT 25.7 (22.0-30.0) sec Sodium (137-145) mmol/L Potassium (3.5-5.1) mmol/L Chloride (98-107) mmol/L Carbon Dioxide (22-30) mmol/L Anion Gap mmol/L BUN (9-20) mg/dL Creatinine (0.66-1.25) mg/dL Est GFR (CKD-EPI)AfAm (>60 ml/min/1.73 sqM) Est GFR (CKD-EPI)NonAf (>60 ml/min/1.73 sqM) Glucose (74-99) mg/dL Calcium (8.4-10.2) mg/dL Magnesium (1.6-2.3) mg/dL Total Bilirubin (0.2-1.3) mg/dL AST (17-59) U/L ALT (4-49) U/L Alkaline Phosphatase (38-126) U/L Troponin I <0.012 (0.000-0.034) ng/mL Total Protein (6.3-8.2) g/dL Albumin (3.5-5.0) g/dL 11/16/22 11/16/22 Range/Units 09:11 09:11 WBC (3.8-10.6) k/uL RBC (4.30-5.90) m/uL Hgb (13.0-17.5) gm/dL Hct (39.0-53.0) % MCV (80.0-100.0) fL MCH (25.0-35.0) pg MCHC (31.0-37.0) g/dL RDW (11.5-15.5) % Plt Count (150-450) k/uL MPV Neutrophils % % Lymphocytes % % Monocytes % % Eosinophils % % Basophils % % Neutrophils # (1.3-7.7) k/uL Lymphocytes # (1.0-4.8) k/uL Monocytes # (0-1.0) k/uL Eosinophils # (0-0.7) k/uL Basophils # (0-0.2) k/uL PT (9.0-12.0) sec INR (<1.2) APTT (22.0-30.0) sec Sodium 138 (137-145) mmol/L Potassium 5.2 H (3.5-5.1) mmol/L Chloride 106 (98-107) mmol/L Carbon Dioxide 23 (22-30) mmol/L Anion Gap 9 mmol/L BUN 20 (9-20) mg/dL Creatinine 0.59 L (0.66-1.25) mg/dL Est GFR (CKD-EPI)AfAm >90 (>60 ml/min/1.73 sqM) Est GFR (CKD-EPI)NonAf >90 (>60 ml/min/1.73 sqM) Glucose 217 H (74-99) mg/dL Calcium 9.7 (8.4-10.2) mg/dL Magnesium 1.8 (1.6-2.3) mg/dL Total Bilirubin 0.6 (0.2-1.3) mg/dL AST 41 (17-59) U/L ALT 35 (4-49) U/L Alkaline Phosphatase 62 (38-126) U/L Troponin I <0.012 (0.000-0.034) ng/mL Total Protein 7.9 (6.3-8.2) g/dL Albumin 4.7 (3.5-5.0) g/dL Disposition Clinical Impression: Chest pain Disposition: HOME SELF-CARE Condition: Fair Instructions (If sedation given, give patient instructions): Chest Pain (ED) Is patient prescribed a controlled substance at d/c from ED?: No Referrals: Rey Wasserman DO [Primary Care Provider] - 1-2 days Time of Disposition: 12:47
[2022-11-16 09:46] LABS: Magnesium 1.8 mg/dL (1.6-2.3); Potassium 5.2 mmol/L (3.5-5.1)
[2022-11-16 09:47] LABS: AST 41 U/L (17-59); Alkaline Phosphatase 62 U/L (38-126)
[2022-11-16] MEDS ORDERED: ASPIRIN 81 MG PO STA (12:46)
[2022-11-16 12:57] VITALS: BP 127/76; PULSE 67; RESP 18; TEMP 98.2
== END 2022-11-16 12:55 | disposition home or self-care (01) ==
LOC: EC 08:51
DX: R07.89 Other chest pain (principal); I10 Essential (primary) hypertension; I25.10 Atherosclerotic heart disease of native coronary artery without angina pectoris; E78.5 Hyperlipidemia, unspecified; Z95.5 Presence of coronary angioplasty implant and graft; Z79.899 Other long term (current) drug therapy; Z88.8 Allergy status to other drugs, medicaments and biological substances; Z87.891 Personal history of nicotine dependence
CPT/HCPCS: 36415; 71046; 80053; 83735; 84484; 85025; 85610; 85730; 93005; 99285

== ENCOUNTER 2023-03-03 11:52 | Observation (INO) | payer MEDICARE ==
--- NOTE | 2023-03-03 12:28 | ED ---
General Adult HPI - General Source: RN notes reviewed <Lorena Sampson - Last Filed: 03/03/23 12:26> <Ayaz Tripp - Last Filed: 03/03/23 15:52> - General Stated complaint: chest pain Time Seen by Provider: 03/03/23 12:26 - History of Present Illness Initial comments: 68-year-old male presents emergency Department with chief complaint of chest pain. (Lorena Sampson) This is a 68-year-old male who states she's been having intermittent chest pain for the last week. Patient states he has a past medical history for stents and bypass surgery. Patient denies any chest pain currently. Patient denies any shortness of breath diaphoresis or nausea with the pain. Patient states it reminds him of the pain he had when he was getting a stent placed. Patient denies any fever chills or cough. Patient denies any palpitations. Patient denies back pain. Patient denies headache patient denies numbness weakness. (Ayaz Tripp) - Related Data Home Medications Medication Instructions Recorded Confirmed Rosuvastatin Calcium [Crestor] 20 mg PO HS 04/03/21 07/01/22 Ascorbic Acid [Vitamin C] 500 mg PO DAILY 07/01/22 07/01/22 Cholecalciferol [Vitamin D3 (25 25 mcg PO DAILY 07/01/22 07/01/22 Mcg = 1000 Iu)] Vitamin E (Dl,Tocopheryl Acet) 400 unit PO DAILY 07/01/22 07/01/22 [Vitamin E (400 Iu = 180 mg)] lisinopriL [Zestril] 20 mg PO DAILY 07/01/22 07/01/22 Previous Rx's Medication Instructions Recorded Clopidogrel Bisulfate [Plavix] 75 mg PO DAILY 30 Days #30 tab 04/05/21 Metoprolol Tartrate [Lopressor] 100 mg PO BID #60 tab 04/23/21 Aspirin EC [Ecotrin Low Dose] 81 mg PO DAILY #30 tab 07/02/22 Nitroglycerin Sl Tabs [Nitrostat] 0.4 mg SUBLINGUAL Q5M PRN #20 tab 07/02/22 Allergies Allergy/AdvReac Type Severity Reaction Status Date / Time atorvastatin Allergy Rash/Hives/Joint Verified 03/03/23 12:29 Pain simvastatin Allergy Rash/Hives/Joint Verified 03/03/23 12:29 Pain Review of Systems ROS Other: All systems not noted in ROS Statement are negative. <Lorena Sampson - Last Filed: 03/03/23 12:26> ROS Other: All systems not noted in ROS Statement are negative. <Ayaz Tripp - Last Filed: 03/03/23 15:52> ROS Statement: Those systems with pertinent positive or pertinent negative responses have been documented in the HPI. Past Medical History Past Medical History: Coronary Artery Disease (CAD), GERD/Reflux, Hyperlipidemia, Hypertension, Sleep Apnea/CPAP/BIPAP Additional Past Medical History / Comment(s): IRRITABLE BOWEL SYNDROME,uses cpap History of Any Multi-Drug Resistant Organisms: None Reported Past Surgical History: Heart Catheterization With Stent, Joint Replacement Additional Past Surgical History / Comment(s): JANESSA KNEE REPLACEMENTS,HEART STENTS X2 Past Anesthesia/Blood Transfusion Reactions: No Reported Reaction Additional Past Anesthesia/Blood Transfusion Reaction / Comment(s): no hx blood transfusion Date of Last Stent Placement:: 09/2013 Past Psychological History: No Psychological Hx Reported Smoking Status: Former smoker Past Alcohol Use History: Occasional Past Drug Use History: None Reported - Past Family History Father Family Medical History: Osteoarthritis (OA) Additional Family Medical History / Comment(s): pt. states both of his parents are living and are healthy, pt. states they have had your average issues such as hip replacments, etc Mother Family Medical History: Osteoarthritis (OA) Brother(s) Family Medical History: Coronary Artery Disease (CAD) <Lorena Sampson - Last Filed: 03/03/23 12:26> General Exam <Lorena Sampson - Last Filed: 03/03/23 12:26> <Ayaz Tripp - Last Filed: 03/03/23 15:52> - General Exam Comments Initial Comments: Visual Physical Exam Vital signs reviewed General: Well-appearing, nontoxic, no acute distress. Head: Normocephalic, atraumatic Eyes: PERRLA, EOMI ENT: Airway patent Chest: Nonlabored breathing Skin: No visual rash, normal skin tone Neuro: Alert and oriented 3 Musculoskeletal: No gross abnormalities (Lorena Sampson) GENERAL: Patient is well-developed and well-nourished. Patient is nontoxic and well- hydrated and is in no acute distress. ENT: Neck is soft and supple. No significant lymphadenopathy is noted. Oropharynx is clear. Moist mucous membranes. Neck has full range of motion without eliciting any pain. EYES: The sclera were anicteric and conjunctiva were pink and moist. Extraocular movements were intact and pupils were equal round and reactive to light. Eyelids were unremarkable. PULMONARY: Unlabored respirations. Good breath sounds bilaterally. No audible rales rhonchi or wheezing was noted. CARDIOVASCULAR: There is a regular rate and rhythm without any murmurs gallops or rubs. ABDOMEN: Soft and nontender with normal bowel sounds. SKIN: Skin is clear with no lesions or rashes and otherwise unremarkable. NEUROLOGIC: Patient is alert and oriented x3. Cranial nerves II through XII are grossly intact. Motor and sensory are also intact. Normal speech, volume and content. Symmetrical smile. MUSCULOSKELETAL: Normal extremities with adequate strength and full range of motion. No lower extremity swelling or edema. No calf tenderness. LYMPHATICS: No significant lymphadenopathy is noted PSYCHIATRIC: Normal psychiatric evaluation. (Ayaz Tripp) Course Vital Signs 03/03/23 03/03/23 12:26 15:16 Temperature 98.8 F Pulse Rate 67 71 Respiratory 18 16 Rate Blood Pressure 155/76 130/76 O2 Sat by Pulse 96 95 Oximetry Medical Decision Making <Lorena Sampson - Last Filed: 03/03/23 12:26> - Lab Data Result diagrams: 03/03/23 12:43 03/03/23 12:43 <Ayaz Tripp - Last Filed: 03/03/23 15:52> - Medical Decision Making I performed the quick note portion of this exam, verbal signature Lorena Sampson PA-C (Lorena Sampson) EKG is interpreted by myself. EKG shows sinus rhythm at 67 bpm SC interval 277 202 QT interval is 413 QTC is 428. Patient's EKG shows no ST segment elevation or depression. Was pt. sent in by a medical professional or institution (YOGESH [facility], CUSTOMER GREETER, urgent care, hospital, or [facility]...) When possible be specific @ -No Did you speak to anyone other than the patient for history (EMS, parent, family, police, friend...)? What history was obtained from this source @ -No Did you review nursing and triage notes (agree or disagree)? Why? @ -I reviewed and agree with nursing and triage notes Were old charts reviewed (outside hosp., previous admission, EMS record, old EKG, old radiological studies, urgent care reports/EKG's, [facility] records)? Report findings @ -I reviewed prior charts prior labwork on this patient Differential Diagnosis (chest pain, altered mental status, abdominal pain women, abdominal pain men, vaginal bleeding, weakness, fever, dyspnea, syncope, headache, dizziness, GI bleed, back pain, seizure, CVA, palpatations, mental health, musculoskeletal)? @ -Differential Chest Pain: Stable Angina, Unstable Angina, STEMI, NSTEMI Aortic Dissection, Pneumothorax, Musculoskeletal, Esophageal Spasm GERD, Cholecystitis, Pancreatitis, Zoster, this is not meant to be an all-inclusive list. EKG interpreted by me (3pts min.). @ -As above X-rays interpreted by me (1pt min.). @ -Chest x-ray shows no acute abnormality CT interpreted by me (1pt min.). @ -None done U/S interpreted by me (1pt. min.). @ -None done What testing was considered but not performed or refused? (CT, X-rays, U/S, labs)? Why? @ -None What meds were considered but not given or refused? Why? @ -None Did you discuss the management of the patient with other professionals (professionals i.e. , PA, CUSTOMER GREETER, lab, RT, psych nurse, social worker health services, digital campaign manager, teacher, founder chairman and chief creative officer, gym manager)? Give summary @ -I spoke with sounds physician's and he agreed to admit the patient Was smoking cessation discussed for >3mins.? @ -No Was critical care preformed (if so, how long)? @ -35 minutes Were there social determinants of health that impacted care today? How? (Homelessness, low income, unemployed, alcoholism, drug addiction, transportation, low edu. Level, literacy, decrease access to med. care, care home, rehab)? @ -No Was there de-escalation of care discussed even if they declined (Discuss DNR or withdrawal of care, Hospice)? DNR status @ -No What co-morbidities impacted this encounter? (DM, HTN, Smoking, COPD, CAD, Cancer, CVA, ARF, Chemo, Hep., AIDS, mental health diagnosis, sleep apnea, morbid obesity)? @ -None Was patient admitted / discharged? Hospital course, mention meds given and route, prescriptions, significant lab abnormalities, going to OR and other pe rtinent info. @ -Patient was chest pain-free in the emergency department. Patient was given aspirin and Nitropaste. I spoke with sounds physician's agreed to admit the patient admitted the patient wrote admitting orders. Patient's potassium 6.1. Patient got calcium chloride as well as sodium bicarb insulin and D50. Patient also received Lokelma. I consulted cardiology Undiagnosed new problem with uncertain prognosis? @ -No Drug Therapy requiring intensive monitoring for toxicity (Heparin, Nitro, Insulin, Cardizem)? @ -No Were any procedures done? @ -No Diagnosis/symptom? @ -Chest pain Acute, or Chronic, or Acute on Chronic? @ -Acute Uncomplicated (without systemic symptoms) or Complicated (systemic symptoms)? @ -Complicated Side effects of treatment? @ -No Exacerbation, Progression, or Severe Exacerbation? @ -No Poses a threat to life or bodily function? How? (Chest pain, [place], [place], pneumonia, PE, COPD, DKA, ARF, appy, cholecystitis, CVA, Diverticulitis, Homicidal, Suicidal, threat to staff... and all critical care pts) @ -Yes this can lead to an NE and end organ dysfunction Diagnosis/symptom? @ -Hyperkalemia Acute, or Chronic, or Acute on Chronic? @ -Acute Uncomplicated (without systemic symptoms) or Complicated (systemic symptoms)? @ -Complicated Side effects of treatment? @ -none Exacerbation, Progression, or Severe Exacerbation] @ -no Poses a threat to life or bodily function? @ -no (Ayaz Tripp) - Lab Data Lab Results 03/03/23 03/03/23 03/03/23 Range/Units 12:43 12:43 12:43 WBC 10.9 H (3.8-10.6) k/uL RBC 4.60 (4.30-5.90) m/uL Hgb 13.5 (13.0-17.5) gm/dL Hct 41.0 (39.0-53.0) % MCV 89.3 (80.0-100.0) fL MCH 29.4 (25.0-35.0) pg MCHC 32.9 (31.0-37.0) g/dL RDW 13.3 (11.5-15.5) % Plt Count 297 (150-450) k/uL MPV 7.3 Neutrophils % 67 % Lymphocytes % 23 % Monocytes % 6 % Eosinophils % 1 % Basophils % 1 % Neutrophils # 7.3 (1.3-7.7) k/uL Lymphocytes # 2.5 (1.0-4.8) k/uL Monocytes # 0.7 (0-1.0) k/uL Eosinophils # 0.2 (0-0.7) k/uL Basophils # 0.1 (0-0.2) k/uL PT 10.7 (10.0-12.5) sec INR 1.0 (<1.2) APTT 27.0 (22.0-30.0) sec Sodium 132 L (137-145) mmol/L Potassium 6.1 H* (3.5-5.1) mmol/L Chloride 98 (98-107) mmol/L Carbon Dioxide 19 L (22-30) mmol/L Anion Gap 15 mmol/L BUN 23 H (9-20) mg/dL Creatinine 0.75 (0.66-1.25) mg/dL Est GFR (CKD-EPI)AfAm >90 (>60 ml/min/1.73 sqM) Est GFR (CKD-EPI)NonAf >90 (>60 ml/min/1.73 sqM) Glucose 96 (74-99) mg/dL Calcium 9.8 (8.4-10.2) mg/dL Magnesium 1.8 (1.6-2.3) mg/dL Total Bilirubin 0.6 (0.2-1.3) mg/dL AST 37 (17-59) U/L ALT 30 (4-49) U/L Alkaline Phosphatase 56 (38-126) U/L Troponin I (0.000-0.034) ng/mL Total Protein 8.0 (6.3-8.2) g/dL Albumin 4.7 (3.5-5.0) g/dL 03/03/23 Range/Units 12:43 WBC (3.8-10.6) k/uL RBC (4.30-5.90) m/uL Hgb (13.0-17.5) gm/dL Hct (39.0-53.0) % MCV (80.0-100.0) fL MCH (25.0-35.0) pg MCHC (31.0-37.0) g/dL RDW (11.5-15.5) % Plt Count (150-450) k/uL MPV Neutrophils % % Lymphocytes % % Monocytes % % Eosinophils % % Basophils % % Neutrophils # (1.3-7.7) k/uL Lymphocytes # (1.0-4.8) k/uL Monocytes # (0-1.0) k/uL Eosinophils # (0-0.7) k/uL Basophils # (0-0.2) k/uL PT (10.0-12.5) sec INR (<1.2) APTT (22.0-30.0) sec Sodium (137-145) mmol/L Potassium (3.5-5.1) mmol/L Chloride (98-107) mmol/L Carbon Dioxide (22-30) mmol/L Anion Gap mmol/L BUN (9-20) mg/dL Creatinine (0.66-1.25) mg/dL Est GFR (CKD-EPI)AfAm (>60 ml/min/1.73 sqM) Est GFR (CKD-EPI)NonAf (>60 ml/min/1.73 sqM) Glucose (74-99) mg/dL Calcium (8.4-10.2) mg/dL Magnesium (1.6-2.3) mg/dL Total Bilirubin (0.2-1.3) mg/dL AST (17-59) U/L ALT (4-49) U/L Alkaline Phosphatase (38-126) U/L Troponin I <0.012 (0.000-0.034) ng/mL Total Protein (6.3-8.2) g/dL Albumin (3.5-5.0) g/dL Disposition <Lorena Sampson - Last Filed: 03/03/23 12:26> Time of Disposition: 15:52 <Ayaz Tripp - Last Filed: 03/03/23 15:52> Clinical Impression: Chest pain, Hyperkalemia Disposition: ADMITTED IP TO THIS HOSP Referrals: Rey Wasserman DO [Primary Care Provider] - 1-2 days
[2023-03-03 13:25] LABS: Basophils # (A) 0.1 k/uL (0-0.2); Basophils % (A) 1 %; Eosinophils # (A) 0.2 k/uL (0-0.7); Eosinophils % (A) 1 %; HGB 13.5 gm/dL (13.0-17.5); Lymphocytes # (A) 2.5 k/uL (1.0-4.8); Lymphocytes % (A) 23 %; MCH 29.4 pg (25.0-35.0); MCHC 32.9 g/dL (31.0-37.0); MCV 89.3 fL (80.0-100.0); Mean Platelet Volume 7.3; Monocytes # (A) 0.7 k/uL (0-1.0); Monocytes % (A) 6 %; Neutrophils # (A) 7.3 k/uL (1.3-7.7); Neutrophils % (A) 67 %; Platelet Count 297 k/uL (150-450); RDW 13.3 % (11.5-15.5); WBC 10.9 k/uL (3.8-10.6)
[2023-03-03 13:37] LABS: ALT 30 U/L (4-49); AST 37 U/L (17-59); African American GFR (CKD) >90 (>60 ml/min/1.73 sqM); Albumin 4.7 g/dL (3.5-5.0); Alkaline Phosphatase 56 U/L (38-126); Anion Gap 15 mmol/L; Blood Urea Nitrogen 23 mg/dL (9-20); Calcium 9.8 mg/dL (8.4-10.2); Carbon Dioxide 19 mmol/L (22-30); Chloride 98 mmol/L (98-107); Glucose 96 mg/dL (74-99); Magnesium 1.8 mg/dL (1.6-2.3); Non-African American GFR(CKD) >90 (>60 ml/min/1.73 sqM); Sodium 132 mmol/L (137-145); Total Bilirubin 0.6 mg/dL (0.2-1.3)
[2023-03-03 13:38] LABS: Potassium 6.1 mmol/L (3.5-5.1)
[2023-03-03 14:02] LABS: Prothrombin Time 10.7 sec (10.0-12.5)
--- NOTE | 2023-03-03 14:21 | XR ---
EXAMINATION TYPE: XR chest 2V DATE OF EXAM: 03/03/2023 1:30 PM CLINICAL INDICATION:Male, 68 years old with history of chest pain; COMPARISON: Chest radiographs from 11/16/2022. TECHNIQUE: XR chest 2V Frontal and lateral views of the chest. FINDINGS: Lungs/Pleura: There is no evidence of pleural effusion, focal consolidation, or pneumothorax. Pulmonary vascularity: Unremarkable. Heart/mediastinum: Cardiomediastinal silhouette is enlarged and stable. Left atrial appendage occlusi on device is present. Musculoskeletal: No acute osseous pathology. IMPRESSION: No acute cardiopulmonary disease/process.
[2023-03-03] MEDS ORDERED: CALCIUM CHLORIDE 100 MG/ML 10 ML SYRINGE IVP STA (15:43)
[2023-03-03] MEDS ORDERED: SODIUM BICARB 8.4% 50 ML SYR (1 MEQ/ML) IV STA (15:43)
[2023-03-03] MEDS ORDERED: DEXTROSE 50% SYRINGE 50 ML IVP STA (15:44)
[2023-03-03] MEDS ORDERED: SODIUM ZIRCONIUM CYCLOSILICATE 10 GM PACKET PO ONE (15:44)
[2023-03-03] MEDS ORDERED: INSULIN REGULAR 100 UNIT/ML VIAL (IV) IV ONE (15:44)
[2023-03-03] MEDS ORDERED: NITROGLYCERIN SL TABS 0.4 MG TAB SUBLINGUAL PRN ×2 (15:52→17:10)
[2023-03-03] MEDS ORDERED: ASPIRIN 81 MG PO STA (15:52)
--- NOTE | 2023-03-03 17:57 | P.HPIM ---
History of Present Illness H&P Date: 03/03/23 History of Presenting Illness: Patient is a very pleasant 68-year-old male with a past medical history of CAD with stents and CABG 3 completed 04/19/[address] Franoc, hypertension, hyperlipidemia, and obstructive sleep apnea CPAP dependent. Patient presented to the emergency department today with a chief complaint of chest pain. Patient reporting intermittent chest pain ongoing over the past week similar to same pain he felt when he had his previous stents placed, stating it feels just like something was not right. Patient underwent full evaluation in the emergency department. Vital signs upon arrival show blood pressure 155/76, heart rate 67, respiratory rate 18, temp 98.8F, SpO2 is 96% on room air. EKG completed showing normal sinus rhythm at 67 bpm. Chest x-ray negative for acute cardiopulmonary process. Labs completed and reviewed. CBC showing leukocytosis with WBC count of 10.9, coagulation profile normal findings. BMP showing hyponatremia with sodium of 132, hyperkalemia with potassium of 6.1, chloride 98, bicarb 19, an anion gap of 15 with BUN of 23. Magnesium normal findings at 1.8. Liver profile unremarkable. Troponin negative at less than 0.012. Patient was given hyperkalemia cocktail in the emergency department and admitted under our services with consultation to cardiology. Review of systems: Pertinent positives and negatives as discussed in HPI, a complete review of systems was performed and all other systems are negative. Physical exam: Vital signs reviewed and stable. General: Nontoxic, no distress and appears stated age. Derm: Skin warm and dry, normal coloration for ethnicity. Head: Atraumatic, normocephalic and symmetric. Eyes: EOMs intact, no lid lag, and anicteric sclera Mouth: no lip lesions, mucus membranes moist Cardiovascular: regular rate and rhythm with normal S1S2, systolic murmur, positive posterior tibial pulses bilaterally, and cap refill < 2 seconds. Lungs: Respirations even, regular, and unlabored on room air. Lungs CTA bilaterally, no rhonchi, no rales, no wheezing, and no accessory muscle usage. Abdominal: soft, nontender to palpation, no guarding, no appreciable organomegaly Ext: ROM intact. No gross muscle atrophy, no edema, no contractures Neuro: Speech clear, face symmetrical and CN II-XII grossly intact with no noted focal neuro deficits Psych: Alert and oriented to person, place, time, and situation. Appropriate and pleasant affect. Assessment and Plan of Care: Chest pain, rule out acute coronary event Hyperkalemia High anion gap Metabolic acidosis History of CAD with stents Status post CABG 3 completed 04/19/21 Hypertension Hyperlipidemia -Cardiology consulted, appreciate further recommendations -Telemetry monitoring -Trend troponins -Cardiac diet, NPO at midnight -Discontinue lisinopril secondary to hyperkalemia. -Order placed for salicylate level and lactic acid secondary to high anion gap metabolic acidosis of unclear etiology. -Patient to continue daily medication regimen with aspirin 81 mg daily, fenofibrate 160 mg nightly, metoprolol 100 mg twice daily, and rosuvastatin 20 mg daily. -Order placed for repeat potassium now Obstructive sleep apnea Continue use of CPAP nightly. Data and imaging reviewed: As stated above in HPI The patient is admitted with an anticipated greater than 2 midnight stay for evaluation of hyperkalemia, high anion gap metabolic acidosis and chest pain. CODE STATUS: Full code DVT prophylaxis: Heparin Anticipated discharge date: Clinical course to determine, likely 48-[address]: Home, anticipate no need Patient was seen independently by Nurse Practitioner. This document was prepared using [employer] [place] dictation software. Please allow for errors in kennel supervisor while rare they do occur. Devyn Rivers NP rendered care for this patient independently, reviewed the findings and plan as documented in the note above. I did not physically speak with or examine the patient on this date. Past Medical History Past Medical History: Coronary Artery Disease (CAD), GERD/Reflux, Hyperlipidemia, Hypertension, Sleep Apnea/CPAP/BIPAP Additional Past Medical History / Comment(s): IRRITABLE BOWEL SYNDROME,uses cpap History of Any Multi-Drug Resistant Organisms: None Reported Past Surgical History: Heart Catheterization With Stent, Joint Replacement Additional Past Surgical History / Comment(s): JANESSA KNEE REPLACEMENTS,HEART STENTS X2 Past Anesthesia/Blood Transfusion Reactions: No Reported Reaction Additional Past Anesthesia/Blood Transfusion Reaction / Comment(s): no hx blood transfusion Date of Last Stent Placement:: 09/2013 Past Psychological History: No Psychological Hx Reported Smoking Status: Former smoker Past Alcohol Use History: Occasional Past Drug Use History: None Reported - Past Family History Father Family Medical History: Osteoarthritis (OA) Additional Family Medical History / Comment(s): pt. states both of his parents are living and are healthy, pt. states they have had your average issues such as hip replacments, etc Mother Family Medical History: Osteoarthritis (OA) Brother(s) Family Medical History: Coronary Artery Disease (CAD) Medications and Allergies Home Medications Medication Instructions Recorded Confirmed Type Rosuvastatin Calcium [Crestor] 20 mg PO HS 04/03/21 03/03/23 History Metoprolol Tartrate [Lopressor] 100 mg PO BID #60 tab 04/23/21 03/03/23 Rx Cholecalciferol [Vitamin D3 (25 25 mcg PO DAILY 07/01/22 03/03/23 History Mcg = 1000 Iu)] Vitamin E (Dl,Tocopheryl Acet) 400 unit PO DAILY 07/01/22 03/03/23 History [Vitamin E (400 Iu = 180 mg)] Aspirin EC [Ecotrin Low Dose] 81 mg PO DAILY #30 tab 07/02/22 03/03/23 Rx Nitroglycerin Sl Tabs [Nitrostat] 0.4 mg SUBLINGUAL Q5M PRN #20 tab 07/02/22 03/03/23 Rx Fenofibrate Nanocrystallized 145 mg PO HS 03/03/23 03/03/23 History [Fenofibrate] [place]-3/Dha/Epa/Fish Oil [Fish Oil 1 cap PO DAILY 03/03/23 03/03/23 History 1,000 mg Softgel] Ezetimibe [Zetia] 10 mg PO DAILY #30 tab 03/04/23 Rx amLODIPine [Norvasc] 5 mg PO DAILY #30 tab 03/04/23 Rx lisinopriL [Prinivil] 20 mg PO DAILY #30 tablet 03/04/23 Rx Allergies Allergy/AdvReac Type Severity Reaction Status Date / Time atorvastatin Allergy Rash/Hives/Joint Verified 03/03/23 15:57 Pain simvastatin Allergy Rash/Hives/Joint Verified 03/03/23 15:57 Pain Physical Exam Osteopathic Statement: *. No significant issues noted on an osteopathic structural exam other than those noted in the History and Physical/Consult. Vitals: Vital Signs Temp Pulse Resp BP Pulse Ox 03/03/23 15:16 71 16 130/76 95 03/03/23 12:26 98.8 F 67 18 155/76 96 Intake and Output 03/03/23 03/03/23 03/03/23 06:59 14:59 22:59 Other: Weight 104.326 kg Results CBC & Chem 7: 03/04/23 06:11 03/04/23 06:11 Labs: Abnormal Lab Results - Last 24 Hours (Table) 03/03/23 03/03/23 Range/Units 12:43 12:43 WBC 10.9 H (3.8-10.6) k/uL Sodium 132 L (137-145) mmol/L Potassium 6.1 H* (3.5-5.1) mmol/L Carbon Dioxide 19 L (22-30) mmol/L BUN 23 H (9-20) mg/dL
[2023-03-03] MEDS: NITROGLYCERIN OINT 1 INCH/GM PACKET TOPICAL SCH (18:14)
[2023-03-03] MEDS ORDERED: FENOFIBRATE 160 MG TAB PO SCH (21:00)
[2023-03-03] MEDS ORDERED: CRESTOR 20 MG PO SCH (21:00)
[2023-03-03] MEDS: METOPROLOL TARTRATE 50 MG TAB PO SCH (21:28)
[2023-03-04] MEDS: HEPARIN SODIUM,PORCINE 5,000 UNIT/ML 1 ML VIAL SQ SCH ×2 (01:12→08:23)
[2023-03-04] MEDS: NITROGLYCERIN OINT 1 INCH/GM PACKET TOPICAL SCH ×2 (01:12→06:44)
[2023-03-04 06:34] LABS: HGB 13.1 gm/dL (13.0-17.5); MCH 30.1 pg (25.0-35.0); MCHC 33.6 g/dL (31.0-37.0); MCV 89.7 fL (80.0-100.0); Mean Platelet Volume 7.1; Platelet Count 271 k/uL (150-450); RBC 4.35 m/uL (4.30-5.90); RDW 13.2 % (11.5-15.5); WBC 10.2 k/uL (3.8-10.6)
[2023-03-04 07:01] LABS: ALT 28 U/L (4-49); AST 26 U/L (17-59); African American GFR (CKD) >90 (>60 ml/min/1.73 sqM); Albumin 4.3 g/dL (3.5-5.0); Alkaline Phosphatase 64 U/L (38-126); Anion Gap 13 mmol/L; Blood Urea Nitrogen 18 mg/dL (9-20); Calcium 9.7 mg/dL (8.4-10.2); Carbon Dioxide 23 mmol/L (22-30); Chloride 102 mmol/L (98-107); Glucose 117 mg/dL (74-99); Magnesium 1.9 mg/dL (1.6-2.3); Non-African American GFR(CKD) >90 (>60 ml/min/1.73 sqM); Potassium 4.9 mmol/L (3.5-5.1); Sodium 138 mmol/L (137-145); Total Bilirubin 0.6 mg/dL (0.2-1.3); Total Protein 7.3 g/dL (6.3-8.2)
[2023-03-04] MEDS: METOPROLOL TARTRATE 50 MG TAB PO SCH (08:23)
[2023-03-04] MEDS ORDERED: NON FORMULARY DRUG (Omega-3/Dha/Epa/Fish Oil [Fish Oil 1,000 Mg Softgel] 1 EACH Capsule) PO SCH (09:00)
[2023-03-04] MEDS ORDERED: VITAMIN E (DL,TOCOPHERYL ACET) 400 UNIT (180 MG) CAP PO SCH (09:00)
[2023-03-04] MEDS ORDERED: CHOLECALCIFEROL 25 MCG (1000 IU) TABLET PO SCH (09:00)
[2023-03-04] MEDS ORDERED: ASPIRIN 81 MG PO SCH (09:00)
[2023-03-04] MEDS ORDERED: ASPIRIN 325 MG TAB PO SCH (09:00)
[2023-03-04 09:20] VITALS: BP 117/88; PULSE 76; RESP 16; TEMP 97.9
[2023-03-04] MEDS ORDERED: REGADENOSON 0.4 MG/5 ML SYRINGE IV PRN (10:11)
[2023-03-04] MEDS ORDERED: AMINOPHYLLINE 500 MG/20 ML VIAL IV PRN (10:11)
[2023-03-04] MEDS ORDERED: CAFFEINE CITRATE 60 MG/3 ML VIAL IV PRN (10:11)
[2023-03-04] MEDS ORDERED: EZETIMIBE 10 MG TAB PO SCH (10:15)
--- NOTE | 2023-03-04 11:08 | P.DS ---
Providers Date of admission: 03/03/23 15:52 Expected date of discharge: 03/04/23 Attending physician: Adela Barreto DO Consults: 03/03/23 15:52 Consult Physician Urgent Consulting Provider: [facility] Consult Reason/Comments: Chest pain, hyperkalemia Do you want consulting provider notified?: Yes Primary care physician: [facility] Hospital Course: Patient is a very pleasant 68-year-old male with a past medical history of CAD with stents and CABG 3 completed 04/19/[address] Franco, hypertension, hyperlipidemia, and obstructive sleep apnea CPAP dependent. Patient presented to the emergency department today with a chief complaint of chest pain. Patient reporting intermittent chest pain ongoing over the past week similar to same pain he felt when he had his previous stents placed, stating it feels just like something was not right. Patient underwent full evaluation in the emergency department. Vital signs upon arrival show blood pressure 155/76, heart rate 67, respiratory rate 18, temp 98.8F, SpO2 is 96% on room air. EKG completed showing normal sinus rhythm at 67 bpm. Chest x-ray negative for acute cardiopulmonary process. CBC showing leukocytosis with WBC count of 10.9. Coagulation profile normal findings. BMP showing hyponatremia with sodium of 132, hyperkalemia with potassium of 6.1, chloride 98, bicarb 19, an anion gap of 15 with BUN of 23. Magnesium 1.8. Liver profile unremarkable. Troponin negative at less than 0.012. Patient was given hyperkalemia cocktail in the emergency department and admitted under our services with consultation to cardiology. Troponins negative x 3. ACS was ruled out. Cardiology consulted. Cardiology recommended decreasing Lisinopril to 20 mg PO QD, adding Amlodipine 5 mg PO QD and event monitor, cleared for discharge. Hyperkalemia resolved with above treatment. Pertinent studies include CXR, EKG. 03/04 Patient was seen and examined. No complaints. CBC unremarkable. BMP Cr 0.61, glu 117. General: non toxic, no distress, appears at stated age Derm: warm, dry Head: atraumatic, normocephalic, symmetric Eyes: EOMI, no lid lag, anicteric sclera Mouth: no lip lesion, mucus membranes moist Cardiovascular: S1S2 reg, no murmur Lungs: CTA bilateral, no rhonchi, no rales , no accessory muscle use Ext: no gross muscle atrophy, no edema, no contractures Neuro: no focal neuro deficits Psych: Alert, oriented, appropriate affect Discharge Diagnosis: Chest pain High anion gap metabolic acidosis History of CAD with stent and status post CABG Hypertension Hyperlipidemia Resolved: Hyperkalemia This complex discharge took 35 minutes to complete. Patient Condition at Discharge: Stable Plan - Discharge Summary Discharge Rx Participant: Yes New Discharge Prescriptions: New amLODIPine [Norvasc] 5 mg PO DAILY #30 tab lisinopriL [Prinivil] 20 mg PO DAILY #30 tablet Ezetimibe [Zetia] 10 mg PO DAILY #30 tab Continue Rosuvastatin Calcium [Crestor] 20 mg PO HS Aspirin EC [Ecotrin Low Dose] 81 mg PO DAILY #30 tab Metoprolol Tartrate [Lopressor] 100 mg PO BID #60 tab Vitamin E (Dl,Tocopheryl Acet) [Vitamin E (400 Iu = 180 mg)] 400 unit PO DAILY Cholecalciferol [Vitamin D3 (25 Mcg = 1000 Iu)] 25 mcg PO DAILY Nitroglycerin Sl Tabs [Nitrostat] 0.4 mg SUBLINGUAL Q5M PRN #20 tab PRN Reason: Chest Pain [place]-3/Dha/Epa/Fish Oil [Fish Oil 1,000 mg Softgel] 1 cap PO DAILY Fenofibrate Nanocrystallized [Fenofibrate] 145 mg PO HS Discontinued lisinopriL [Zestril] 20 mg PO BID Discharge Medication List Rosuvastatin Calcium [Crestor] 20 mg PO HS 04/03/21 [History] Metoprolol Tartrate [Lopressor] 100 mg PO BID #60 tab 04/23/21 [Rx] Cholecalciferol [Vitamin D3 (25 Mcg = 1000 Iu)] 25 mcg PO DAILY 07/01/22 [History] Vitamin E (Dl,Tocopheryl Acet) [Vitamin E (400 Iu = 180 mg)] 400 unit PO DAILY 07/01/22 [History] Aspirin EC [Ecotrin Low Dose] 81 mg PO DAILY #30 tab 07/02/22 [Rx] Nitroglycerin Sl Tabs [Nitrostat] 0.4 mg SUBLINGUAL Q5M PRN #20 tab 07/02/22 [Rx] Fenofibrate Nanocrystallized [Fenofibrate] 145 mg PO HS 03/03/23 [History] [place]-3/Dha/Epa/Fish Oil [Fish Oil 1,000 mg Softgel] 1 cap PO DAILY 03/03/23 [History] Ezetimibe [Zetia] 10 mg PO DAILY #30 tab 03/04/23 [Rx] amLODIPine [Norvasc] 5 mg PO DAILY #30 tab 03/04/23 [Rx] lisinopriL [Prinivil] 20 mg PO DAILY #30 tablet 03/04/23 [Rx] Follow up Appointment(s)/Referral(s): Jarrod العلي MD [STAFF PHYSICIAN] - 1 Week Rey Wasserman DO [Primary Care Provider] - 1-2 days Discharge Disposition: HOME SELF-CARE
[2023-03-04 11:15] LABS: Chol/HDL Ratio 3.69 Ratio; LDL Cholesterol,Calculated 103.2 mg/dL (0.0-131.0)
--- NOTE | 2023-03-05 07:16 | P.CRDCN ---
History of Present Illness Consult date: 03/04/23 Consult reason: chest pain (hyperkalemia) History of present illness: History of present illness: This is a 68 year old male patient of Dr. LEENA العلي with past medical history of coronary artery disease status post multivessel PCI in 2013 after progression of coronary artery disease in April 2021 he had coronary artery bypass surgery with VANEGAS to LAD, a free left radial graft to the obtuse marginal 1 and SVG to PDA of the RCA. He also has history of hypertension, dyslipidemia, mild history of tobacco use. We have been asked to evaluate the patient for chest pain and hyperkalemia. Patient states he has had some chest pain for the past week but more of a fluttering sensation in his chest. It is not the same as when he had stent placement done in the past. All symptoms since yesterday. He denies having any lightheadedness or dizziness. No nausea no shortness of breath. He denies having any dyspnea on exertion. He states the pain he experienced yesterday lasted for about 4-5 minutes. He states a fluttering sensation can h appen while he is at rest or active. regarding hyperkalemia. Patient states he has been taking Advil at least 6 tablets in the last week and has been doing this on a regular basis along with consistently taking lisinopril 20 mg twice daily. Patient ambulated in the [place]yola while being observed and had no fluttering feeling in his chest and no chest pain with ambulation. EKG SINUS RHYTHM, INCOMPLETE RIGHT BUNDLE BRANCH BLOCK Chest x-ray: no acute process CBC unremarkable. Initial sodium 132 and initial potassium 6.1 and repeat this morning 4.9. BUN 23 creatinine 0.75. Troponin negative 3. Triglycerides 184, cholesterol 192, LDL 103, HDL 52. Salicylate level I.7. TSH 0.8-5. Home cardiac medications: aspirin 81 mg daily, lisinopril 20 mg twice daily, metoprolol tartrate 100 mg twice daily, Crestor 20 mg at bedtime. Echocardiogram performed on 07/02/2022 revealed EF 55%, poorly visualized valves. Lexiscan stress test performed 07/02/2022 in the office revealed EF of 57%, prominent fixed defect of the inferior wall, no reversible ischemia. Review Of Systems: At the time of my exam: CONSTITUTIONAL: Denies fever or chills. CARDIOVASCULAR: Denies chest pain, Denies shortness of breath, no orthopnea, PND or palpitations. RESPIRATORY: Denies cough. GASTROINTESTINAL: Denies abdominal pain, diarrhea, constipation, nausea or vomiting. MUSCULOSKELETAL: Denies myalgias. NEUROLOGIC: Denies numbness, tingling or weakness. ENDOCRINE: Denies fatigue, weight change, polydipsia or polyurina. GENITOURINARY: Denies burning, hematuria or urgency with micturation. HEMATOLOGIC: Denies history of anemia or bleeding. Physical examination: Gen: This is a 68-year-old male. He is resting in chair and appears to be comfortable and in no acute distress. VS: reviewed HEENT: Head is atraumatic, normocephalic. Pupils equal, round. Sclerae is anicteric. NECK: Supple. No JVD. LUNGS: Clear to auscultation. No wheezes or rhonchi. No intercostal retractions. HEART: Regular rate and rhythm. No murmur. ABDOMEN: Soft No tenderness. EXTREMITIES: No pedal edema. No calf tenderness. NEUROLOGICAL: Patient is awake, alert and oriented x3. Assessment: Fluttering sensation, rule out arrhythmia Hyperkalemia secondary to combination of NSAID and lisinopril History of coronary artery disease Hypertension Dyslipidemia Plan: 30 day event monitor Decrease lisinopril to 20 mg daily Start patient on Zetia 10 mg daily Avoid NSAIDs Patient is cleared for discharge from cardiology and may follow-up with Dr. العلي in one week Thank you kindly for this consultation. Nurse practitioner note has been reviewed, I agree with documented findings and plan of care. Patient was seen and examined. Past Medical History Past Medical History: Coronary Artery Disease (CAD), GERD/Reflux, Hyperlipidemia, Hypertension, Sleep Apnea/CPAP/BIPAP Additional Past Medical History / Comment(s): IRRITABLE BOWEL SYNDROME,uses cpap History of Any Multi-Drug Resistant Organisms: None Reported Past Surgical History: Heart Catheterization With Stent, Joint Replacement Additional Past Surgical History / Comment(s): JANESSA KNEE REPLACEMENTS,HEART STENTS X2 Past Anesthesia/Blood Transfusion Reactions: No Reported Reaction Additional Past Anesthesia/Blood Transfusion Reaction / Comment(s): no hx blood transfusion Date of Last Stent Placement:: 09/2013 Past Psychological History: No Psychological Hx Reported Smoking Status: Former smoker Past Alcohol Use History: Occasional Additional Past Alcohol Use History / Comment(s): pt. states he drinks beer occassionally Past Drug Use History: None Reported - Past Family History Father Family Medical History: Osteoarthritis (OA) Additional Family Medical History / Comment(s): pt. states both of his parents are living and are healthy, pt. states they have had your average issues such as hip replacments, etc Mother Family Medical History: Osteoarthritis (OA) Brother(s) Family Medical History: Coronary Artery Disease (CAD) Medications and Allergies Home Medications Medication Instructions Recorded Confirmed Type Rosuvastatin Calcium [Crestor] 20 mg PO HS 04/03/21 03/03/23 History Metoprolol Tartrate [Lopressor] 100 mg PO BID #60 tab 04/23/21 03/03/23 Rx Cholecalciferol [Vitamin D3 (25 25 mcg PO DAILY 07/01/22 03/03/23 History Mcg = 1000 Iu)] Vitamin E (Dl,Tocopheryl Acet) 400 unit PO DAILY 07/01/22 03/03/23 History [Vitamin E (400 Iu = 180 mg)] Aspirin EC [Ecotrin Low Dose] 81 mg PO DAILY #30 tab 07/02/22 03/03/23 Rx Nitroglycerin Sl Tabs [Nitrostat] 0.4 mg SUBLINGUAL Q5M PRN #20 tab 07/02/22 03/03/23 Rx Fenofibrate Nanocrystallized 145 mg PO HS 03/03/23 03/03/23 History [Fenofibrate] [place]-3/Dha/Epa/Fish Oil [Fish Oil 1 cap PO DAILY 03/03/23 03/03/23 History 1,000 mg Softgel] Ezetimibe [Zetia] 10 mg PO DAILY #30 tab 03/04/23 Rx amLODIPine [Norvasc] 5 mg PO DAILY #30 tab 03/04/23 Rx lisinopriL [Prinivil] 20 mg PO DAILY #30 tablet 03/04/23 Rx Allergies Allergy/AdvReac Type Severity Reaction Status Date / Time atorvastatin Allergy Rash/Hives/Joint Verified 03/03/23 15:57 Pain simvastatin Allergy Rash/Hives/Joint Verified 03/03/23 15:57 Pain Physical Exam Vitals: Vital Signs Temp Pulse Pulse Pulse Resp BP BP 03/04/23 08:20 97.9 F 76 16 117/88 03/04/23 04:00 98 F 92 18 155/68 03/04/23 00:00 103 H 18 131/63 03/03/23 20:00 97.8 F 100 18 131/69 03/03/23 18:48 97.7 F 83 18 123/74 03/03/23 18:27 96 18 148/75 03/03/23 15:16 71 16 130/76 03/03/23 12:26 98.8 F 67 18 155/76 Pulse Ox 03/04/23 08:20 92 L 03/04/23 04:00 92 L 03/04/23 00:00 95 03/03/23 20:00 94 L 03/03/23 18:48 93 L 03/03/23 18:27 97 03/03/23 15:16 95 03/03/23 12:26 96 Intake and Output 03/03/23 03/04/23 03/04/23 22:59 06:59 14:59 Intake Total 0 Balance 0 Intake: Oral 0 Other: # Voids 1 1 Weight 104.326 kg Results 03/04/23 06:11 03/04/23 06:11 Cardiac Enzymes 03/03/23 03/03/23 03/03/23 Range/Units 12:43 12:43 16:39 AST 37 (17-59) U/L Troponin I <0.012 <0.012 (0.000-0.034) ng/mL 03/03/23 03/04/23 Range/Units 19:09 06:11 AST 26 (17-59) U/L Troponin I <0.012 (0.000-0.034) ng/mL Coagulation 03/03/23 Range/Units 12:43 PT 10.7 (10.0-12.5) sec APTT 27.0 (22.0-30.0) sec CBC 03/03/23 03/04/23 Range/Units 12:43 06:11 WBC 10.9 H 10.2 (3.8-10.6) k/uL RBC 4.60 4.35 (4.30-5.90) m/uL Hgb 13.5 13.1 (13.0-17.5) gm/dL Hct 41.0 39.0 (39.0-53.0) % Plt Count 297 271 (150-450) k/uL Comprehensive Metabolic Panel 03/03/23 03/03/23 03/04/23 Range/Units 12:43 15:56 06:11 Sodium 132 L 138 (137-145) mmol/L Potassium 6.1 H* 5.1 4.9 (3.5-5.1) mmol/L Chloride 98 102 (98-107) mmol/L Carbon Dioxide 19 L 23 (22-30) mmol/L BUN 23 H 18 (9-20) mg/dL Creatinine 0.75 0.61 L (0.66-1.25) mg/dL Glucose 96 117 H (74-99) mg/dL Calcium 9.8 9.7 (8.4-10.2) mg/dL AST 37 26 (17-59) U/L ALT 30 28 (4-49) U/L Alkaline Phosphatase 56 64 (38-126) U/L Total Protein 8.0 7.3 (6.3-8.2) g/dL Albumin 4.7 4.3 (3.5-5.0) g/dL Current Medications Generic Name Dose Route Start Last Admin Trade Name Freq PRN Reason Stop Dose Admin Aspirin 81 mg 03/04/23 09:00 03/04/23 08:23 Aspirin 81 Mg PO 81 mg DAILY FRANCISCO Administration Cholecalciferol 25 mcg 03/04/23 09:00 03/04/23 08:23 Cholecalciferol 25 Mcg (1000 Iu) Tablet PO 25 mcg DAILY FRANCISCO Administration Fenofibrate 160 mg 03/03/23 21:00 03/03/23 21:28 Fenofibrate 160 Mg Tab PO 160 mg HS FRANCISCO Administration Heparin Sodium (Porcine) 5,000 unit 03/04/23 00:00 03/04/23 08:23 Heparin Sodium,Porcine 5,000 Unit/Ml 1 Ml Vial SQ 5,000 unit Q8HR FRANCISCO Administration Metoprolol Tartrate 100 mg 03/03/23 21:00 03/04/23 08:23 Metoprolol Tartrate 50 Mg Tab PO 100 mg BID FRANCISCO Administration Nitroglycerin 0.4 mg 03/03/23 15:52 Nitroglycerin Sl Tabs 0.4 Mg Tab SUBLINGUAL Q5M PRN Chest Pain Nitroglycerin 1 inch 03/03/23 18:00 03/04/23 06:44 Nitroglycerin Oint 1 Inch/Gm Packet TOPICAL 1 inch Q6HR FRANCISCO Administration Nitroglycerin 0.4 mg 03/03/23 17:10 Nitroglycerin Sl Tabs 0.4 Mg Tab SUBLINGUAL Q5M PRN Chest Pain Crestor ( 20 mg 03/03/23 21:00 03/03/23 21:30 Rosuvastatin Calcium PO Not Given ) 20 Mg Tablet HS [facility] Non-Formulary Medication 1 cap 03/04/23 09:00 03/04/23 08:24 [place]-3/Dha/Epa/Fish Oil [Fish Oil 1,000 Mg Softgel] PO Not Given DAILY [facility] Vitamin E 400 unit 03/04/23 09:00 03/04/23 08:23 Vitamin E (Dl,Tocopheryl Acet) 400 Unit (180 Mg) Cap PO 400 unit DAILY FRANCISCO Administration Intake and Output 03/03/23 03/04/23 03/04/23 22:59 06:59 14:59 Intake Total 0 Balance 0 Intake: Oral 0 Other: # Voids 1 1 Weight 104.326 kg 03/04/23 06:11 03/04/23 06:11
[2023-03-05] MEDS ORDERED: amLODIPine 5 MG TAB PO SCH (09:00)
== END 2023-03-04 11:59 | disposition home or self-care (01) ==
LOC: EC 11:52 → 3SCARD 15:52 → INTOOBSV 15:52 → 3SCARD 17:13
PROVIDERS: ADMIT Internal Medicine; ATTEND Internal Medicine
DX: R07.9 Chest pain, unspecified (principal); E87.5 Hyperkalemia; E87.20 Acidosis, unspecified; I25.10 Atherosclerotic heart disease of native coronary artery without angina pectoris; K21.9 Gastro-esophageal reflux disease without esophagitis; E78.5 Hyperlipidemia, unspecified; I10 Essential (primary) hypertension; G47.33 Obstructive sleep apnea (adult) (pediatric); Z87.891 Personal history of nicotine dependence; Z95.5 Presence of coronary angioplasty implant and graft; Z79.899 Other long term (current) drug therapy; Z79.02 Long term (current) use of antithrombotics/antiplatelets; Z79.82 Long term (current) use of aspirin
CPT/HCPCS: 96372; 96374; 96375; 99285; 36415; 93005; 93270; 80061; 80053 ×2; 84443; 83605; 83735 ×2; 84132; 84484; 85025; 85027; 85610; 85730; 80179; 71046; G0378 ×2; J1644

== ENCOUNTER 2024-05-16 12:40 | Emergency (ER) | payer MEDICARE ==
[2024-05-16 13:16] VITALS: TEMP 97.8
--- NOTE | 2024-05-16 13:17 | ED ---
Chest Pain HPI - General Source: patient, RN notes reviewed Mode of arrival: ambulatory Limitations: no limitations <RosyJoe - Last Filed: 05/16/24 13:15> - General Source: patient, RN notes reviewed, old records reviewed Mode of arrival: ambulatory Limitations: no limitations - History of Present Illness MD Complaint: chest pain -: hour(s) Pain Location: substernal Pain Radiation: none Severity: mild Severity scale (1-10): 2 Quality: aching Consistency: constant Improves With: nothing Anginal Symptoms: sense of impending doom Other Symptoms: palpitations Treatments Prior to Arrival: none <Ayaz Campa - Last Filed: 05/16/24 18:51> - General Stated Complaint: flutter feeling in chest Time Seen by Provider: 05/16/24 12:54 - History of Present Illness Initial Comments: Quick note: This is a 69-year-old male with history of CAD, DM, triple bypass and cardiac stents presenting for mid chest pain and lightheadedness upon waking this morning. Patient endorses having similar symptoms yesterday which resolved with heartburn medication, stating symptoms are not resolving today. Denies dyspnea, radiating pain, diaphoresis, AMS, ALOC. (Joe Gallegos) This is a 69 male to the ER for evaluation of chest pain with history of CAD and triple bypass coming in for a few days of chest pain left-sided chest pain some squeezing some heartburn symptoms, symptoms do resolve at home when he takes [id number] heartburn medication. No shortness of breath no other complaints, concerned with history of heart disease (Ayaz Campa) - Related Data Home Medications Medication Instructions Recorded Confirmed Rosuvastatin Calcium [Crestor] 20 mg PO HS 04/03/21 03/03/23 Cholecalciferol [Vitamin D3 (25 25 mcg PO DAILY 07/01/22 03/03/23 Mcg = 1000 Iu)] Vitamin E (Dl,Tocopheryl Acet) 400 unit PO DAILY 07/01/22 03/03/23 [Vitamin E (400 Iu = 180 mg)] Fenofibrate Nanocrystallized 145 mg PO HS 03/03/23 03/03/23 [Fenofibrate] Gilboa-3/Dha/Epa/Fish Oil [Fish Oil 1 cap PO DAILY 03/03/23 03/03/23 1,000 mg Softgel] Previous Rx's Medication Instructions Recorded Metoprolol Tartrate [Lopressor] 100 mg PO BID #60 tab 04/23/21 Aspirin EC [Ecotrin Low Dose] 81 mg PO DAILY #30 tab 07/02/22 Nitroglycerin Sl Tabs [Nitrostat] 0.4 mg SUBLINGUAL Q5M PRN #20 tab 07/02/22 Ezetimibe [Zetia] 10 mg PO DAILY #30 tab 03/04/23 amLODIPine [Norvasc] 5 mg PO DAILY #30 tab 03/04/23 lisinopriL [Prinivil] 20 mg PO DAILY #30 tablet 03/04/23 Allergies Allergy/AdvReac Type Severity Reaction Status Date / Time atorvastatin Allergy Rash/Hives/Joint Verified 03/03/23 15:57 Pain simvastatin Allergy Rash/Hives/Joint Verified 03/03/23 15:57 Pain Review of Systems ROS Other: All systems not noted in ROS Statement are negative. <Joe Gallegos - Last Filed: 05/16/24 13:15> ROS Other: All systems not noted in ROS Statement are negative. <Ayaz Campa - Last Filed: 05/16/24 18:51> ROS Statement: Those systems with pertinent positive or pertinent negative responses have been documented in the HPI. Past Medical History Past Medical History: Coronary Artery Disease (CAD), GERD/Reflux, Hyperlipidemia, Hypertension, Sleep Apnea/CPAP/BIPAP Additional Past Medical History / Comment(s): IRRITABLE BOWEL SYNDROME,uses cpap History of Any Multi-Drug Resistant Organisms: None Reported Past Surgical History: Heart Catheterization With Stent, Joint Replacement Additional Past Surgical History / Comment(s): JANESSA KNEE REPLACEMENTS,HEART STENTS X2 Past Anesthesia/Blood Transfusion Reactions: No Reported Reaction Additional Past Anesthesia/Blood Transfusion Reaction / Comment(s): no hx blood transfusion Date of Last Stent Placement:: 09/2013 Past Psychological History: No Psychological Hx Reported Smoking Status: Former smoker Past Alcohol Use History: Occasional Past Drug Use History: None Reported - Past Family History Father Family Medical History: Osteoarthritis (OA) Additional Family Medical History / Comment(s): pt. states both of his parents are living and are healthy, pt. states they have had your average issues such as hip replacments, etc Mother Family Medical History: Osteoarthritis (OA) Brother(s) Family Medical History: Coronary Artery Disease (CAD) <Joe Gallegos - Last Filed: 05/16/24 13:15> General Exam <Joe Gallegos - Last Filed: 05/16/24 13:15> General appearance: alert, in no apparent distress Head exam: Present: atraumatic, normocephalic, normal inspection Eye exam: Present: normal appearance, PERRL, EOMI. Absent: scleral icterus, conjunctival injection, periorbital swelling ENT exam: Present: normal exam, mucous membranes moist Neck exam: Present: normal inspection. Absent: tenderness, meningismus, lymphadenopathy Respiratory exam: Present: normal lung sounds bilaterally. Absent: respiratory distress, wheezes, rales, rhonchi, stridor Cardiovascular Exam: Present: regular rate, normal rhythm, normal heart sounds. Absent: systolic murmur, diastolic murmur, rubs, gallop, clicks GI/Abdominal exam: Present: soft, normal bowel sounds. Absent: distended, tenderness, guarding, rebound, rigid Extremities exam: Present: normal inspection, full ROM, normal capillary refill. Absent: tenderness, pedal edema, joint swelling, calf tenderness Back exam: Present: normal inspection Neurological exam: Present: alert, oriented X3, CN II-XII intact Psychiatric exam: Present: normal affect, normal mood Skin exam: Present: warm, dry, intact, normal color. Absent: rash <Ayaz Campa - Last Filed: 05/16/24 18:51> - General Exam Comments Initial Comments: Visual Physical Exam Vital signs reviewed General: Well-appearing, nontoxic, no acute distress. 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 sent in by a medical professional or institution ([facility], [employer], urgent care, hospital, or long term...) When possible be specific @ -no Did you speak to anyone other than the patient for history (EMS, parent, family, police, friend...)? What history was obtained from this source @ -no Did you review nursing and triage notes (agree or disagree)? Why? @ -agree Are old charts reviewed (outside hosp., previous admission, EMS record, old EKG, old radiological studies, urgent care reports/EKG's, long term records)? Report findings @ -yes Differential Diagnosis (chest pain, altered mental status, abdominal pain women, abdominal pain men, vaginal bleeding, weakness, fever, dyspnea, syncope, headache, dizziness, GI bleed, back pain, seizure, CVA, palpatations, mental health, musculoskeletal)? @ -prior EKG interpreted by me (3pts min.). @ -yes X-rays interpreted by me (1pt min.). @ -yes negative for acute disease CT interpreted by me (1pt min.). @ -no U/S interpreted by me (1pt. min.). @ -no What testing was considered but not performed or refused? (CT, X-rays, U/S, labs)? Why? @ -none What meds were considered but not given or refused? Why? @ -none Did you discuss the management of the patient with other professionals (professionals i.e. [facility], [employer], lab, RT, psych nurse, high school social science teacher, lapidary apprentice, teacher, information officer, case advocate)? Give summary @ -no Was smoking cessation discussed for >3mins.? @ -no Was critical care preformed (if so, how long)? @ -no Were there social determinants of health that impacted care today? How? (Homelessness, low income, unemployed, alcoholism, drug addiction, transportation, low edu. Level, literacy, decrease access to med. care, half-way, rehab)? @ -none Was there de-escalation of care discussed even if they declined (Discuss DNR or withdrawal of care, Hospice)? DNR status @ -no What co-morbidities impacted this encounter? (DM, HTN, Smoking, COPD, CAD, Cancer, CVA, ARF, Chemo, Hep., AIDS, mental health diagnosis, sleep apnea, morbid obesity)? @ -none Was patient admitted / discharged? Hospital course, mention meds given and route, prescriptions, significant lab abnormalities, going to OR and other pertinent info. @ - Undiagnosed new problem with uncertain prognosis? @ -no Drug Therapy requiring intensive monitoring for toxicity (Heparin, Nitro, Insulin, Cardizem)? @ -no Were any procedures done? @ -no Diagnosis/symptom? @ - Acute, or Chronic, or Acute on Chronic? @ -Acute Uncomplicated (without systemic symptoms) or Complicated (systemic symptoms)? @ -Complicated Side effects of treatment? @ -no Exacerbation, Progression, or Severe Exacerbation? @ -exacerbation Poses a threat to life or bodily function? How? (Chest pain, [place], [place], pneumonia, PE, COPD, DKA, ARF, appy, cholecystitis, CVA, Diverticulitis, Homicidal, Suicidal, threat to staff... and all critical care pts) @ -yes (Ayaz Campa) Reevaluation #5: Differential Chest Pain: Stable Angina, Unstable Angina, STEMI, NSTEMI Aortic Dissection, Pneumothorax, Musculoskeletal, Esophageal Spasm GERD, Cholecystitis, Pancreatitis, Zoster, this is not meant to be an all-inclusive list. (Ayaz Campa) Chest Pain MDM <Joe Gallegos - Last Filed: 05/16/24 13:15> <Ayaz Campa - Last Filed: 05/16/24 18:51> - MDM I completed the quick note portion of this chart signed EVA Velazquez (Joe Gallegos) 69 male with nonspecific chest pain does appear to be improved like gastritis but does have strong history of heart disease, normal EKG and he does have negative troponin here in the ER and would prefer to follow-up with her department of sociology chair as an outpatient (Ayaz Campa) Disposition <RosyJoe garcia - Last Filed: 05/16/24 13:15> Is patient prescribed a controlled substance at d/c from ED?: No Time of Disposition: 17:40 <Ayaz Campa - Last Filed: 05/16/24 18:51> Clinical Impression: Chest pain, Palpitations, Gastritis, CAD (coronary artery disease) Disposition: HOME SELF-CARE Condition: Good Instructions (If sedation given, give patient instructions): Heart Palpitations (ED), Gastritis (ED) Referrals: Lukasz Durán MD [Primary Care Provider] - 1-2 days
--- NOTE | 2024-05-16 13:28 | XR ---
EXAMINATION TYPE: XR chest 2V DATE OF EXAM: 05/16/2024 1:22 PM COMPARISON: 03/03/2023 CLINICAL INDICATION: Male, 69 years old with history of Chest Pain: Shortness of breath TECHNIQUE: XR chest 2V views of the chest are obtained. FINDINGS: Scattered senescent parenchymal changes noted. Hyperinflation compatible with COPD. No evidence for infiltrate. No evidence for atelectasis. Heart size is stable. Mediastinal structures are stable and grossly unremarkable. No evidence for hilar prominence. Degenerative changes dorsal spine. IMPRESSION: 1. No evidence for acute pulmonary disease. [facility], , 05/16/2024 1:25 PM
[2024-05-16 16:29] LABS: Basophils % (A) 0 %; Eosinophils # (A) 0.2 k/uL (0-0.7); Eosinophils % (A) 2 %; HCT 48.3 % (39.0-53.0); HGB 15.5 gm/dL (13.0-17.5); Lymphocytes # (A) 2.6 k/uL (1.0-4.8); Lymphocytes % (A) 23 %; MCH 29.1 pg (25.0-35.0); MCHC 32.2 g/dL (31.0-37.0); MCV 90.3 fL (80.0-100.0); Mean Platelet Volume 7.6; Monocytes # (A) 0.7 k/uL (0-1.0); Monocytes % (A) 6 %; Neutrophils # (A) 7.8 k/uL (1.3-7.7); Neutrophils % (A) 67 %; Platelet Count 217 k/uL (150-450); RBC 5.35 m/uL (4.30-5.90); RDW 14.9 % (11.5-15.5); WBC 11.6 k/uL (3.8-10.6)
[2024-05-16 16:39] LABS: ALT 31 U/L (4-49); AST 31 U/L (17-59); African American GFR (CKD) >90 (>60 ml/min/1.73 sqM); Albumin 4.7 g/dL (3.5-5.0); Alkaline Phosphatase 79 U/L (38-126); Anion Gap 11 mmol/L; Blood Urea Nitrogen 14 mg/dL (9-20); Calcium 9.6 mg/dL (8.4-10.2); Carbon Dioxide 25 mmol/L (22-30); Chloride 102 mmol/L (98-107); Glucose 108 mg/dL (74-99); Magnesium 1.9 mg/dL (1.6-2.3); Non-African American GFR(CKD) >90 (>60 ml/min/1.73 sqM); Potassium 4.2 mmol/L (3.5-5.1); Sodium 138 mmol/L (137-145); Total Bilirubin 0.5 mg/dL (0.2-1.3); Total Protein 7.6 g/dL (6.3-8.2)
[2024-05-16 16:42] LABS: Partial Thromboplastin Time 26.2 sec (22.0-30.0)
[2024-05-16 18:03] VITALS: BP 144/81; PULSE 91; RESP 18
== END 2024-05-16 18:02 | disposition home or self-care (01) ==
LOC: EC 12:40
DX: I25.10 Atherosclerotic heart disease of native coronary artery without angina pectoris (principal); K29.70 Gastritis, unspecified, without bleeding; Z79.899 Other long term (current) drug therapy; Z88.8 Allergy status to other drugs, medicaments and biological substances; Z87.891 Personal history of nicotine dependence
CPT/HCPCS: 36415; 71046; 80053; 83735; 84484; 85025; 85610; 85730; 93005; 99285